=== PATIENT | female | born 1970 | race Hispanic/Latino ===

== ENCOUNTER 2018-03-30 08:22 | Emergency (ER) | payer BC, OTHER, SELFPAY ==
[2018-03-30] MEDS ORDERED: TETRACAINE HCL 0.5% 2ML OPTH ONE (08:41)
[2018-03-30] MEDS ORDERED: FLUORESCEIN SODIUM 0.6 MG/WRAP ONE (08:45)
--- NOTE | 2018-03-30 09:12 | ER ---
Nurse's Notes [facility] Name: Denise Solano Age: 47 yrs Sex: Female : 1970 Arrival Date: 03/30/2018 Time: 08:25 Bed 16 Private MD: Out, [facility] Diagnosis: Injury of conjunctiva and corneal abrasion without foreign body, left eye Presentation: 03/30 08:32 Presenting complaint: Patient states: pain and light sensitivity to L eye that began ss yesterday. Pt wears contacts daily. No known injury. Transition of care: patient was not received from another setting of care. Onset of symptoms was March 29, 2018. Risk Assessment: Do you want to hurt yourself or someone else? Patient reports no desire to harm self or others. Initial Sepsis Screen: Does the patient meet any 2 criteria? No. Patient's initial sepsis screen is negative. Does the patient have a suspected source of infection? No. Patient's initial sepsis screen is negative. Care prior to arrival: None. 08:32 Method Of Arrival: Ambulatory ss 08:32 Acuity: FE 4 ss Triage Assessment: 08:35 General: Appears uncomfortable, Behavior is calm, cooperative. Pain: Complains of pain ss in left eye Pain currently is 10 out of 10 on a pain scale. Quality of pain is described as burning, tender, Is continuous. Derm: Skin is pink, warm \T\ dry. 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 - Social history:: Smoking status: Patient/guardian denies using tobacco. - Ebola Screening: : Patient denies exposure to infectious person Patient denies travel to an Ebola-affected area in the 21 days before illness onset. Screenin:25 Abuse screen: Denies threats or abuse. Nutritional screening: No deficits noted. em Tuberculosis screening: No symptoms or risk factors identified. Fall Risk None identified. Assessment: 08:40 General: Appears in no apparent distress. uncomfortable, Behavior is calm, cooperative, em Reports pain in left eye after removing contact. Pain: Complains of pain in left eye Pain currently is 10 out of 10 on a pain scale. Quality of pain is described as sharp, Pain began 1 day ago. Neuro: Level of Consciousness is awake, alert, obeys commands, Oriented to person, place, time, situation. Cardiovascular: Capillary refill < 3 seconds Patient's skin is warm and dry. Respiratory: Airway is patent Respiratory effort is even, unlabored, Respiratory pattern is regular, symmetrical. GI: Abdomen is flat. EENT: Eyes are tearing on left eye Reports pain in left eye. Derm: Skin is intact, Skin is pink, warm \T\ dry. Musculoskeletal: Range of motion: intact in all extremities. Vital Signs: 08:34 Resp 16; Weight 59.87 kg; Height 4 ft. 11 in. (149.86 cm); Pain 10/10; ss 08:49 BP 146 / 92; Pulse 86; Pulse Ox 96% ; ss 08:52 Temp 97.6(TE); ss 08:34 Body Mass Index 26.66 (59.87 kg, 149.86 cm) ss Visual Acuity: 08:54 Left Eye Visual acuity 20/40, ; Right Eye Visual acuity 20/15, ; Both Eyes Visual em acuity 20/15; With Lenses; ED Course: 08:25 Patient arrived in ED. sb2 08:26 Out, [facility] is Private Physician. sb2 08:30 [facility] Wall [facility] 08:30 Jeffrey Hardin MD is Attending Physician. jmm 08:33 Triage completed. ss 08:34 Arm band placed on right wrist. ss 08:41 Jose Leos LVN is Primary Nurse. em 08:50 Patient has correct armband on for positive identification. Bed in low position. Call em light in reach. 09:11 Chandrakant Castro MD is Referral Physician. jmm 09:25 Assist provider with eye exam of left eye. using fluorescein stain, Performed by Alexander HERNANDEZ Patient tolerated well. Patient did not have IV access during this emergency room visit. Administered Medications: 08:41 Drug: Tetracaine Drops 0.5 % 1 drops {Note: administered by MARY Munoz.} Route: em Ophthalmic; Site: left eye; Outcome: :11 Discharge ordered by MD. mcneal 09:26 Discharged to home ambulatory. em : Condition: good : Discharge instructions given to patient, Instructed on discharge instructions, follow up and referral plans. medication usage, Demonstrated understanding of instructions, follow-up care, medications, Prescriptions given X 1. :26 Patient left the ED. em Signatures: Alexander Wall PA PA jmm Munoz, Edgar, FIELD PIPE LINES SUPERVISOR FIELD PIPE LINES SUPERVISOR Roseline Spears, RN RN Ania Yin sb2
--- NOTE | 2018-03-30 09:12 | EDPHYS ---
Physician Documentation [facility] Name: Denise Solano Age: 47 yrs Sex: Female : 1970 Arrival Date: 03/30/2018 Time: 08:25 Bed 16 Private MD: Out, [facility] ED Physician Jeffrey Hardin HPI: 03/30 08:36 This 47 yrs old Female presents to ER via Ambulatory with complaints of Eye jmm Problem. 08:36 Onset: The symptoms/episode began/occurred gradually, 1 day(s) ago. Associated signs jmm and symptoms:. Patient complains of left eye pain after developing and itch to her left eye. Patient states taking her contact out last night with increased pain today. . 08:36 Duration: the symptoms are continuous. jmm 08:36 Aggravated by light, Alleviated by nothing. 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 - Social history:: Smoking status: Patient/guardian denies using tobacco. - Ebola Screening: : Patient denies exposure to infectious person Patient denies travel to an Ebola-affected area in the 21 days before illness onset. ROS: 08:36 Constitutional: Negative for fever, chills, and weight loss. jmm 08:36 Neck: Negative for injury, pain, and swelling, Cardiovascular: Negative for chest pain, palpitations, and edema, Respiratory: Negative for shortness of breath, cough, wheezing, and pleuritic chest pain, Abdomen/GI: Negative for abdominal pain, nausea, vomiting, diarrhea, and constipation, Back: Negative for injury and pain, : Negative for injury, bleeding, discharge, and swelling, MS/Extremity: Negative for injury and deformity, Skin: Negative for injury, rash, and discoloration, Neuro: Negative for headache, weakness, numbness, tingling, and seizure. 08:36 Eyes: Positive for pain, redness. 08:36 All other systems are negative. Exam: 08:36 Visual Acuity: I have reviewed the nursing documentation. [facility] 08:36 Constitutional: This is a well developed, well nourished patient who is awake, alert, and in no acute distress. Head/Face: atraumatic. 08:36 Eyes: Conjunctiva: injected, in the left eye, Corneas: abrasion, that is small, on the left, at 12 o'clock, a fluorescein strip employed to appreciate the findings, Intraocular pressure: left eye = 12mmHg. 08:36 ENT: 08:36 Neck: ROM/movement: is normal. 08:36 Chest/axilla: Inspection: normal. 08:36 Cardiovascular: Rate: normal. 08:36 Respiratory: the patient does not display signs of respiratory distress. 08:36 Abdomen/GI: Inspection: abdomen appears normal. 08:36 Back: ROM is normal. 08:36 Musculoskeletal/extremity: ROM: intact in all extremities. 08:36 Skin: Appearance: Color: normal in color. 08:36 Neuro: Orientation: is normal, Mentation: is normal, Memory: is normal, Gait: is steady. 08:36 Psych: Behavior/mood is pleasant, cooperative. Vital Signs: 08:34 Resp 16; Weight 59.87 kg; Height 4 ft. 11 in. (149.86 cm); Pain 10/10; ss 08:49 BP 146 / 92; Pulse 86; Pulse Ox 96% ; ss 08:52 Temp 97.6(TE); ss 08:34 Body Mass Index 26.66 (59.87 kg, 149.86 cm) ss Visual Acuity: 08:54 Left Eye Visual acuity 20/40, ; Right Eye Visual acuity 20/15, ; Both Eyes Visual em acuity 20/15; With Lenses; MDM: 08:35 Patient medically screened. [facility] 09:10 Data reviewed: vital signs, nurses notes. Counseling: I had a detailed discussion with elizabet the patient and/or guardian regarding: the historical points, exam findings, and any diagnostic results supporting the discharge/admit diagnosis, the presence of at least one elevated blood pressure reading (>120/80) during this emergency department visit, the need for outpatient follow up, to return to the emergency department if symptoms worsen or persist or if there are any questions or concerns that arise at home. Response to treatment: the patient's symptoms have markedly improved after treatment. 03/30 08:36 Order name: Fluoresene Opth strip; Complete Time: 08:43 elizabet Administered Medications: 08:41 Drug: Tetracaine Drops 0.5 % 1 drops {Note: administered by MARY Munoz.} Route: em Ophthalmic; Site: left eye; Disposition: 14:36 Co-signature as Attending Physician, Jeffrey Hardin MD I agree with the assessment and kdr plan of care. Disposition: 03/30/18 09:11 Discharged to Home. Impression: Injury of conjunctiva and corneal abrasion without foreign body, left eye. - Condition is Stable. - Discharge Instructions: Corneal Abrasion. - Prescriptions for Ocuflox 0.3 % Ophthalmic Drops - instill 2 drop by OPHTHALMIC route every 6 hours for 2 days; 15 milliliter. - Medication Reconciliation Form, Thank You Letter, Antibiotic Education, Prescription Opioid Use form. - Follow up: Chandrakant Castro MD; When: 1 - 2 days; Reason: Continuance of care. - Notes: Please follow up with opthalmology for reevaluation. Please return to the ED if you develop fever, increased pain, decreased vision or any other concerning symptoms. Signatures: Jeffrey Hardin MD MD kdr Mickail, Joel, PA PA jmm Munoz, Edgar, OPERATIONS SPECIALIST OPERATIONS SPECIALIST Roseline Spears RN RN ss Corrections: (The following items were deleted from the chart) 09:26 09:11 03/30/2018 09:11 Discharged to Home. Impression: Injury of conjunctiva and em corneal abrasion without foreign body, left eye. Condition is Stable. Forms are Medication Reconciliation Form, Thank You Letter, Antibiotic Education, Prescription Opioid Use. Follow up: Chandrakant Castro; When: 1 - 2 days; Reason: Continuance of care. elizabet
== END 2018-03-30 09:26 | disposition home or self-care (01) ==
LOC: ER 08:22
DX: S05.02XA Injury of conjunctiva and corneal abrasion without foreign body, left eye, initial encounter (principal); F32.9 Major depressive disorder, single episode, unspecified; F41.9 Anxiety disorder, unspecified; Z88.0 Allergy status to penicillin; X58.XXXA Exposure to other specified factors, initial encounter; Y92.9 Unspecified place or not applicable; Y93.89 Activity, other specified; Y99.9 Unspecified external cause status
CPT/HCPCS: 99283

== ENCOUNTER 2020-10-13 09:23 | Emergency (ER) | payer BC ==
--- OUTSIDE RECORDS SUMMARY | 2020-10-13 09:33 | XMS REPORT | Continuity of Care Document ---
:1970 Author Organization [facility] t Address [address] [place] [address] Care Team Providers Name Role Phone Jarrett Swift Attending Clinician Jarrett Swift Admitting Clinician Problems Condition Condition Condition Status Onset Resolution Last Treating Co mments Source Name Details Category Date Date Treatment Clinician Date Anxiety Problem Active 2019-06-21 Dani ulises (finding) 04:00:35 l Anxiety Mcwilliams (finding) Active Problem 06/21/2019 [facility] Shoulder Problem Active 2019-06-21 Mem oria pain 04:00:35 l (finding) Shoulder Her arango pain (finding) Active Problem 06/21/2019 [facility] Other Problem 2019-0 2019-06-21 2019-06-21 M emoria injury of 9-04 04:00:35 04:00:35 l muscle(s) Other 05:00: Jean n and injury of 00 tendon(s) muscle(s) of the and rotator tendon(s) cuff of of the left rotator shoulder, cuff of initial left encounter shoulder, initial encounter 06/19/2019 06/21/2019 [facility] History of Past Illness Condition Condition Condition Status Onset Resolution Last Treating Co mments Source Name Details Category Date Date Treatment Clinician Date Infection Problem Resolve 2019-0 2019-06-21 2019-06-21 Memoria of tooth d 7-03 04:00:35 04:00:35 l (disorder) 00:00: Jean n Infection 00 of tooth (disorder) Resolved 04/17/2019 Problem 06/21/2019 [facility] Allergies, Adverse Reactions, Alerts Allergy Allergy Status Severity Reaction(s) Onset Inactive Treating Comm ents Source Name Type Date Date Clinician penicill penicill Active Memori a ins ins l Elijah Social History Smoking Status Start Date Stop Date Source Social History [facility] Medications Ordered Filled Start Stop Current Ordering Indication Dosage Frequency Signature Comments Components Source Medication Medication Date Date Medication? Clinician (SIG) Name Name Misc 2018- No 200 mL, Memoria Medication 9-04 Soln-IV, l 22:29: IV, Once, Elijah 00 first dose 06/19/19 17:29:00 CDT, stop date 06/19/19 17:29:00 CDT Ondansetron No 4 mg = 2 Me moria 9-04 mL, l 22:22: Injection, Mcwilliams 00 IV Push, q15min PRN for nausea, order duration: 2 doses, first dose 06/19/19 17:22:00 CDT, stop date Limited # of times Dilaudid No 0.5 mg = Memor ia 9-04 0.5 mL, l 22:22: Injection, Mcwilliams 00 IV Push, q10min PRN for pain severe (7-10), first dose 06/19/19 17:22:00 CDT Promethazin No 12.5 mg = M emoria e 9-04 0.5 mL, l 22:22: Injection, IM, Once PRN for vomiting, first dose 06/19/19 17:22:00 CDT Bupivacaine No 300 mL, Mem oria 0.25% 300 04 Nerve l mL pump 300 22:22: Block, 5 He rmann mL 00 mL/hr, start date 06/19/19 17:22:00 CDT LR 1,000 mL No 1,000 mL, M emoria 9-04 IV, 75 l 22:22: mL/hr, start date 06/19/19 17:22:00 CDT Saline Lock No 10 mL, Dani ulises Flush 06-19 Soln, IV l 22:22: Push, As Indicated PRN for flush, first dose 06/19/19 17:22:00 CDT Acetaminoph Yes Notes: Max Memoria en 325 MG / 06-19 4gm l Hydrocodone 22:21: acetaminop Elijah Bitartrate 00 hen in 24 10 MG Oral hours Tablet [[place] 10/325] Zofran 2019-0 No 4 mg = 2 Memoria 9-04 mL, l 22:21: Injection, Elijah 00 IV Push, q30min PRN for nausea/vom iting, order duration: 2 doses, first dose 06/19/19 17:21:00 CDT, stop date Limited # of times fentaNYL 2019-0 No 50 mcg = 1 Mem oria 9-04 mL, l 22:04: Injection, Elijah 00 IV, Once, first dose 06/19/19 17:04:00 CDT, stop date 06/19/19 17:04:00 CDT ketorolac 2019-0 No 30 mg = 1 Mem oria 9-04 mL, l 22:02: Injection, Mcwilliams 00 IV, Once, first dose 06/19/19 17:02:00 CDT, stop date 06/19/19 17:02:00 CDT fentaNYL 2019-0 No 50 mcg = 1 Mem oria 9-04 mL, l 21:48: Injection, Elijah 00 IV, Once, first dose 06/19/19 16:48:00 CDT, stop date 06/19/19 16:48:00 CDT Misc 2019-0 No 1,000 mL, Memoria Medication 9-04 Soln-IV, l 21:32: IV, Once, first dose 06/19/19 16:32:00 CDT, stop date 06/19/19 16:32:00 CDT clindamycin 2019-0 No 900 mg, Mem oria 9-04 Soln-IV, l 20:29: IV Mcwilliams 00 Piggyback, Once, first dose 06/19/19 15:29:00 CDT, stop date 06/19/19 15:29:00 CDT Dilaudid 2019-0 No 0.5 mg = Memor ia 9-04 0.5 mL, l 20:26: Injection, Mcwilliams 00 IV Push, q10min PRN for pain severe (7-10), first dose 06/19/19 15:26:00 CDT Labetalol 2019-0 No 5 mg = 1 Dani ulises 9-04 mL, l 20:26: Injection, Mcwilliams 00 IV Push, As Indicated PRN for hypertensi on, first dose 06/19/19 15:26:00 CDT Diphenhydra 2019-0 No 25 mg = Mem oria mine 9-04 0.5 mL, l 20:26: Injection, Mcwilliams 00 IV Push, Once PRN for itching, first dose 06/19/19 15:26:00 CDT Promethazin 2019-0 No 12.5 mg = M emoria e 9-04 0.5 mL, l 20:26: Injection, Elijah 00 IM, Once PRN for vomiting, first dose 06/19/19 15:26:00 CDT Hydralazine 2018-0 No 10 mg = Mem oria 9-04 0.5 mL, l 20:26: Injection, Elijah IV Push, As Indicated PRN for hypertensi on, first dose 06/19/19 15:26:00 CDT Demerol HCl 2018-0 No 12.5 mg = M emoria 9-04 0.5 mL, l 20:26: Injection, Elijah 00 IV Push, Once PRN for shivers, first dose 06/19/19 15:26:00 CDT Levalbutero 2018-0 No 0.63 mg = M emoria l 0.21 9-04 3 mL, l MG/ML 20:26: Soln, NEB, Jean n Inhalant 00 Once PRN Solution for [Xopenex] wheezing, first dose 06/19/19 15:26:00 CDT Ondansetron 0 No 4 mg = 2 Me moria 9-04 mL, l 20:26: Injection, Elijah 00 IV Push, q15min PRN for nausea, order duration: 2 doses, first dose 06/19/19 15:26:00 CDT, stop date Limited # of times Saline Lock 2018-0 No 10 mL, Dani ulises Flush 06-19 Soln, IV l 20:26: Push, As Mcwilliams 00 Indicated PRN for flush, first dose 06/19/19 15:26:00 CDT LR 1,000 mL 2019-0 No 1,000 mL, M emoria 9-04 IV, 75 l 20:26: mL/hr, Elijah start date 06/19/19 15:26:00 CDT Bupivacaine 2018-0 No 300 mL, Mem oria 0.25% 300 904 Nerve l mL pump 300 20:26: Block, 5 He rmann mL 00 mL/hr, start date 06/19/19 15:26:00 CDT ePHEDrine 2019-0 No 10 mg = Memor ia 9-04 0.2 mL, l 20:25: Injection, Mcwilliams 00 IV, Once, first dose 06/19/19 15:25:00 CDT, stop date 06/19/19 15:25:00 CDT dexamethaso 2019-0 No 8 mg = 2 Me moria ne 9-04 mL, l 20:21: Injection, Mcwilliams 00 IV, Once, first dose 06/19/19 15:21:00 CDT, stop date 06/19/19 15:21:00 CDT ondansetron 2019-0 No 4 mg = 2 Me moria 9-04 mL, l 20:21: Injection, Mcwilliams 00 IV, Once, first dose 06/19/19 15:21:00 CDT, stop date 06/19/19 15:21:00 CDT lidocaine 2019-0 No 60 mg = 3 Mem oria 9-04 mL, l 20:07: Injection, Elijah 00 IV, Once, first dose 06/19/19 15:07:00 CDT, stop date 06/19/19 15:07:00 CDT propofol 2019-0 No 100 mg = Memor ia 9-04 10 mL, l 20:07: Emulsion, Mcwilliams 00 IV, Once, first dose 06/19/19 15:07:00 CDT, stop date 06/19/19 15:07:00 CDT fentaNYL 2019-0 No 50 mcg = 1 Mem oria 9-04 mL, l 20:04: Injection, Mcwilliams 00 IV, Once, first dose 06/19/19 15:04:00 CDT, stop date 06/19/19 15:04:00 CDT midazolam 2019-0 No 1 mg = 1 Dani ulises 9-04 mL, l 20:04: Injection, Elijah 00 IV, Once, first dose 06/19/19 15:04:00 CDT, stop date 06/19/19 15:04:00 CDT Misc 2019-0 No 1,000 mL, Memoria Medication 9- Soln-IV, l 19:58: IV, Once, Mcwilliams 00 first dose 06/19/19 14:58:00 CDT, stop date 06/19/19 14:58:00 CDT midazolam 2019-0 No 1 mg = 1 Dani ulises 9-04 mL, l 19:42: Injection, Mcwilliams 00 IV, Once, first dose 06/19/19 14:42:00 CDT, stop date 06/19/19 14:42:00 CDT fentaNYL 2019-0 No 50 mcg = 1 Mem oria 9-04 mL, l 19:42: Injection, Mcwilliams 00 IV, Once, first dose 06/19/19 14:42:00 CDT, stop date 06/19/19 14:42:00 CDT Clindamycin 2019-0 No 900 mg, Mem oria 9-04 Soln-IV, l 18:00: IV Elijah 00 Piggyback, Once, infuse over 30 minutes, first dose 06/19/19 13:00:00 CDT, stop date 06/19/19 13:00:00 CDT, Prophylaxi s Lidocaine 2019-0 No 0.2 mL, Memor ia 2% 0.2 mL 06-19 Injection, l IV Start 17:44: Subcutaneo Her [facility]] 00 , Once PRN for other (see comment), first dose 06/19/19 12:44:00 CDT LR 1,000 mL 2019-0 No 1,000 mL, M emoria - IV, 30 l 17:44: mL/hr, Mcwilliams 00 start date 06/19/19 12:44:00 CDT Alprazolam 2019-0 Yes 1 mg = 1 Mem oria 1 MG Oral 8-27 tabs, l Tablet 20:52: Oral, As Elijah [Xanax] 00 Indicated, PRN for anxiety Vital Signs Vital Name Observation Time Observation Value Comments Source Systolic (mm Hg) 2019-06-19 23:50:00 Dani rial Mcwilliams Diastolic (mm Hg) 2019-06-19 23:50:00 Mem orial Elijah Respitory Rate 2019-06-19 23:50:00 Arturoori al Elijah Heart Rate 2019-06-19 23:50:00 [facility] Mcwilliams Systolic (mm Hg) 2019-06-19 23:10:00 Dani rial Mcwilliams Diastolic (mm Hg) 2019-06-19 23:10:00 Mem orial Elijah Heart Rate 2019-06-19 23:10:00 [facility] Mcwilliams Respitory Rate 2019-06-19 23:10:00 Isa xavier Elijah Systolic (mm Hg) 2019-06-19 23:00:00 Dani salinas Mcwilliams Diastolic (mm Hg) 2019-06-19 23:00:00 [facility] orial Mcwilliams Heart Rate 2019-06-19 23:00:00 [facility] Respitory Rate 2019-06-19 23:00:00 Memmissy al Elijah Temperature Oral (F) 2019-06-19 22:20:00 36.9 Flor [facility] Mcwilliams Temperature Oral (F) 2019-06-19 17:42:00 36.8 Flor [facility] Elijah Height 2019-06-19 17:42:00 149.86 cm [facility] Elijah Height 2019-06-11 20:45:00 149.86 cm [facility] Elijah Procedures Procedure Date / Time Performing Clinician Source Performed ARTHROSCOPIC DEBRIDEMENT 2019-06-19 20:39:00 [facility] orimorenita Nava SHOULDER-EXTENSIVE 86854 (Left)<sup>1</sup> ARTHROSCOPY SHOULDER 2019-06-19 20:39:00 Isable Nava ROTATOR CUFF REPAIR [id number] (Left)<sup>2</sup> ARTHROSCOPY SHOULDER 2019-06-19 20:39:00 Isabel Nava W/BICEPS TENDONESIS [id number] (Left)<sup>3</sup> ARTHROSCOPY SHOULDER 2019-06-19 20:39:00 Isabel Nava W/SUBACROMIAL DECOMPRESSION/ACROMIOPLASTY [id number] (Left)<sup>4</sup> tooth extraction 2019-04-17 05:00:00 [facility] Gilberto rmann Appendectomy 2010-10-16 00:00:00 [facility] arango Hysterectomy 2007-10-16 00:00:00 [facility] Her arango Cholecystectomy 2005-10-16 00:00:00 [facility] Her arango Encounters Start End Encounter Admission Attending Care Care Encounter Source Date/Time Date/Time Type Type Clinicians Facility Department ID 2019-06-19 2019-06-19 [facility] [id number] 11:54:16 19:00:00 Eusebio Farias 2018-12-21 2018-12-21 [facility] [id number] 09:21:48 23:59:59 Eusebio Farias Results This patient has no known results.
--- OUTSIDE RECORDS SUMMARY | 2020-10-13 09:33 | XMS REPORT | Continuity of Care Document ---
:1970 Author Organization [email or web address] Care Team Providers Name Role Phone [email or web address] Unavailable Un available Problems Problem Status Onset Classification Date Comments Sourc e Date Reported Other injury 06/21/2019 [facility] of muscle(s) 9 and tendon(s) of the rotator cuff of left shoulder, initial encounter Infection of Resolved Problem 06/21/2019 [facility] tooth 9 (disorder) Anxiety Active Problem 06/21/2019 [facility] (finding) Shoulder pain Active Problem 06/21/2019 [facility] (finding) Medications Medication Details Route Status Patient Ordering Order Source Instructions [facility] Med[facility] 200 mL, Inactive [facility] Soln-IV, IV, 2019 Once, first dose 06/19/19 17:29:00 CDT, stop date 06/19/19 17:29:00 CDT Ondansetron 4 mg = 2 mL, Inactive [facility] Injection, IV 2019 Push, q15min PRN for nausea, order duration: 2 doses, first dose 06/19/19 17:22:00 CDT, stop date Limited # of times Dilaudid 0.5 mg = 0.5 Inactive 06/19/ [facility] mL, Injection, 2019 IV Push, q10min PRN for pain severe (7-10), first dose 06/19/19 17:22:00 CDT Promethazine 12.5 mg = 0.5 Inactive 06/19/ [facility] mL, Injection, 2019 IM, Once PRN for vomiting, first dose 06/19/19 17:22:00 CDT Bupivacaine 0.25% 300 mL, Nerve Inactive 06/19/ [facility] 300 mL pump 300 Block, 5 mL/hr, 2019 mL start date 06/19/19 17:22:00 CDT LR 1,000 mL 1,000 mL, IV, Inactive 06/19/ [facility] 75 mL/hr, start 2019 06/19/19 17:22:00 CDT Saline Lock Flush 10 mL, Soln, IV Inactive 06/19 / [facility] Push, As 2019 Indicated PRN for flush, first dose 06/19/19 17:22:00 CDT Acetaminophen 325 Notes: Max 4gm Active 06/19/ [facility] MG / Hydrocodone acetaminophen 2019 Bitartrate 10 MG in 24 hours Oral Tablet [Tualatin 10/325] Zofran 4 mg = 2 mL, Inactive [facility] Injection, IV 2019 Push, q30min PRN for nausea/vomiting , order duration: 2 doses, first dose 06/19/19 17:21:00 CDT, stop date Limited # of times fentaNYL 50 mcg = 1 mL, Inactive [facility] Injection, IV, 2019 Once, first dose 06/19/19 17:04:00 CDT, stop date 06/19/19 17:04:00 CDT ketorolac 30 mg = 1 mL, Inactive [facility] Injection, IV, 2019 Once, first dose 06/19/19 17:02:00 CDT, stop date 06/19/19 17:02:00 CDT fentaNYL 50 mcg = 1 mL, Inactive [facility] Injection, IV, 2019 Once, first dose 06/19/19 16:48:00 CDT, stop date 06/19/19 16:48:00 CDT Misc Medication 1,000 mL, Inactive [facility] Soln-IV, IV, 2019 Once, first dose 06/19/19 16:32:00 CDT, stop date 06/19/19 16:32:00 CDT clindamycin 900 mg, Inactive [facility] Soln-IV, IV 2019 Piggyback, Once, first dose 06/19/19 15:29:00 CDT, stop date 06/19/19 15:29:00 CDT Dilaudid 0.5 mg = 0.5 Inactive [facility] mL, Injection, 2019 IV Push, q10min PRN for pain severe (7-10), first dose 06/19/19 15:26:00 CDT Labetalol 5 mg = 1 mL, Inactive [facility] Injection, IV 2019 Push, As Indicated PRN for hypertension, first dose 06/19/19 15:26:00 CDT Diphenhydramine 25 mg = 0.5 mL, Inactive 06/19/ [facility] Injection, IV 2019 Push, Once PRN for itching, first dose 06/19/19 15:26:00 CDT Promethazine 12.5 mg = 0.5 Inactive 06/19/ [facility] mL, Injection, 2019 IM, Once PRN for vomiting, first dose 06/19/19 15:26:00 CDT Hydralazine 10 mg = 0.5 mL, Inactive [facility] I Injection, IV 2019 Push, As Indicated PRN for hypertension, first dose 06/19/19 15:26:00 CDT Demerol HCl 12.5 mg = 0.5 Inactive 06/19/ [facility] mL, Injection, 2019 IV Push, Once PRN for shivers, first dose 06/19/19 15:26:00 CDT Levalbuterol 0.21 0.63 mg = 3 mL, Inactive 06/19 [facility] MG/ML Inhalant Soln, NEB, Once 2019 Solution PRN for [Xopenex] wheezing, first dose 06/19/19 15:26:00 CDT Ondansetron 4 mg = 2 mL, Inactive [facility] Injection, IV 2019 Push, q15min PRN for nausea, order duration: 2 doses, first dose 06/19/19 15:26:00 CDT, stop date Limited # of times Saline Lock Flush 10 mL, Soln, IV Inactive 06/19 [facility] Push, As 2019 Indicated PRN for flush, first dose 06/19/19 15:26:00 CDT LR 1,000 mL 1,000 mL, IV, Inactive [facility] 75 mL/hr, start 2019 date 06/19/19 15:26:00 CDT Bupivacaine 0.25% 300 mL, Nerve Inactive 06/19/ [facility] 300 mL pump 300 Block, 5 mL/hr, 2019 mL start date 06/19/19 15:26:00 CDT ePHEDrine 10 mg = 0.2 mL, Inactive [facility] Injection, IV, 2019 Once, first dose 06/19/19 15:25:00 CDT, stop date 06/19/19 15:25:00 CDT dexamethasone 8 mg = 2 mL, Inactive [facility] Injection, IV, 2019 Once, first dose 06/19/19 15:21:00 CDT, stop date 06/19/19 15:21:00 CDT ondansetron 4 mg = 2 mL, Inactive [facility] Injection, IV, 2019 Once, first dose 06/19/19 15:21:00 CDT, stop date 06/19/19 15:21:00 CDT lidocaine 60 mg = 3 mL, Inactive [facility] Injection, IV, 2019 Once, first dose 06/19/19 15:07:00 CDT, stop date 06/19/19 15:07:00 CDT propofol 100 mg = 10 mL, Inactive I Emulsion, IV, 2019 Once, first dose 06/19/19 15:07:00 CDT, stop date 06/19/19 15:07:00 CDT fentaNYL 50 mcg = 1 mL, Inactive [facility] Injection, IV, 2019 Once, first dose 06/19/19 15:04:00 CDT, stop date 06/19/19 15:04:00 CDT midazolam 1 mg = 1 mL, Inactive [facility] Injection, IV, 2019 Once, first dose 06/19/19 15:04:00 CDT, stop date 06/19/19 15:04:00 CDT Misc Medication 1,000 mL, Inactive I Soln-IV, IV, 2019 Once, first dose 06/19/19 14:58:00 CDT, stop date 06/19/19 14:58:00 CDT midazolam 1 mg = 1 mL, Inactive [facility] Injection, IV, 2019 Once, first dose 06/19/19 14:42:00 CDT, stop date 06/19/19 14:42:00 CDT fentaNYL 50 mcg = 1 mL, Inactive [facility] Injection, IV, 2019 Once, first dose 06/19/19 14:42:00 CDT, stop date 06/19/19 14:42:00 CDT Clindamycin 900 mg, Inactive I Soln-IV, IV 2019 Piggyback, Once, infuse over 30 minutes, first dose 06/19/19 13:00:00 CDT, stop date 06/19/19 13:00:00 CDT, Prophylaxis Lidocaine 2% 0.2 0.2 mL, Inactive [facility] mL IV Start Injection, 2019 [[facility]] Subcutaneous, Once PRN for other (see comment), first dose 06/19/19 12:44:00 CDT LR 1,000 mL 1,000 mL, IV, Inactive 06/19/ [facility] 30 mL/hr, start 2019 date 06/19/19 12:44:00 CDT Alprazolam 1 MG 1 mg = 1 tabs, Active [facility] Oral Tablet Oral, As 2019 [Xanax] Indicated, PRN for anxiety Allergies, Adverse Reactions, Alerts Substance Category Reaction Severity Reaction Status Date Comments S ource type Reported penicillins Assertion Rash Drug Active [facility] allergy Immunizations No Data Provided for This Section Results No Data Provided for This Section Pathology Reports No Data Provided for This Section Diagnostic Reports No Data Provided for This Section Consultation Notes No Data Provided for This Section Discharge Summaries No Data Provided for This Section History and Physicals No Data Provided for This Section Vital Signs Vital Sign Value Date Comments Source Systolic (mm Hg) 160 06/19/2019 [facility] Diastolic (mm Hg) 80 06/19/2019 [facility] Respitory Rate 12 06/19/2019 [facility] Heart Rate 95 06/19/2019 [facility] Systolic (mm Hg) 170 06/19/2019 [facility] Diastolic (mm Hg) 93 06/19/2019 [facility] Heart Rate 100 06/19/2019 [facility] Respitory Rate 14 06/19/2019 [facility] Systolic (mm Hg) 152 06/19/2019 [facility] Diastolic (mm Hg) 81 06/19/2019 [facility] Heart Rate 82 06/19/2019 [facility] Respitory Rate 12 06/19/2019 [facility] Temperature Oral (F) 36.9 Flor 06/19/2019 [facility] Temperature Oral (F) 36.8 Flor 06/19/2019 [facility] Peripheral Pulse Rate 77 06/19/2019 [facility] Height 149.86 cm 06/19/2019 [facility] Weight Measured 59.4 06/19/2019 [facility] Weight Measured 59.42 06/11/2019 [facility] Height 149.86 cm 06/11/2019 [facility] Encounters Location Location Encounter Encounter Reason Attending ADM [place] Stat us Source Details Type Number For Provider Date Date Visit [facility] Outpatient [id number] Eusebio 12/21 12/21 Active [facility] Outpatient [id number] Eusebio 12/21 12/22 [facility] Elijah Spicer [facility] Outpatient [id number] Eusebio 06/19 06/19 Active Surgic al [facility] Outpatient [id number] Eusebio 06/19 06/20 [facility] Elijah Spicer [facility] Procedures Procedure Code Date Perfomer Comments Source ARTHROSCOPIC 06/19/2019 auto-populated [facility] DEBRIDEMENT from documented SHOULDER-EXTENSIVE surgical case [id number] (Left)<sup>1</sup> ARTHROSCOPY SHOULDER 06/19/2019 auto-populated [facility] ROTATOR CUFF REPAIR from documented [id number] surgical case (Left)<sup>2</sup> ARTHROSCOPY SHOULDER 06/19/2019 auto-populated [facility] W/BICEPS TENDONESIS from documented [id number] surgical case (Left)<sup>3</sup> ARTHROSCOPY SHOULDER 06/19/2019 auto-populated [facility] W/SUBACROMIAL from documented DECOMPRESSION/ACROMIO surgical case PLASTY [id number] (Left)<sup>4</sup> tooth extraction 04/17/2019 [facility] Appendectomy [id number] 10/16/2010 [facility] Hysterectomy [id number] 10/16/2007 [facility] Cholecystectomy [id number] 10/16/2005 [facility] Assessment and Plan No Data Provided for This Section Plan of Care No Data Provided for This Section Social History Social History Date Source Social History TypeResponse 06/11/2019 [facility] Smoking Status Never (less than 100 in lifetime); Never entered on: 06/11/19 Family History No Data Provided for This Section Advance Directives No Data Provided for This Section Functional Status No Data Provided for This Section
[2020-10-13] MEDS ORDERED: FLUORESCEIN SODIUM 1 MG/WRAP ONE (10:01)
[2020-10-13] MEDS ORDERED: TETRACAINE HCL 0.5% 4ML OPTH ONE (10:01)
--- NOTE | 2020-10-13 10:07 | ER ---
Nurse's Notes [facility] Name: Denise Solano Age: 49 yrs Sex: Female : 1970 Arrival Date: 10/13/2020 Time: 09:26 Bed 14 Private MD: Diagnosis: Ocular pain, right eye Presentation: 10/13 09:35 Chief complaint: Patient states: Reports right eye pain/pressure since yesterday. jl7 Coronavirus screen: Client denies travel out of the [place] in the last 14 days. At this time, the client does not indicate any symptoms associated with coronavirus-19. Ebola Screen: No symptoms or risks identified at this time. Mechanism of Injury: No Mechanism of Injury. The patient denies any loss of vision. Initial Sepsis Screen: Does the patient meet any 2 criteria? No. Patient's initial sepsis screen is negative. Does the patient have a suspected source of infection? No. Patient's initial sepsis screen is negative. Risk Assessment: Do you want to hurt yourself or someone else? Patient reports no desire to harm self or others. Onset of symptoms was October 12, 2020. Transition of care: patient was not received from another setting of care. 09:35 Method Of Arrival: Ambulatory jl7 09:35 Acuity: FE 4 jl7 Triage Assessment: 09:35 General: Appears in no apparent distress. uncomfortable, Behavior is calm, cooperative, jl7 appropriate for age. Pain: Complains of pain in right eye Pain currently is 8 out of 10 on a pain scale. at worst was 10 out of 10 on a pain scale. EENT: Sclera/Cornea are reddened in right eye. Neuro: Level of Consciousness is awake, alert, obeys commands, Oriented to person, place, time, situation. Cardiovascular: Patient's skin is warm and dry. Respiratory: Airway is patent Respiratory effort is even, unlabored, Respiratory pattern is regular, symmetrical. Derm: Skin is pink, warm \T\ dry. 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 - Social history:: Smoking status: Patient denies any tobacco usage or history of. - Family history:: not pertinent. - Hospitalizations: : No recent hospitalization is reported. Screenin:35 Abuse screen: Denies threats or abuse. Denies injuries from another. Nutritional jl7 screening: No deficits noted. Tuberculosis screening: No symptoms or risk factors identified. Fall Risk None identified. Assessment: 09:35 General: see triage assessment. jl7 Vital Signs: 09:35 BP 161 / 96; Pulse 85; Resp 17; Pulse Ox 100% ; Weight 58.97 kg; Height 4 ft. 11 in. jl7 (149.86 cm); Pain 8/10; 09:35 Body Mass Index 26.26 (58.97 kg, 149.86 cm) jl7 ED Course: 09:26 Patient arrived in ED. rg4 09:34 José Blankenship MD is Attending Physician. rn 09:35 Arm band placed on right wrist. jl7 09:35 Patient has correct armband on for positive identification. Bed in low position. Call jl7 light in reach. Side rails up X 1. Pulse ox on. NIBP on. 09:45 Assist provider with eye exam of right eye. using fluorescein stain, Performed by José Blankenship MD Patient tolerated well. 09:54 Katie Gomez, RN is Primary Nurse. jl7 09:58 Triage completed. jl7 10:06 Chandrakant Castro MD is Referral Physician. rn 10:21 Patient did not have IV access during this emergency room visit. jl7 Administered Medications: 09:45 Drug: Fluorescein Strip 1 strip Route: Ophthalmic; Site: right eye; jl7 09:45 Drug: Tetracaine Drops 0.5 % 1 drops {Note: administered by Dr. Blankenship.} Route: jlHanny Ophthalmic; Site: right eye; Outcome: 10:06 Discharge ordered by MD. rn 10:20 Discharged to home ambulatory. jl7 10:20 Condition: stable 10:20 Discharge instructions given to patient, Instructed on discharge instructions, follow up and referral plans. medication usage, Demonstrated understanding of instructions, follow-up care, medications, Prescriptions given X 1. 10:21 Patient left the ED. jl7 Signatures: José Blankenship MD MD rn Garcia, Rubi rg4 Katie Gomez RN RN jl7
--- NOTE | 2020-10-13 10:07 | EDPHYS ---
Physician Documentation [facility] Name: Denise Solano Age: 49 yrs Sex: Female : 1970 Arrival Date: 10/13/2020 Time: 09:26 Bed 14 Private MD: ED Physician José Blankenship HPI: 10/13 09:46 This 49 yrs old Female presents to ER via Unassigned with complaints of Eye rn Pain. 09:46 The patient is experiencing pain, redness, tearing, The patient sustained None. to the rn right eye, caused by an unknown mechanism. Onset: The symptoms/episode began/occurred yesterday. Duration: the symptoms are continuous. Aggravated by light, rubbing, Alleviated by nothing. Patient does not utilize any form of vision correction. Severity of symptoms: At their worst the symptoms were moderate in the emergency department the symptoms are unchanged. The patient has experienced a previous episode. The patient has not recently seen a physician. 09:46 Woke up after nap yesterday with right eye redness and tearing. No trauma. No contacts. rn . 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 - Social history:: Smoking status: Patient denies any tobacco usage or history of. - Family history:: not pertinent. - Hospitalizations: : No recent hospitalization is reported. 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 Exam: 09:46 Visual Acuity: I have reviewed the nursing documentation. Visual acuity is within rn normal limits. 09:46 Constitutional: This is a well developed, well nourished patient who is awake, alert, and in no acute distress. Head/Face: Normocephalic, atraumatic. Eyes: Pupils equal round and reactive to light, extra-ocular motions intact. Lids and lashes normal. Periorbital areas with no swelling, redness, or edema. + mild redness to sclera and conjunctivae, clear drainage, no corneal defect, no foreign body, no lfuorescein uptake, eyelids everted. Tonopen pressures 22 and 20. Vital Signs: 09:35 BP 161 / 96; Pulse 85; Resp 17; Pulse Ox 100% ; Weight 58.97 kg; Height 4 ft. 11 in. jl7 (149.86 cm); Pain 8/10; 09:35 Body Mass Index 26.26 (58.97 kg, 149.86 cm) jl7 MDM: 09:34 Patient medically screened. rn 09:46 Differential diagnosis: Corneal abrasion of Corneal ulcer of Foreign body in Acute rn iritis of Data reviewed: vital signs, nurses notes, and as a result, I will discharge patient. Counseling: I had a detailed discussion with the patient and/or guardian regarding: the historical points, exam findings, and any diagnostic results supporting the discharge/admit diagnosis, the need for outpatient follow up, to return to the emergency department if symptoms worsen or persist or if there are any questions or concerns that arise at home. Special discussion: I discussed with the patient/guardian in detail that at this point there is no indication for admission to the hospital. It is understood, however, that if the symptoms persist or worsen the patient needs to return immediately for re-evaluation. 10:03 ED course: Recommended urgent Ophthalmology f/u today if possible given upper limit of rn normal of eye pressure, no foreign body found. Will cover with abx, but explained that her eye pressure could continue to increase and cause vision problems permanently, understands, and told her if can't get in and worsens, to come back for repeat pressure testing. . 10/13 09:46 Order name: Eye Tray; Complete Time: 10:03 rn Administered Medications: 09:45 Drug: Fluorescein Strip 1 strip Route: Ophthalmic; Site: right eye; 7 09:45 Drug: Tetracaine Drops 0.5 % 1 drops {Note: administered by Dr. Blankenship.} Route: jl Ophthalmic; Site: right eye; Disposition: 10/13/20 10:06 Discharged to Home. Impression: Ocular pain, right eye. - Condition is Stable. - Prescriptions for Vigamox 0.5 % Ophthalmic Drops - instill 1 drop by OPHTHALMIC route every 8 hours for 7 days; 5 milliliter. - Medication Reconciliation Form, Thank You Letter, Antibiotic Education, Prescription Opioid Use form. - Follow up: Chandrakant Castro MD; When: As needed; Reason: Recheck today's complaints, Re-evaluation by your physician. - Problem is new. - Symptoms have improved. Signatures: José Blankenship MD MD rn Leal, Jahala, RN RN jl7 Corrections: (The following items were deleted from the chart) 09:56 09:46 Constitutional: This is a well developed, well nourished patient who is awake, rn alert, and in no acute distress. Head/Face: Normocephalic, atraumatic. Eyes: Pupils equal round and reactive to light, extra-ocular motions intact. Lids and lashes normal. Periorbital areas with no swelling, redness, or edema. + mild redness to sclera and conjunctivae, clear drainage, no corneal defect, no foreign body, no lfuorescein uptake, eyelids everted. rn 10:21 10:06 10/13/2020 10:06 Discharged to Home. Impression: Ocular pain, right eye. jl7 Condition is Stable. Forms are Medication Reconciliation Form, Thank You Letter, Antibiotic Education, Prescription Opioid Use. Follow up: Chandrakant Castro; When: As needed; Reason: Recheck today's complaints, Re-evaluation by your physician. Problem is new. Symptoms have improved. rn
[2020-10-13 10:25] VITALS: BP 161/96; O2SAT 100
== END 2020-10-13 10:21 | disposition home or self-care (01) ==
LOC: ER 09:23
DX: H57.11 Ocular pain, right eye (principal); F41.8 Other specified anxiety disorders; E11.9 Type 2 diabetes mellitus without complications; Z88.0 Allergy status to penicillin
CPT/HCPCS: 99283

== ENCOUNTER 2022-09-26 13:43 | Emergency (ER) | payer BC ==
--- OUTSIDE RECORDS SUMMARY | 2022-09-26 13:49 | XMS REPORT | Continuity of Care Document ---
:1970 Author Organization [facility] t Address [address] [place] [address] [address]. [address] [place] [address] Care Team Providers Name Role Phone THOR ENGLISH Primary Care Physician Unavailable BILL QUICK Attending Clinician Unavailable KATHY OLMSTEAD Attending Clinician Unavailable TESTING, LJ COVID CORRINEIDE Attending Clinician Unavailable [id number] Attending Clinician Unavailable [id number] Attending Clinician Unavailable URMILA RICO Attending Clinician Unavailable Bill Quick DO Attending Clinician Alexander BROTHERS, Sheri Kennedy Attending Clinician Unavailable DEBRA RHODES Attending Clinician Unavailable Sumanth Ray PA-C Attending Clinician Debra Block Attending Clinician Roxana Olvera RN Attending Clinician Unavailable HUE GOETZ Attending Clinician Unavailable Only, Ang Db Test Attending Clinician Unavailable Hue Ramirez Attending Clinician Doctor Unassigned, Juliette Attending Clinician Unavailable EMIR BYRD Attending Clinician Unavailable RADIOLOGY Attending Clinician Unavailable Eusebio Swift Attending Clinician THOR ENGLISH Admitting Clinician Unavailable Eusebio Swift Admitting Clinician Payers Payer Name Policy Type Policy Number Effective Date Expiration Date S ource [facility] 2 [id number] 2021 00:00:00 Problems Condition Condition Condition Status Onset Resolution Last Treating Co mments Source Name Details Category Date Date Treatment Clinician Date Dermatitis Dermatitis Disease Active 2021-10 Bossman craig 1- Seybold 00:00: - 00 Externa l Chronic Chronic Disease Active Brandee cough cough 05-12 Seybold 00:00: - 00 Externa l Gastroesop Gastroesop Disease Active K kiara hageal hageal 05-12 Seybold reflux reflux 00:00: - disease disease 00 Externa without without l esophagiti esophagiti s s Well adult Well adult Disease Active K kiara exam exam 05-04 Seybold 00:00: - 00 Externa l History of History of Disease Active K kiara COVID-19 COVID-19 7-20 Seybol d 00:00: - 00 Externa l 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 00:00: - with with 00 Externa hyperlipid hyperlipid l emia emia Current Current Disease Active Brandee moderate moderate 7-20 Seybol d episode of episode of 00:00: - major major 00 Externa depressive depressive l disorder disorder without without prior prior episode episode Seasonal Seasonal Disease Active Kelse y allergic allergic 720 Seybol d rhinitis rhinitis 00:00: - due to due to 00 Externa pollen pollen l Diabetes Diabetes Disease Active Overview: Un jihan mellitus mellitus 2-15 Formattin ity of type 2, type 2, 00:00: g of this [place] uncontroll uncontroll 00 note Me dical ed, ed, might be Branch without without different complicati complicati from the ons ons original. 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 Anxiety Anxiety Problem Active 2019-06-21 M emoria (finding) (finding) 04:00:35 l Active Vanzant Problem 06/21/2019 [facility] Shoulder Shoulder Problem Active 2019-06-21 Memoria pain pain 04:00:35 l (finding) (finding) Herm tunde Active Problem 06/21/2019 [facility] Infection Infection Problem Resolve 2018-2019-06-21 2019-06-21 Memoria of tooth of tooth d 04-17 04:00:35 04:00:35 l (disorder) (disorder) 00:00: He rmann Resolved 00 04/17/2019 Problem 06/21/2019 [facility] History of Past Illness Condition Condition Condition Status Onset Resolution Last Treating Co mments Source Name Details Category Date Date Treatment Clinician Date Other Other Problem 2019-06-21 2019-06-21 M emoria injury of injury of 06-19 04:00:35 04:00:35 l muscle(s) muscle(s) 05:00: Herm tunde and and 00 tendon(s) tendon(s) of the of the rotator rotator cuff of cuff of left left shoulder, shoulder, initial initial encounter encounter 06/19/2019 06/21/2019 [facility] Allergies, Adverse Reactions, Alerts Allergy Allergy Status Severity Reaction(s) Onset Inactive Treating Comm ents Source Name Type Date Date Clinician Latex Propensi Active Brandee ty to 7-20 Seybold adverse 00:00: - reaction 00 Externa s l Penicill Propensi Active Rash Brandee ins ty to 7-20 Seybold adverse 00:00: - reaction 00 Externa s l LATEX DRUG Active Rash 0 Univers INGREDI 7-02 ity of 00:00: [place] 00 [facility] Latex Propensi Active Rash 0 Univers ty to 7-02 ity of adverse 00:00: [place] reaction 00 Medical s Branch Penicill Propensi Active Hives Univer s ins ty to 2-15 ity of adverse 00:00: [place] reaction 00 Medical s Branch Penicill Propensi Active Hives Univer s ins ty to 2-15 ity of adverse 00:00: [place] reaction 00 Medical s Branch PENICILL Drug Active Hives Univers INS Class 2-15 ity of 00:00: [place] 00 [facility] Branch penicill penicill Active Memori a ins ins l Elijah Social History Social Habit Start Date Stop Date Quantity Comments Source Alcohol intake 2022-09-22 2022-09-22 Ex-drinker Brandee Hernandez bold - 00:00:00 00:00:00 (finding) External Tobacco use and 2022-05-04 2022-05-04 Smokeless tobacco Ke lsey Seybold - exposure 00:00:00 00:00:00 non-user External Education 2022-05-04 2022-05-04 16 Brandee Seybold - 00:00:00 00:00:00 External Exposure to 2022-04-06 2022-04-16 [facility] [place] [facility] Sex [birth year] At [birth year] F Brandee Conrad ybold - 00:00:00 00:00:00 External Smoking Status Start Date Stop Date Source Social History [facility] Medications Ordered Filled Start Stop Current Ordering Indication Dosage Frequency Signature Comments Components Source Medication Medication Date Date Medication? Clinician (SIG) Name Name GINO 2021-10- No [id number] 6mg Daniel y 11-23 Seybold 20:15: 20:15 - 00 :00 Externa l Triamcinolo 2021-10- No [id number] 40mg K vitoy ne 11-23 Seybold Acetonide 20:15: 20:18 - (KENALOG) 00 :00 Externa 40 mg/mL l Triamcinolo 2021-10- No [id number] 1mL 40 mg (1 Brandee ne 11-23 mL), Seybold Acetonide 20:15: 20:18 intramuscu - (KENALOG) 00 :00 lar, ONCE, Exte rna 40 mg/mL On Abbie l 09/22/22 at 1415, For 1 dose CELESTONE 2021-10- No [id number] 6mg 6 mg, Ke shorty 11-23 intramuscu Seybold 20:15: 20:15 lar, ONCE, - 00 :00 On Abbie Externa 09/22/22 at l 1415, For 1 dose Cetirizine 2021-10 Yes 10mg Take 10 mg K elsey 10 MG oral 2-08 by mouth Seybo ld Tablet 13:53: daily - 13 Externa l Ondansetron 2021-10 Yes [id number] 4mg Q.[id number] Take 1 Brandee (ZOFRAN) 4 - [id number] tablet (4 Seybold MG oral 00:00: 3D mg total) - TABLET 00 by mouth Externa DISPERSIBLE every 8 l hours as needed for nausea methylPREDN 2021-10- No [id number] 1{vera} Take 1 vera Brandee ISolone 4 11-23 12-08 by mouth Seybo ld MG oral 00:00: 00:00 See Admin - Tablet 00 :00 Instructio Externa Therapy ns Use as l Pack directed Blood 2021-10 Yes [id number] 1{devic Inject 1 K elsey Glucose 2-07 e} device Seybold Monitoring 00:00: into the - Suppl 00 skin 2 Externa (OneTouch times l Verio daily Reflect) w/Device does not apply Kit Benzonatate 2021-10 Yes [id number] 100mg Q.[id number] Take 1 Brandee (Tessalon 2-05 [id number] capsule S suzannekathleen [place]) 100 00:00: 3D (100 mg - MG oral 00 total) by Externa Capsule mouth 3 l times daily as needed for cough Azithromyci 2021-10- Yes [id number] Take 2 Brandee n 250 MG 11-20-11 tablets by Seyb old oral Tablet 00:00: 05:59 mouth on - 00 :00 day 1 then Externa 1 tablet l by mouth daily for 4 days thereafter . Cetirizine 2021-10 Yes 10mg Take 10 mg K elsey 10 MG oral 1-22 by mouth Seybo ld Tablet 15:32: daily - 04 Externa l Alprazolam 2021-10 Yes [id number] 1mg Take 1 K elsey 1 MG oral 1-22 tablet (1 Seybo ld Tablet 00:00: mg total) - 00 by mouth Externa daily l Famotidine 2021-10 Yes [id number] 20mg Take 1 Brandee (Pepcid) 20 1-22 tablet (20 Se ybold MG oral 00:00: mg total) - tablet 00 by mouth 2 Externa times l daily OZEMPIC 2021-10 Yes [id number] .5mg Inject 0.5 Brandee (0.25 or 1-22 mg into Seybold 0.5 00:00: the skin - mg/dose) 2 00 once a Externa mg/1.5 mL week l SQ Solution Pen-Injecto r Ketoconazol 2021-10 Yes [id number] Apply 1 Brandee e 2 % apply 1-22 applicatio Se ybold externally 00:00: n - Cream 00 topically Externa 2 times l daily Alprazolam 2021-10 Yes [id number] 1mg Take 1 K elsey 1 MG oral -22 tablet (1 Seybo ld Tablet 00:00: mg total) - 00 by mouth Externa daily l Famotidine 2021-10 Yes [id number] 20mg Take 1 Brandee (Pepcid) 20 -22 tablet (20 Se ybold MG oral 00:00: mg total) - tablet 00 by mouth 2 Externa times l daily OZEMPIC 2021-10 Yes [id number] .5mg Inject 0.5 Brandee (0.25 or 1-22 mg into Seybold 0.5 00:00: the skin - mg/dose) 2 00 once a Externa mg/1.5 mL week l SQ Solution Pen-Injecto r Ketoconazol 2021-10 Yes [id number] Apply 1 Brandee e 2 % apply 11-06 applicatio Se ybold externally 00:00: n - Cream 00 topically Externa 2 times l daily Insulin Pen 2021-10 Yes [id number] Please Brandee Needle 1-11 provide Seybold (Maxi-Comfo 00:00: insuline - rt Safety 00 pen Externa Pen Needle) needles to l 29G X 8MM be used as does not directed apply [facility] [place] Pen 2021-10 Yes [id number] Please Brandee Needle 1-11 provide Seybold (Maxi-Comfo 00:00: insuline - rt Safety 00 pen Externa Pen Needle) needles to l 29G X 8MM be used as does not directed apply [facility] Blood 2021-10 Yes [id number] 1{kit} 1 kit by Fei staffordey Glucose -09 other Seybold Monitoring 00:00: route 2 - Suppl 00 times Externa (OneTouch daily l Verio Reflect) w/Device does not apply Kit OZEMPIC 2021-10- No [id number] .25mg Inject Fei oro (0.25 or 0-26 11-22 0.25 mg Seybold 0.5 00:00: 00:00 into the - mg/dose) 2 00 :00 skin once Exte rna mg/1.5 mL a week l SQ Solution Pen-Injecto r Cetirizine 2021-10 Yes 10mg Take 10 mg K elsey 10 MG oral 0-25 by mouth Seybo ld Tablet 15:26: daily - 13 Externa l Insulin 2021-10 Yes [id number] 20 units Ke lsey Detemir 0-25 sc every Seybold (Levemir 00:00: night - FlexTouch) 00 Externa 100 UNIT/ML l subcutaneou s Solution Pen-injecto r Insulin 2021-10 Yes [id number] 20 units Ke lsey Detemir 0-25 sc every Seybold (Levemir 00:00: night - FlexTouch) 00 Externa 100 UNIT/ML l subcutaneou s Solution Pen-injecto r OZEMPIC 2021-10 Yes [id number] .25mg Inject Daniel sey (0.25 or 0-25 0.25 mg Seybold 0.5 00:00: into the - mg/dose) 2 00 skin once Exte rna mg/1.5 mL a week l SQ Solution Pen-Injecto r Insulin 2021-10 Yes [id number] 20 units Ke lsey Detemir 0-25 sc every Seybold (Levemir 00:00: night - FlexTouch) 00 Externa 100 UNIT/ML l subcutaneou s Solution Pen-injecto r Blood 2021-10 Yes [id number] Use device Ke lsey Glucose 0-11 to check Seybold Monitoring 00:00: FSBS twice - Suppl 00 daily and Externa (Blood as l Glucose needed.One Monitor Touch System) supplies w/Device and does not glucometer apply Kit .Vario Reflex/One touch Lancets 33G 2021-10 Yes [id number] 1 Lancet Brandee does not 0-11 by does Seybold apply Misc 00:00: not apply - 00 route 2 Externa times l daily (before meals) Please dispense what is covered by insurance Glucose 2021-10 Yes [id number] 100{eac 100 each Brandee Blood in 0-11 h} by other Seybold vitro Strip 00:00: route - 00 daily Externa l Blood 2021-10 Yes [id number] Use device Ke lsey Glucose 0-11 to check Seybold Monitoring 00:00: FSBS twice - Suppl 00 daily and Externa (Blood as l Glucose needed.One Monitor Touch System) supplies w/Device and does not glucometer apply Kit .Vario Reflex/One touch Lancets 33G 2021-10 Yes [id number] 1 Lancet Brandee does not 0-11 by does Seybold apply Misc 00:00: not apply - 00 route 2 Externa times l daily (before meals) Please dispense what is covered by insurance Glucose 2021-10 Yes [id number] 100{eac 100 each Brandee Blood in 0-11 h} by other Seybold vitro Strip 00:00: route - 00 daily Externa l Blood 2021-10 Yes [id number] Use device Ke lsey Glucose 0-11 to check Seybold Monitoring 00:00: FSBS twice - Suppl 00 daily and Externa (Blood as l Glucose needed.One Monitor Touch System) supplies w/Device and does not glucometer apply Kit .Vario Reflex/One touch Lancets 33G 2021-10 Yes [id number] 1 Lancet Brandee does not 0-11 by does Seybold apply Misc 00:00: not apply - 00 route 2 Externa times l daily (before meals) Please dispense what is covered by insurance Glucose 2021-10 Yes [id number] 100{eac 100 each Brandee Blood in 0-11 h} by other Seybold vitro Strip 00:00: route - 00 daily Externa l Blood 2021-10 Yes [id number] One Touch Daniel sey Glucose 0-06 Seybold Monitoring 00:00: - Suppl 00 Externa (Blood l Glucose Monitor System) w/Device does not apply Kit Alprazolam Yes [id number] TAKE ONE Brandee 1 MG oral 9-02 TABLET BY Seybo ld Tablet 00:00: MOUTH - 00 DAILY Externa l Alprazolam 2021- No [id number] TAKE ONE Brandee 1 MG oral 9-02 11-22 TABLET BY Seyb old Tablet 00:00: 00:00 MOUTH - 00 :00 DAILY Externa l Metformin 2021- No [id number] 1000mg Take 2 Brandee HCl 500 MG 8-11 10-25 tablets Seybo ld oral Tablet 00:00: 00:00 (1,000 mg - 00 :00 total) by Externa mouth 2 l times daily Albuterol Yes [id number] 2{puff} Q.25D Inhale 2 Brandee HFA 108 (90 7-28 puffs into Se ybold Base) 00:00: the lungs - MCG/ACT 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 as 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 Famotidine Yes [id number] 20mg Take 1 Brandee (Pepcid) 20 7-28 tablet (20 Se ybold MG oral 00:00: mg total) - tablet 00 by mouth 2 Externa times l daily Albuterol Yes [id number] 2{puff} Q.25D Inhale 2 Brandee HFA 108 (90 7-28 puffs into Se ybold Base) 00:00: the lungs - MCG/ACT 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 as 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 Albuterol Yes [id number] 2{puff} Q.25D Inhale 2 Brandee HFA 108 (90 7-28 puffs into Se ybold Base) 00:00: the lungs - MCG/ACT 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 as 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 Famotidine 0 2021- No [id number] 20mg Take 1 Brandee (Pepcid) 20 7-28 11-22 tablet (20 S eybold MG oral 00:00: 00:00 mg total) - tablet 00 :00 by mouth 2 Externa times l daily predniSONE 2021- No [id number] 10mg Take 1 Brandee (DELTASONE) 7-28 10-25 tablet (10 S eybold 10 MG oral 00:00: 00:00 mg total) - tablet 00 :00 by mouth Externa daily l Rosuvastati Yes [id number] 5mg Take 1 Brandee n Calcium 5 7-20 tablet (5 Sey bold MG oral 00:00: mg total) - Tablet 00 by mouth Externa daily l Sertraline Yes [id number] 100mg Take 1 Brandee HCl 100 MG 7-20 tablet Seybold oral Tablet 00:00: (100 mg - 00 total) by Externa mouth l daily Trazodone Yes [id number] 50mg Take 1 Ke lsey HCl 50 MG 7-20 tablet (50 Seyb old oral Tablet 00:00: mg total) - 00 by mouth Externa nightly l Rosuvastati Yes [id number] 5mg Take 1 Brandee n Calcium 5 7-20 tablet (5 Sey bold MG oral 00:00: mg total) - Tablet 00 by mouth Externa daily l Sertraline Yes [id number] 100mg Take 1 Brandee HCl 100 MG 7-20 tablet Seybold oral Tablet 00:00: (100 mg - 00 total) by Externa mouth l daily Trazodone Yes [id number] 50mg Take 1 Ke lsey HCl 50 MG 7-20 tablet (50 Seyb old oral Tablet 00:00: mg total) - 00 by mouth Externa nightly l Rosuvastati Yes [id number] 5mg Take 1 Brandee n Calcium 5 7-20 tablet (5 Sey bold MG oral 00:00: mg total) - Tablet 00 by mouth Externa daily l Sertraline Yes [id number] 100mg Take 1 Brandee HCl 100 MG 7-20 tablet Seybold oral Tablet 00:00: (100 mg - 00 total) by Externa mouth l daily Trazodone Yes [id number] 50mg Take 1 Ke lsey HCl 50 MG 7-20 tablet (50 Seyb old oral Tablet 00:00: mg total) - 00 by mouth Externa nightly l [facility] 2018-0 No 200 mL, Memoria Medication 06-19 Soln-IV, l 22:29: IV, Once, first dose 06/19/19 17:29:00 CDT, stop date 06/19/19 17:29:00 CDT [facility] 2018-0 No 200 mL, Memoria Medication 06-19 Soln-IV, l 22:29: IV, Once, first dose 06/19/19 17:29:00 CDT, stop date 06/19/19 17:29:00 CDT [facility] 2019-0 No 200 mL, Memoria Medication 06-19 Soln-IV, l 22:29: IV, Once, first dose 06/19/19 17:29:00 CDT, stop date 06/19/19 17:29:00 CDT [facility] 2019-0 No 200 mL, Memoria Medication 06-19 Soln-IV, l 22:29: IV, Once, first dose 06/19/19 17:29:00 CDT, stop date 06/19/19 17:29:00 CDT Misc 2019-0 No 200 mL, Memoria Medication 9-04 Soln-IV, l 22:29: IV, Once, first dose 06/19/19 17:29:00 CDT, stop date 06/19/19 17:29:00 CDT Dilaudid 2019-0 No 0.5 mg = Memor ia 9-04 0.5 mL, l 22:22: Injection, IV Push, q10min PRN for pain severe (7-10), first dose 06/19/19 17:22:00 CDT Ondansetron 2018-0 No 4 mg = 2 Me moria 9-04 mL, l 22:22: Injection, IV Push, q15min PRN for nausea, order duration: 2 doses, first dose 06/19/19 17:22:00 CDT, stop date Limited # of times Dilaudid 2019-0 No 0.5 mg = Memor ia 9-04 0.5 mL, l 22:22: Injection, IV Push, q10min PRN for pain severe (7-10), first dose 06/19/19 17:22:00 CDT Promethazin 2018-0 No 12.5 mg = M emoria e 9-04 0.5 mL, l 22:22: Injection, IM, Once PRN for vomiting, first dose 06/19/19 17:22:00 CDT Bupivacaine 2019-0 No 300 mL, Mem oria 0.25% 300 9-04 Nerve l mL pump 300 22:22: Block, 5 He rmann mL 00 mL/hr, start date 06/19/19 17:22:00 CDT LR 1,000 mL 2019-0 No 1,000 mL, M emoria 9-04 IV, 75 l 22:22: mL/hr, start date 06/19/19 17:22:00 CDT Saline Lock 2019-0 No 10 mL, Dani ulises Flush 06-19 Soln, IV l 22:22: Push, As Indicated PRN for flush, first dose 06/19/19 17:22:00 CDT Promethazin 2018-0 No 12.5 mg = M emoria e 9-04 0.5 mL, l 22:22: Injection, IM, Once PRN for vomiting, first dose 06/19/19 17:22:00 CDT Bupivacaine 2019-0 No 300 mL, Mem oria 0.25% 300 9-04 Nerve l mL pump 300 22:22: Block, 5 He rmann mL 00 mL/hr, start date 06/19/19 17:22:00 CDT LR 1,000 mL 2019-0 No 1,000 mL, M emoria 9-04 IV, 75 l 22:22: mL/hr, start date 06/19/19 17:22:00 CDT Saline Lock 2019-0 No 10 mL, Dani ulises Flush - Soln, IV l 22:22: Push, As Indicated PRN for flush, first dose 06/19/19 17:22:00 CDT Ondansetron 2019-0 No 4 mg = 2 Me moria 9-04 mL, l 22:22: Injection, IV Push, q15min PRN for nausea, order duration: 2 doses, first dose 06/19/19 17:22:00 CDT, stop date Limited # of times Dilaudid 2019-0 No 0.5 mg = Memor ia 9-04 0.5 mL, l 22:22: Injection, IV Push, q10min PRN for pain severe (7-10), first dose 06/19/19 17:22:00 CDT Promethazin 2019-0 No 12.5 mg = M emoria e 9-04 0.5 mL, l 22:22: Injection, IM, Once PRN for vomiting, first dose 06/19/19 17:22:00 CDT Bupivacaine 2019-0 No 300 mL, Mem oria 0.25% 300 9-04 Nerve l mL pump 300 22:22: Block, 5 He rmann mL 00 mL/hr, start date 06/19/19 17:22:00 CDT LR 1,000 mL 2019-0 No 1,000 mL, M emoria 9-04 IV, 75 l 22:22: mL/hr, start date 06/19/19 17:22:00 CDT Saline Lock 2019-0 No 10 mL, Dani ulises Flush 9-04 Soln, IV l 22:22: Push, As Indicated PRN for flush, first dose 06/19/19 17:22:00 CDT Ondansetron 2019-0 No 4 mg = 2 Me moria 9-04 mL, l 22:22: Injection, Vanzant 00 IV Push, q15min PRN for nausea, order duration: 2 doses, first dose 06/19/19 17:22:00 CDT, stop date Limited # of times Dilaudid 2019-0 No 0.5 mg = Memor ia 9-04 0.5 mL, l 22:22: Injection, Elijah 00 IV Push, q10min PRN for pain severe (7-10), first dose 06/19/19 17:22:00 CDT Promethazin 2019-0 No 12.5 mg = M emoria e 9-04 0.5 mL, l 22:22: Injection, Elijah 00 IM, Once PRN for vomiting, first dose 06/19/19 17:22:00 CDT Bupivacaine 2019-0 No 300 mL, Mem oria 0.25% 300 9-04 Nerve l mL pump 300 22:22: Block, 5 He rmann mL 00 mL/hr, start date 06/19/19 17:22:00 CDT LR 1,000 mL 2019-0 No 1,000 mL, M emoria 9-04 IV, 75 l 22:22: mL/hr, Elijah 00 start date 06/19/19 17:22:00 CDT Saline Lock 2019-0 No 10 mL, Dani ulises Flush 9-04 Soln, IV l 22:22: Push, As Indicated PRN for flush, first dose 06/19/19 17:22:00 CDT Ondansetron 2019-0 No 4 mg = 2 Me moria 9-04 mL, l 22:22: Injection, Elijah 00 IV Push, q15min PRN for nausea, order duration: 2 doses, first dose 06/19/19 17:22:00 CDT, stop date Limited # of times Dilaudid 2019-0 No 0.5 mg = Memor ia 9-04 0.5 mL, l 22:22: Injection, Elijah 00 IV Push, q10min PRN for pain severe (7-10), first dose 06/19/19 17:22:00 CDT Promethazin 2018-0 No 12.5 mg = M emoria e 9-04 0.5 mL, l 22:22: Injection, Elijah 00 IM, Once PRN for vomiting, first dose 06/19/19 17:22:00 CDT Bupivacaine 2018-0 No 300 mL, Mem oria 0.25% 300 9-04 Nerve l mL pump 300 22:22: Block, 5 He rmann mL 00 mL/hr, start date 06/19/19 17:22:00 CDT LR 1,000 mL 0 No 1,000 mL, M emoria 9-04 IV, 75 l 22:22: mL/hr, start date 06/19/19 17:22:00 CDT Saline Lock No 10 mL, Dani ulises Flush 9-04 Soln, IV l 22:22: Push, As Vanzant 00 Indicated PRN for flush, first dose 06/19/19 17:22:00 CDT Ondansetron No 4 mg = 2 Me moria 9-04 mL, l 22:22: Injection, Vanzant 00 IV Push, q15min PRN for nausea, order duration: 2 doses, first dose 06/19/19 17:22:00 CDT, stop date Limited # of times Acetaminoph Yes Notes: Max Memoria en 325 MG / 9-04 4gm l Hydrocodone 22:21: acetaminop Elijah Bitartrate 00 hen in 24 10 MG Oral hours Tablet [[place] 10/325] Zofran No 4 mg = 2 Memoria 9-04 mL, l 22:21: Injection, Vanzant 00 IV Push, q30min PRN for nausea/vom iting, order duration: 2 doses, first dose 06/19/19 17:21:00 CDT, stop date Limited # of times Acetaminoph Yes Notes: Max Memoria en 325 MG / 9-04 4gm l Hydrocodone 22:21: acetaminop Vanzant Bitartrate 00 hen in 24 10 MG Oral hours Tablet [[place] 10/325] Acetaminoph Yes Notes: Max Memoria en 325 MG / 9-04 4gm l Hydrocodone 22:21: acetaminop Elijah Bitartrate 00 hen in 24 10 MG Oral hours Tablet [[place] 10/325] Zofran 2019-0 No 4 mg = 2 Memoria 9-04 mL, l 22:21: Injection, Elijah 00 IV Push, q30min PRN for nausea/vom iting, order duration: 2 doses, first dose 06/19/19 17:21:00 CDT, stop date Limited # of times Zofran 2019-0 No 4 mg = 2 Memoria 9-04 mL, l 22:21: Injection, Elijah 00 IV Push, q30min PRN for nausea/vom iting, order duration: 2 doses, first dose 06/19/19 17:21:00 CDT, stop date Limited # of times Acetaminoph Yes Notes: Max Memoria en 325 MG / 9-04 4gm l Hydrocodone 22:21: acetaminop Vanzant Bitartrate 00 hen in 24 10 MG Oral hours Tablet [[place] 10/325] Zofran No 4 mg = 2 Memoria 9-04 mL, l 22:21: Injection, Elijah 00 IV Push, q30min PRN for nausea/vom iting, order duration: 2 doses, first dose 06/19/19 17:21:00 CDT, stop date Limited # of times Acetaminoph 2018-0 Yes Notes: Max Memoria en 325 MG / 9-04 4gm l Hydrocodone 22:21: acetaminop Elijah Bitartrate 00 hen in 24 10 MG Oral hours Tablet [[place] 10/325] Zofran No 4 mg = 2 Memoria 9-04 mL, l 22:21: Injection, Elijah 00 IV Push, q30min PRN for nausea/vom iting, order duration: 2 doses, first dose 06/19/19 17:21:00 CDT, stop date Limited # of times fentaNYL 2019-0 No 50 mcg = 1 Mem oria 9-04 mL, l 22:04: Injection, Vanzant 00 IV, Once, first dose 06/19/19 17:04:00 CDT, stop date 06/19/19 17:04:00 CDT fentaNYL 2019-0 No 50 mcg = 1 Mem oria 9-04 mL, l 22:04: Injection, Elijah 00 IV, Once, first dose 06/19/19 17:04:00 CDT, stop date 06/19/19 17:04:00 CDT fentaNYL 2019-0 No 50 mcg = 1 Mem oria 9-04 mL, l 22:04: Injection, Elijah 00 IV, Once, first dose 06/19/19 17:04:00 CDT, stop date 06/19/19 17:04:00 CDT fentaNYL 2019-0 No 50 mcg = 1 Mem oria 9-04 mL, l 22:04: Injection, Elijah 00 IV, Once, first dose 06/19/19 17:04:00 CDT, stop date 06/19/19 17:04:00 CDT fentaNYL 2019-0 No 50 mcg = 1 Mem oria 9-04 mL, l 22:04: Injection, Vanzant 00 IV, Once, first dose 06/19/19 17:04:00 CDT, stop date 06/19/19 17:04:00 CDT ketorolac 2019-0 No 30 mg = 1 Mem oria 9-04 mL, l 22:02: Injection, Elijah 00 IV, Once, first dose 06/19/19 17:02:00 CDT, stop date 06/19/19 17:02:00 CDT ketorolac 2019-0 No 30 mg = 1 Mem oria 9-04 mL, l 22:02: Injection, Vanzant 00 IV, Once, first dose 06/19/19 17:02:00 CDT, stop date 06/19/19 17:02:00 CDT ketorolac 2019-0 No 30 mg = 1 Mem oria 9-04 mL, l 22:02: Injection, Elijah 00 IV, Once, first dose 06/19/19 17:02:00 CDT, stop date 06/19/19 17:02:00 CDT ketorolac 2019-0 No 30 mg = 1 Mem oria 9-04 mL, l 22:02: Injection, Vanzant 00 IV, Once, first dose 06/19/19 17:02:00 CDT, stop date 06/19/19 17:02:00 CDT ketorolac 2019-0 No 30 mg = 1 Mem oria 9-04 mL, l 22:02: Injection, Elijah 00 IV, Once, first dose 06/19/19 17:02:00 CDT, stop date 06/19/19 17:02:00 CDT fentaNYL 2019-0 No 50 mcg = 1 Mem oria 9-04 mL, l 21:48: Injection, Vanzant 00 IV, Once, first dose 06/19/19 16:48:00 CDT, stop date 06/19/19 16:48:00 CDT fentaNYL 2019-0 No 50 mcg = 1 Mem oria 9-04 mL, l 21:48: Injection, Vanzant 00 IV, Once, first dose 06/19/19 16:48:00 CDT, stop date 06/19/19 16:48:00 CDT fentaNYL 2019-0 No 50 mcg = 1 Mem oria 9-04 mL, l 21:48: Injection, Elijah 00 IV, Once, first dose 06/19/19 16:48:00 CDT, stop date 06/19/19 16:48:00 CDT fentaNYL 2019-0 No 50 mcg = 1 Mem oria 9-04 mL, l 21:48: Injection, Vanzant 00 IV, Once, first dose 06/19/19 16:48:00 CDT, stop date 06/19/19 16:48:00 CDT fentaNYL 2019-0 No 50 mcg = 1 Mem oria 9-04 mL, l 21:48: Injection, Elijah 00 IV, Once, first dose 06/19/19 16:48:00 CDT, stop date 06/19/19 16:48:00 CDT Misc 2019-0 No 1,000 mL, Memoria Medication - Soln-IV, l 21:32: IV, Once, first dose 06/19/19 16:32:00 CDT, stop date 06/19/19 16:32:00 CDT Misc 2019-0 No 1,000 mL, Memoria Medication - Soln-IV, l 21:32: IV, Once, Elijah 00 first dose 06/19/19 16:32:00 CDT, stop date 06/19/19 16:32:00 CDT Misc 2019-0 No 1,000 mL, Memoria Medication - Soln-IV, l 21:32: IV, Once, Elijah 00 first dose 06/19/19 16:32:00 CDT, stop date 06/19/19 16:32:00 CDT Misc 2019-0 No 1,000 mL, Memoria Medication -04 Soln-IV, l 21:32: IV, Once, first dose 06/19/19 16:32:00 CDT, stop date 06/19/19 16:32:00 CDT Misc 2019-0 No 1,000 mL, Memoria Medication - Soln-IV, l 21:32: IV, Once, first dose 06/19/19 16:32:00 CDT, stop date 06/19/19 16:32:00 CDT clindamycin 2019-0 No 900 mg, Mem oria 9-04 Soln-IV, l 20:29: IV Elijah 00 Piggyback, Once, first dose 06/19/19 15:29:00 CDT, stop date 06/19/19 15:29:00 CDT clindamycin 2019-0 No 900 mg, Mem oria -04 Soln-IV, l 20:29: IV Elijah 00 Piggyback, Once, first dose 06/19/19 15:29:00 CDT, stop date 06/19/19 15:29:00 CDT clindamycin 2019-0 No 900 mg, Mem oria - Soln-IV, l 20:29: IV Elijah 00 Piggyback, Once, first dose 06/19/19 15:29:00 CDT, stop date 06/19/19 15:29:00 CDT clindamycin 2019-0 No 900 mg, Mem oria -04 Soln-IV, l 20:29: IV Elijah 00 Piggyback, Once, first dose 06/19/19 15:29:00 CDT, stop date 06/19/19 15:29:00 CDT clindamycin 2019-0 No 900 mg, Mem oria 9-04 Soln-IV, l 20:29: IV Vanzant 00 Piggyback, Once, first dose 06/19/19 15:29:00 CDT, stop date 06/19/19 15:29:00 CDT Levalbutero 2019-0 No 0.63 mg = M emoria l 0.21 -04 3 mL, l MG/ML 20:26: Soln, NEB, Jean n Inhalant 00 Once PRN Solution for [Xopenex] wheezing, first dose 06/19/19 15:26:00 CDT Ondansetron 2019-0 No 4 mg = 2 Me moria 9-04 mL, l 20:26: Injection, Vanzant IV Push, q15min PRN for nausea, order duration: 2 doses, first dose 06/19/19 15:26:00 CDT, stop date Limited # of times Saline Lock 2019-0 No 10 mL, Dani ulises Flush 06-19 Soln, IV l 20:26: Push, As Elijah 00 Indicated PRN for flush, first dose 06/19/19 15:26:00 CDT LR 1,000 mL 2019-0 No 1,000 mL, M emoria 9-04 IV, 75 l 20:26: mL/hr, Elijah 00 start date 06/19/19 15:26:00 CDT Bupivacaine 2019-0 No 300 mL, Mem oria 0.25% 300 9-04 Nerve l mL pump 300 20:26: Block, 5 He rmann mL 00 mL/hr, start date 06/19/19 15:26:00 CDT Dilaudid 2019-0 No 0.5 mg = Memor ia 9-04 0.5 mL, l 20:26: Injection, Vanzant 00 IV Push, q10min PRN for pain severe (7-10), first dose 06/19/19 15:26:00 CDT Labetalol 2019-0 No 5 mg = 1 Dani ulises 9-04 mL, l 20:26: Injection, Elijah 00 IV Push, As Indicated PRN for hypertensi on, first dose 06/19/19 15:26:00 CDT Diphenhydra 2019-0 No 25 mg = Mem oria mine 9-04 0.5 mL, l 20:26: Injection, Elijah IV Push, Once PRN for itching, first dose 06/19/19 15:26:00 CDT Promethazin 2019-0 No 12.5 mg = M emoria e 9-04 0.5 mL, l 20:26: Injection, Vanzant 00 IM, Once PRN for vomiting, first dose 06/19/19 15:26:00 CDT Hydralazine 2018-0 No 10 mg = Mem oria 9-04 0.5 mL, l 20:26: Injection, Vanzant 00 IV Push, As Indicated PRN for hypertensi on, first dose 06/19/19 15:26:00 CDT Demerol HCl 2018-0 No 12.5 mg = M emoria 9-04 0.5 mL, l 20:26: Injection, IV Push, Once PRN for shivers, first dose 06/19/19 15:26:00 CDT Levalbutero 2018-0 No 0.63 mg = M emoria l 0.21 9-04 3 mL, l MG/ML 20:26: Soln, NEB, Jean n Inhalant 00 Once PRN Solution for [Xopenex] wheezing, first dose 06/19/19 15:26:00 CDT Ondansetron 0 No 4 mg = 2 Me moria 9-04 mL, l 20:26: Injection, IV Push, q15min PRN for nausea, order duration: 2 doses, first dose 06/19/19 15:26:00 CDT, stop date Limited # of times Saline Lock 2018-0 No 10 mL, Dani ulises Flush -04 Soln, IV l 20:26: Push, As Indicated PRN for flush, first dose 06/19/19 15:26:00 CDT LR 1,000 mL 2018-0 No 1,000 mL, M emoria 9-04 IV, 75 l 20:26: mL/hr, start date 06/19/19 15:26:00 CDT Bupivacaine 2019-0 No 300 mL, Mem oria 0.25% 300 9-04 Nerve l mL pump 300 20:26: Block, 5 He rmann mL 00 mL/hr, start date 06/19/19 15:26:00 CDT Dilaudid 2018-0 No 0.5 mg = Memor ia 9-04 0.5 mL, l 20:26: Injection, Elijah IV Push, q10min PRN for pain severe (7-10), first dose 06/19/19 15:26:00 CDT Labetalol 0 No 5 mg = 1 Dani ulises 9-04 mL, l 20:26: Injection, IV Push, As Indicated PRN for hypertensi on, first dose 06/19/19 15:26:00 CDT Diphenhydra 2018-0 No 25 mg = Mem oria mine 9-04 0.5 mL, l 20:26: Injection, IV Push, Once PRN for itching, first dose 06/19/19 15:26:00 CDT Promethazin No 12.5 mg = M emoria e 9-04 0.5 mL, l 20:26: Injection, IM, Once PRN for vomiting, first dose 06/19/19 15:26:00 CDT Hydralazine No 10 mg = Mem oria 9-04 0.5 mL, l 20:26: Injection, IV Push, As Indicated PRN for hypertensi on, first dose 06/19/19 15:26:00 CDT Demerol HCl No 12.5 mg = M emoria 9-04 0.5 mL, l 20:26: Injection, IV Push, Once PRN for shivers, first dose 06/19/19 15:26:00 CDT Levalbutero 0 No 0.63 mg = M emoria l 0.21 9-04 3 mL, l MG/ML 20:26: Soln, NEB, Jean n Inhalant 00 Once PRN Solution for [Xopenex] wheezing, first dose 06/19/19 15:26:00 CDT Ondansetron 0 No 4 mg = 2 Me moria 9-04 mL, l 20:26: Injection, IV Push, q15min PRN for nausea, order duration: 2 doses, first dose 06/19/19 15:26:00 CDT, stop date Limited # of times Saline Lock 20190 No 10 mL, Dani ulises Flush 9-04 Soln, IV l 20:26: Push, As Indicated PRN for flush, first dose 06/19/19 15:26:00 CDT LR 1,000 mL 20190 No 1,000 mL, M emoria 9-04 IV, 75 l 20:26: mL/hr, Elijah 00 start date 06/19/19 15:26:00 CDT Bupivacaine 2019-0 No 300 mL, Mem oria 0.25% 300 9-04 Nerve l mL pump 300 20:26: Block, 5 He rmann mL 00 mL/hr, start date 06/19/19 15:26:00 CDT Dilaudid 2019-0 No 0.5 mg = Memor ia 9-04 0.5 mL, l 20:26: Injection, Elijah IV Push, q10min PRN for pain severe (7-10), first dose 06/19/19 15:26:00 CDT Labetalol 2019-0 No 5 mg = 1 Dani ulises 9-04 mL, l 20:26: Injection, IV Push, As Indicated PRN for hypertensi on, first dose 06/19/19 15:26:00 CDT Diphenhydra 2019-0 No 25 mg = Mem oria mine 9-04 0.5 mL, l 20:26: Injection, IV Push, Once PRN for itching, first dose 06/19/19 15:26:00 CDT Promethazin 2019-0 No 12.5 mg = M emoria e 9-04 0.5 mL, l 20:26: Injection, Elijah 00 IM, Once PRN for vomiting, first dose 06/19/19 15:26:00 CDT Hydralazine 2018-0 No 10 mg = Mem oria 9-04 0.5 mL, l 20:26: Injection, Vanzant IV Push, As Indicated PRN for hypertensi on, first dose 06/19/19 15:26:00 CDT Demerol HCl 2019-0 No 12.5 mg = M emoria 9-04 0.5 mL, l 20:26: Injection, Vanzant 00 IV Push, Once PRN for shivers, first dose 06/19/19 15:26:00 CDT Levalbutero 2019-0 No 0.63 mg = M emoria l 0.21 9-04 3 mL, l MG/ML 20:26: Soln, NEB, Jean n Inhalant 00 Once PRN Solution for [Xopenex] wheezing, first dose 06/19/19 15:26:00 CDT Ondansetron 2019-0 No 4 mg = 2 Me moria 9-04 mL, l 20:26: Injection, Vanzant 00 IV Push, q15min PRN for nausea, order duration: 2 doses, first dose 06/19/19 15:26:00 CDT, stop date Limited # of times Saline Lock 2019-0 No 10 mL, Dani ulises Flush 9-04 Soln, IV l 20:26: Push, As Indicated PRN for flush, first dose 06/19/19 15:26:00 CDT LR 1,000 mL 2019-0 No 1,000 mL, M emoria 9-04 IV, 75 l 20:26: mL/hr, start date 06/19/19 15:26:00 CDT Bupivacaine 2019-0 No 300 mL, Mem oria 0.25% 300 9-04 Nerve l mL pump 300 20:26: Block, 5 He rmann mL 00 mL/hr, start date 06/19/19 15:26:00 CDT Dilaudid 2019-0 No 0.5 mg = Memor ia 9-04 0.5 mL, l 20:26: Injection, Vanzant 00 IV Push, q10min PRN for pain severe (7-10), first dose 06/19/19 15:26:00 CDT Labetalol 2019-0 No 5 mg = 1 Dani ulises 9-04 mL, l 20:26: Injection, Vanzant 00 IV Push, As Indicated PRN for hypertensi on, first dose 06/19/19 15:26:00 CDT Diphenhydra 2019-0 No 25 mg = Mem oria mine 9-04 0.5 mL, l 20:26: Injection, Elijah 00 IV Push, Once PRN for itching, first dose 06/19/19 15:26:00 CDT Promethazin 2019-0 No 12.5 mg = M emoria e 9-04 0.5 mL, l 20:26: Injection, Elijah 00 IM, Once PRN for vomiting, first dose 06/19/19 15:26:00 CDT Hydralazine 2019-0 No 10 mg = Mem oria 9-04 0.5 mL, l 20:26: Injection, Elijah IV Push, As Indicated PRN for hypertensi on, first dose 06/19/19 15:26:00 CDT Demerol HCl 2019-0 No 12.5 mg = M emoria 9-04 0.5 mL, l 20:26: Injection, IV Push, Once PRN for shivers, first dose 06/19/19 15:26:00 CDT Levalbutero 2018-0 No 0.63 mg = M emoria l 0.21 9-04 3 mL, l MG/ML 20:26: Soln, NEB, Jean n Inhalant 00 Once PRN Solution for [Xopenex] wheezing, first dose 06/19/19 15:26:00 CDT Ondansetron 0 No 4 mg = 2 Me moria 9-04 mL, l 20:26: Injection, IV Push, q15min PRN for nausea, order duration: 2 doses, first dose 06/19/19 15:26:00 CDT, stop date Limited # of times Saline Lock 0 No 10 mL, Dani ulises Flush 9-04 Soln, IV l 20:26: Push, As Indicated PRN for flush, first dose 06/19/19 15:26:00 CDT LR 1,000 mL 20190 No 1,000 mL, M emoria 9-04 IV, 75 l 20:26: mL/hr, start date 06/19/19 15:26:00 CDT Bupivacaine 2018-0 No 300 mL, Mem oria 0.25% 300 9-04 Nerve l mL pump 300 20:26: Block, 5 He rmann mL 00 mL/hr, start date 06/19/19 15:26:00 CDT Dilaudid 2018-0 No 0.5 mg = Memor ia 9-04 0.5 mL, l 20:26: Injection, IV Push, q10min PRN for pain severe (7-10), first dose 06/19/19 15:26:00 CDT Labetalol 0 No 5 mg = 1 Dani ulises 9-04 mL, l 20:26: Injection, IV Push, As Indicated PRN for hypertensi on, first dose 06/19/19 15:26:00 CDT Diphenhydra 2018-0 No 25 mg = Mem oria mine 9-04 0.5 mL, l 20:26: Injection, Vanzant 00 IV Push, Once PRN for itching, first dose 06/19/19 15:26:00 CDT Promethazin 2019-0 No 12.5 mg = M emoria e 9-04 0.5 mL, l 20:26: Injection, Elijah 00 IM, Once PRN for vomiting, first dose 06/19/19 15:26:00 CDT Hydralazine 2019-0 No 10 mg = Mem oria 9-04 0.5 mL, l 20:26: Injection, Vanzant 00 IV Push, As Indicated PRN for hypertensi on, first dose 06/19/19 15:26:00 CDT Demerol HCl 2019-0 No 12.5 mg = M emoria 9-04 0.5 mL, l 20:26: Injection, Vanzant 00 IV Push, Once PRN for shivers, first dose 06/19/19 15:26:00 CDT ePHEDrine 2018-0 No 10 mg = Memor ia 9-04 0.2 mL, l 20:25: Injection, Elijah 00 IV, Once, first dose 06/19/19 15:25:00 CDT, stop date 06/19/19 15:25:00 CDT ePHEDrine 2018-0 No 10 mg = Memor ia 9-04 0.2 mL, l 20:25: Injection, Elijah 00 IV, Once, first dose 06/19/19 15:25:00 CDT, stop date 06/19/19 15:25:00 CDT ePHEDrine 2018-0 No 10 mg = Memor ia 9-04 0.2 mL, l 20:25: Injection, Vanzant 00 IV, Once, first dose 06/19/19 15:25:00 CDT, stop date 06/19/19 15:25:00 CDT ePHEDrine 2018-0 No 10 mg = Memor ia 9-04 0.2 mL, l 20:25: Injection, Elijah 00 IV, Once, first dose 06/19/19 15:25:00 CDT, stop date 06/19/19 15:25:00 CDT ePHEDrine 2018-0 No 10 mg = Memor ia 9-04 0.2 mL, l 20:25: Injection, Elijah 00 IV, Once, first dose 06/19/19 15:25:00 CDT, stop date 06/19/19 15:25:00 CDT dexamethaso 2019-0 No 8 mg = 2 Me moria ne 9-04 mL, l 20:21: Injection, Vanzant 00 IV, Once, first dose 06/19/19 15:21:00 CDT, stop date 06/19/19 15:21:00 CDT ondansetron 2019-0 No 4 mg = 2 Me moria 9-04 mL, l 20:21: Injection, Elijah 00 IV, Once, first dose 06/19/19 15:21:00 CDT, stop date 06/19/19 15:21:00 CDT dexamethaso 2019-0 No 8 mg = 2 Me moria ne 9-04 mL, l 20:21: Injection, Elijah 00 IV, Once, first dose 06/19/19 15:21:00 CDT, stop date 06/19/19 15:21:00 CDT ondansetron 2019-0 No 4 mg = 2 Me moria 9-04 mL, l 20:21: Injection, Elijah 00 IV, Once, first dose 06/19/19 15:21:00 CDT, stop date 06/19/19 15:21:00 CDT dexamethaso 2019-0 No 8 mg = 2 Me moria ne 9-04 mL, l 20:21: Injection, Elijah 00 IV, Once, first dose 06/19/19 15:21:00 CDT, stop date 06/19/19 15:21:00 CDT ondansetron 2019-0 No 4 mg = 2 Me moria 9-04 mL, l 20:21: Injection, Elijah 00 IV, Once, first dose 06/19/19 15:21:00 CDT, stop date 06/19/19 15:21:00 CDT dexamethaso 2019-0 No 8 mg = 2 Me moria ne 9-04 mL, l 20:21: Injection, Elijah 00 IV, Once, first dose 06/19/19 15:21:00 CDT, stop date 06/19/19 15:21:00 CDT ondansetron 2019-0 No 4 mg = 2 Me moria 9-04 mL, l 20:21: Injection, Vanzant 00 IV, Once, first dose 06/19/19 15:21:00 CDT, stop date 06/19/19 15:21:00 CDT dexamethaso 2019-0 No 8 mg = 2 Me moria ne 9-04 mL, l 20:21: Injection, Vanzant 00 IV, Once, first dose 06/19/19 15:21:00 CDT, stop date 06/19/19 15:21:00 CDT ondansetron 2019-0 No 4 mg = 2 Me moria 9-04 mL, l 20:21: Injection, Elijah 00 IV, Once, first dose 06/19/19 15:21:00 CDT, stop date 06/19/19 15:21:00 CDT lidocaine 2019-0 No 60 mg = 3 Mem oria 9-04 mL, l 20:07: Injection, Vanzant 00 IV, Once, first dose 06/19/19 15:07:00 CDT, stop date 06/19/19 15:07:00 CDT propofol 2019-0 No 100 mg = Memor ia 9-04 10 mL, l 20:07: Emulsion, Vanzant 00 IV, Once, first dose 06/19/19 15:07:00 CDT, stop date 06/19/19 15:07:00 CDT lidocaine 2019-0 No 60 mg = 3 Mem oria 9-04 mL, l 20:07: Injection, Elijah 00 IV, Once, first dose 06/19/19 15:07:00 CDT, stop date 06/19/19 15:07:00 CDT propofol 2019-0 No 100 mg = Memor ia 9-04 10 mL, l 20:07: Emulsion, Vanzant 00 IV, Once, first dose 06/19/19 15:07:00 CDT, stop date 06/19/19 15:07:00 CDT lidocaine 2019-0 No 60 mg = 3 Mem oria 9-04 mL, l 20:07: Injection, Elijah 00 IV, Once, first dose 06/19/19 15:07:00 CDT, stop date 06/19/19 15:07:00 CDT propofol 2019-0 No 100 mg = Memor ia 9-04 10 mL, l 20:07: Emulsion, Vanzant 00 IV, Once, first dose 06/19/19 15:07:00 CDT, stop date 06/19/19 15:07:00 CDT lidocaine 2019-0 No 60 mg = 3 Mem oria 9-04 mL, l 20:07: Injection, Vanzant 00 IV, Once, first dose 06/19/19 15:07:00 CDT, stop date 06/19/19 15:07:00 CDT propofol 2019-0 No 100 mg = Memor ia 9-04 10 mL, l 20:07: Emulsion, Vanzant 00 IV, Once, first dose 06/19/19 15:07:00 CDT, stop date 06/19/19 15:07:00 CDT lidocaine 2019-0 No 60 mg = 3 Mem oria 9-04 mL, l 20:07: Injection, Vanzant 00 IV, Once, first dose 06/19/19 15:07:00 CDT, stop date 06/19/19 15:07:00 CDT propofol 2019-0 No 100 mg = Memor ia 9-04 10 mL, l 20:07: Emulsion, Vanzant 00 IV, Once, first dose 06/19/19 15:07:00 CDT, stop date 06/19/19 15:07:00 CDT fentaNYL 2019-0 No 50 mcg = 1 Mem oria 9-04 mL, l 20:04: Injection, Vanzant 00 IV, Once, first dose 06/19/19 15:04:00 CDT, stop date 06/19/19 15:04:00 CDT midazolam 2019-0 No 1 mg = 1 Dani ulises 9-04 mL, l 20:04: Injection, Elijah 00 IV, Once, first dose 06/19/19 15:04:00 CDT, stop date 06/19/19 15:04:00 CDT fentaNYL 2019-0 No 50 mcg = 1 Mem oria 9-04 mL, l 20:04: Injection, Vanzant 00 IV, Once, first dose 06/19/19 15:04:00 CDT, stop date 06/19/19 15:04:00 CDT midazolam 2019-0 No 1 mg = 1 Dani ulises 9-04 mL, l 20:04: Injection, Elijah 00 IV, Once, first dose 06/19/19 15:04:00 CDT, stop date 06/19/19 15:04:00 CDT fentaNYL 2019-0 No 50 mcg = 1 Mem oria 9-04 mL, l 20:04: Injection, Vanzant 00 IV, Once, first dose 06/19/19 15:04:00 CDT, stop date 06/19/19 15:04:00 CDT midazolam 2019-0 No 1 mg = 1 Dani ulises 9-04 mL, l 20:04: Injection, Elijah 00 IV, Once, first dose 06/19/19 15:04:00 CDT, stop date 06/19/19 15:04:00 CDT fentaNYL 2019-0 No 50 mcg = 1 Mem oria 9-04 mL, l 20:04: Injection, Vanzant 00 IV, Once, first dose 06/19/19 15:04:00 CDT, stop date 06/19/19 15:04:00 CDT midazolam 2019-0 No 1 mg = 1 Dani ulises 9-04 mL, l 20:04: Injection, 00 IV, Once, first dose 06/19/19 15:04:00 CDT, stop date 06/19/19 15:04:00 CDT fentaNYL 2019-0 No 50 mcg = 1 Mem oria 9-04 mL, l 20:04: Injection, IV, Once, first dose 06/19/19 15:04:00 CDT, stop date 06/19/19 15:04:00 CDT midazolam 2019-0 No 1 mg = 1 Dani ulises 9-04 mL, l 20:04: Injection, IV, Once, first dose 06/19/19 15:04:00 CDT, stop date 06/19/19 15:04:00 CDT Misc 2019-0 No 1,000 mL, Memoria Medication - Soln-IV, l 19:58: IV, Once, first dose 06/19/19 14:58:00 CDT, stop date 06/19/19 14:58:00 CDT Misc 2019-0 No 1,000 mL, Memoria Medication - Soln-IV, l 19:58: IV, Once, first dose 06/19/19 14:58:00 CDT, stop date 06/19/19 14:58:00 CDT Misc 2019-0 No 1,000 mL, Memoria Medication 06-19 Soln-IV, l 19:58: IV, Once, first dose 06/19/19 14:58:00 CDT, stop date 06/19/19 14:58:00 [place] [facility] [place],000 mL, Memoria Medication 06-19 Soln-IV, l 19:58: IV, Once, first dose 06/19/19 14:58:00 CDT, stop date 06/19/19 14:58:00 CDT [facility] [place] No 1,000 mL, Memoria Medication 06-19 Soln-IV, l 19:58: IV, Once, first dose 06/19/19 14:58:00 CDT, stop date 06/19/19 14:58:00 CDT midazolam 2019-0 No 1 mg = 1 Dani ulises 9-04 mL, l 19:42: Injection, Elijah IV, Once, first dose 06/19/19 14:42:00 CDT, stop date 06/19/19 14:42:00 CDT fentaNYL 2019-0 No 50 mcg = 1 Mem oria 9-04 mL, l 19:42: Injection, Vanzant IV, Once, first dose 06/19/19 14:42:00 CDT, stop date 06/19/19 14:42:00 CDT midazolam 2019-0 No 1 mg = 1 Dani ulises 9-04 mL, l 19:42: Injection, Elijah 00 IV, Once, first dose 06/19/19 14:42:00 CDT, stop date 06/19/19 14:42:00 CDT fentaNYL 2019-0 No 50 mcg = 1 Mem oria 9-04 mL, l 19:42: Injection, Vanzant 00 IV, Once, first dose 06/19/19 14:42:00 CDT, stop date 06/19/19 14:42:00 CDT midazolam 2019-0 No 1 mg = 1 Dani ulises 9-04 mL, l 19:42: Injection, Elijah 00 IV, Once, first dose 06/19/19 14:42:00 CDT, stop date 06/19/19 14:42:00 CDT fentaNYL 2019-0 No 50 mcg = 1 Mem oria 9-04 mL, l 19:42: Injection, Elijah 00 IV, Once, first dose 06/19/19 14:42:00 CDT, stop date 06/19/19 14:42:00 CDT midazolam 2019-0 No 1 mg = 1 Dani ulises 9-04 mL, l 19:42: Injection, Vanzant 00 IV, Once, first dose 06/19/19 14:42:00 CDT, stop date 06/19/19 14:42:00 CDT fentaNYL 2019-0 No 50 mcg = 1 Mem oria 9-04 mL, l 19:42: Injection, Elijah 00 IV, Once, first dose 06/19/19 14:42:00 CDT, stop date 06/19/19 14:42:00 CDT midazolam 2019-0 No 1 mg = 1 Dani ulises 9-04 mL, l 19:42: Injection, Vanzant 00 IV, Once, first dose 06/19/19 14:42:00 CDT, stop date 06/19/19 14:42:00 CDT fentaNYL 2019-0 No 50 mcg = 1 Mem oria 9-04 mL, l 19:42: Injection, Vanzant 00 IV, Once, first dose 06/19/19 14:42:00 CDT, stop date 06/19/19 14:42:00 CDT Clindamycin 2019-0 No 900 mg, Mem oria 9-04 Soln-IV, l 18:00: IV Vanzant 00 Piggyback, Once, infuse over 30 minutes, first dose 06/19/19 13:00:00 CDT, stop date 06/19/19 13:00:00 CDT, Prophylaxi s Clindamycin 2019-0 No 900 mg, Mem oria 9-04 Soln-IV, l 18:00: IV Vanzant 00 Piggyback, Once, infuse over 30 minutes, first dose 06/19/19 13:00:00 CDT, stop date 06/19/19 13:00:00 CDT, Prophylaxi s Clindamycin 2019-0 No 900 mg, Mem oria 9-04 Soln-IV, l 18:00: IV Elijah 00 Piggyback, Once, infuse over 30 minutes, first dose 06/19/19 13:00:00 CDT, stop date 06/19/19 13:00:00 CDT, Prophylaxi s Clindamycin 2019-0 No 900 mg, Mem oria 9-04 Soln-IV, l 18:00: IV Elijah 00 Piggyback, Once, infuse over 30 minutes, first dose 06/19/19 13:00:00 CDT, stop date 06/19/19 13:00:00 CDT, Prophylaxi s Clindamycin 2019-0 No 900 mg, Mem oria 9-04 Soln-IV, l 18:00: IV Vanzant 00 Piggyback, Once, infuse over 30 minutes, first dose 06/19/19 13:00:00 CDT, stop date 06/19/19 13:00:00 CDT, Prophylaxi s Lidocaine 2019-0 No 0.2 mL, Memor ia 2% 0.2 mL 06-19 Injection, l IV Start 17:44: Subcutaneo [facility] [[facility]] us, Once PRN for other (see comment), first dose 06/19/19 12:44:00 CDT LR 1,000 mL 2019-0 No 1,000 mL, M emoria 9-04 IV, 30 l 17:44: mL/hr, Elijah start date 06/19/19 12:44:00 CDT Lidocaine 2019-0 No 0.2 mL, Memor ia 2% 0.2 mL 06-19 Injection, l IV Start 17:44: Subcutaneo [facility] [[facility]] us, Once PRN for other (see comment), first dose 06/19/19 12:44:00 CDT LR 1,000 mL 2019-0 No 1,000 mL, M emoria 9-04 IV, 30 l 17:44: mL/hr, Elijah start date 06/19/19 12:44:00 CDT Lidocaine 2019-0 No 0.2 mL, Memor ia 2% 0.2 mL 06-19 Injection, l IV Start 17:44: Subcutaneo [facility] [[facility]] us, Once PRN for other (see comment), first dose 06/19/19 12:44:00 CDT LR 1,000 mL 2019-0 No 1,000 mL, M emoria 9-04 IV, 30 l 17:44: mL/hr, Elijah 00 start date 06/19/19 12:44:00 CDT Lidocaine 2019-0 No 0.2 mL, Memor ia 2% 0.2 mL 06-19 Injection, l IV Start 17:44: Subcutaneo [facility] [place] [[facility]] us, Once PRN for other (see comment), first dose 06/19/19 12:44:00 CDT LR 1,000 mL 2019-0 No 1,000 mL, M emoria 9 IV, 30 l 17:44: mL/hr, start date 06/19/19 12:44:00 CDT Lidocaine 2019- No 0.2 mL, Memor ia 2% 0.2 mL 06-19 Injection, l IV Start 17:44: [facility]aneo [facility] [place] [[facility]] us, Once PRN for other (see comment), first dose 06/19/19 12:44:00 CDT LR 1,000 mL 2019-0 No 1,000 mL, M emoria 06-19 IV, 30 l 17:44: mL/hr, start date 06/19/19 12:44:00 CDT Alprazolam Yes 1 mg = 1 Mem oria 1 MG Oral 8-27 tabs, l Tablet 20:52: Oral, As Elijah [Xanax] 00 Indicated, PRN for anxiety Alprazolam Yes 1 mg = 1 Mem oria 1 MG Oral 8-27 tabs, l Tablet 20:52: Oral, As Elijah [Xanax] 00 Indicated, PRN for anxiety Alprazolam Yes 1 mg = 1 Mem oria 1 MG Oral 8-27 tabs, l Tablet 20:52: Oral, As Elijah [Xanax] 00 Indicated, PRN for anxiety Alprazolam Yes 1 mg = 1 Mem oria 1 MG Oral 8-27 tabs, l Tablet 20:52: Oral, As Vanzant [Xanax] 00 Indicated, PRN for anxiety Alprazolam Yes 1 mg = 1 Mem oria 1 MG Oral 8-27 tabs, l Tablet 20:52: Oral, As Elijha [Xanax] 00 Indicated, PRN for anxiety metFORMIN 2011-0 Yes [id number] 500mg Take 500 [facility] (GLUCOPHAGE 4-05 mg by ity of ) 500 mg 14:47: mouth 2 [place] tablet 05 (two) Medical times Branch daily with meals. metFORMIN Yes [id number] 500mg Take 500 [facility] (GLUCOPHAGE 4-05 mg by ity of ) 500 mg 14:47: mouth 2 [place] tablet 05 (two) Medical times Branch daily with meals. metFORMIN Yes [id number] 500mg Take 500 [facility] (GLUCOPHAGE 4-05 mg by ity of ) 500 mg 14:47: mouth 2 [place] tablet 05 (two) Medical times Branch daily with meals. metFORMIN Yes [id number] 500mg Take 500 [facility] (GLUCOPHAGE 4-05 mg by ity of ) 500 mg 14:47: mouth 2 [place] tablet 05 (two) Medical times Branch daily with meals. metFORMIN Yes [id number] 500mg Take 500 [facility] (GLUCOPHAGE 4-05 mg by ity of ) 500 mg 14:47: mouth 2 [place] tablet 05 (two) Medical times Branch daily with meals. escitalopra Yes [id number] 20mg Take 20 mg [facility] m (LEXAPRO) 4-05 by mouth ity of 20 mg 14:47: daily. [place] tablet 02 [facility] escitalopra Yes [id number] 20mg Take 20 mg Univers m (LEXAPRO) 4-05 by mouth ity of 20 mg 14:47: daily. [place] tablet 02 [facility] escitalopra Yes [id number] 20mg Take 20 mg Univers m (LEXAPRO) 4-05 by mouth ity of 20 mg 14:47: daily. [place] tablet [address] [place] [address] escitalopra Yes [id number] 20mg Take 20 mg [facility] m (LEXAPRO) 4-05 by mouth ity of 20 mg 14:47: daily. [place] tablet [address] [place] [address] escitalopra Yes [id number] 20mg Take 20 mg [facility] m (LEXAPRO) 4-05 by mouth ity of 20 mg 14:47: daily. [address] metFORMIN Yes [id number] 500mg Take 500 [facility] (GLUCOPHAGE 4-05 mg by ity of ) 500 mg 09:47: mouth 2 [place] tablet 05 (two) Medical times Branch daily with meals. metFORMIN Yes [id number] 500mg Take 500 [facility] (GLUCOPHAGE 4-05 mg by ity of ) 500 mg 09:47: mouth 2 [place] tablet 05 (two) Medical times Branch daily with meals. escitalopra Yes [id number] 20mg Take 20 mg [facility] m (LEXAPRO) 4-05 by mouth ity of 20 mg 09:47: daily. [place] tablet Medical Branch escitalopra Yes [id number] 20mg Take 20 mg [facility] m (LEXAPRO) 4-05 by mouth ity of 20 mg 09:47: daily. [place] tablet Medical Branch simvastatin Yes [id number] 20mg Take 1 Tab [facility] (ZOCOR) 20 4-05 by mouth ity o f mg tablet 00:00: at [place] [address] bedtime. Medical Branch lisinopril Yes [id number] 10mg Take 1 Tab [facility] (PRINIVIL,Z 4-05 by mouth ity of ESTRIL) 10 00:00: daily. [place] mg tablet [facility] Branch simvastatin Yes [id number] 20mg Take 1 Tab [facility] (ZOCOR) 20 4-05 by mouth ity o f mg tablet 00:00: at [place] [address] bedtime. Medical Branch lisinopril Yes [id number] 10mg Take 1 Tab [facility] (PRINIVIL,Z 4-05 by mouth ity of ESTRIL) 10 00:00: daily. [place] mg tablet [facility] simvastatin Yes [id number] 20mg Take 1 Tab Univers (ZOCOR) 20 4-05 by mouth ity o f mg tablet 00:00: at [place] [address] bedtime. Medical Branch lisinopril Yes [id number] 10mg Take 1 Tab Univers (PRINIVIL,Z 4-05 by mouth ity of ESTRIL) 10 00:00: daily. [place] mg tablet [facility] simvastatin Yes [id number] 20mg Take 1 Tab Univers (ZOCOR) 20 4-05 by mouth ity o f mg tablet 00:00: at [place] [address] bedtime. Medical Branch lisinopril Yes [id number] 10mg Take 1 Tab [facility] (PRINIVIL,Z 4-05 by mouth ity of ESTRIL) 10 00:00: daily. [place] mg tablet [facility] simvastatin Yes [id number] 20mg Take 1 Tab Univers (ZOCOR) 20 4-05 by mouth ity o f mg tablet 00:00: at [place] 00 bedtime. Medical Branch lisinopril Yes [id number] 10mg Take 1 Tab [facility] (PRINIVIL,Z 4-05 by mouth ity of ESTRIL) 10 00:00: daily. [place] mg tablet 00 Medical Branch simvastatin Yes [id number] 20mg Take 1 Tab Univers (ZOCOR) 20 4-05 by mouth ity o f mg tablet 00:00: at [place] 00 bedtime. Medical Branch lisinopril Yes [id number] 10mg Take 1 Tab [facility] (PRINIVIL,Z 4-05 by mouth ity of ESTRIL) 10 00:00: daily. [place] mg tablet 00 Medical Branch simvastatin Yes [id number] 20mg Take 1 Tab [facility] (ZOCOR) 20 4-05 by mouth ity o f mg tablet 00:00: at [place] [address] bedtime. Medical Branch lisinopril Yes [id number] 10mg Take 1 Tab [facility] (PRINIVIL,Z 4-05 by mouth ity of ESTRIL) 10 00:00: daily. [place] mg tablet [address] [facility] ALPRAZolam Yes [id number] .5mg Take 0.5 [facility] (XANAX) 0.5 2-15 mg by [place] of mg [place] 00:[place] 00 needed. [place] insulin Yes [id number] 10U inject 10 U nivers lispro 2-15 Units ity of (HUMALOG 00:00: [place] KWIKPEN[place] 00 skin 3 Medical 100 unit/mL (three) Branc h pen times injector daily before meals. Insulin Yes [id number] 40U inject 40 U nivers Glargine 2-15 Units ity of (LANTUS 00:00: under the [place] SOLOSTAR) 00 skin at Medical 100 unit/mL bedtime. Bran ch (3 mL) In ALPRAZolam Yes [id number] .5mg Take 0.5 [facility] (XANAX) 0.5 2-15 mg by [place] of mg tablet 00:[place] 00 needed. [place] insulin Yes [id number] 10U inject 10 U nivers lispro 2-15 Units ity of (HUMALOG 00:[place]: [place] KWIKPEN[place] 00 skin 3 Medical 100 unit/mL (three) Branc h pen times injector daily before meals. Insulin Yes [id number] 40U inject 40 U nivers Glargine 2-15 Units ity of (LANTUS 00:00: under the [place] SOLOSTAR) 00 skin at Medical 100 unit/mL bedtime. Bran ch (3 mL) [facility] ALPRAZolam Yes [id number] .5mg Take 0.5 [facility] (XANAX) 0.5 2-15 mg by [place] mg [place] [address] [facility] insulin Yes [id number] 10U inject 10 U nivers lispro 2-15 Units ity of (HUMALOG 00:[place]: [place] KWIKPEN[place] 00 skin 3 Medical 100 unit/mL (three) Branc h pen times injector daily before meals. Insulin Yes [id number] 40U inject 40 U nivers Glargine 2-15 Units ity of (LANTUS 00:00: under the [place] SOLOSTAR) 00 skin at Medical 100 unit/mL bedtime. Bran ch (3 mL) [facility] ALPRAZolam Yes [id number] .5mg Take 0.5 [facility] (XANAX) 0.5 2-15 mg by [place] of mg [place] [address] [facility] insulin Yes [id number] 10U inject 10 U nivers lispro 2-15 Units ity of (HUMALOG 00:[place]: [place] KWIKPEN[place] 00 skin 3 Medical 100 unit/mL (three) Branc h pen times injector daily before meals. Insulin Yes [id number] 40U inject 40 U nivers Glargine 2-15 Units ity of (LANTUS 00:00: under the [place] SOLOSTAR) 00 skin at Medical 100 unit/mL bedtime. Bran ch (3 mL) [facility] ALPRAZolam Yes [id number] .5mg Take 0.5 [facility] (XANAX) 0.5 2-15 mg by [place] of mg tablet [place] [address] [facility] insulin Yes [id number] 10U inject 10 U nivers lispro 2-15 Units ity of (HUMALOG 00:00: [place] KWIKPEN[place] 00 skin 3 Medical 100 unit/mL (three) Branc h pen times injector daily before meals. Insulin Yes [id number] 40U inject 40 U nivers Glargine 2-15 Units ity of (LANTUS 00:00: under the [place] SOLOSTAR) 00 skin at Medical 100 unit/mL bedtime. Bran ch (3 mL) In ALPRAZolam Yes [id number] .5mg Take 0.5 [facility] (XANAX) 0.5 2-15 mg by [place]y of mg tablet 00:00: [place] 00 needed. [facility] insulin Yes [id number] 10U inject 10 U nivers lispro 2-15 Units ity of (HUMALOG 00:00: [place] KWIKPEN[place] 00 skin 3 Medical 100 unit/mL (three) Branc h pen times injector daily before meals. Insulin Yes [id number] 40U inject 40 U nivers Glargine 2-15 Units ity of (LANTUS 00:00: under the [place] SOLOSTAR) 00 skin at Medical 100 unit/mL bedtime. Bran ch (3 mL) In ALPRAZolam Yes [id number] .5mg Take 0.5 [facility] (XANAX) 0.5 2-15 mg by [place] of mg [place] 00:[place] [address] [facility] insulin Yes [id number] 10U inject 10 U nivers lispro 2-15 Units ity of (HUMALOG 00:00: [place] KWIKPEN[place] 00 skin 3 Medical 100 unit/mL (three) Branc h pen times injector daily before meals. Insulin Yes [id number] 40U inject 40 U nivers Glargine 2-15 Units ity of (LANTUS 00:00: under the [place] SOLOSTAR) 00 skin at Medical 100 unit/mL bedtime. Bran ch (3 mL) In Immunizations Ordered Filled Immunization Date Status Comments [facility] e Immunization Name Name SARS-COV-2 COVID-19 2021-01-10 Completed Unive rsity of MODERNA VACCINE 00:00:00 [place] [facility] ical Branch SARS-COV-2 COVID-19 2021-01-10 Completed Unive rsity of MODERNA VACCINE 00:00:00 [place] [facility] ical [facility] SARS-COV-2 COVID-19 2021-01-10 Completed Unive rsity of MODERNA VACCINE 00:00:00 [place] [facility] ical Branch SARS-COV-2 COVID-19 2021-01-10 Completed Unive rsity of MODERNA VACCINE 00:00:00 [place] [facility] SARS-COV-2 COVID-19 2021-01-10 Completed Unive rsity of MODERNA VACCINE 00:00:00 [place] [facility] ical Branch SARS-COV-2 COVID-19 2021-01-10 Completed Unive rsity of MODERNA VACCINE 00:00:00 [facility] [place] [facility] ical Branch SARS-COV-2 COVID-19 2021-01-10 Completed Unive rsity of MODERNA VACCINE 00:00:00 [place] [facility] ical Branch SARS-COV-2 COVID-19 2020-12-13 Completed Unive rsity of MODERNA VACCINE 00:00:00 [place] [facility] ical Branch SARS-COV-2 COVID-19 2020-12-13 Completed Unive rsity of MODERNA VACCINE 00:00:00 [place] [facility] ical Branch SARS-COV-2 COVID-19 2020-12-13 Completed Unive rsity of MODERNA VACCINE 00:00:00 [place] [facility] ical Branch SARS-COV-2 COVID-19 2020-12-13 Completed Unive rsity of MODERNA VACCINE 00:00:00 [place] [facility] ical Branch SARS-COV-2 COVID-19 2020-12-13 Completed Unive rsity of MODERNA VACCINE 00:00:00 [facility] [place] [facility] ical Branch SARS-COV-2 COVID-19 2020-12-13 Completed Unive rsity of MODERNA VACCINE 00:00:00 [facility] [place] [facility] ical Branch SARS-COV-2 COVID-19 2020-12-13 Completed Unive rsity of MODERNA VACCINE 00:00:00 [facility] [place] [facility] ical Branch Vital Signs Vital Name Observation Time Observation Value Comments Source Systolic blood 2022-09-22 19:52:00 102 mm[Hg] Brandee Seybold - pressure External Diastolic blood 2022-09-22 19:52:00 68 mm[Hg] Danielse y Seybold - pressure External Heart rate 2022-09-22 19:52:00 86 /min Brandee S eybold - External Body temperature 2022-09-22 19:52:00 36.61 Flor Silvia ey Seybold - External Respiratory rate 2022-09-22 19:52:00 14 /min Silvia ey Seybold - External Body height 2022-09-22 19:52:00 149.9 cm Brandee S eybold - External Body weight 2022-09-22 19:52:00 53.524 kg Brandee S eybold - External BMI 2022-09-22 19:52:00 23.83 kg/m2 Brandee S eybold - External Oxygen saturation in 2022-09-22 19:52:00 99 /min Brandee Seybold - Arterial blood by External Pulse oximetry Systolic blood 2022-09-06 21:28:00 126 mm[Hg] Brandee Seybold - pressure External Diastolic blood 2022-09-06 21:28:00 78 mm[Hg] Danielse y Seybold - pressure External Heart rate 2022-09-06 21:28:00 84 /min Brandee S eybold - External Body temperature 2022-09-06 21:28:00 36.89 Flor Silvia ey Seybold - External Respiratory rate 2022-09-06 21:28:00 14 /min Silvia ey Seybold - External Body height 2022-09-06 21:28:00 149.9 cm Brandee S eybold - External Body weight 2022-09-06 21:28:00 55.792 kg Brandee S eybold - External BMI 2022-09-06 21:28:00 24.84 kg/m2 Brandee S eybold - External Oxygen saturation in 2022-09-06 21:28:00 99 /min Brandee Seybold - Arterial blood by External Pulse oximetry Systolic blood 2022-08-09 20:26:00 94 mm[Hg] Brandee Seybold - pressure External Diastolic blood 2022-08-09 20:26:00 64 mm[Hg] Danielse y Seybold - pressure External Heart rate 2022-08-09 20:26:00 94 /min Brandee palaciosbobritton - External Body temperature 2022-08-09 20:26:00 36.17 Flor Silvia palacios Seybbrittni - External Respiratory rate 2022-08-09 20:26:00 14 /min Silvia Bullock - External Body height 2022-08-09 20:26:00 149.9 cm Brandee palaciosbold - External Body weight 2022-08-09 20:26:00 53.524 kg Brandee palaciosbold - External BMI 2022-08-09 20:26:00 23.83 kg/m2 Brandee palaciosbobritton - External Systolic blood 2022-04-16 23:20:00 110 mm[Hg] Univer sity of pressure [facility] Diastolic blood 2022-04-16 23:20:00 74 mm[Hg] Unive rsity of [facility] Heart rate 2022-04-16 23:20:00 104 /min [facility] Body temperature 2022-04-16 23:20:00 37.44 Flor [facility] Respiratory rate 2022-04-16 23:20:00 17 /min [facility] 2022-04-16 23:20:[address] [facility] Body weight 2022-04-16 23:20:[address] [facility] BMI 2022-04-16 23:20:00 24.22 kg/m2 [facility] Oxygen saturation in 2022-04-16 23:20:00 97 /min [facility] Arterial blood by [facility] Pulse oximetry Branch Systolic (mm Hg) 2019-06-19 23:50:00 Dani rita [facility] Diastolic (mm Hg) 2019-06-19 23:50:00 Mem orial [facility] Respitory Rate 2019-06-19 23:50:00 Isa xavier [facility] Heart Rate 2019-06-19 23:50:00 [facility] Systolic (mm Hg) 2019-06-19 23:10:00 Dani rial [place] Diastolic (mm Hg) 2019-06-19 23:10:00 Mem orial [facility] Heart Rate 2019-06-19 23:10:00 [facility] Respitory Rate 2019-06-19 23:10:00 Isa xavier Elijah Systolic (mm Hg) 2019-06-19 23:00:00 Dani Gutierrezann Diastolic (mm Hg) 2019-06-19 23:00:00 Mem orial Elijah Heart Rate 2019-06-19 23:00:00 [facility] Respitory Rate 2019-06-19 23:00:00 Isa al [facility] Temperature Oral (F) 2019-06-19 22:20:00 36.9 Flor [facility] Temperature Oral (F) 2019-06-19 17:42:00 36.8 Flor [facility] Height 2019-06-19 17:42:00 149.86 cm [facility] Height 2019-06-11 20:45:00 149.86 cm [facility] Procedures Procedure Date / Time Performing Clinician Source Performed POCT MOLECULAR FLU 2022-04-16 23:28:00 [facility] ASSIGN[facility] OF BENEFITS 2021-06-21 18:46:16 Doctor Unassigned, Un [facility] [place] Medical Branch ARTHROSCOPIC DEBRIDEMENT 2019-06-19 20:39:00 Mem oriana Gutierrezann SHOULDER-EXTENSIVE [id number] (Left)<sup>1</sup> ARTHROSCOPY SHOULDER 2019-06-19 20:39:00 Arturopan monae Elijah ROTATOR CUFF REPAIR 05418 (Left)<sup>2</sup> ARTHROSCOPY SHOULDER 2019-06-19 20:39:00 Isabel Nava W/BICEPS TENDONESIS 63454 (Left)<sup>3</sup> ARTHROSCOPY SHOULDER 2019-06-19 20:39:00 Isabel l Elijah W/SUBACROMIAL DECOMPRESSION/ACROMIOPLAST Y 19411 (Left)<sup>4</sup> tooth extraction 2019-04-17 05:00:00 [facility] Gilberto hoffmannann Appendectomy 2010-10-16 00:00:00 [facility] Her arango Hysterectomy 2007-10-16 00:00:00 [facility] arango Cholecystectomy 2005-10-16 00:00:00 Rayna arango Encounters Start End Encounter Admission Attending Care Care Encounter Source Date/Time Date/Time Type Type Clinicians Facility Department ID 2022-12-07 2022-12-07 Outpatient BRANDEE QUICK [id number] Brandee 16:15:00 16:15:00 BILL Seybol d 2022-09-26 2022-09-26 Outpatient PREZAS, BRANDEE FELIZ [id number] Brandee 09:45:00 09:45:00 BILL Seybol d 2022-09-22 2022-09-22 Outpatient HUNDL, BRANDEE FELIZ [id number] Brandee 14:00:00 14:00:00 KATHY Seybol d 2022-09-22 2022-09-22 Outpatient PREZAS, BRANDEE FELIZ [id number] Brandee 00:00:00 00:00:00 BILL Seybol d 2022-09-22 2022-09-22 Outpatient PREZAS, BRANDEE FELIZ [id number] Brandee 00:00:00 00:00:00 BILL Seybol d 2022-09-21 2022-09-21 Outpatient PREZAS, BRANDEE FELIZ [id number] Brandee 00:00:00 00:00:00 BILL Seybol d 2022-09-19 2022-09-19 Outpatient TESTING, LJ BRANDEE FELIZ [id number] Brandee 14:50:00 14:50:00 Seybol d 2022-09-19 2022-09-19 Outpatient [id number] BRANDEE FELIZ [id number] Brandee 13:20:00 13:20:00 Seybol d 2022-09-19 2022-09-19 Outpatient PREZAS, BRANDEE FELIZ [id number] Brandee 00:00:00 00:00:00 BILL Seybol d 2022-09-19 2022-09-19 Outpatient PREZAS, BRANDEE FELIZ [id number] Brandee 00:00:00 00:00:00 BILL Seybol d 2022-09-06 2022-09-06 Outpatient LAB90 BRANDEE FELIZ [id number] Brandee 16:15:00 16:15:00 Seybol d 2022-09-06 2022-09-06 Outpatient PREZAS, BRANDEE FELIZ [id number] Brandee 15:45:00 15:45:00 BILL Seybol d 2022-08-26 2022-08-26 Outpatient PREZAS, BRANDEE FELIZ [id number] Brandee 00:00:00 00:00:00 BILL Seybol d 2022-08-10 2022-08-10 Outpatient PREZAS, BRANDEE FELIZ [id number] Brandee 00:00:00 00:00:00 BILL Seybol d 2022-08-09 2022-08-09 Outpatient PREZAS, BRANDEE FELIZ [id number] Brandee 15:45:00 15:45:00 BILL Seybol d 2022-08-09 2022-08-09 Outpatient PREZAS, BRANDEE FELIZ [id number] Brandee 15:15:00 15:15:00 BILL Seybol d 2022-08-08 2022-08-08 Outpatient PREZAS, BRANDEE FELIZ [id number] Brandee 00:00:00 00:00:00 BILL Seybol d 2022-07-21 2022-07-21 Outpatient PREZAS, BRANDEE FELIZ [id number] Brandee 00:00:00 00:00:00 BILL Seybol d 2022-06-13 2022-06-13 Outpatient PREZAS, BRANDEE FELIZ [id number] Brandee 00:00:00 00:00:00 BILL Seybol d 2022-06-01 2022-06-01 Outpatient PREZAS, BRANDEE FELIZ [id number] Brandee 08:00:00 08:00:00 BILL Seybol d 2022-05-31 2022-05-31 Outpatient RICO, BRANDEE FELIZ [id number] Brandee 00:00:00 00:00:00 URMILA Seybol d 2022-05-31 2022-05-31 Outpatient PREZAS, BRANDEE FELIZ [id number] Brandee 00:00:00 00:00:00 BILL Seybol d 2022-05-27 2022-05-27 Outpatient PREZAS, BRANDEE FELIZ [id number] Brandee 00:00:00 00:00:00 BILL Seybol d 2022-05-26 2022-05-26 Outpatient PREZAS, BRANDEE FELIZ [id number] Brandee 00:00:00 00:00:00 BILL Seybol d 2022-05-26 2022-05-26 Outpatient PREZAS, BRANDEE FELIZ [id number] Brandee 00:00:00 00:00:00 BILL Seybol d 2022-05-25 2022-05-25 Outpatient LAB90 BRANDEE BRANDEE [id number] Brandee 10:10:00 10:10:00 Seybol d 2022-05-16 2022-05-16 Outpatient BRANDEE QUICK BRANDEE [id number] Brandee 00:00:00 00:00:00 BILL Seybol d 2022-05-12 2022-05-12 Office Derrick Quick [id number] Brandee 15:30:00 16:00:00 Visit Bill Swenson [id number] Se ybold [id number] [id number] 2022-05-12 2022-05-12 Outpatient BRANDEE QUICK BRANDEE [id number] Brandee 00:00:00 00:00:00 BILL Seybol d 2022-05-10 2022-05-10 Outpatient BRANDEE QUICK BRANDEE [id number] Brandee 00:00:00 00:00:00 BILL Seybol d 2022-05-04 2022-05-04 Office Derrick Quick [id number] Brandee 13:30:00 14:00:00 Visit Bill Swenson [id number] Se ybold 1.2.7.2.686 [id number] 2022-04-17 2022-04-17 Telephone SUMANTH Munoz [id number] Univers 00:00:00 00:00:00 Sheri TRACEY [id number] i [facility] 4.2.7.2.686 Jon as [id number] [address] 2022-04-16 2022-04-16 Outpatient Thom RHODES WARITESH [facility] [id number] Univers 18:20:00 18:49:11 DEBRA samuel [facility] 2022-04-16 2022-04-16 Urgent Sumanth Ray [facility] [id number] Univers 18:20:00 18:49:11 Debra Ortega HEALTH [id number] ity [facility] 4.2.7.2.686 Jon as JF?BLEA [id number] [address] MEDICAL OFFICE BUILDING 2021-06-22 2021-06-22 Letter SUMANTH Olvera [id number] Univers 00:00:00 00:00:00 (Out) Roxana Julissa TRACEY 350.1.13.10 it y of HOSPITAL 4.2.7.2.686 Jon as [id number] [facility] [address] [place] 2021-06-21 2021-06-21 Outpatient R BISHNU [facility] [id number] Univers 14:30:00 14:30:00 HUE samuel o f [facility] 2021-06-21 2021-06-21 Laboratory Only, Ang Db Test [facility] 1.2.8 40.114 [id number] Univers 13:46:09 14:01:09 Only Bishnu Hue [employer] 350.1.13.10 ity of [place] 4.2.7.2.686 Jon as Jf?Blea [id number] [address] Medical Office [facility] 2021-06-21 2021-06-21 Orders Doctor JULIO [id number] Univers 00:00:00 00:00:00 Only Unassigned, KYUNG 350.1.13.10 ity of [place] [facility] 4.2.7.2.686 Jon as [phone] [facility] [address] [place] 2021-01-10 2021-01-10 Outpatient [facility] [id number] Univers 14:20:00 14:20:00 ity [facility] 2021-01-02 2021-01-02 [facility] [id number] Univers 10:00:00 10:00:00 DEBRA ity [facility] 2020-12-31 2020-12-31 [facility] [id number] Univers 17:20:00 17:20:00 DEBRA ity [facility] 2020-12-13 2020-12-13 Outpatient R ROCHELLE [facility] [id number] Univers 15:05:00 15:05:00 EMIR [facility] 2020-09-30 2020-09-30 Outpatient R RADIOLOGY [facility] [id number] Univers 00:00:00 00:00:00 [facility] 2019-09-30 2019-09-30 Outpatient R RADIOLOGY [facility] [id number] Univers 07:28:06 23:59:00 [facility] 2019-06-19 2019-06-20 Outpatient nullFlavo [facility] [id number] Memoria 16:54:16 00:00:00 r [facility] 2019-06-19 2019-06-20 Outpatient nullFlavo [facility] [id number] Memoria 16:54:16 00:00:00 [facility] 2019-06-19 2019-06-[address] [facility] [id number] Memoria 11:54:16 19:00:00 thom Nava 2019-06-19 2019-06-19 Outpatient Jamison, [id number] 11:54:16 19:00:00 Eusebio Autumn Farisa 2018-12-21 2018-12-22 Outpatient nullFlavo [facility] [id number] Memoria 15:21:48 05:59:59 r [facility] 2018-12-21 2018-12-22 Outpatient nullFlavo [facility] [id number] Memoria 15:21:48 05:59:59 thom [facility] 2018-12-21 2018-12-[address] [facility] [id number] Memoria 09:21:48 23:59:59 thom Nava 2018-12-21 2018-12-21 Outpatient Swift, [id number] 09:21:48 23:59:59 Eusebio Farias Results Test Description Test Time Test Comments Results Result Comments Source POCT MOLECULAR FLU 2022-04-16 23:39:54 Test Item Value Reference Range Interpretation Comme nts POCT Molecular FluA (test code = 99692-7) Negative Negative POCT Molecular FluB (test code = 10382-4) Negative Negative Lab Interpretation (test code = 72874-6) Normal [facility]
[2022-09-26 15:06] LABS: Albumin 3.8 g/dL (3.4-5.0); Bilirubin Total 0.7 mg/dL (0.2-1.0); Potassium 3.2 mmol/L (3.5-5.1); Protein, Total 8.7 g/dL (6.4-8.2)
[2022-09-26 15:07] LABS: Hematocrit 34.1 % (36.0-45.0); Lymphocytes % 37.4 % (15.3-44.8); MCV 85.9 fL (80-100); MPV 7.1 fL (7.6-11.3); RBC Red Blood Cell Count 3.97 M/uL (3.86-4.86)
[2022-09-26] MEDS ORDERED: NA CHLORIDE 0.9% 1,000 ML ONE (15:09)
[2022-09-26] MEDS ORDERED: POTASSIUM CL SA 10 MEQ TAB PO ONE (16:05)
--- NOTE | 2022-09-26 16:25 | ER ---
Nurse's Notes [facility] Name: Denise Solano Age: 51 yrs Sex: Female : 1970 Arrival Date: 09/26/2022 Time: 13:47 Bed DIS1 Private MD: Diagnosis: Dehydration;Muscle weakness (generalized);Hypokalemia Presentation: 09/26 14:14 Chief complaint: Patient states: she has been feeling ill for approx 2 weeks and tested ap3 positive for strep last Monday09/19/2022. Patient states that she has been on the Z-Pack and completed its course. Patient reports that she feels like she isn't getting well, and continues to feel weak and fatigued. Coronavirus screen: At this time, the client does not indicate any symptoms associated with coronavirus-19. Ebola Screen: No symptoms or risks identified at this time. Initial Sepsis Screen: Does the patient meet any 2 criteria? No. Patient's initial sepsis screen is negative. Does the patient have a suspected source of infection? No. Patient's initial sepsis screen is negative. Risk Assessment: Do you want to hurt yourself or someone else? Patient reports no desire to harm self or others. Onset of symptoms was September 12, 2022. 14:14 Method Of Arrival: Ambulatory ap3 14:14 Acuity: FE 3 ap3 Triage Assessment: 14:17 General: Appears in no apparent distress. Behavior is calm, cooperative. General: ap3 Reports feeling ill for > 3 days, fatigue for >3 days. Pain: Denies pain. Neuro: Level of Consciousness is awake, alert, obeys commands. Cardiovascular: Patient's skin is warm and dry. Respiratory: Airway is patent Respiratory effort is even, unlabored, Respiratory pattern is regular, symmetrical. 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 - Social history:: Smoking status: Patient denies any tobacco usage or history of. Screenin:18 Abuse screen: Denies threats or abuse. Nutritional screening: No deficits noted. ap3 Tuberculosis screening: No symptoms or risk factors identified. 14:18 Fall Risk No fall in past 12 months (0 pts). ap3 Vital Signs: 14:14 BP 102 / 70; Pulse 95; Resp 18; Temp 98.5(O); Pulse Ox 100% ; Weight 53.52 kg; Height 4 ap3 ft. 11 in. (149.86 cm); 14:14 Body Mass Index 23.83 (53.52 kg, 149.86 cm) ap3 ED Course: 13:47 Patient arrived in ED. mr 14:17 Triage completed. ap3 14:18 Arm band placed on right wrist. ap3 14:18 Patient has correct armband on for positive identification. ap3 14:28 Goran Aviles PA is PHCP. jr8 14:28 Samy Salazar DO is Attending Physician. jr8 14:37 Inserted saline lock: 20 gauge in right antecubital area, using aseptic technique. iw Blood collected. 15:34 Rosalina Peraza, RN is Primary Nurse. iw Administered Medications: 15:00 Drug: NS 0.9% 1000 ml Route: IV; Rate: 1 bolus; Site: right wrist; iw 16:08 Drug: Potassium Chloride 40 mEq Route: PO; iw Outcome: 16:24 Discharge ordered by . jr8 16:30 Patient left the ED. iw Signatures: Kiara Soliman mr Rosalina Peraza, RN RN iw Goran Aviles PA PA jr8 Brenda Gomez RN RN ap3
--- NOTE | 2022-09-26 16:25 | EDPHYS ---
Physician Documentation [facility] – [place], [place] Name: Denise Solano Age: 51 yrs Sex: Female : 1970 Arrival Date: 09/26/2022 Time: 13:47 Bed DIS1 Private MD: ED Physician Samy Salaazr HPI: 09/26 16:03 This 51 yrs old Female presents to ER via Ambulatory with complaints of jr8 dehydrated. 16:03 51-year-old female presented to the emergency room for general weakness and suspected jr8 dehydration. Patient stated that she was diagnosed with strep throat and was put on antibiotics last week which she has completed that regimen stated secondary to that she started to get diarrhea. Has been on antidiarrheals and antinausea medicine since then. Feels dehydrated and weak. Stated that she gets lightheaded and feels unsteady upon ambulation.. Severity of symptoms: At their worst the symptoms were moderate. The patient has not experienced similar symptoms in the past. The patient has been recently seen by a physician:. [employer]ATOR: 14:18 LMP N/A - Hysterectomy ap3 Historical: - Allergies: 14:17 PENICILLINS; ap3 - PMHx: 14:17 Anxiety; Depression; Diabetes - NIDDM; Gastroesophageal reflux disease; ap3 Hypercholesterolemia; - Immunization history:: Client reports receiving the 2nd dose of the Covid vaccine, Flu vaccine is not up to date. - Social history:: Smoking status: Patient denies any tobacco usage or history of. ROS: 16:03 Eyes: Negative for injury, pain, redness, and discharge, ENT: Negative for injury, jr8 pain, and discharge, Neck: Negative for injury, pain, and swelling, Cardiovascular: Negative for chest pain, palpitations, and edema, Respiratory: Negative for shortness of breath, cough, wheezing, and pleuritic chest pain, Back: Negative for injury and pain, MS/Extremity: Negative for injury and deformity, Skin: Negative for injury, rash, and discoloration, Neuro: Negative for headache, weakness, numbness, tingling, and seizure. 16:03 Constitutional: Positive for fatigue, malaise. 16:03 Abdomen/GI: Positive for nausea, diarrhea. Exam: 16:03 Eyes: Pupils equal round and reactive to light, extra-ocular motions intact. Lids and jr8 lashes normal. Conjunctiva and sclera are non-icteric and not injected. Cornea within normal limits. Periorbital areas with no swelling, redness, or edema. ENT: Nares patent. No nasal discharge, no septal abnormalities noted. Tympanic membranes are normal and external auditory canals are clear. Oropharynx with no redness, swelling, or masses, exudates, or evidence of obstruction, uvula midline. Mucous membranes moist. Neck: Trachea midline, no thyromegaly or masses palpated, and no cervical lymphadenopathy. Supple, full range of motion without nuchal rigidity, or vertebral point tenderness. No Meningismus. Cardiovascular: Regular rate and rhythm with a normal S1 and S2. No gallops, murmurs, or rubs. Normal PMI, no JVD. No pulse deficits. Respiratory: Lungs have equal breath sounds bilaterally, clear to auscultation and percussion. No rales, rhonchi or wheezes noted. No increased work of breathing, no retractions or nasal flaring. Abdomen/GI: Soft, non-tender, with normal bowel sounds. No distension or tympany. No guarding or rebound. No evidence of tenderness throughout. Back: No spinal tenderness. No costovertebral tenderness. Full range of motion. Skin: Warm, dry with normal turgor. Normal color with no rashes, no lesions, and no evidence of cellulitis. MS/ Extremity: Pulses equal, no cyanosis. Neurovascular intact. Full, normal range of motion. Neuro: Awake and alert, GCS 15, oriented to person, place, time, and situation. Cranial nerves II-XII grossly intact. Motor strength 5/5 in all extremities. Sensory grossly intact. Cerebellar exam normal. Normal gait. Vital Signs: 14:14 BP 102 / 70; Pulse 95; Resp 18; Temp 98.5(O); Pulse Ox 100% ; Weight 53.52 kg; Height 4 ap3 ft. 11 in. (149.86 cm); 14:14 Body Mass Index 23.83 (53.52 kg, 149.86 cm) ap3 MDM: 14:29 Patient medically screened. [facility] 16:03 Data reviewed: vital signs, nurses notes, lab test result(s), and as a result, I will [facility] discharge patient. Data interpreted: Pulse oximetry: on room air is 100 %. Interpretation: normal. Counseling: I had a detailed discussion with the patient and/or guardian regarding: the historical points, exam findings, and any diagnostic results supporting the discharge/admit diagnosis, lab results, the need for outpatient follow up, a family practitioner, to return to the emergency department if symptoms worsen or persist or if there are any questions or concerns that arise at home. Response to treatment: the patient's symptoms have markedly improved after treatment. ED course: Patient feeling much better after fluid bolus. Discussed labs with her and that her potassium was slightly low which has been replaced. Continue to hydrate at home and to follow-up. If feeling worse to come back for further reevaluation.. 09/26 14:28 Order name: CBC with Diff; Complete Time: 15:50 jr8 09/26 14:28 Order name: CMP; Complete Time: 15:50 jr8 09/26 14:28 Order name: Lipase; Complete Time: 15:50 jr8 09/26 14:28 Order name: IV Saline Lock; Complete Time: 14:37 jr8 09/26 14:28 Order name: Labs collected and sent; Complete Time: 14:37 jr8 Administered Medications: 15:00 Drug: NS 0.9% 1000 ml Route: IV; Rate: 1 bolus; Site: right wrist; iw 16:08 Drug: Potassium Chloride 40 mEq Route: PO; iw Disposition: 18:26 Co-signature as Attending Physician, Samy CACERES was immediately available onsite ms3 in the emergency department for consultation in the care of the patient. Disposition Summary: 09/26/22 16:24 Discharge Ordered Location: Home [facility] Problem: new jr8 Symptoms: have improved jr8 Condition: Stable jr8 Diagnosis - Dehydration jr8 - Muscle weakness (generalized) jr8 - Hypokalemia jr8 Followup: jr8 - With: Private Physician - When: 2 - 3 days - Reason: Recheck today's complaints, Continuance of care, Re-evaluation by your physician Discharge Instructions: - Discharge Summary Sheet jr8 - Dehydration, Adult jr8 - Weakness jr8 - Hypokalemia jr8 Forms: - Medication Reconciliation Form jr8 - Work release form jr8 - Thank You Letter jr8 - Antibiotic Education jr8 - Prescription Opioid Use jr8 Signatures: Dispatcher [employer] Rosalina Bentley RN RN iw Roszak, Josh, PA PA jr8 Brenda Gomez, ZEV RN ap3 Samy Salazar DO DO ms3
[2022-09-26 16:53] VITALS: BP 102/70; TEMP 98.5; O2SAT 100
== END 2022-09-26 16:30 | disposition home or self-care (01) ==
LOC: ER 13:43
DX: E86.0 Dehydration (principal); E87.6 Hypokalemia; R11.0 Nausea; Z88.0 Allergy status to penicillin
CPT/HCPCS: 85025; 36415; 83690; 80053; J7030; 99283

== ENCOUNTER 2022-11-08 09:35 | Emergency (ER) | payer BC ==
--- OUTSIDE RECORDS SUMMARY | 2022-11-08 09:41 | XMS REPORT | Continuity of Care Document ---
:1970 Author Organization [facility] t Address [address] [place] [address] [address]. [address] [place] [address] Care Team Providers Name Role Phone THOR ENGLISH Primary Care Physician Unavailable BILL QUICK Attending Clinician Unavailable KATHY OLMSTEAD Attending Clinician Unavailable TESTING, LJ COVID DREA Attending Clinician Unavailable [id number] Attending Clinician Unavailable LAB90 Attending Clinician Unavailable URMILA RICO Attending Clinician Unavailable Bill Quick DO Attending Clinician Alexander BROTHERS, Sheri Kennedy Attending Clinician Unavailable DEBRA RHODES Attending Clinician Unavailable Sumanth Ray PA-C Attending Clinician Debra Block Attending Clinician Roxana Olvera RN Attending Clinician Unavailable HUE GOETZ Attending Clinician Unavailable Only, Ang Db Test Attending Clinician Unavailable Hue Ramirez Attending Clinician Doctor Unassigned, [place] Attending Clinician Unavailable EMIR BYRD Attending Clinician Unavailable RADIOLOGY Attending Clinician Unavailable Eusebio Swift Attending Clinician THOR ENGLISH Admitting Clinician Unavailable Eusebio Swift Admitting Clinician Payers Payer Name Policy Type Policy Number Effective Date Expiration Date S ource BC 2 [id number] 2021 00:00:00 Problems Condition Condition Condition Status Onset Resolution Last Treating Co mments Source Name Details Category Date Date Treatment Clinician Date Acute pain Acute pain Disease Active 2021-10 K elsey of right of right 2-29 Seybol d shoulder shoulder 00:00: - 00 Externa l Lipoma of Lipoma of Disease Active 2021-10 Daniel y right right 2-29 Seybold thigh thigh 00:00: - 00 Externa l Dermatitis Dermatitis Disease Active 2021-10 K elsey 1- Seybold 00:00: - 00 Externa l Chronic Chronic Disease Active Brandee cough cough 05-12 Seybold 00:00: - 00 Externa l Gastroesop Gastroesop Disease Active Bossman craig hageal hageal 7- Seybold reflux reflux 00:00: - disease disease 00 Externa without without l esophagiti esophagiti s s Well adult Well adult Disease Active Bossman craig exam exam 7 Seybold 00:00: - 00 Externa l History of History of Disease Active Bossman craig COVID-19 COVID-19 7-20 Seybol d 00:00: - 00 Externa l 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 00:00: - with with 00 Externa hyperlipid hyperlipid l emia emia Current Current Disease Active Brandee moderate moderate 7-20 Seybol d episode of episode of 00:00: - major major 00 Externa depressive depressive l disorder disorder without without prior prior episode episode Seasonal Seasonal Disease Active Kelse y allergic allergic 7-20 Seybol d rhinitis rhinitis 00:00: - due to due to 00 Externa pollen pollen l Diabetes Diabetes Disease Active Overview: Un jihan mellitus mellitus 2-15 Formattin ity of type 2, type 2, 00:00: g of this [place] uncontroll uncontroll 00 note Me dical ed, ed, might be Branch without without different complicati complicati from the ons ons original. ICD10 Diagnosis Term Client Program Manager Utility Anxiety Anxiety Problem Active 2019-06-21 Me radha (finding) (finding) 04:00:35 l Active Elijah Problem 06/21/2019 [facility] Infection Infection Problem Resolve 2019-06-21 2019-06-21 Memoria of tooth of tooth d 04-17 04:00:35 04:00:35 l (disorder) (disorder) 00:00: He rmann Resolved 00 04/17/2019 Problem 06/21/2019 [facility] History of Past Illness Condition Condition Condition Status Onset Resolution Last Treating Co mments Source Name Details Category Date Date Treatment Clinician Date Other Other Problem 2019-06-21 2019-06-21 M rupertoria injury of injury of 06-19 04:00:35 04:00:35 [...] Externa s l LATEX DRUG Active Rash Univers INGREDI 7-02 ity of 00:00: [place] 00 [facility] Latex Propensi Active Rash Univers ty to 7-02 ity of adverse 00:00: [place] reaction 00 Medical s Branch Penicill Propensi Active Hives Univer s ins ty to 2-15 ity of adverse 00:00: [place] reaction 00 Medical s Branch Penicill Propensi Active Hives Univer s ins ty to 2-15 ity of adverse 00:00: [place] reaction Medical s Branch PENICILL Drug Active Hives Univers INS Class 2-15 ity of 00:00: [place] 00 [facility] Branch penicill penicill Active Memori a ins ins l [place] Social History Social Habit Start Date Stop Date Quantity Comments Source Alcohol intake 2022-10-13 2022-10-13 Ex-drinker Brandee Gimenez bold - 00:00:00 00:00:00 (finding) External Tobacco use and 2022-05-04 2022-05-04 Smokeless tobacco Ke lsey Seybold - exposure 00:00:00 00:00:00 non-user External Education 2022-05-04 2022-05-04 16 Brandee Conradybold - 00:00:00 00:00:00 External Exposure to 2022-04-06 2022-04-16 Not sure [facility]-CoV-2 00:00:00 18:17:[address] [facility] (event) Branch Sex [birth year] At [birth year] F Brandee Conrad ybold - 00:00:00 00:00:00 External Smoking Status Start Date Stop Date Source Social History [facility] Medications Ordered Filled Start Stop Current Ordering Indication Dosage Frequency Signature Comments Components Source Medication Medication Date Date Medication? Clinician (SIG) Name Name Propranolol Yes [id number] 10mg Take 1 Brandee HCl 10 MG 1-23 tablet (10 Seyb old oral Tablet 00:00: mg total) - 00 by mouth 3 Externa times l daily Ondansetron Yes [id number] 4mg Q.[id number] Take 1 Brandee (ZOFRAN) 4 1-23 [id number] tablet (4 Seybold MG oral 00:00: 3D mg total) - TABLET 00 by mouth Externa DISPERSIBLE every 8 l hours as needed for nausea Alprazolam Yes [id number] TAKE ONE Brandee 1 MG oral 1-16 TABLET BY Seybo ld Tablet 00:00: MOUTH - 00 DAILY Externa l Cetirizine 2021-10 Yes 10mg Take 10 mg K elsey 10 MG oral 2-29 by mouth Seybo ld Tablet 11:31: daily - 35 Externa l Cetirizine 2021-10 Yes 10mg Take 10 mg K elsey 10 MG oral 2-29 by mouth Seybo ld Tablet 11:31: daily - 35 Externa l Meloxicam 2021-10 Yes [id number] 15mg QD Take 1 Ke lsey 15 MG oral 2-29 tablet (15 Sey bold Tablet 00:00: mg total) - 00 by mouth Externa daily as l needed for pain Meloxicam 2021-10 Yes [id number] 15mg QD Take 1 Ke lsey 15 MG oral 2-29 tablet (15 Sey bold Tablet 00:00: mg total) - 00 by mouth Externa daily as l needed for pain CELESTONE 2021-10- No [id number] 6mg Daniel sey -05 27- Seybold 20:15: 20:15 - 00 :00 Externa l Triamcinolo 2021-10- No [id number] 40mg K elsey ne 11-23 Seybold Acetonide 20:15: 20:18 - (KENALOG) 00 :00 Externa 40 mg/mL l Triamcinolo 2021-10- No [id number] 1mL 40 mg (1 Brandee ne 11-23 mL), Seybold Acetonide 20:15: 20:18 intramuscu - (KENALOG) 00 :00 lar, ONCE, Exte rna 40 mg/mL On Abbie l 09/22/22 at 1415, For 1 dose CELESTONE 2021-10- No [id number] 6mg 6 mg, Ke lsey 11-23 intramuscu Seybold 20:15: 20:15 lar, ONCE, - 00 :00 On Abbie Externa 09/22/22 at l 1415, For 1 dose Cetirizine 2021-10 Yes 10mg Take 10 mg K elsey 10 MG oral - by mouth Seybo ld Tablet 13:53: daily - 13 Externa l Ondansetron 2021-10 Yes [id number] 4mg Q.[id number] Take 1 Branede (ZOFRAN) 4 2- [id number] tablet (4 Seybold MG oral 00:00: 3D mg total) - TABLET 00 by mouth Externa DISPERSIBLE every 8 l hours as needed for nausea Ondansetron 2021-10 Yes [id number] 4mg Q.[id number] Take 1 Brandee (ZOFRAN) 4 2-08 [id number] tablet (4 Seybold MG oral 00:00: 3D mg total) - TABLET 00 by mouth Externa DISPERSIBLE every 8 l hours as needed for nausea Ondansetron 2021-10- No [id number] 4mg Q.[id number] Take 1 Brandee (ZOFRAN) 4 2-05 16- [id number] tablet (4 Seybold MG oral 00:00: 00:00 3D mg total) - TABLET 00 :00 by mouth Externa DISPERSIBLE every 8 l hours as needed for nausea methylPREDN 2021-10- No [id number] 1{vera} Take 1 vera Brandee Riveraone 4 11-23 by mouth Seybo ld MG oral 00:00: 00:00 See Admin - Tablet 00 :00 Instructio Externa Therapy ns Use as l Pack directed Blood 2021-10 Yes [id number] 1{devic Inject 1 K elsey Glucose 2-07 e} device Seybold Monitoring 00:00: into the - Suppl 00 skin 2 Externa (OneTouch times l Verio daily Reflect) w/Device does not apply Kit Blood 2021-10 Yes [id number] 1{devic Inject 1 K elsey Glucose 2-07 e} device Seybold Monitoring 00:00: into the - Suppl 00 skin 2 Externa (OneTouch times l Verio daily Reflect) w/Device does not apply Kit Blood 2021-10 Yes [id number] 1{devic Inject 1 K elsey Glucose 2-07 e} device Seybold Monitoring 00:00: into the - Suppl 00 skin 2 Externa (OneTouch times l Verio daily Reflect) w/Device does not apply Kit Benzonatate 2021-10 Yes [id number] 100mg Q.[id number] Take 1 Brandee (Tessalon 2-05 [id number] capsule S eybold Perles) 100 00:00: 3D (100 mg - MG oral 00 total) by Externa Capsule mouth 3 l times daily as needed for cough Benzonatate 2021-10 Yes [id number] 100mg Q.[id number] Take 1 Brandee (Tessalon 2-05 [id number] capsule S eybold Perles) 100 00:00: 3D (100 mg - MG oral 00 total) by Externa Capsule mouth 3 l times daily as needed for cough Benzonatate 2021-10 Yes [id number] 100mg Q.[id number] Take 1 Brandee (Tessalon 2-05 [id number] capsule S eybold Perles) 100 00:00: 3D (100 mg - MG oral 00 total) by Externa Capsule mouth 3 l times daily as needed for cough Azithromyci 2021-10- Yes [id number] Take 2 Brandee n 250 MG 2- 12-11 tablets by Seyb old oral Tablet 00:00: 05:59 mouth on - 00 :00 day 1 then Externa 1 tablet l by mouth daily for 4 days thereafter . Cetirizine 2021-10 Yes 10mg Take 10 mg K elsey 10 MG oral 1-22 by mouth Seybo ld Tablet 15:32: daily - 04 Externa l Alprazolam 2021-10 Yes [id number] 1mg Take 1 K elsey 1 MG oral 1-22 tablet (1 Seybo ld Tablet 00:00: mg total) - 00 by mouth Externa daily l Famotidine 2021-10 Yes [id number] 20mg Take 1 Brandee (Pepcid) 20 1-22 tablet (20 Se ybold MG oral 00:00: mg total) - tablet 00 by mouth 2 Externa times l daily OZEMPIC 2021-10 Yes [id number] .5mg Inject 0.5 Brandee (0.25 or 1-22 mg into Seybold 0.5 00:00: the skin - mg/dose) 2 00 once a Externa mg/1.5 mL week l SQ Solution Pen-Injecto r Ketoconazol 2021-10 Yes [id number] Apply 1 Brandee e 2 % apply -22 applicatio Se ybold externally 00:00: n - Cream 00 topically Externa 2 times l daily Alprazolam 2021-10 Yes [id number] 1mg Take 1 K elsey 1 MG oral 1-22 tablet (1 Seybo ld Tablet 00:00: mg total) - 00 by mouth Externa daily l Famotidine 2021-10 Yes [id number] 20mg Take 1 Brandee (Pepcid) 20 1-22 tablet (20 Se ybold MG oral 00:00: mg total) - tablet 00 by mouth 2 Externa times l daily OZEMPIC 2021-10 Yes [id number] .5mg Inject 0.5 Brandee (0.25 or 1-22 mg into Seybold 0.5 00:00: the skin - mg/dose) 2 00 once a Externa mg/1.5 mL week l SQ Solution Pen-Injecto r Ketoconazol 2021-10 Yes [id number] Apply 1 Brandee e 2 % apply 1-22 applicatio Se ybold externally 00:00: n - Cream 00 topically Externa 2 times l daily Famotidine 2021-10 Yes [id number] 20mg Take 1 Brandee (Pepcid) 20 1-22 tablet (20 Se ybold MG oral 00:00: mg total) - tablet 00 by mouth 2 Externa times l daily OZEMPIC 2021-10 Yes [id number] .5mg Inject 0.5 Brandee (0.25 or 1-22 mg into Seybold 0.5 00:00: the skin - mg/dose) 2 00 once a Externa mg/1.5 mL week l SQ Solution Pen-Injecto r Ketoconazol 2021-10 Yes [id number] Apply 1 Brandee e 2 % apply - applicatio Se ybold externally 00:00: n - Cream 00 topically Externa 2 times l daily Alprazolam 2021-10 Yes [id number] 1mg Take 1 K elsey 1 MG oral -22 tablet (1 Seybo ld Tablet 00:00: mg total) - 00 by mouth Externa daily l Famotidine 2021-10 Yes [id number] 20mg Take 1 Brandee (Pepcid) 20 1-22 tablet (20 Se ybold MG oral 00:00: mg total) - tablet 00 by mouth 2 Externa times l daily OZEMPIC 2021-10 Yes [id number] .5mg Inject 0.5 Brandee (0.25 or 1-22 mg into Seybold 0.5 00:00: the skin - mg/dose) 2 00 once a Externa mg/1.5 mL week l SQ Solution Pen-Injecto r Ketoconazol 2021-10 Yes [id number] Apply 1 Brandee e 2 % apply 22 applicatio Se ybold externally 00:00: n - Cream 00 topically Externa 2 times l daily Insulin Pen 2021-10 Yes [id number] Please Brandee Needle 1-11 provide Seybold (Maxi-Comfo 00:00: insuline - rt Safety 00 pen Externa Pen Needle) needles to l 29G X 8MM be used as does not directed apply Misc Insulin Pen 2021-10 Yes [id number] Please Brandee Needle 1-11 provide Seybold (Maxi-Comfo 00:00: insuline - rt Safety 00 pen Externa Pen Needle) needles to l 29G X 8MM be used as does not directed apply [facility] Insulin Pen 2021-10 Yes [id number] Please Brandee Needle 1-11 provide Seybold (Maxi-Comfo 00:00: insuline - rt Safety 00 pen Externa Pen Needle) needles to l 29G X 8MM be used as does not directed apply [facility] Insulin Pen 2021-10 Yes [id number] Please Brandee Needle 1-11 provide Seybold (Maxi-Comfo 00:00: insuline - rt Safety 00 pen Externa Pen Needle) needles to l 29G X 8MM be used as does not directed apply [facility] Blood 2021-10 Yes [id number] 1{kit} 1 kit by Fei staffordey Glucose -09 other Seybold Monitoring 00:00: route 2 - Suppl 00 times Externa (OneTouch daily l Verio Reflect) w/Device does not apply Kit OZEMPIC 2021-10- No [id number] .25mg Inject Ke lsey (0.25 or 0-26 11-22 0.25 mg Seybold 0.5 00:00: 00:00 into the - mg/dose) 2 00 :00 skin once Exte rna mg/1.5 mL a week l SQ Solution Pen-Injecto r Cetirizine 2021-10 Yes 10mg Take 10 mg K elsey 10 MG oral 0-25 by mouth Seybo ld Tablet 15:26: daily - 13 Externa l Insulin 2021-10 Yes [id number] 20 units Ke lsey Detemir 0-25 sc every Seybold (Levemir 00:00: night - FlexTouch) 00 Externa 100 UNIT/ML l subcutaneou s Solution Pen-injecto r Insulin 2021-10 Yes [id number] 20 units Ke lsey Detemir 0-25 sc every Seybold (Levemir 00:00: night - FlexTouch) 00 Externa 100 UNIT/ML l subcutaneou s Solution Pen-injecto r Insulin 2021-10 Yes [id number] 20 units Ke lsey Detemir 0-25 sc every Seybold (Levemir 00:00: night - FlexTouch) 00 Externa 100 UNIT/ML l subcutaneou s Solution Pen-injecto r Insulin 2021-10 Yes [id number] 20 units Ke lsey Detemir 0-25 sc every Seybold (Levemir 00:00: night - FlexTouch) 00 Externa 100 UNIT/ML l subcutaneou s Solution Pen-injecto r OZEMPIC 2021-10 Yes [id number] .25mg Inject Daniel sey (0.25 or 0-25 0.25 mg Seybold 0.5 00:00: into the - mg/dose) 2 00 skin once Exte rna mg/1.5 mL a week l SQ Solution Pen-Injecto r Insulin 2021-10 Yes [id number] 20 units Ke lsey Detemir 0-25 sc every Seybold (Levemir 00:00: night - FlexTouch) 00 Externa 100 UNIT/ML l subcutaneou s Solution Pen-injecto r Blood 2021-10 Yes [id number] Use device Ke lsey Glucose 0-11 to check Seybold Monitoring 00:00: FSBS twice - Suppl 00 daily and Externa (Blood as l Glucose needed.One Monitor Touch System) supplies w/Device and does not glucometer apply Kit .Vario Reflex/One touch Lancets 33G 2021-10 Yes [id number] 1 Lancet Brandee does not 0-11 by does Seybold apply Misc 00:00: not apply - 00 route 2 Externa times l daily (before meals) Please dispense what is covered by insurance Glucose 2021-10 Yes [id number] 100{eac 100 each [place] Blood in 0-11 h} by other Seybold vitro Strip 00:00: route - 00 daily Externa l Blood 2021-10 Yes [id number] Use device Ke lsey Glucose 0-11 to check Seybold Monitoring 00:00: FSBS twice - Suppl 00 daily and Externa (Blood as l Glucose needed.One Monitor Touch System) supplies w/Device and does not glucometer apply Kit .Vario Reflex/One touch Lancets 33G 2021-10 Yes [id number] 1 Lancet Brandee does not 0-11 by does Seybold apply Misc 00:00: not apply - 00 route 2 Externa times l daily (before meals) Please dispense what is covered by insurance Glucose 2021-10 Yes [id number] 100{eac 100 each Brandee Blood in 0-11 h} by other Seybold vitro Strip 00:00: route - 00 daily Externa l Blood 2021-10 Yes [id number] Use device Ke lsey Glucose 0-11 to check Seybold Monitoring 00:00: FSBS twice - Suppl 00 daily and Externa (Blood as l Glucose needed.One Monitor Touch System) supplies w/Device and does not glucometer apply Kit .Vario Reflex/One touch Lancets 33 2021-10 Yes [id number] 1 Lancet Brandee does not 0-11 by does Seybold apply Misc 00:00: not apply - 00 route 2 Externa times l daily (before meals) Please dispense what is covered by insurance Glucose 2021-10 Yes [id number] 100{eac 100 each Brandee Blood in 0-11 h} by other Seybold vitro Strip 00:00: route - 00 daily Externa l Blood 2021-10 Yes [id number] Use device Ke lsey Glucose 0-11 to check Seybold Monitoring 00:00: FSBS twice - Suppl 00 daily and Externa (Blood as l Glucose needed.One Monitor Touch System) supplies w/Device and does not glucometer apply Kit .Vario Reflex/One touch Lancets 33 2021-10 Yes [id number] 1 Lancet Brandee does not 0-11 by does Seybold apply Misc 00:00: not apply - 00 route 2 Externa times l daily (before meals) Please dispense what is covered by insurance Glucose 2021-10 Yes [id number] 100{eac 100 each Brandee Blood in 0-11 h} by other Seybold vitro Strip 00:00: route - 00 daily Externa l Blood 2021-10 Yes [id number] Use device Ke lsey Glucose 0-11 to check Seybold Monitoring 00:00: FSBS twice - Suppl 00 daily and Externa (Blood as l Glucose needed.One Monitor Touch System) supplies w/Device and does not glucometer apply Kit .Vario Reflex/One touch Lancets 33 2021-10 Yes [id number] 1 Lancet Brandee does not 0-11 by does Seybold apply Misc 00:00: not apply - 00 route 2 Externa times l daily (before meals) Please dispense what is covered by insurance Glucose 2021-10 Yes [id number] 100{eac 100 each Brandee Blood in 0-11 h} by other Seybold vitro Strip 00:00: route - 00 daily Externa l Blood 2021-10 Yes [id number] One Touch Daniel sey Glucose 0-06 Seybold Monitoring 00:00: - Suppl 00 Externa (Blood l Glucose Monitor System) w/Device does not apply Kit Alprazolam Yes [id number] TAKE ONE Brandee 1 MG oral 9-02 TABLET BY Seybo ld Tablet 00:00: MOUTH - 00 DAILY Externa l Alprazolam 0 2021- No [id number] TAKE ONE Brandee 1 MG oral 9-02 11-22 TABLET BY Seyb old Tablet 00:00: 00:00 MOUTH - 00 :00 DAILY Externa l Metformin 0 2021- No [id number] 1000mg Take 2 Brandee HCl 500 MG 8-11 10-25 tablets Seybo ld oral Tablet 00:00: 00:00 (1,000 mg - 00 :00 total) by Externa mouth 2 l times daily Albuterol Yes [id number] 2{puff} Q.25D Inhale 2 Brandee HFA 108 (90 7-28 puffs into Se ybold Base) 00:00: the lungs - MCG/ACT IN 00 every 6 [place] a AERS hours as 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 Albuterol Yes [id number] 2{puff} Q.25D Inhale 2 Brandee HFA 108 (90 7-28 puffs into Se ybold Base) 00:00: the lungs - MCG/ACT IN 00 every 6 [place] a AERS hours as 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 Albuterol Yes [id number] 2{puff} Q.25D Inhale 2 Brandee HFA 108 (90 7-28 puffs into Se ybold Base) 00:00: the lungs - MCG/ACT IN 00 every 6 [place] a AERS hours as 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 Famotidine Yes [id number] 20mg Take 1 Brandee (Pepcid) 20 7-28 tablet (20 Se ybold MG oral 00:00: mg total) - tablet 00 by mouth 2 Externa times l daily Albuterol Yes [id number] 2{puff} Q.25D Inhale 2 Brandee HFA 108 (90 7-28 puffs into Se ybold Base) 00:00: the lungs - MCG/ACT IN 00 every 6 Wool [place] a AERS hours as 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 Albuterol Yes [id number] 2{puff} Q.25D Inhale 2 Brandee HFA 108 (90 7-28 puffs into Se ybold Base) 00:00: the lungs - MCG/ACT IN 00 every 6 [place] a AERS hours as 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 Famotidine 0 2021- No [id number] 20mg Take 1 Brandee (Pepcid) 20 7-28 11-22 tablet (20 S eybold MG oral 00:00: 00:00 mg total) - tablet 00 :00 by mouth 2 Externa times l daily predniSONE 2021- No [id number] 10mg Take 1 Brandee (DELTASONE) 7-28 10-25 tablet (10 S eybold 10 MG oral 00:00: 00:00 mg total) - tablet 00 :00 by mouth Externa daily l Rosuvastati Yes [id number] 5mg Take 1 Brandee n Calcium 5 7-20 tablet (5 Sey bold MG oral 00:00: mg total) - Tablet 00 by mouth Externa daily l Sertraline Yes [id number] 100mg Take 1 Brandee HCl 100 MG 7-20 tablet Seybold oral Tablet 00:00: (100 mg - 00 total) by Externa mouth l daily Trazodone 0 Yes [id number] 50mg Take 1 Ke lsey HCl 50 MG 7-20 tablet (50 Seyb old oral Tablet 00:00: mg total) - 00 by mouth Externa nightly l Rosuvastati 0 Yes [id number] 5mg Take 1 Brandee n Calcium 5 7-20 tablet (5 Sey bold MG oral 00:00: mg total) - Tablet 00 by mouth Externa daily l Sertraline 0 Yes [id number] 100mg Take 1 Brandee HCl 100 MG 7-20 tablet Seybold oral Tablet 00:00: (100 mg - 00 total) by Externa mouth l daily Trazodone 0 Yes [id number] 50mg Take 1 Ke lsey HCl 50 MG 7-20 tablet (50 Seyb old oral Tablet 00:00: mg total) - 00 by mouth Externa nightly l Rosuvastati Yes [id number] 5mg Take 1 Brandee n Calcium 5 7-20 tablet (5 Sey bold MG oral 00:00: mg total) - Tablet 00 by mouth Externa daily l Sertraline Yes [id number] 100mg Take 1 Brandee HCl 100 MG 7-20 tablet Seybold oral Tablet 00:00: (100 mg - 00 total) by Externa mouth l daily Trazodone Yes [id number] 50mg Take 1 Ke lsey HCl 50 MG 7-20 tablet (50 Seyb old oral Tablet 00:00: mg total) - 00 by mouth Externa nightly l Rosuvastati Yes [id number] 5mg Take 1 Brandee n Calcium 5 7-20 tablet (5 Sey bold MG oral 00:00: mg total) - Tablet 00 by mouth Externa daily l Sertraline Yes [id number] 100mg Take 1 Brandee HCl 100 MG 7-20 tablet Seybold oral Tablet 00:00: (100 mg - 00 total) by Externa mouth l daily Trazodone Yes [id number] 50mg Take 1 Ke lsey HCl 50 MG 7-20 tablet (50 Seyb old oral Tablet 00:00: mg total) - 00 by mouth Externa nightly l Rosuvastati Yes [id number] 5mg Take 1 Brandee n Calcium 5 7-20 tablet (5 Sey bold MG oral 00:00: mg total) - Tablet 00 by mouth Externa daily l Sertraline Yes [id number] 100mg Take 1 Brandee HCl 100 MG 7-20 tablet Seybold oral Tablet 00:00: (100 mg - 00 total) by Externa mouth l daily Trazodone Yes [id number] 50mg Take 1 Ke lsey HCl 50 MG 7-20 tablet (50 Seyb old oral Tablet 00:00: mg total) - 00 by mouth Externa nightly l Misc 2018-0 No 200 mL, Memoria Medication 06-19 Soln-IV, l 22:29: IV, Once, [place] 00 first dose 06/19/19 17:29:00 CDT, stop date 06/19/19 17:29:00 CDT Mis 2018-0 No 200 mL, Memoria Medication 06-19 Soln-IV, l 22:29: IV, Once, first dose 06/19/19 17:29:00 CDT, stop date 06/19/19 17:29:00 CDT [facility] 2018-0 No 200 mL, Memoria Medication - Soln-IV, l 22:29: IV, Once, first dose 06/19/19 17:29:00 CDT, stop date 06/19/19 17:29:00 CDT [facility] 2018-0 No 200 mL, Memoria Medication - Soln-IV, l 22:29: IV, Once, first dose 06/19/19 17:29:00 CDT, stop date 06/19/19 17:29:00 CDT [facility] 2018-0 No 200 mL, Memoria Medication - Soln-IV, l 22:29: IV, Once, first dose 06/19/19 17:29:00 CDT, stop date 06/19/19 17:29:00 CDT [facility] 2018-0 No 200 mL, Memoria Medication - Soln-IV, l 22:29: IV, Once, first dose 06/19/19 17:29:00 CDT, stop date 06/19/19 17:29:00 CDT [facility] 2018-0 No 200 mL, Memoria Medication - Soln-IV, l 22:29: IV, Once, first dose 06/19/19 17:29:00 CDT, stop date 06/19/19 17:29:00 CDT [facility] 2018-0 No 200 mL, Memoria Medication - Soln-IV, l 22:29: IV, Once, first dose 06/19/19 17:29:00 CDT, stop date 06/19/19 17:29:00 CDT Ondansetron 2018-0 No 4 mg = 2 Me moria -04 mL, l 22:22: Injection, IV Push, q15min PRN for nausea, order duration: 2 doses, first dose 06/19/19 17:22:00 CDT, stop date Limited # of times Dilaudid 2018-0 No 0.5 mg = Memor ia 9-04 0.5 mL, l 22:22: Injection, Elijah 00 IV Push, q10min PRN for pain severe (7-10), first dose 06/19/19 17:22:00 CDT Ondansetron 2019-0 No 4 mg = 2 Me moria 9-04 mL, l 22:22: Injection, [place] 00 IV Push, q15min PRN for nausea, order duration: 2 doses, first dose 06/19/19 17:22:00 CDT, stop date Limited # of times Dilaudid 2019-0 No 0.5 mg = Memor ia 9-04 0.5 mL, l 22:22: Injection, [place] 00 IV Push, q10min PRN for pain [...] 9-04 Soln, IV l 22:22: Push, As [place] 00 Indicated PRN for flush, first dose 06/19/19 17:22:00 CDT Promethazin 2019-0 No 12.5 mg = M emoria e 9-04 0.5 mL, l 22:22: Injection, [place] 00 IM, Once PRN for vomiting, first [...] flush, first dose 06/19/19 17:22:00 CDT Ondansetron 2018-0 No 4 mg = 2 Me moria 9-04 mL, l 22:22: Injection, [place] 00 IV Push, q15min PRN for nausea, order duration: 2 doses, first dose 06/19/19 17:22:00 CDT, stop date Limited # of times Dilaudid 2019-0 No 0.5 mg = Memor ia 9-04 0.5 mL, l 22:22: Injection, [place] 00 IV Push, q10min PRN for pain severe (7-10), first dose 06/19/19 17:22:00 CDT Promethazin 2019-0 No 12.5 mg = M emoria e 9-04 0.5 mL, l 22:22: Injection, 00 IM, Once PRN for vomiting, first [...] Me moria 9-04 mL, l 22:22: Injection, [place] 00 IV Push, q15min PRN for nausea, order duration: 2 doses, first dose 06/19/19 17:22:00 CDT, stop date Limited # of times Dilaudid 2019-0 No 0.5 mg = Memor ia 9-04 0.5 mL, l 22:22: Injection, [place] 00 IV Push, q10min PRN for pain severe (7-10), first dose 06/19/19 17:22:00 CDT Promethazin 2019-0 No 12.5 mg = M emoria e 9-04 0.5 mL, l 22:22: Injection, [place] 00 IM, Once PRN for vomiting, first [...] 9-04 Soln, IV l 22:22: Push, As [place] 00 Indicated PRN for flush, first dose 06/19/19 17:22:00 CDT Ondansetron 2018-0 No 4 mg = 2 Me moria 9-04 mL, l 22:22: Injection, Elijah 00 IV Push, q15min PRN for nausea, order duration: 2 doses, first dose 06/19/19 17:22:00 CDT, stop date Limited # of times Dilaudid 2019-0 No 0.5 mg = Memor ia 9-04 0.5 mL, l 22:22: Injection, [place] 00 IV Push, q10min PRN for pain severe (7-10), first dose 06/19/19 17:22:00 CDT Promethazin 2019-0 No 12.5 mg = M emoria e 9-04 0.5 mL, l 22:22: Injection, [place] 00 IM, Once PRN for vomiting, first [...] ia 9-04 0.5 mL, l 22:22: Injection, [place] 00 IV Push, q10min PRN for pain severe (7-10), first dose 06/19/19 17:22:00 CDT Promethazin 2019-0 No 12.5 mg = M emoria e 9-04 0.5 mL, l 22:22: Injection, [place] 00 IM, Once PRN for vomiting, first [...] 9-04 Soln, IV l 22:22: Push, As [place] 00 Indicated PRN for flush, first dose 06/19/19 17:22:00 CDT Ondansetron 2019-0 No 4 mg = 2 Me moria 9-04 mL, l 22:22: Injection, [place] 00 IV Push, q15min PRN for nausea, [...] e 9-04 0.5 mL, l 22:22: Injection, [place] 00 IM, Once PRN for vomiting, first dose 06/19/19 17:22:00 CDT Bupivacaine 2018- No 300 mL, Mem oria 0.25% 300 9-04 Nerve l mL pump 300 22:22: Block, 5 He rmann mL 00 mL/hr, start date 06/19/19 17:22:00 CDT LR 1,000 mL No 1,000 mL, M emoria 9-04 IV, 75 l 22:22: mL/hr, Elijah 00 start date 06/19/19 17:22:00 CDT Saline Lock No 10 mL, Dani ulises Flush 06-19 Soln, IV l 22:22: Push, As [place] Indicated PRN for flush, first dose 06/19/19 17:22:00 CDT Acetaminoph Yes Notes: Max Memoria en 325 MG / 9-04 4gm l Hydrocodone 22:21: acetaminop Elijah Bitartrate 00 hen in 24 10 MG Oral hours Tablet [[place] 10/325] Zofran No 4 mg = 2 Memoria 9-04 mL, l 22:21: Injection, [place] 00 IV Push, q30min PRN for nausea/vom iting, order duration: 2 doses, first dose 06/19/19 17:21:00 CDT, stop date Limited # of times Acetaminoph Yes Notes: Max Memoria en 325 MG / 9-04 4gm l Hydrocodone 22:21: acetaminop [place] Bitartrate 00 hen in 24 10 MG Oral hours Tablet [[place] 10/325] Zofran No 4 mg = 2 Memoria 9-04 mL, l 22:21: Injection, [place] 00 IV Push, q30min PRN for nausea/vom iting, order duration: 2 doses, first dose 06/19/19 17:21:00 CDT, stop date Limited # of times Acetaminoph Yes Notes: Max Memoria en 325 MG / 9-04 4gm l Hydrocodone 22:21: acetaminop [place] Bitartrate 00 hen in 24 10 MG Oral hours Tablet [[place] 10/325] Zofran No 4 mg = 2 Memoria 9-04 mL, l 22:21: Injection, [place] 00 IV Push, q30min PRN for nausea/vom iting, order duration: 2 doses, first dose 06/19/19 17:21:00 CDT, stop date Limited # of times Acetaminoph Yes Notes: Max Memoria en 325 MG / 9-04 4gm l Hydrocodone 22:21: acetaminop Elijah Bitartrate 00 hen in 24 10 MG Oral hours Tablet [[place] 10/325] Zofran No 4 mg = 2 Memoria 9-04 mL, l 22:21: Injection, [place] 00 IV Push, q30min PRN for nausea/vom iting, order duration: 2 doses, first dose 06/19/19 17:21:00 CDT, stop date Limited # of times Acetaminoph Yes Notes: Max Memoria en 325 MG / 9-04 4gm l Hydrocodone 22:21: acetaminop [place] Bitartrate 00 hen in 24 10 MG Oral hours Tablet [[place] 10/325] Zofran No 4 mg = 2 Memoria 9-04 mL, l 22:21: Injection, [place] 00 IV Push, q30min PRN for nausea/vom iting, order duration: 2 doses, first dose 06/19/19 17:21:00 CDT, stop date Limited # of times Acetaminoph Yes Notes: Max Memoria en 325 MG / 9-04 4gm l Hydrocodone 22:21: acetaminop [place] Bitartrate 00 hen in 24 10 MG Oral hours Tablet [[place] 10/325] Acetaminoph Yes Notes: Max Memoria en 325 MG / 9-04 4gm l Hydrocodone 22:21: acetaminop [place] Bitartrate 00 hen in 24 10 MG Oral hours Tablet [[place] 10/325] Zofran No 4 mg = 2 Memoria 9-04 mL, l 22:21: Injection, [place] 00 IV Push, q30min PRN for nausea/vom iting, order duration: 2 doses, first dose 06/19/19 17:21:00 CDT, stop date Limited # of times Zofran 2019 No 4 mg = 2 Memoria 9-04 mL, l 22:21: Injection, [place] 00 IV Push, q30min PRN for nausea/vom iting, order duration: 2 doses, first dose 06/19/19 17:21:00 CDT, stop date Limited # of times Acetaminoph 2019-0 Yes Notes: Max Memoria en 325 MG / 9-04 4gm l Hydrocodone 22:21: acetaminop Elijah Bitartrate 00 hen in 24 10 MG Oral hours Tablet [[place] 10/325] Zofran 2019- No 4 mg = 2 Memoria 9-04 mL, l 22:21: Injection, [place] 00 IV Push, q30min PRN for nausea/vom iting, order duration: 2 doses, first dose 06/19/19 17:21:00 CDT, stop date Limited # of times fentaNYL 2018-0 No 50 mcg = 1 Mem oria [...] Mem oria 9-04 mL, l 22:04: Injection, [place] 00 IV, Once, first dose 06/19/19 17:04:00 CDT, stop date 06/19/19 17:04:00 CDT fentaNYL 2019-0 No 50 mcg = 1 Mem oria 9-04 mL, l 22:04: Injection, [place] 00 IV, Once, first dose 06/19/19 17:04:00 CDT, stop date 06/19/19 17:04:00 CDT fentaNYL 2019-0 No 50 mcg = 1 Mem oria 9-04 mL, l 22:04: Injection, [place] 00 IV, Once, first dose 06/19/19 17:04:00 CDT, stop date 06/19/19 17:04:00 CDT ketorolac 2019-0 No 30 mg = 1 Mem oria 9-04 mL, l 22:02: Injection, [place] 00 IV, Once, first dose 06/19/19 17:02:00 CDT, stop date 06/19/19 17:02:00 CDT ketorolac 2019-0 No 30 mg = 1 Mem oria 9-04 mL, l 22:02: Injection, [place] 00 IV, Once, first dose 06/19/19 17:02:00 [...] Mem oria 9-04 mL, l 22:02: Injection, [place] 00 IV, Once, first dose 06/19/19 17:02:00 [...] Mem oria 9-04 mL, l 22:02: Injection, [place] 00 IV, Once, first dose 06/19/19 17:02:00 CDT, stop date 06/19/19 17:02:00 CDT fentaNYL 2019-0 No 50 mcg = 1 Mem oria 9-04 mL, l 21:48: Injection, [place] 00 IV, Once, first dose 06/19/19 16:48:00 CDT, stop date 06/19/19 16:48:00 CDT fentaNYL 2019-0 No 50 mcg = 1 Mem oria 9-04 mL, l 21:48: Injection, [place] 00 IV, Once, first dose 06/19/19 16:48:00 [...] Mem oria 9-04 mL, l 21:48: Injection, [place] 00 IV, Once, first dose 06/19/19 16:48:00 CDT, stop date 06/19/19 16:48:00 CDT fentaNYL 2019-0 No 50 mcg = 1 Mem oria 9-04 mL, l 21:48: Injection, [place] 00 IV, Once, first dose 06/19/19 16:48:00 CDT, stop date 06/19/19 16:48:00 CDT fentaNYL 2019-0 No 50 mcg = 1 Mem oria 9-04 mL, l 21:48: Injection, [place] 00 IV, Once, first dose 06/19/19 16:48:00 CDT, stop date 06/19/19 16:48:00 CDT [facility] [place] 1,000 mL, Memoria Medication - Soln-IV, l 21:32: IV, Once, first dose 06/19/19 16:32:00 CDT, stop date 06/19/19 16:32:00 CDT [facility] [place] No 1,000 mL, Memoria Medication - Soln-IV, l 21:32: IV, Once, first dose 06/19/19 16:32:00 CDT, stop date 06/19/19 16:32:00 CDT [facility] [place]-0 No 1,000 mL, Memoria Medication - Soln-IV, l 21:32: IV, Once, first dose 06/19/19 16:32:00 CDT, stop date 06/19/19 16:32:00 CDT [facility] [place]-0 No 1,000 mL, Memoria Medication - Soln-IV, l 21:32: IV, Once, first dose 06/19/19 16:32:00 CDT, stop date 06/19/19 16:32:00 CDT [facility] [place]-0 No 1,000 mL, Memoria Medication - Soln-IV, l 21:32: IV, Once, first dose 06/19/19 16:32:00 CDT, stop date 06/19/19 16:32:00 CDT [facility] [place]-0 No 1,000 mL, Memoria Medication - Soln-IV, l 21:32: IV, Once, first dose 06/19/19 16:32:00 CDT, stop date 06/19/19 16:32:00 CDT [facility] [place]-0 No 1,000 mL, Memoria Medication 9-04 Soln-IV, l 21:32: IV, Once, [place] 00 first dose 06/19/19 16:32:00 CDT, stop date 06/19/19 16:32:00 CDT [facility] [place]-0 No 1,000 mL, Memoria Medication 9-04 Soln-IV, l 21:32: IV, Once, [place] 00 first dose 06/19/19 16:32:00 CDT, stop date 06/19/19 16:32:00 CDT clindamycin 2019-0 No 900 mg, Mem oria 9-04 Soln-IV, l 20:29: IV [place] Piggyback, Once, first dose 06/19/19 15:29:00 CDT, stop date 06/19/19 15:29:00 CDT clindamycin 2019-0 No 900 mg, Mem oria 9-04 Soln-IV, l 20:29: IV [place] 00 Piggyback, Once, first dose 06/19/19 15:29:00 CDT, stop date 06/19/19 15:29:00 CDT clindamycin 2019-0 No 900 mg, Mem oria 9-04 Soln-IV, l 20:29: IV [place] Piggyback, Once, first dose 06/19/19 15:29:00 CDT, [...] Mem oria 9-04 Soln-IV, l 20:29: IV [place] 00 Piggyback, Once, first dose 06/19/19 15:29:00 CDT, stop date 06/19/19 15:29:00 CDT clindamycin 2019-0 No 900 mg, Mem oria 9-04 Soln-IV, l 20:29: IV [place] Piggyback, Once, first dose 06/19/19 15:29:00 CDT, stop date 06/19/19 15:29:00 CDT clindamycin 2019-0 No 900 mg, Mem oria 9-04 Soln-IV, l 20:29: IV [place] Piggyback, Once, first dose 06/19/19 15:29:00 CDT, stop date 06/19/19 15:29:00 CDT Dilaudid 2019-0 No 0.5 mg = Memor ia 9-04 0.5 mL, l 20:26: Injection, [place] 00 IV Push, q10min PRN for pain severe (7-10), first dose 06/19/19 15:26:00 CDT Labetalol 2019-0 No 5 mg = 1 Dani ulises 9-04 mL, l 20:26: Injection, [place] 00 IV Push, As Indicated PRN for hypertensi on, first dose 06/19/19 15:26:00 CDT Diphenhydra 2019-0 No 25 mg = Mem oria mine 9-04 0.5 mL, l 20:26: Injection, [place] 00 IV Push, Once PRN for itching, first dose 06/19/19 15:26:00 CDT Promethazin 2019-0 No 12.5 mg = M emoria e 9-04 0.5 mL, l 20:26: Injection, [place] 00 IM, Once PRN for vomiting, first dose 06/19/19 15:26:00 CDT Hydralazine 2019-0 No 10 mg = Mem oria 9-04 0.5 mL, l 20:26: Injection, [place] 00 IV Push, As Indicated PRN for [...] wheezing, first dose 06/19/19 15:26:00 CDT Ondansetron 2018-0 No 4 mg = [...] (7-10), first dose 06/19/19 15:26:00 CDT Labetalol 2018-0 No 5 mg = 1 Dani ulises 9-04 mL, l 20:26: Injection, IV Push, As Indicated PRN for hypertensi on, first dose 06/19/19 15:26:00 CDT Diphenhydra 2018-0 No 25 mg = Mem oria mine 9-04 0.5 mL, l 20:26: Injection, IV Push, Once PRN for itching, first dose 06/19/19 15:26:00 CDT Promethazin 2018-0 No 12.5 mg = M emoria e 9-04 0.5 mL, l 20:26: Injection, [place] 00 IM, Once PRN for vomiting, first dose 06/19/19 15:26:00 CDT Hydralazine 2018-0 No 10 mg = Mem oria 9-04 0.5 mL, l 20:26: Injection, IV Push, As Indicated PRN for hypertensi on, first dose 06/19/19 15:26:00 CDT Demerol HCl 0 No 12.5 mg = M emoria 9-04 [...] 0 No 10 mL, Dani ulises Flush 06-19 Soln, IV l 20:26: Push, As Indicated [...] (7-10), first dose 06/19/19 15:26:00 CDT Labetalol 2018-0 No 5 mg = 1 Dani ulises 9-04 mL, l 20:26: Injection, IV Push, As Indicated PRN for hypertensi on, first dose 06/19/19 15:26:00 CDT Diphenhydra 2018-0 No 25 mg = Mem oria mine 9-04 0.5 mL, l 20:26: Injection, IV Push, Once PRN for itching, first dose 06/19/19 15:26:00 CDT Promethazin 2018-0 No 12.5 mg = M emoria e 9-04 0.5 mL, l 20:26: Injection, IM, Once PRN for vomiting, first dose 06/19/19 15:26:00 CDT Hydralazine 2018-0 No 10 mg = Mem oria 9-04 0.5 mL, l 20:26: Injection, IV Push, As Indicated PRN for hypertensi on, first dose 06/19/19 15:26:00 CDT Demerol HCl 0 No 12.5 mg = M emoria 9-04 0.5 mL, l 20:26: Injection, IV Push, Once PRN for shivers, first dose 06/19/19 15:26:00 CDT Levalbutero 2018-0 No 0.63 mg = M emoria l 0.21 9-04 3 mL, l MG/ML 20:26: Soln, NEB, Jean n Inhalant 00 Once PRN Solution for [Xopenex] wheezing, first dose 06/19/19 15:26:00 CDT Ondansetron 2018-0 No 4 mg = [...] emoria 9-04 IV, 75 l 20:26: mL/hr, [place] 00 start date 06/19/19 15:26:00 CDT Bupivacaine 2019-0 No 300 mL, Mem oria 0.25% 300 9-04 Nerve l mL pump 300 20:26: Block, 5 He rmann mL 00 mL/hr, start date 06/19/19 15:26:00 CDT Dilaudid 2019-0 No 0.5 mg = Memor ia 9-04 0.5 mL, l 20:26: Injection, [place] 00 IV Push, q10min PRN for pain severe (7-10), first dose 06/19/19 15:26:00 CDT Labetalol 2019-0 No 5 mg = 1 Dani ulises 9-04 mL, l 20:26: Injection, [place] 00 IV Push, As Indicated PRN for hypertensi on, first dose 06/19/19 15:26:00 CDT Dilaudid 2019-0 No 0.5 mg = Memor ia 9-04 0.5 mL, l 20:26: Injection, [place] 00 IV Push, q10min PRN for pain severe (7-10), first dose 06/19/19 15:26:00 CDT Labetalol 2019-0 No 5 mg = 1 Dani ulises 9-04 mL, l 20:26: Injection, [place] 00 IV Push, As Indicated PRN for hypertensi on, first dose 06/19/19 15:26:00 CDT Diphenhydra 2019-0 No 25 mg = Mem oria mine 9-04 0.5 mL, l 20:26: Injection, [place] 00 IV Push, Once PRN for itching, first dose 06/19/19 15:26:00 CDT Promethazin 2019-0 No 12.5 mg = M emoria e 9-04 0.5 mL, l 20:26: Injection, [place] 00 IM, Once PRN for vomiting, first dose 06/19/19 15:26:00 CDT Hydralazine 2019-0 No 10 mg = Mem oria 9-04 0.5 mL, l 20:26: Injection, [place] 00 IV Push, As Indicated PRN for hypertensi on, first dose 06/19/19 15:26:00 CDT Demerol HCl 2019-0 No 12.5 mg = M emoria 9-04 0.5 mL, l 20:26: Injection, Elijah IV Push, Once PRN for shivers, first dose 06/19/19 15:26:00 CDT Levalbutero 2019-0 No 0.63 mg = M emoria l 0.21 9-04 3 mL, l MG/ML 20:26: Soln, NEB, Jean n Inhalant 00 Once PRN Solution for [Xopenex] wheezing, first dose 06/19/19 15:26:00 CDT Ondansetron 2018-0 No 4 mg = 2 Me moria 9-04 mL, l 20:26: Injection, [place] 00 IV Push, q15min PRN for nausea, order duration: 2 doses, first dose 06/19/19 15:26:00 CDT, stop date Limited # of times Diphenhydra 2018-0 No 25 mg = Mem oria mine 9-04 0.5 mL, l 20:26: Injection, [place] 00 IV Push, Once PRN for itching, first dose 06/19/19 15:26:00 CDT Saline Lock 2019-0 No 10 mL, Dani ulises Flush 06-19 Soln, IV l 20:26: Push, As [place] 00 Indicated PRN for flush, first dose 06/19/19 15:26:00 CDT LR 1,000 mL 2019-0 No 1,000 mL, M emoria 9-04 IV, 75 l 20:26: mL/hr, [place] 00 start date 06/19/19 15:26:00 CDT Bupivacaine 2019-0 No 300 mL, Mem oria 0.25% 300 04 Nerve l mL pump 300 20:26: Block, 5 He rmann mL 00 mL/hr, start date 06/19/19 15:26:00 CDT Promethazin 2019-0 No 12.5 mg = M emoria e 9-04 0.5 mL, l 20:26: Injection, [place] IM, Once PRN for vomiting, first dose 06/19/19 15:26:00 CDT Hydralazine 2018-0 No 10 mg = Mem oria 9-04 0.5 mL, l 20:26: Injection, [place] 00 IV Push, As Indicated PRN for hypertensi on, first dose 06/19/19 15:26:00 CDT Demerol HCl 2019-0 No 12.5 mg = M emoria 9-04 0.5 mL, l 20:26: Injection, [place] 00 IV Push, Once PRN for shivers, first dose 06/19/19 15:26:00 CDT Dilaudid 2019-0 No 0.5 mg = Memor ia 9-04 0.5 mL, l 20:26: Injection, [place] 00 IV Push, q10min PRN for pain severe (7-10), first dose 06/19/19 15:26:00 CDT Labetalol 2019-0 No 5 mg = 1 Dani ulises 9-04 mL, l 20:26: Injection, [place] IV Push, As Indicated PRN for hypertensi on, first dose 06/19/19 15:26:00 CDT Diphenhydra 2019-0 No 25 mg = Mem oria mine 9-04 0.5 mL, l 20:26: Injection, [place] 00 IV Push, Once PRN for itching, [...] emoria 9-04 0.5 mL, l 20:26: Injection, [place] 00 IV Push, Once PRN for shivers, [...] 9-04 Soln, IV l 20:26: Push, As [place] 00 Indicated PRN for flush, first dose 06/19/19 15:26:00 CDT Levalbutero 2019-0 No 0.63 mg = M emoria l 0.21 9-04 3 mL, l MG/ML 20:26: Soln, NEB, Jean n Inhalant 00 Once PRN Solution for [Xopenex] wheezing, first dose 06/19/19 15:26:00 CDT LR 1,000 mL 2019-0 No 1,000 mL, M emoria 9-04 IV, 75 l 20:26: mL/hr, Elijah start date 06/19/19 15:26:00 CDT Bupivacaine 2019-0 No 300 mL, Mem oria 0.25% 300 9-04 Nerve l mL pump 300 20:26: Block, 5 He rmann mL 00 mL/hr, start date 06/19/19 15:26:00 CDT Ondansetron 2019-0 No 4 mg = 2 Me moria 9-04 mL, l 20:26: Injection, [place] 00 IV Push, q15min PRN for nausea, order duration: 2 doses, first dose 06/19/19 15:26:00 CDT, stop date Limited # of times Saline Lock 2019-0 No 10 mL, Dani ulises Flush 9-04 Soln, IV l 20:26: Push, As [place] 00 Indicated PRN for flush, first dose 06/19/19 15:26:00 CDT LR 1,000 mL 2019-0 No 1,000 mL, M emoria 9-04 IV, 75 l 20:26: mL/hr, [place] start date 06/19/19 15:26:00 CDT Bupivacaine 2019-0 No 300 mL, Mem oria 0.25% 300 9-04 Nerve l mL pump 300 20:26: Block, 5 He rmann mL 00 mL/hr, start date 06/19/19 15:26:00 CDT Dilaudid 2019-0 No 0.5 mg = Memor ia 9-04 0.5 mL, l 20:26: Injection, [place] 00 IV Push, q10min PRN for pain severe (7-10), first dose 06/19/19 15:26:00 CDT Labetalol 2019-0 No 5 mg = 1 Dani ulises 9-04 mL, l 20:26: Injection, [place] 00 IV Push, As Indicated PRN for hypertensi on, first dose 06/19/19 15:26:00 CDT Diphenhydra 2019-0 No 25 mg = Mem oria mine 9-04 0.5 mL, l 20:26: Injection, [place] 00 IV Push, Once PRN for itching, first dose 06/19/19 15:26:00 CDT Promethazin 2019-0 No 12.5 mg = M emoria e 9-04 0.5 mL, l 20:26: Injection, [place] 00 IM, Once PRN for vomiting, first dose 06/19/19 15:26:00 CDT Hydralazine 2019-0 No 10 mg = Mem oria 9-04 0.5 mL, l 20:26: Injection, [place] 00 IV Push, As Indicated PRN for hypertensi on, first dose 06/19/19 15:26:00 CDT Demerol HCl 2019-0 No 12.5 mg = M emoria 9-04 0.5 mL, l 20:26: Injection, [place] 00 IV Push, Once PRN for shivers, [...] Injection, Elijah IV Push, Once PRN for shivers, first dose 06/19/19 15:26:00 CDT Levalbutero 2019-0 No 0.63 mg = M emoria l 0.21 9-04 3 mL, l MG/ML 20:26: Soln, NEB, Jean n Inhalant 00 Once PRN Solution for [Xopenex] wheezing, first dose 06/19/19 15:26:00 CDT Ondansetron 2018-0 No 4 mg = 2 Me moria 9-04 mL, l 20:26: Injection, IV Push, q15min PRN for nausea, order duration: 2 doses, first dose 06/19/19 15:26:00 CDT, stop date Limited # of times Saline Lock 2018-0 No 10 mL, Dani ulises Flush 06-19 Soln, IV l 20:26: Push, As Indicated PRN for flush, first dose 06/19/19 15:26:00 CDT LR 1,000 mL 2019-0 No 1,000 mL, M emoria 9-04 IV, 75 l 20:26: mL/hr, [place] 00 start date 06/19/19 15:26:00 CDT Bupivacaine 2019-0 No 300 mL, Mem oria 0.25% 300 9-04 Nerve l mL pump 300 20:26: Block, 5 He rmann mL 00 mL/hr, start date 06/19/19 15:26:00 CDT ePHEDrine 2018-0 No 10 mg = Memor ia 9-04 0.2 mL, l 20:25: Injection, [place] 00 IV, Once, first dose 06/19/19 15:25:00 CDT, stop date 06/19/19 15:25:00 CDT ePHEDrine 2018-0 No 10 mg = Memor ia 9-04 0.2 mL, l 20:25: Injection, [place] 00 IV, Once, first dose 06/19/19 15:25:00 CDT, stop date 06/19/19 15:25:00 CDT ePHEDrine 2018-0 No 10 mg = Memor ia 9-04 0.2 mL, l 20:25: Injection, [place] 00 IV, Once, first dose 06/19/19 15:25:00 CDT, stop date 06/19/19 15:25:00 CDT ePHEDrine 2019-0 No 10 mg = Memor ia 9-04 0.2 mL, l 20:25: Injection, [place] 00 IV, Once, first dose 06/19/19 15:25:00 CDT, stop date 06/19/19 15:25:00 CDT ePHEDrine 2019-0 No 10 mg = Memor ia 9-04 0.2 mL, l 20:25: Injection, [place] 00 IV, Once, first dose 06/19/19 15:25:00 CDT, stop date 06/19/19 15:25:00 CDT ePHEDrine 2019-0 No 10 mg = Memor ia 9-04 0.2 mL, l 20:25: Injection, [place] 00 IV, Once, first dose 06/19/19 15:25:00 CDT, stop date 06/19/19 15:25:00 CDT ePHEDrine 2019-0 No 10 mg = Memor ia 9-04 0.2 mL, l 20:25: Injection, [place] 00 IV, Once, first dose 06/19/19 15:25:00 CDT, stop date 06/19/19 15:25:00 CDT ePHEDrine 2019-0 No 10 mg = Memor ia 9-04 0.2 mL, l 20:25: Injection, [place] 00 IV, Once, first dose 06/19/19 15:25:00 CDT, stop date 06/19/19 15:25:00 CDT dexamethaso 2019-0 No 8 mg = 2 Me moria ne 9-04 mL, l 20:21: Injection, [place] 00 IV, Once, first dose 06/19/19 15:21:00 CDT, stop date 06/19/19 15:21:00 CDT ondansetron 2019-0 No 4 mg = 2 Me moria 9-04 mL, l 20:21: Injection, [place] 00 IV, Once, first dose 06/19/19 15:21:00 CDT, stop date 06/19/19 15:21:00 CDT dexamethaso 2019-0 No 8 mg = 2 Me moria ne 9-04 mL, l 20:21: Injection, [place] 00 IV, Once, first dose 06/19/19 15:21:00 CDT, stop date 06/19/19 15:21:00 CDT ondansetron 2019-0 No 4 mg = 2 Me moria 9-04 mL, l 20:21: Injection, Leijah 00 IV, Once, first dose 06/19/19 15:21:00 CDT, stop date 06/19/19 15:21:00 CDT dexamethaso 2019-0 No 8 mg = 2 Me moria ne 9-04 mL, l 20:21: Injection, [place] 00 IV, Once, first dose 06/19/19 15:21:00 CDT, stop date 06/19/19 15:21:00 CDT ondansetron 2019-0 No 4 mg = 2 Me moria 9-04 mL, l 20:21: Injection, [place] 00 IV, Once, first dose 06/19/19 15:21:00 CDT, stop date 06/19/19 15:21:00 CDT dexamethaso 2019-0 No 8 mg = 2 Me austina ne 9-04 mL, l 20:21: Injection, [place] 00 IV, Once, first dose 06/19/19 15:21:00 CDT, stop date 06/19/19 15:21:00 CDT ondansetron 2019-0 No 4 mg = 2 moria 9-04 mL, l 20:21: Injection, [place]jah 00 IV, Once, first dose 06/19/19 15:21:00 CDT, stop date 06/19/19 15:21:00 CDT dexamethaso 2019-0 No 8 mg = 2 Me austina ne 9-04 mL, l 20:21: Injection, Elijah [...] Me moria 9-04 mL, l 20:21: Injection, [place] 00 IV, Once, first dose 06/19/19 15:21:00 [...] moria ne 9-04 mL, l 20:21: Injection, [place] 00 IV, Once, first dose 06/19/19 15:21:00 CDT, stop date 06/19/19 15:21:00 CDT ondansetron 2019-0 No 4 mg = 2 Me moria 9-04 mL, l 20:21: Injection, [place] 00 IV, Once, first dose 06/19/19 15:21:00 CDT, stop date 06/19/19 15:21:00 CDT lidocaine 2019-0 No 60 mg = 3 Mem oria 9-04 mL, l 20:07: Injection, [place] 00 IV, Once, first dose 06/19/19 15:07:00 CDT, stop date 06/19/19 15:07:00 CDT propofol 2019-0 No 100 mg = Memor ia 9-04 10 mL, l 20:07: Emulsion, [place] 00 IV, Once, first dose 06/19/19 15:07:00 CDT, stop date 06/19/19 15:07:00 CDT lidocaine 2019-0 No 60 mg = 3 Mem oria 9-04 mL, l 20:07: Injection, [place] 00 IV, Once, first dose 06/19/19 15:07:00 CDT, stop date 06/19/19 15:07:00 CDT propofol 2019-0 No 100 mg = Memor ia 9-04 10 mL, l 20:07: Emulsion, [place] 00 IV, Once, first dose 06/19/19 15:07:00 CDT, stop date 06/19/19 15:07:00 CDT lidocaine 2019-0 No 60 mg = 3 Mem oria 9-04 mL, l 20:07: Injection, [place] 00 IV, Once, first dose 06/19/19 15:07:00 CDT, stop date 06/19/19 15:07:00 CDT propofol 2019-0 No 100 mg = Memor ia 9-04 10 mL, l 20:07: Emulsion, [place] 00 IV, Once, first dose 06/19/19 15:07:00 CDT, stop date 06/19/19 15:07:00 CDT lidocaine 2019-0 No 60 mg = 3 Mem oria 9-04 mL, l 20:07: Injection, [place] 00 IV, Once, first dose 06/19/19 15:07:00 CDT, stop date 06/19/19 15:07:00 CDT propofol 2019-0 No 100 mg = Memor ia 9-04 10 mL, l 20:07: Emulsion, [place] 00 IV, Once, first dose 06/19/19 15:07:00 CDT, stop date 06/19/19 15:07:00 CDT lidocaine 2019-0 No 60 mg = 3 Mem oria 9-04 mL, l 20:07: Injection, [place] 00 IV, Once, first dose 06/19/19 15:07:00 CDT, stop date 06/19/19 15:07:00 CDT propofol 2019-0 No 100 mg = Memor ia 9-04 10 mL, l 20:07: Emulsion, [place] 00 IV, Once, first dose 06/19/19 15:07:00 CDT, stop date 06/19/19 15:07:00 CDT lidocaine 2019-0 No 60 mg = 3 Mem oria 9-04 mL, l 20:07: Injection, [place] 00 IV, Once, first dose 06/19/19 15:07:00 CDT, stop date 06/19/19 15:07:00 CDT propofol 2019-0 No 100 mg = Memor ia 9-04 10 mL, l 20:07: Emulsion, [place] 00 IV, Once, first dose 06/19/19 15:07:00 CDT, stop date 06/19/19 15:07:00 CDT lidocaine 2019-0 No 60 mg = 3 Mem oria 9-04 mL, l 20:07: Injection, [place] 00 IV, Once, first dose 06/19/19 15:07:00 CDT, stop date 06/19/19 15:07:00 CDT propofol 2019-0 No 100 mg = Memor ia 9-04 10 mL, l 20:07: Emulsion, [place] 00 IV, Once, first dose 06/19/19 15:07:00 CDT, stop date 06/19/19 15:07:00 CDT lidocaine 2019-0 No 60 mg = 3 Mem oria 9-04 mL, l 20:07: Injection, [place] 00 IV, Once, first dose 06/19/19 15:07:00 CDT, stop date 06/19/19 15:07:00 CDT propofol 2019-0 No 100 mg = Memor ia 9-04 10 mL, l 20:07: Emulsion, [place] 00 IV, Once, first dose 06/19/19 15:07:00 CDT, stop date 06/19/19 15:07:00 CDT fentaNYL 2019-0 No 50 mcg = 1 Mem oria 9-04 mL, l 20:04: Injection, [place] 00 IV, Once, first dose 06/19/19 15:04:00 CDT, stop date 06/19/19 15:04:00 CDT midazolam 2019-0 No 1 mg = 1 Dani ulises 9-04 mL, l 20:04: Injection, [place] 00 IV, Once, first dose 06/19/19 15:04:00 CDT, stop date 06/19/19 15:04:00 CDT fentaNYL 2019-0 No 50 mcg = 1 Mem oria 9-04 mL, l 20:04: Injection, [place] 00 IV, Once, first dose 06/19/19 15:04:00 CDT, stop date 06/19/19 15:04:00 CDT midazolam 2019-0 No 1 mg = 1 Dani ulises 9-04 mL, l 20:04: Injection, [place] 00 IV, Once, first dose 06/19/19 15:04:00 CDT, stop date 06/19/19 15:04:00 CDT fentaNYL 2019-0 No 50 mcg = 1 Mem oria 9-04 mL, l 20:04: Injection, [place] 00 IV, Once, first dose 06/19/19 15:04:00 CDT, stop date 06/19/19 15:04:00 CDT midazolam 2019-0 No 1 mg = 1 Dani ulises 9-04 mL, l 20:04: Injection, [place] 00 IV, Once, first dose 06/19/19 15:04:00 CDT, stop date 06/19/19 15:04:00 CDT fentaNYL 2019-0 No 50 mcg = 1 Mem oria 9-04 mL, l 20:04: Injection, [place] 00 IV, Once, first dose 06/19/19 15:04:00 CDT, stop date 06/19/19 15:04:00 CDT midazolam 2019-0 No 1 mg = 1 Dani ulises 9-04 mL, l 20:04: Injection, [place] 00 IV, Once, first dose 06/19/19 15:04:00 CDT, stop date 06/19/19 15:04:00 CDT fentaNYL 2019-0 No 50 mcg = 1 Mem oria 9-04 mL, l 20:04: Injection, [place] 00 IV, Once, first dose 06/19/19 15:04:00 CDT, stop date 06/19/19 15:04:00 CDT midazolam 2019-0 No 1 mg = 1 Dani ulises 9-04 mL, l 20:04: Injection, [place] 00 IV, Once, first dose 06/19/19 15:04:00 CDT, stop date 06/19/19 15:04:00 CDT fentaNYL 2019-0 No 50 mcg = 1 Mem oria 9-04 mL, l 20:04: Injection, [place] 00 IV, Once, first dose 06/19/19 15:04:00 CDT, stop date 06/19/19 15:04:00 CDT midazolam 2019-0 No 1 mg = 1 Dani ulises 9-04 mL, l 20:04: Injection, [place] 00 IV, Once, first dose 06/19/19 15:04:00 CDT, stop date 06/19/19 15:04:00 CDT fentaNYL 2019-0 No 50 mcg = 1 Mem oria 9-04 mL, l 20:04: Injection, [place] 00 IV, Once, first dose 06/19/19 15:04:00 CDT, stop date 06/19/19 15:04:00 CDT midazolam 2019-0 No 1 mg = 1 Dani ulises 9-04 mL, l 20:04: Injection, [place] 00 IV, Once, first dose 06/19/19 15:04:00 CDT, stop date 06/19/19 15:04:00 CDT fentaNYL 2019-0 No 50 mcg = 1 Mem oria 9-04 mL, l 20:04: Injection, [place] 00 IV, Once, first dose 06/19/19 15:04:00 CDT, stop date 06/19/19 15:04:00 CDT midazolam 2019-0 No 1 mg = 1 Dani ulises 9-04 mL, l 20:04: Injection, [place] 00 IV, Once, first dose 06/19/19 15:04:00 CDT, stop date 06/19/19 15:04:00 CDT [facility] [place] [place]-0 No 1,000 mL, Memoria Medication - Soln-IV, l 19:58: IV, Once, first dose 06/19/19 14:58:00 CDT, stop date 06/19/19 14:58:00 CDT [facility] [place]-0 No 1,000 mL, Memoria Medication - Soln-IV, l 19:58: IV, Once, first dose 06/19/19 14:58:00 CDT, stop date 06/19/19 14:58:00 CDT [facility] [place] 2019-0 No 1,000 mL, Memoria Medication - Soln-IV, l 19:58: IV, Once, first dose 06/19/19 14:58:00 CDT, stop date 06/19/19 14:58:00 CDT [facility] [place] 2019-0 No 1,000 mL, Memoria Medication - Soln-IV, l 19:58: IV, Once, first dose 06/19/19 14:58:00 CDT, stop date 06/19/19 14:58:00 CDT [facility] 2018-0 No 1,000 mL, Memoria Medication 06-19 Soln-IV, l 19:58: IV, Once, first dose 06/19/19 14:58:00 CDT, stop date 06/19/19 14:58:00 CDT [facility] [place] 2018-0 No 1,000 mL, Memoria Medication 06-19 Soln-IV, l 19:58: IV, Once, first dose 06/19/19 14:58:00 CDT, stop date 06/19/19 14:58:00 CDT [facility] [place] 2018-0 No 1,000 mL, Memoria Medication 06-19 Soln-IV, l 19:58: IV, Once, first dose 06/19/19 14:58:00 CDT, stop date 06/19/19 14:58:00 CDT [facility] [place] 2018-0 No 1,000 mL, Memoria Medication 06-19 Soln-IV, l 19:58: IV, Once, first dose 06/19/19 14:58:00 CDT, stop date 06/19/19 14:58:00 CDT midazolam 2019-0 No 1 mg = 1 Dani ulises 9-04 mL, l 19:42: Injection, [place] 00 IV, Once, first dose 06/19/19 14:42:00 CDT, stop date 06/19/19 14:42:00 CDT fentaNYL 2019-0 No 50 mcg = 1 Mem oria 9-04 mL, l 19:42: Injection, [place] 00 IV, Once, first dose 06/19/19 14:42:00 CDT, stop date 06/19/19 14:42:00 CDT midazolam 2019-0 No 1 mg = 1 Dani ulises 9-04 mL, l 19:42: Injection, [place] 00 IV, Once, first dose 06/19/19 14:42:00 CDT, stop date 06/19/19 14:42:00 CDT fentaNYL 2019-0 No 50 mcg = 1 Mem oria 9-04 mL, l 19:42: Injection, [place] 00 IV, Once, first dose 06/19/19 14:42:00 CDT, stop date 06/19/19 14:42:00 CDT midazolam 2019-0 No 1 mg = 1 Dani ulises 9-04 mL, l 19:42: Injection, [place] 00 IV, Once, first dose 06/19/19 14:42:00 CDT, stop date 06/19/19 14:42:00 CDT fentaNYL 2019-0 No 50 mcg = 1 Mem oria 9-04 mL, l 19:42: Injection, [place] 00 IV, Once, first dose 06/19/19 14:42:00 CDT, stop date 06/19/19 14:42:00 CDT midazolam 2019-0 No 1 mg = 1 Dani ulises 9-04 mL, l 19:42: Injection, [place] 00 IV, Once, first dose 06/19/19 14:42:00 CDT, stop date 06/19/19 14:42:00 CDT fentaNYL 2019-0 No 50 mcg = 1 Mem oria 9-04 mL, l 19:42: Injection, [place] 00 IV, Once, first dose 06/19/19 14:42:00 CDT, stop date 06/19/19 14:42:00 CDT midazolam 2019-0 No 1 mg = 1 Dani ulises 9-04 mL, l 19:42: Injection, [place] 00 IV, Once, first dose 06/19/19 14:42:00 [...] Mem oria 9-04 mL, l 19:42: Injection, [place] 00 IV, Once, first dose 06/19/19 14:42:00 CDT, stop date 06/19/19 14:42:00 CDT midazolam 2019-0 No 1 mg = 1 Dani ulises 9-04 mL, l 19:42: Injection, [place] 00 IV, Once, first dose 06/19/19 14:42:00 CDT, stop date 06/19/19 14:42:00 CDT fentaNYL 2019-0 No 50 mcg = 1 Mem oria 9-04 mL, l 19:42: Injection, [place] 00 IV, Once, first dose 06/19/19 14:42:00 CDT, stop date 06/19/19 14:42:00 CDT midazolam 2019-0 No 1 mg = 1 Dani ulises 9-04 mL, l 19:42: Injection, [place] 00 IV, Once, first dose 06/19/19 14:42:00 [...] Mem oria 9-04 Soln-IV, l 18:00: IV [place] 00 Piggyback, Once, infuse over 30 minutes, first dose 06/19/19 13:00:00 CDT, stop date 06/19/19 13:00:00 CDT, Prophylaxi s Clindamycin 2019-0 No 900 mg, Mem oria 9-04 Soln-IV, l 18:00: IV [place] 00 Piggyback, Once, infuse over 30 minutes, first dose 06/19/19 13:00:00 CDT, stop date 06/19/19 13:00:00 CDT, Prophylaxi s Clindamycin 2019-0 No 900 mg, Mem oria 9-04 Soln-IV, l 18:00: IV [place] 00 Piggyback, Once, infuse over 30 minutes, [...] Mem oria 9-04 Soln-IV, l 18:00: IV [place] 00 Piggyback, Once, infuse over 30 minutes, first dose 06/19/19 13:00:00 CDT, stop date 06/19/19 13:00:00 CDT, Prophylaxi s Lidocaine 2019-0 No 0.2 mL, Memor ia 2% 0.2 mL 06-19 Injection, l IV Start 17:44: Subcutaneo [facility] [[facility]] 00 , Once PRN for other (see comment), first dose 06/19/19 12:44:00 CDT LR 1,000 mL 2019-0 No 1,000 mL, M emoria 06-19 IV, 30 l 17:44: mL/hr, [place] 00 start date 06/19/19 12:44:00 CDT Lidocaine 2019-0 No 0.2 mL, Memor ia 2% 0.2 mL 06-19 Injection, l IV Start 17:44: Subcutaneo [facility] [[facility]] 00 us, Once PRN for other (see comment), first dose 06/19/19 12:44:00 CDT LR 1,000 mL 2019-0 No 1,000 mL, M emoria 9-04 IV, 30 l 17:44: mL/hr, start date 06/19/19 12:44:00 CDT Lidocaine 2019-0 No 0.2 mL, Memor ia 2% 0.2 mL 06-19 Injection, l IV Start 17:44: Subcutaneo [facility] [[facility]] 00 us, Once PRN for other (see comment), first dose 06/19/19 12:44:00 CDT LR 1,000 mL 2019-0 No 1,000 mL, M emoria 9-04 IV, 30 l 17:44: mL/hr, start date 06/19/19 12:44:00 CDT Lidocaine 2019-0 No 0.2 mL, Memor ia 2% 0.2 mL 06-19 Injection, l IV Start 17:44: Subcutaneo [facility] [[facility]] 00 us, Once PRN for other (see comment), first dose 06/19/19 12:44:00 CDT LR 1,000 mL 2019-0 No 1,000 mL, M emoria 9-04 IV, 30 l 17:44: mL/hr, start date 06/19/19 12:44:00 CDT Lidocaine 2019-0 No 0.2 mL, Memor ia 2% 0.2 mL 06-19 Injection, l IV Start 17:44: Subcutaneo [facility] [[facility]] 00 us, Once PRN for other (see comment), first dose 06/19/19 12:44:00 CDT LR 1,000 mL 2019-0 No 1,000 mL, M emoria 9-04 IV, 30 l 17:44: mL/hr, start date 06/19/19 12:44:00 CDT Lidocaine 2019-0 No 0.2 mL, Memor ia 2% 0.2 mL 06-19 Injection, l IV Start 17:44: Subcutaneo [facility] [[facility]] 00 us, Once PRN for other (see comment), first dose 06/19/19 12:44:00 CDT LR 1,000 mL 2019-0 No 1,000 mL, M emoria 9-04 IV, 30 l 17:44: mL/hr, [place] 00 start date 06/19/19 12:44:00 CDT Lidocaine 2019-0 No 0.2 mL, Memor ia 2% 0.2 mL 06-19 Injection, l IV Start 17:44: Subcutaneo [facility] [[facility]] , Once PRN for other (see comment), first dose 06/19/19 12:44:00 CDT LR 1,000 mL 2019-0 No 1,000 mL, M emoria 9 IV, 30 l 17:44: mL/hr, start date 06/19/19 12:44:00 CDT Lidocaine 2019-0 No 0.2 mL, Memor ia 2% 0.2 mL 06-19 Injection, l IV Start 17:44: Subcutaneo [facility] [[facility]] , Once PRN for other (see comment), first dose 06/19/19 12:44:00 CDT LR 1,000 mL 2019-0 No 1,000 mL, M emoria 9 IV, 30 l 17:44: mL/hr, start date 06/19/19 12:44:00 CDT Alprazolam 2018-0 Yes 1 mg = 1 Mem oria 1 MG Oral 8-27 tabs, l Tablet 20:52: Oral, As [place] [Xanax] 00 Indicated, PRN for anxiety Alprazolam 2018-0 Yes 1 mg = 1 Mem oria 1 MG Oral 8-27 tabs, l Tablet 20:52: Oral, As [place] [Xanax] 00 Indicated, PRN for anxiety Alprazolam 2019-0 Yes 1 mg = 1 Mem oria 1 MG Oral 8-27 tabs, l Tablet 20:52: Oral, As [place] [Xanax] 00 Indicated, PRN for anxiety Alprazolam 2018-0 Yes 1 mg = 1 Mem oria 1 MG Oral 8-27 tabs, l Tablet 20:52: Oral, As [place] [Xanax] 00 Indicated, PRN for anxiety Alprazolam 2019-0 Yes 1 mg = 1 Mem oria 1 MG Oral 8-27 tabs, l Tablet 20:52: Oral, As [place] [Xanax] 00 Indicated, PRN for anxiety Alprazolam Yes 1 mg = 1 Mem oria 1 MG Oral 8-27 tabs, l Tablet 20:52: Oral, As [place] [Xanax] 00 Indicated, PRN for anxiety Alprazolam Yes 1 mg = 1 Mem oria 1 MG Oral 8-27 tabs, l Tablet 20:52: Oral, As [place] [Xanax] 00 Indicated, PRN for anxiety Alprazolam Yes 1 mg = 1 Mem oria 1 MG Oral 8-27 tabs, l Tablet 20:52: Oral, As [place] [Xanax] 00 Indicated, PRN for anxiety metFORMIN Yes [id number] 500mg Take 500 Univers (GLUCOPHAGE 4-05 mg by ity of ) 500 mg 14:47: mouth 2 [place] tablet 05 (two) Medical times Branch daily with meals. metFORMIN Yes [id number] 500mg Take 500 Univers (GLUCOPHAGE 4-05 mg by ity of ) 500 mg 14:47: mouth 2 [place] tablet 05 (two) Medical times Branch daily with meals. metFORMIN Yes [id number] 500mg Take 500 Univers (GLUCOPHAGE 4-05 mg by ity of ) 500 mg 14:47: mouth 2 [place] tablet 05 (two) Medical times Branch daily with meals. metFORMIN Yes [id number] 500mg Take 500 Univers (GLUCOPHAGE 4-05 mg by ity of ) 500 mg 14:47: mouth 2 [place] tablet 05 (two) Medical times Branch daily with meals. metFORMIN Yes [id number] 500mg Take 500 Univers (GLUCOPHAGE 4-05 mg by ity of ) 500 mg 14:47: mouth 2 [place] tablet 05 (two) Medical times Branch daily with meals. escitalopra Yes [id number] 20mg Take 20 mg Univers m (LEXAPRO) 4-05 by mouth ity of 20 mg 14:47: daily. [place] tablet Medical Branch escitalopra Yes [id number] 20mg Take 20 mg Univers m (LEXAPRO) 4-05 by mouth ity of 20 mg 14:47: daily. [place] tablet 02 Medical Branch escitalopra Yes [id number] 20mg Take 20 mg Univers m (LEXAPRO) 4-05 by mouth ity of 20 mg 14:47: daily. [place] tablet [facility] escitalopra Yes [id number] 20mg Take 20 mg Univers m (LEXAPRO) 4-05 by mouth ity of 20 mg 14:47: daily. [place] tablet [facility] escitalopra Yes [id number] 20mg Take 20 mg Univers m (LEXAPRO) 4-05 by mouth ity of 20 mg 14:47: daily. [place] tablet [facility] metFORMIN Yes [id number] 500mg Take 500 Univers (GLUCOPHAGE 4-05 mg by ity of ) 500 mg 09:47: mouth 2 [place] tablet 05 (two) Medical times [place] daily with meals. metFORMIN Yes [id number] 500mg Take 500 Univers (GLUCOPHAGE 4-05 mg by ity of ) 500 mg 09:47: mouth 2 [place] tablet 05 (two) Medical times [place] daily with meals. escitalopra Yes [id number] 20mg Take 20 mg Univers m (LEXAPRO) 4-05 by mouth ity of 20 mg 09:47: daily. [place] tablet [facility] escitalopra Yes [id number] 20mg Take 20 mg Univers m (LEXAPRO) 4-05 by mouth ity of 20 mg 09:47: daily. [place] tablet [facility] simvastatin Yes [id number] 20mg Take 1 Tab Univers (ZOCOR) 20 4-05 by mouth ity o f mg tablet 00:00: at [place] [address] bedtime. [facility] Branch lisinopril Yes [id number] 10mg Take 1 Tab Univers (PRINIVIL,Z 4-05 by mouth ity of ESTRIL) 10 00:00: daily. [place] mg tablet [facility] simvastatin Yes [id number] 20mg Take 1 Tab Univers (ZOCOR) 20 4-05 by mouth ity o f mg tablet 00:00: at [place] [address] bedtime. [facility] lisinopril Yes [id number] 10mg Take 1 Tab Univers (PRINIVIL,Z 4-05 by mouth ity of ESTRIL) 10 00:00: daily. [place] mg tablet [facility] simvastatin Yes [id number] 20mg Take 1 Tab Univers (ZOCOR) 20 4-05 by mouth ity o f mg tablet 00:00: at [place] [address] bedtime. Medical Branch lisinopril Yes [id number] 10mg Take 1 Tab Univers (PRINIVIL,Z 4-05 by mouth ity of ESTRIL) 10 00:00: daily. [place] mg tablet 00 Medical Branch simvastatin Yes [id number] 20mg Take 1 Tab Univers (ZOCOR) 20 4-05 by mouth ity o f mg tablet 00:00: at [place] 00 bedtime. Medical Branch lisinopril Yes [id number] 10mg Take 1 Tab Univers (PRINIVIL,Z 4-05 by mouth ity of ESTRIL) 10 00:00: daily. [place] mg tablet 00 Medical Branch simvastatin Yes [id number] 20mg Take 1 Tab Univers (ZOCOR) 20 4-05 by mouth ity o f mg tablet 00:00: at [place] [address] bedtime. Medical Branch lisinopril Yes [id number] 10mg Take 1 Tab Univers (PRINIVIL,Z 4-05 by mouth ity of ESTRIL) 10 00:00: daily. [place] mg tablet 00 Medical Branch simvastatin Yes [id number] 20mg Take 1 Tab Univers (ZOCOR) 20 4-05 by mouth ity o f mg tablet 00:00: at [place] [address] bedtime. Medical Branch lisinopril Yes [id number] 10mg Take 1 Tab Univers (PRINIVIL,Z 4-05 by mouth ity of ESTRIL) 10 00:00: daily. [place] mg tablet Medical Branch simvastatin Yes [id number] 20mg Take 1 Tab Univers (ZOCOR) 20 4-05 by mouth ity o f mg tablet 00:00: at [place] [address] bedtime. Medical Branch lisinopril Yes [id number] 10mg Take 1 Tab Univers (PRINIVIL,Z 4-05 by mouth ity of ESTRIL) 10 00:00: daily. [place] mg tablet 00 Medical Branch ALPRAZolam Yes [id number] .5mg Take 0.5 Univers (XANAX) 0.5 2-15 mg by ity of mg tablet 00:00: [place] 00 needed. [place] Branch insulin Yes [id number] 10U inject 10 U nivers lispro 2-15 Units ity of (HUMALOG 00:00: [place] KWIKPEN[place] 00 skin 3 Medical 100 unit/mL (three) Branc h pen times injector daily before meals. Insulin Yes [id number] 40U inject 40 U nivers Glargine 2-15 Units ity of (LANTUS 00:00: under the [place] SOLOSTAR) 00 skin at Medical 100 unit/mL bedtime. [id number] .5mg Take 0.5 Univers (XANAX) 0.5 2-15 mg by ity of mg tablet 00:00: [place] 00 needed. [facility] insulin Yes [id number] 10U inject 10 U nivers lispro 2-15 Units ity of (HUMALOG 00:00: [place] KWIKP[place] 00 skin 3 Medical 100 unit/mL (three) Branc h pen times injector daily before meals. Insulin Yes [id number] 40U inject 40 U nivers Glargine 2-15 Units ity of (LANTUS 00:00: under the [place] SOLOSTAR) 00 skin at Medical 100 unit/mL bedtime. [facility] (3 mL[id number] .5[facility] Take 0.5 Univers (XANAX) 0.5 2-15 mg by ity of mg tablet 00:00: [place] 00 needed. [facility] insulin Yes [id number] 10U inject 10 U nivers lispro 2-15 Units ity of (HUMALOG 00:00: [place] KWIKP[place] 00 skin 3 Medical 100 unit/mL (three) Branc h pen times injector daily before meals. Insulin Yes [id number] 40U inject 40 U nivers Glargine 2-15 Units ity of (LANTUS 00:00: under the [place] SOLOSTAR) 00 skin at Medical 100 unit/mL bedtime. Bran ch (3 mL) [facility] ALPRAZolam Yes [id number] .5mg Take 0.5 Univers (XANAX) 0.5 2-15 mg by ity of mg tablet 00:00: [place] 00 needed. [facility] insulin Yes [id number] 10U inject 10 U nivers lispro 2-15 Units ity of (HUMALOG 00:00: [place] KWIKP[place] 00 skin 3 Medical 100 unit/mL (three) Branc h pen times injector daily before meals. Insulin Yes [id number] 40U inject 40 U nivers Glargine 2-15 Units ity of (LANTUS 00:00: under the [place] SOLOSTAR) 00 skin at Medical 100 unit/mL bedtime. Bran ch (3 mL) [facility] [id number] .5mg Take 0.5 Univers (XANAX) 0.5 2-15 mg by ity of mg tablet 00:00: [place] 00 needed. [facility] insulin Yes [id number] 10U inject 10 U nivers lispro 2-15 Units ity of (HUMALOG 00:00: [place] 00 skin 3 Medical 100 unit/mL (three) Branc h pen times injector daily before meals. Insulin Yes [id number] 40U inject 40 U nivers Glargine 2-15 Units ity of (LANTUS 00:00: under the [place] SOLOSTAR) 00 skin at Medical 100 unit/mL bedtime. Bran ch (3 mL) [facility] [id number] .5mg Take 0.5 Univers (XANAX) 0.5 2-15 mg by ity of mg tablet 00:00: [place] 00 needed. [facility] insulin Yes [id number] 10U inject 10 U nivers lispro 2-15 Units ity of (HUMALOG 00:00: [place] 00 skin 3 Medical 100 unit/mL (three) Branc h pen times injector daily before meals. Insulin Yes [id number] 40U inject 40 U nivers Glargine 2-15 Units ity of (LANTUS 00:00: under the [place] SOLOSTAR) 00 skin at Medical 100 unit/mL bedtime. [facility]3 mL[id number] .5mg Take 0.5 Univers (XANAX) 0.5 2-15 mg by ity of mg tablet 00:00: [place] 00 needed. [place] Branch insulin Yes [id number] 10U inject 10 U nivers lispro 2-15 Units ity of (HUMALOG 00:00: [place] 00 skin 3 Medical 100 unit/mL (three) Branc h pen times injector daily before meals. Insulin Yes [id number] 40U inject 40 U nivers Glargine 2-15 Units ity of (LANTUS 00:00: under the [place] SOLOSTAR) 00 skin at Medical 100 unit/mL bedtime. Bran ch (3 mL) InPn Immunizations Ordered Immunization Filled Immunization Date Status Commen ts Source Name Name Pneumococcal Vaccine, 2022-10-13 Completed Daniel sey Sey[place] - Polysaccharide 00:00:00 External Influenza Virus 2022-10-13 Completed Brandee Conrad ybold - Vaccine, age 6 months 00:00:00 Ext ernal and up Pneumococcal Vaccine, 2022-10-13 Completed Daniel gimenez [place]bold - Polysaccharide 00:00:00 External Influenza Virus 2022-10-13 Completed Brandee Conrad ybold - Vaccine, age 6 months 00:00:00 Ext ernal and up SARS-COV-2 COVID-19 2021-01-10 Completed Unive rsity of MODERNA VACCINE 00:00:00 [facility] [place] [facility] SARS-COV-2 COVID-19 2021-01-10 Completed Unive rsity of MODERNA VACCINE 00:00:00 [facility] [place] [facility] SARS-COV-2 COVID-19 2021-01-10 Completed Unive rsity of MODERNA VACCINE 00:00:00 [facility] [place] [facility] SARS-COV-2 COVID-19 2021-01-10 Completed Unive rsity of MODERNA VACCINE 00:00:00 [facility] [place] [facility] SARS-COV-2 COVID-19 2021-01-10 Completed Unive rsity of MODERNA VACCINE 00:00:00 [facility] [place] [facility] SARS-COV-2 COVID-19 2021-01-10 Completed Unive rsity of MODERNA VACCINE 00:00:00 [facility] [place] [facility] SARS-COV-2 COVID-19 2021-01-10 Completed Unive rsity of MODERNA VACCINE 00:00:00 [place] [facility] ical Branch SARS-COV-2 COVID-19 2020-12-13 Completed Unive rsity of MODERNA VACCINE 00:00:00 [place] [facility] ical Branch SARS-COV-2 COVID-19 2020-12-13 Completed Unive rsity of MODERNA VACCINE 00:00:00 [place] [facility] ical Branch SARS-COV-2 COVID-19 2020-12-13 Completed Unive rsity of MODERNA VACCINE 00:00:00 [place] [facility] ical Branch SARS-COV-2 COVID-19 2020-12-13 Completed Unive rsity of MODERNA VACCINE 00:00:00 [place] [facility] ical Branch SARS-COV-2 COVID-19 2020-12-13 Completed Unive rsity of MODERNA VACCINE 00:00:00 [facility] ical Branch SARS-COV-2 COVID-19 2020-12-13 Completed Unive rsity of MODERNA VACCINE 00:00:00 [facility] ical Branch SARS-COV-2 COVID-19 2020-12-13 Completed Unive rsity of MODERNA VACCINE [facility]:00[facility]00 [facility] Vital Signs Vital Name Observation Time Observation Value Comments Source Systolic blood 2022-10-13 17:29:00 133 mm[Hg] Brandee Bullock - pressure External Diastolic blood 2022-10-13 17:29:00 86 mm[Hg] Tad Bullock - pressure External Heart rate 2022-10-13 17:29:00 93 /min Brandee dunne - External Body temperature 2022-10-13 17:29:00 36.72 Flor Silvia Bullock - External Respiratory rate 2022-10-13 17:29:00 14 /min Silvia Bullock - External Body height 2022-10-13 17:29:00 149.9 cm Brandee dunne - External Body weight 2022-10-13 17:29:00 55.792 kg Brandee dunne - External BMI 2022-10-13 17:29:00 24.84 kg/m2 Brandee dunne - External Oxygen saturation in 2022-10-13 17:29:00 99 /min Brandee Bullock - Arterial blood by External Pulse oximetry Systolic blood 2022-09-22 19:52:00 102 mm[Hg] Brandee Seybold - pressure External Diastolic blood 2022-09-22 19:52:00 68 mm[Hg] Kelse y Seybold - pressure External Heart rate [...] External Diastolic blood 2022-08-09 20:26:00 64 mm[Hg] Tad y ybold - pressure External Heart rate 2022-08-09 20:26:00 94 /min Brandee palaciosbold - External Body temperature 2022-08-09 20:26:00 36.17 Flor Silvia palacios Seybold - External Respiratory rate 2022-08-09 20:26:00 14 /min Silvia palacios Seybbrittni - External Body height 2022-08-09 20:26:00 149.9 cm Brandee palaciosbold - External Body weight 2022-08-09 20:26:00 53.524 kg Brandee palaciosbold - External BMI 2022-08-09 20:26:00 23.83 kg/m2 Brandee palaciosbobritton - External Systolic blood 2022-04-16 23:20:00 110 mm[Hg] Univer sity of pressure [facility] Diastolic blood 2022-04-16 23:20:00 74 mm[Hg] Unive rsity of pressure [facility] Heart rate 2022-04-16 23:20:00 104 /min [facility] Body temperature 2022-04-16 23:20:00 37.44 Flor [facility] ersity of [facility] Respiratory rate 2022-04-16 23:20:00 17 /min [facility] ersity of [facility] Body height 2022-04-16 23:20:00 149.9 cm [facility] Body weight 2022-04-16 23:20:00 54.386 kg [facility] BMI 2022-04-16 23:20:00 24.22 kg/m2 [facility] Oxygen saturation in 2022-04-16 23:20:00 97 /min [facility] Arterial blood by [facility] Pulse oximetry Branch Systolic (mm Hg) 2019-06-19 23:50:00 Dani Nava Diastolic (mm Hg) 2019-06-19 23:50:00 Mem oriana Elijah Respitory Rate 2019-06-19 23:50:00 Isa xavier [place] Heart Rate 2019-06-19 23:50:00 Rayna Nava Systolic (mm Hg) 2019-06-19 23:10:00 Dani Nava Diastolic (mm Hg) 2019-06-19 23:10:00 Mem orial [place] Heart Rate 2019-06-19 23:10:00 [facility] Respitory Rate 2019-06-19 23:10:00 Isa xavier [place] Systolic (mm Hg) 2019-06-19 23:00:00 Dani salinas Elijah Diastolic (mm Hg) 2019-06-19 23:00:00 Mem orial [place] Heart Rate 2019-06-19 23:00:00 [facility] [place] Respitory Rate 2019-06-19 23:00:00 Isa al [place] Temperature Oral (F) 2019-06-19 22:20:00 36.9 Flor [facility] [place] Temperature Oral (F) 2019-06-19 17:42:00 36.8 Flor [facility] [place] Height 2019-06-19 17:42:00 149.86 cm [facility] Height 2019-06-11 20:45:00 149.86 cm [facility] [place] Procedures Procedure Date / Time Performing Clinician Source Performed POCT MOLECULAR FLU 2022-04-16 23:28:00 Debra Rhodes [facility] Medical Branch ASSIGNMENT OF BENEFITS 2021-06-21 18:46:16 Doctor Unassigned, [facility] [place] [facility] ARTHROSCOPIC DEBRIDEMENT 2019-06-19 20:39:00 [facility] oriana Nava SHOULDER-EXTENSIVE [id number] (Left)<sup>1</sup> ARTHROSCOPY SHOULDER 2019-06-19 20:39:00 Isabel Nava ROTATOR CUFF REPAIR [id number] (Left)<sup>2</sup> ARTHROSCOPY SHOULDER 2019-06-19 20:39:00 Isabel Nava W/BICEPS TENDONESIS [id number] (Left)<sup>3</sup> ARTHROSCOPY SHOULDER 2019-06-19 20:39:00 Isabel Nava W/SUBACROMIAL DECOMPRESSION/ACROMIOPLAST Y [id number] (Left)<sup>4</sup> tooth extraction 2019-04-17 05:00:00 [facility] Gilberto jordan Appendectomy 2010-10-16 00:00:00 [facility] Her [place] Hysterectomy 2007-10-16 00:00:00 [facility] [place] Cholecystectomy 2005-10-16 00:00:00 [facility] [place] Encounters Start End Encounter Admission Attending Care Care Encounter Source Date/Time Date/Time Type Type Clinicians Facility Department ID 2022-12-07 2022-12-07 Outpatient PREZAS, BRANDEE FELIZ [id number] Brandee 16:15:00 16:15:00 BILL Seybol d 2022-11-08 2022-11-08 Outpatient PREZAS, BRANDEE FELIZ [id number] Brandee 00:00:00 00:00:00 BILL Seybol d 2022-11-08 2022-11-08 Outpatient HUNDL, BRANDEE FELIZ [id number] Brandee 00:00:00 00:00:00 KATHY Seybol d 2022-11-07 2022-11-07 Outpatient HUNDL, BRANDEE FELIZ [id number] Brandee 13:00:00 13:00:00 KATHY Seybol d 2022-11-03 2022-11-03 Outpatient PREZAS, BRANDEE FELIZ [id number] Brandee 00:00:00 00:00:00 BILL Seybol d 2022-10-31 2022-10-31 Outpatient PREZAS, BRANDEE FELIZ [id number] Brandee 00:00:00 00:00:00 BILL Seybol d 2022-10-28 2022-10-28 Outpatient PREZAS, BRANDEE FELIZ [id number] Brandee 00:00:00 00:00:00 BILL Seybol d 2022-10-21 2022-10-21 Outpatient PREZAS, BRANDEE FELIZ [id number] Brandee 00:00:00 00:00:00 BILL Seybol d 2022-10-13 2022-10-13 Outpatient PREZAS, BRANDEE FELIZ [id number] Brandee 11:30:00 11:30:00 BILL Seybol d 2022-10-05 2022-10-05 Outpatient PREZAS, BRANDEE FELIZ [id number] Brandee 00:00:00 00:00:00 BILL Seybol d 2022-09-28 2022-09-28 Outpatient PREZAS, BRANDEE FELIZ [id number] Brandee 00:00:00 00:00:00 BILL Seybol d 2022-09-26 2022-09-26 Outpatient PREZAS, BRANDEE FELIZ [id number] Brandee 09:45:00 09:45:00 BILL Seybol d 2022-09-22 2022-09-22 Outpatient HUNDL, BRANDEE FELIZ [id number] Brandee 14:00:00 14:00:00 KATHY Seybol d 2022-09-22 2022-09-22 Outpatient PREZAS, BRANDEE FELIZ [id number] Brandee 00:00:00 00:00:00 BILL Seybol d 2022-09-22 2022-09-22 Outpatient PREZAS, BRANDEE FELIZ [id number] Brandee 00:00:00 00:00:00 BILL Seybol d 2022-09-21 2022-09-21 Outpatient PREZAS, BRANDEE FELIZ [id number] Brandee 00:00:00 00:00:00 BILL Seybol d 2022-09-19 2022-09-19 Outpatient TESTING, LJ BRANDEE FELIZ [id number] Brandee 14:50:00 14:50:00 Seybol d 2022-09-19 2022-09-19 Outpatient MRX19-OGL BRANDEE FELIZ [id number] Brandee 13:20:00 13:20:00 Seybol d 2022-09-19 2022-09-19 Outpatient PREZAS, BRANDEE FELIZ [id number] Brandee 00:00:00 00:00:00 BILL Seybol d 2022-09-19 2022-09-19 Outpatient PREZAS, BRANDEE FELIZ [id number] Brandee 00:00:00 00:00:00 BILL Seybol d 2022-09-06 2022-09-06 Outpatient LAB90 BRANDEE FELIZ [id number] Brandee 16:15:00 16:15:00 Seybol d 2022-09-06 2022-09-06 Outpatient PREZAS, BRANDEE FELIZ [id number] Brandee 15:45:00 15:45:00 BILL Seybol d 2022-08-26 2022-08-26 Outpatient PREZAS, BRANDEE FELIZ [id number] Brandee 00:00:00 00:00:00 BILL Seybol d 2022-08-10 2022-08-10 Outpatient PREZAS, BRANDEE FELIZ [id number] Brandee 00:00:00 00:00:00 BILL Seybol d 2022-08-09 2022-08-09 Outpatient PREZAS, BRANDEE FELIZ [id number] Brandee 15:45:00 15:45:00 BILL Seybol d 2022-08-09 2022-08-09 Outpatient PREZAS, BRANDEE FELIZ [id number] Brandee 15:15:00 15:15:00 BILL Seybol d 2022-08-08 2022-08-08 Outpatient PREZAS, BRANDEE FELIZ [id number] Brandee 00:00:00 00:00:00 BILL Seybol d 2022-07-21 2022-07-21 Outpatient PREZAS, BRANDEE FELIZ [id number] Brandee 00:00:00 00:00:00 BILL Seybol d 2022-06-13 2022-06-13 Outpatient PREZAS, BRANDEE FELIZ [id number] Brandee 00:00:00 00:00:00 BILL Seybol d 2022-06-01 2022-06-01 Outpatient PREZAS, BRANDEE FELIZ [id number] Brandee 08:00:00 08:00:00 BILL Seybol d 2022-05-31 2022-05-31 Outpatient RICO, BRANDEE FELIZ [id number] Brandee 00:00:00 00:00:00 URMILA Seybol d 2022-05-31 2022-05-31 Outpatient PREZAS, BRANDEE FELIZ [id number] Brandee 00:00:00 00:00:00 BILL Seybol d 2022-05-27 2022-05-27 Outpatient PREZAS, BRANDEE FELIZ [id number] Brandee 00:00:00 00:00:00 BILL Seybol d 2022-05-26 2022-05-26 Outpatient PREZAS, BRANDEE FELIZ [id number] Brandee 00:00:00 00:00:00 BILL Seybol d 2022-05-26 2022-05-26 Outpatient PREZAS, BRANDEE FELIZ [id number] Brandee 00:00:00 00:00:00 BILL Seybol d 2022-05-25 2022-05-25 Outpatient LAB90 BRANDEE FELIZ [id number] Brandee 10:10:00 10:10:00 Seybol d 2022-05-16 2022-05-16 Outpatient BRANDEE QUICK BRANDEE [id number] Brandee 00:00:00 00:00:00 BILL Seybol d 2022-05-12 2022-05-12 Office Derrick Quick [id number] Brandee 15:30:00 16:00:00 Visit Bill Swenson [id number] Se jade [id number] [id number] 2022-05-12 2022-05-12 Outpatient BRANDEE QUICK BRANDEE [id number] Bradnee 00:00:00 00:00:00 BILL Seybol d 2022-05-10 2022-05-10 Outpatient BRANDEE QUICK BRANDEE [id number] Brandee 00:00:00 00:00:00 BILL Seybol d 2022-05-04 2022-05-04 Office Derrick Quick [id number] Brandee 13:30:00 14:00:00 Visit Bill Swenson 350.1.13.13 Se adelinaold 1.2.7.2.686 [id number] 2022-04-17 2022-04-17 Telephone SUMANTH Munoz [id number] Univers 00:00:00 00:00:00 Sheri TRACEY 350.1.13.10 i [facility] 4.2.7.2.686 Jon as [id number] [address] 2022-04-16 2022-04-16 Outpatient Thom RHODES [facility] [id number] Univers 18:20:00 18:49:11 DEBRA samuel [facility] 2022-04-16 2022-04-16 Urgent Sumanth Ray [facility] [id number] Univers 18:20:00 18:49:11 Jarrett Rhodes [facility] [id number] jimmie [facility] 4.2.7.2.686 Jon as JF?BLEA [id number] [address] MEDICAL OFFICE [facility] 2021-06-22 2021-06-22 Letter SUMANTH Olvera [id number] Univers 00:00:00 00:00:00 (Out) Roxana TRACEY 350.1.13.10 it y of HOSPITAL 4.2.7.2.[id number] [facility] [address] [place] 2021-06-21 2021-06-21 Outpatient R BISHNU [facility] [id number] Univers 14:30:00 14:30:00 HUE ity o f [facility] 2021-06-21 2021-06-21 Laboratory Only, Ang Db Test [facility] 1.2.8 40.114 [id number] Univers 13:46:09 14:01:09 Only Bishnu [facility] 350.1.13.10 ity of [place] 4.2.7.2.686 Jon as Jf?Blea [id number] [address] Medical Office [facility] 2021-06-21 2021-06-21 Orders Doctor JULIO 1.2.840.114 [id number] Univers 00:00:00 00:00:00 Only Unassigned, KYUNG 350.1.13.10 ity of [place] [facility] 4.2.7.2.[id number] [facility] [address] [place] 2021-01-10 2021-01-10 Outpatient [facility] [id number] Univers 14:20:00 14:20:00 ity [facility] 2021-01-02 2021-01-02 Outpatient R CARMELO [facility] [id number] Univers 10:00:00 10:00:00 DEBRA ity [facility] 2020-12-31 2020-12-31 Outpatient R CARMELO [facility] [id number] Univers 17:20:00 17:20:00 [facility] 2020-12-13 2020-12-13 Outpatient R ROCHELLE [facility] [id number] Univers 15:05:00 15:05:00 EMIR ity [facility] 2020-09-30 2020-09-30 Outpatient R RADIOLOGY [facility] [id number] Univers 00:00:00 00:00:00 [facility] 2019-09-30 2019-09-30 Outpatient R RADIOLOGY [facility] [id number] [facility] 07:28:06 23:59:00 [facility] 2019-06-19 2019-06-20 Outpatient [facility]avo [facility] [id number] Memoria 16:54:16 00:00:00 thom [facility] 2019-06-19 2019-06-20 Outpatient nullFlavo [facility] [id number] Memoria 16:54:16 00:00:00 r [place] letha [facility] 2019-06-19 2019-06-19 Outpatient nullFlavo [facility] [id number] Memoria 11:54:16 19:00:00 thom Nava 2019-06-19 2019-06-19 Outpatient Jamison, [id number] 11:54:16 19:00:00 Eusebio Autumn Jarrett 2018-12-21 2018-12-22 Outpatient [facility]Flavo [facility] [id number] Memoria 15:21:48 05:59:59 r [facility] 2018-12-21 2018-12-22 Outpatient [facility]Flavo [facility] [id number] Memoria 15:21:48 05:59:59 thom [facility] 2018-12-21 2018-12-21 Outpatient nullFlavo [facility] [id number] Memoria 09:21:48 23:59:59 thom Nava 2018-12-21 2018-12-21 Outpatient Swift, [id number] 09:21:48 23:59:59 Eusebio Farias Results Test Description Test Time Test Comments Results Result Comments Source POCT MOLECULAR FLU 2022-04-16 23:39:54 Test Item Value Reference Range Interpretation Comme nts POCT Molecular FluA (test code = 31182-4) Negative Negative POCT Molecular FluB (test code = 31394-5) Negative Negative Lab Interpretation (test code = 22651-4) Normal [facility]
[2022-11-08] MEDS ORDERED: NA CHLORIDE 0.9% 1,000 ML ONE (11:17)
[2022-11-08] MEDS ORDERED: ONDANSETRON 4 MG/2 ML VIAL ONE (11:17)
[2022-11-08 11:18] LABS: Absolute Lymphocytes (CBC) 2.1 K/uL (0.7-4.9); Hematocrit 37.9 % (36.0-45.0); Lymphocytes % 34.8 % (15.3-44.8); MCV 88.2 fL (80-100); MPV 7.4 fL (7.6-11.3); RBC Red Blood Cell Count 4.29 M/uL (3.86-4.86)
[2022-11-08 11:32] LABS: Potassium 3.9 mmol/L (3.5-5.1)
[2022-11-08 11:40] LABS: Bilirubin Total 1.5 mg/dL (0.2-1.0); Protein, Total 8.4 g/dL (6.4-8.2); Troponin High Sensitivity 3.9 pg/mL (<58.9)
--- NOTE | 2022-11-08 12:35 | RAD REPORT ---
EXAM DESCRIPTION: CT - Abdomen Pelvis W Contrast - 11/08/2022 11:57 am CLINICAL HISTORY: LLQ abdominal pain COMPARISON: CT ABD PELVIS W CONTRAST dated 05/22/2014 TECHNIQUE: Biphasic, helical CT imaging of the abdomen and pelvis was performed following 100 ml non -ionic IV contrast. Oral contrast: No. All CT scans are performed using dose optimization technique as appropriate and may include automated exposure control or mA/KV adjustment according to patient size. FINDINGS: No suspicious findings in the lung bases. The liver, spleen, and pancreas show no suspicious findings. Gallbladder is absent. Prominence of the biliary tree is noted but not outside of normal range for a post cholecystectomy patient. Symmetric renal function is seen with no hydronephrosis or suspicious renal mass. No pyelonephritis o r acute parenchymal process. No adrenal abnormalities. No urinary bladder wall thickening or mass see n. There is air in the lumen of the bladder. This is presumed to be the result of a catheterization r ather than an infectious process. This needs correlation with any procedures performed. Uterus is abs ent. No ovarian abnormality seen. No dilated bowel loops or bowel wall thickening. Appendectomy clips are present. No free air, free fl uid or inflammatory stranding. No hernia, mass or bulky lymphadenopathy. No suspicious bony findings. IMPRESSION: Contrast enhanced CT abdomen and pelvis showing no acute or emergent finding. Nonacute findings detailed in the body of the report.
[2022-11-08 12:57] LABS: Urine Blood 1+ (Negative); Urine Glucose Trace (Negative); Urine Protein 1+ (Negative); Urine Specific Gravity 1.015 (1.005-1.030)
[2022-11-08 13:08] LABS: Specific Gravity > 1.030 (1.005-1.030); Urine Bacteria None Seen /HPF (<20); Urine Bilirubin NEGATIVE (Negative); Urine Blood 1+ (Negative); Urine Clarity Extremely Turbid (Clear); Urine Color Light-Orange (Yellow); Urine Glucose 2+ (Negative); Urine Mucus 1+ /HPF (None Seen); Urine Protein 1+ (Negative); Urine RBC 21-50 /HPF (None Seen); Urine Urobilinogen Normal (Normal); Urine WBC Clump Few /HPF (None Seen)
--- NOTE | 2022-11-08 13:16 | ER ---
Nurse's Notes [facility] Name: Denise Solano Age: 52 yrs Sex: Female : 1970 Arrival Date: 11/08/2022 Time: 09:39 Bed 12 Private MD: Meek Quick Diagnosis: Acute cystitis;Other specified noninfective gastroenteritis and colitis Presentation: 11/08 10:48 Chief complaint: Patient states: N/V x 3-4 days; "discomfort" LUQ. Coronavirus screen: jl Vaccine status: Patient reports receiving the 2nd dose of the covid vaccine. nausea, vomiting. Client presents with at least one sign or symptom that may indicate coronavirus-19. Ebola Screen: No symptoms or risks identified at this time. Initial Sepsis Screen: Does the patient meet any 2 criteria? No. Patient's initial sepsis screen is negative. Does the patient have a suspected source of infection? No. Patient's initial sepsis screen is negative. Risk Assessment: Do you want to hurt yourself or someone else?. Onset of symptoms was November 05, 2022. 10:48 Method Of Arrival: Ambulatory jl7 10:48 Acuity: FE 3 jl7 Triage Assessment: 10:50 General: Appears in no apparent distress. uncomfortable, Behavior is calm, cooperative, jl7 appropriate for age. Pain: Complains of pain in left upper quadrant. GI: Reports nausea, vomiting. 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 - Social history:: Smoking status: Patient denies any tobacco usage or history of. Screenin:49 [facility] ED Fall Risk Assessment (Adult) History of falling in the last 3 months, 5 including since admission No falls in past 3 months (0 pts) Confusion or Disorientation No (0 pts) Intoxicated or Sedated No (0 pts) Impaired Gait Mobility Assist Device Used No (0 pt) Altered Elimination No (0 pt) Score/Fall Risk Level 0 - 2 = Low Risk. Abuse screen: Denies threats or abuse. Denies injuries from another. Nutritional screening: No deficits noted. Tuberculosis screening: No symptoms or risk factors identified. Assessment: 13:50 GI: Abdomen is flat. jh5 Vital Signs: 10:48 BP 119 / 75; Pulse 103; Resp 17; Temp 98.4; Pulse Ox 100% ; Weight 54.43 kg; Height 4 jl7 ft. 11 in. (149.86 cm); Pain 0/10; 10:48 Body Mass Index 24.24 (54.43 kg, 149.86 cm) jl7 ED Course: 09:39 Patient arrived in ED. as 09:39 Meek Quick DO is Private Physician. as 09:39 Samy Salazar DO is Attending Physician. ms3 09:39 Cindy Love PA is PHCP. en 10:50 Triage completed. jl7 10:50 Arm band placed on right wrist. jl7 10:53 Katie Gomez, ZEV is Primary Nurse. jl7 11:10 Troponin High Sensitivity Sent. bc6 11:10 Lipase Sent. bc6 11:10 CMP Sent. bc6 11:10 CBC with Diff Sent. bc6 11:10 Initial lab(s) drawn, by md, sent to lab. Inserted saline lock: 20 gauge in right bc6 antecubital area, using aseptic technique. 11:59 CT Abd/Pelvis - IV Contrast Only In Process Unspecified. EDMS 13:06 Urine collected: clean catch specimen, cloudy. tm3 13:15 Meek Quick DO is Referral Physician. en 13:19 Samy Salazar DO is Attending Physician. ms3 13:49 Patient has correct armband on for positive identification. Bed in low position. Call 5 light in reach. Side rails up X 1. 13:49 No provider procedures requiring assistance completed. IV discontinued, intact, jh5 bleeding controlled, No redness/swelling at site. Pressure dressing applied. Administered Medications: 11:15 Drug: Zofran (Ondansetron) 4 mg Route: IVP; Site: right antecubital; jh5 11:15 Drug: NS 0.9% 1000 ml Route: IV; Rate: 1 bolus; Site: right antecubital; 5 Medication: 13:50 VIS not applicable for this client. [facility] Outcome: 13:15 Discharge ordered by MD. glass 13:50 Discharged to home ambulatory. [facility] 13:50 Condition: good 13:50 Discharge instructions given to patient, Instructed on discharge instructions, follow up and referral plans. safety practices, Demonstrated understanding of instructions, follow-up care, medications, Prescriptions given X 3. 13:51 Patient left the ED. [facility] Signatures: Dispatcher [employer] EDMS Neil Barber tm3 Veronique Gilman Jahala, RN RN jl7 Samy Salazar DO DO ms3 Debbie Villalobos RN RN jh5 Cindy Love PA PA en [place], Breana 6 Corrections: (The following items were deleted from the chart) 10:52 10:50 Home Meds: Xanax 0.5 mg Oral tab 1 tab daily prn; jl7 jl7
--- NOTE | 2022-11-08 13:16 | EDPHYS ---
Physician Documentation [facility] Name: Denise Solano Age: 52 yrs Sex: Female : 1970 Arrival Date: 11/08/2022 Time: 09:39 Bed 12 Private MD: Meek Quick ED Physician Samy Salazar HPI: 11/08 11:06 This 52 yrs old Female presents to ER via Ambulatory with complaints of en Vomiting. 11:06 52-year-old female with history of hypertension and diabetes presents to ED with 3 days en of nausea with nonbloody nonbilious emesis and 2 episodes of nonbloody diarrhea. She reports intermittent left lower quadrant pain that is nonradiating. She denies fever, chills, chest pain, shortness of breath or dyspnea exertion. No dysuria, hematuria or flank pain. Patient was told at one point that she might have kidney stones but that was based on lab work without imaging? Calcium oxalate crystals in her urine perhaps? . 11:45 Surgical history significant for appendectomy, cholecystectomy, partial hysterectomy. 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 - Social history:: Smoking status: Patient denies any tobacco usage or history of. ROS: 11:06 Constitutional: Negative for fever, chills, and weight loss, Cardiovascular: Negative en for chest pain, palpitations, and edema, Respiratory: Negative for shortness of breath, cough, wheezing, and pleuritic chest pain, : Negative for injury, bleeding, discharge, and swelling. 11:06 Abdomen/GI: Positive for abdominal pain, nausea, vomiting, and diarrhea. Exam: 11:06 Constitutional: This is a well developed, well nourished patient who is awake, alert, en and in no acute distress. ENT: Nares patent. No nasal discharge, no septal abnormalities noted. Tympanic membranes are normal and external auditory canals are clear. Oropharynx with no redness, swelling, or masses, exudates, or evidence of obstruction, uvula midline. Lips dry but mucous membranes Cardiovascular: Mildly tachycardic at 103 secondary to dehydration, normal rhythm with a normal S1 and S2. No gallops, murmurs, or rubs. Normal PMI, no JVD. No pulse deficits. Respiratory: Lungs have equal breath sounds bilaterally, clear to auscultation and percussion. No rales, rhonchi or wheezes noted. No increased work of breathing, no retractions or nasal flaring. Abdomen/GI: Soft, non-tender, with normal bowel sounds. No distension or tympany. No guarding or rebound. No evidence of tenderness throughout. Back: No spinal tenderness. No costovertebral tenderness. Full range of motion. Vital Signs: 10:48 BP 119 / 75; Pulse 103; Resp 17; Temp 98.4; Pulse Ox 100% ; Weight 54.43 kg; Height 4 jl7 ft. 11 in. (149.86 cm); Pain 0/10; 10:48 Body Mass Index 24.24 (54.43 kg, 149.86 cm) jl7 MDM: 09:39 Patient medically screened. en 11:06 Differential diagnosis: gastritis, diverticulitis, viral gastroenteritis, en gastroenteritis, Pyelonephritis, ureterolithiasis. Data reviewed: vital signs, lab test result(s), radiologic studies. I considered the following discharge prescriptions or medication management in the emergency department Medications were administered in the Emergency Department. See MAR. 11:21 Independent interpretation of the following test(s) in the Emergency Department EKG: en See my EKG interpretation above. ED course: Normal sinus rhythm at 98 bpm, right axis deviation normal intervals, no STEMI. 12:41 Data reviewed: lab test result(s), CBC, electrolytes, hepatic panel. en 12:45 Data reviewed: lab test result(s), CBC, CBC, electrolytes, LFTs all within normal en limits no evidence of dehydration or infection on labs. Consideration of Admission/Observation Patient was admitted/placed on observation. Patient will need admission for wound care for bilateral lower extremity wounds as well as assistance with social needs to arrange home health or other DME for ADLs. Independent interpretation of the following test(s) in the Emergency Department EKG: See my EKG interpretation above. Care significantly affected by the following chronic conditions: Diabetes, Hypertension. Response to treatment: the patient's symptoms have markedly improved after treatment, the patient's symptoms have resolved after treatment, patient is well hydrated. and as a result, I will discharge patient. 13:14 Data reviewed: lab test result(s), urinalysis, + UTI. ED course: Patient with a UTI. en Will DC home with Omnicef and add urine culture. Will give Zofran and Bentyl. Abdomen benign at discharge and patient feels better. Will follow-up with PCP. 11/08 10:25 Order name: CBC with Diff; Complete Time: 11:22 en 11/08 10:25 Order name: CMP; Complete Time: 11:44 en 11/08 10:25 Order name: Lipase; Complete Time: 11:44 en 11/08 10:25 Order name: Troponin High Sensitivity; Complete Time: 11:44 en 11/08 10:25 Order name: UA; Complete Time: 13:13 en 11/08 10:59 Order name: Glucose, Ancillary Testing; Complete Time: 11:22 EDMS 11/08 10:25 Order name: EKG - Nurse/Tech; Complete Time: 11:13 en 11/08 10:25 Order name: Saline Lock; Complete Time: 11:08 en 11/08 10:25 Order name: CT Abd/Pelvis - IV Contrast Only; Complete Time: 12:38 en 11/08 12:41 Order name: Urine Dipstick-Ancillary (obtain specimen); Complete Time: 13:12 en 11/08 12:57 Order name: Urine Dipstick-Ancillary; Complete Time: 13:13 EDMS Administered Medications: 11:15 Drug: Zofran (Ondansetron) 4 mg Route: IVP; Site: right antecubital; jh5 11:15 Drug: NS 0.9% 1000 ml Route: IV; Rate: 1 bolus; Site: right antecubital; jh5 Disposition: 18:47 Co-signature as Attending Physician, Samy CACERES was immediately available on-site ms3 in the Emergency Department for consultation in the care of the patient. Disposition Summary: 11/08/22 13:15 Discharge Ordered Location: Home en Problem: new en Symptoms: have improved en Condition: Stable en Diagnosis - Acute cystitis en - Other specified noninfective gastroenteritis and colitis en Followup: en - With: Meek Quick DO - When: 1 week - Reason: Discharge Instructions: - Discharge Summary Sheet en - Viral Gastroenteritis, Adult, [id number] en - Urinary Tract Infection, Adult, [id number] en Forms: - Medication Reconciliation Form en - Thank You Letter en - Antibiotic Education en - Prescription Opioid Use en Prescriptions: - dicyclomine 20 mg Oral tablet - take 1 tablet by ORAL route 4 times per day; 20 tablet; Refills: 0, Product en Selection Permitted - Zofran 4 mg Oral Tablet - take 1 tablet by ORAL route every 12 hours As needed; 20 tablet; Refills: 0, en Product Selection Permitted - Bactrim DS 800-160 mg Oral Tablet - take 1 tablet by ORAL route every 12 hours for 7 days; 14 tablet; Refills: 0, en Product Selection Permitted Signatures: Dispatcher [employer] Katie Ramirez RN RN jl7 Samy Salazar DO DO ms3 Debbie Villalobos RN RN jh5 Cindy Love PA PA en Corrections: (The following items were deleted from the chart) 10:52 10:50 Home Meds: Xanax 0.5 mg Oral tab 1 tab daily prn; jl7 jl7
[2022-11-08 14:16] VITALS: BP 119/75; TEMP 98.4; O2SAT 100
--- NOTE | 2022-11-10 18:13 | EKG ---
Test Date: 2022-11-08 Test Time: 11:16:06 Sustainable Systems Analyst: MANDIE MEASUREMENT RESULTS: Intervals: Rate: 98 VT: 140 QRSD: 86 QT: 354 QTc: 451 Thicket: P: 42 VT: 140 QRS: 69 T: 67 INTERPRETIVE STATEMENTS: Normal sinus rhythm Normal ECG No previous ECG available for comparison Electronically Signed On 11-10-22 18:11:00 CARDIOLOGY CLINICAL NURSE SPECIALIST by Ulises Gann
== END 2022-11-08 13:51 | disposition home or self-care (01) ==
LOC: ER 09:35
DX: N30.00 Acute cystitis without hematuria (principal); K52.89 Other specified noninfective gastroenteritis and colitis; E11.9 Type 2 diabetes mellitus without complications; F41.9 Anxiety disorder, unspecified; Z88.0 Allergy status to penicillin; Z91.040 Latex allergy status; Z91.048 Other nonmedicinal substance allergy status
CPT/HCPCS: 93005; 85025; 81001; 36415; 82947; 81003; 84484; 83690; 80053; 74177; 96374; 99284; Q9967; J7030; J2405

== ENCOUNTER 2023-05-27 09:07 | Emergency (ER) | payer BC, OTHER ==
--- OUTSIDE RECORDS SUMMARY | 2023-05-27 09:17 | XMS REPORT | Continuity of Care Document ---
:1970 Author Organization [facility] t Address [address] [place] [address] [place] [id number] Care Team Providers Name Role Phone THOR ENGLISH Primary Care Physician Unavailable BILL QUICK Attending Clinician Unavailable KATHY OLMSTEAD Attending Clinician Unavailable BAUDILIO BURNS Attending Clinician Unavailable LAB90 Attending Clinician Unavailable MD SIMBA Attending Clinician Unavailable AKASH FRITZ Attending Clinician Unavailable TESTING, DEEPTHI SHEPARD Attending Clinician Unavailable [id number] Attending Clinician Unavailable URMILA RICO Attending Clinician Unavailable Bill Quick DO Attending Clinician Sheri Munoz RN Attending Clinician Unavailable DEBRA RHODES Attending Clinician Unavailable Sumanth Ray PA-C Attending Clinician Debra Block Attending Clinician Roxana Olvera RN Attending Clinician Unavailable HUE GOETZ Attending Clinician Unavailable Only, Ang Db Test Attending Clinician Unavailable Hue Ramirez Attending Clinician Doctor Unassigned, [place] Attending Clinician Unavailable EMIR BYRD Attending Clinician Unavailable RADIOLOGY Attending Clinician Unavailable Eusebio Swift Attending Clinician THOR ENGLISH Admitting Clinician Unavailable Eusebio Swift Admitting Clinician Payers Payer Name Policy Type Policy Number Effective Date Expiration Date Ada WILLARD 2 [id number] 2022 00:00:00 BCBS 2 [id number] 2021 00:00:00 Problems Condition Condition Condition Status Onset Resolution Last Treating Co mments Source Name Details Category Date Date Treatment Clinician Date Other Other Disease Active Brandee fatigue fatigue 2-27 Seybold 00:00: - 00 Externa l Nausea Nausea Disease Active Brandee 2-03 Seybold 00:00: - 00 Externa l Acute pain Acute pain Disease Active 2021-10 K elsey of right of right 2-29 Seybol d shoulder shoulder 00:00: - 00 Externa l Lipoma of Lipoma of Disease Active 2021-10 Daniel sey right right 2-29 Seybold thigh thigh 00:00: - 00 Externa l Dermatitis Dermatitis Disease Active 2021-10 Bossman craig 1- Seybold 00:00: - 00 Externa l Chronic Chronic Disease Active Brandee cough cough 7 Seybold 00:00: - 00 Externa l Gastroesop Gastroesop Disease Active Bossman craig hageal hageal 7-28 Seybold reflux reflux 00:00: - disease disease 00 Externa without without l esophagiti esophagiti s s Well adult Well adult Disease Active Bossman craig exam exam 7-20 Seybold 00:00: - 00 Externa l History [...] the ons ons original. 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 Anxiety Anxiety Problem Active 2019-06-21 Me [...] Medical s Branch PENICILL Drug Active Hives 2010- [facility] INS Class 2-15 ity of 00:00: [place] 00 [facility] penicill penicill Active [facility] [place] Social History Social Habit Start Date Stop Date Quantity Comments Source Alcohol intake 2022-12-12 2022-12-12 Ex-drinker Brandee Hernandez bold - 00:00:00 00:00:00 (finding) External Tobacco use and 2022-05-04 2022-05-04 Smokeless tobacco Ke lsey Seybold - exposure 00:00:00 00:00:00 non-user External Education 2022-05-04 2022-05-04 16 Brandee Seybold - 00:00:00 00:00:00 External Exposure to 2022-04-06 2022-04-16 Not sure University SARS-CoV-2 00:00:00 18:17:00 [facility] (event) Branch Sex Ass[birth year] At [birth year] F Brandee Conrad ybold - 00:00:00 00:00:00 External Smoking Status Start Date Stop Date Source Social History [facility] Medications Ordered Filled Start Stop Current Ordering Indication Dosage Frequency Signature Comments Components Source Medication Medication Date Date Medication? Clinician (SIG) Name Name Cetirizine Yes 10mg Take 10 mg K elsey 10 MG oral 2-27 by mouth Seybo ld Tablet 08:47: daily - 37 Externa l FLUTICASONE Yes [id number] 50ug Use 1 K elsey PROPIONATE, 2-27 spray (50 Sey bold NASAL, 50 00:00: mcg total) - MCG/ACT 00 in each Externa nasal nostril l Suspension daily Montelukast Yes [id number] 10mg Take 1 Brandee (Singulair) 2-27 tablet (10 Se ybold 10 MG oral 00:00: mg total) - Tablet 00 by mouth Externa tablet nightly l Propranolol 2022- No [id number] TAKE ONE Brandee HCl 10 MG 2-19 02-27 TABLET BY Seyb old oral Tablet 00:00: 00:00 MOUTH - 00 :00 THREE Externa TIMES A l DAY Insulin Yes [id number] 28 units Ke lsey Detemir 2-03 sc every Seybold (Levemir 00:00: night - FlexTouch) 00 Externa 100 UNIT/ML l subcutaneou s Solution Pen-injecto r Meloxicam 2022- No [id number] TAKE ONE Brandee 15 MG oral 1-24 - TABLET BY Sey bold Tablet 00:00: 00:00 MOUTH - 00 :00 DAILY Externa NEEDED FOR l PAIN Propranolol Yes [id number] 10mg Take 1 Brandee HCl 10 MG -23 tablet (10 Seyb old oral Tablet 00:00: mg total) - 00 by mouth 3 Externa times l daily Ondansetron Yes [id number] 4mg Q.[id number] Take 1 Brandee (ZOFRAN) 4 -23 [id number] tablet (4 Seybold MG oral 00:00: 3D mg total) - TABLET 00 by mouth Externa DISPERSIBLE every 8 l hours as needed for nausea Alprazolam Yes [id number] TAKE ONE Brandee 1 MG oral 1-16 TABLET BY Seybo ld Tablet 00:00: MOUTH - 00 DAILY Externa l Alprazolam Yes [id number] TAKE ONE Brandee 1 MG oral 1-16 [...] - 35 Externa l Meloxicam 2021-10 Yes [id number] 15mg QD Take 1 Ke lsey 15 MG oral 2-29 tablet (15 Sey bold Tablet 00:00: mg total) - 00 by mouth Externa daily as l needed for pain Meloxicam 2021-10 Yes [id number] 15mg QD Take 1 Ke lsey 15 MG oral 2-29 tablet (15 Sey bold Tablet 00:00: mg total) - 00 by mouth Externa daily as l needed for pain CELESTONE 2021-10- No [id number] 6mg Daniel sey 2-08 12-08 Seybold 20:15: 20:15 - 00 :00 Externa l Triamcinolo 2021-10- No [id number] 40mg K elsey ne 11-23- Seybold Acetonide 20:15: 20:18 - (KENALOG) 00 :00 Externa 40 mg/mL l Triamcinolo 2021-10- No [id number] 1mL 40 mg (1 Brandee ne 11-23 mL), Seybold Acetonide 20:15: 20:18 intramuscu - (KENALOG) 00 :00 lar, ONCE, Exte rna 40 mg/mL On Abbie l 09/22/22 at 1415, For 1 dose CELESTONE 2021-10- No [id number] 6mg 6 mg, Ke lsey 11-23 intramuscu Seybold 20:15: 20:15 lar, ONCE, - 00 :00 On Abbie Externa 09/22/22 at l 1415, For 1 dose Cetirizine 2021-10 Yes 10mg Take 10 mg K elsey 10 MG oral 11-23 by mouth Seybo ld Tablet 13:53: daily - 13 Externa l Ondansetron 2021-10 Yes [id number] 4mg Q.[id number] Take 1 Brandee (ZOFRAN) 4 2- [id number] tablet (4 Seybold MG oral 00:00: 3D mg total) - TABLET 00 by mouth Externa DISPERSIBLE every 8 l hours as needed for nausea Ondansetron 2021-10 Yes [id number] 4mg Q.[id number] Take 1 Brandee (ZOFRAN) 4 - [id number] tablet (4 Seybold MG oral 00:00: 3D mg total) - TABLET 00 by mouth Externa DISPERSIBLE every 8 l hours as needed for nausea Ondansetron 2021-10- No [id number] 4mg Q.[id number] Take 1 Brandee (ZOFRAN) 4 2-05 16- [id number] tablet (4 Seybold MG oral 00:00: 00:00 3D mg total) - TABLET 00 :00 by mouth Externa DISPERSIBLE every 8 l hours as needed for nausea methylPREDN 2021-10- No [id number] 1{vera} Take 1 vera Brandee ISolone 4 208 by mouth Seybo ld MG oral 00:00: 00:00 See Admin - Tablet 00 :00 Instructio Externa Therapy ns Use as l Pack directed Blood 2021-10 Yes [id number] 1{devic Inject 1 K elsey Glucose 2-07 e} device Seybold Monitoring 00:00: into the - Suppl 00 skin 2 Externa (OneTouch times l Verio daily Reflect) w/Device does not apply Kit Blood 2021-10 Yes [id number] 1{devic Inject 1 K elsey Glucose 2-07 e} device Seybold Monitoring 00:00: into the - Suppl 00 skin 2 Externa (OneTouch times l Verio daily Reflect) w/Device does not apply Kit Blood 2021-10 Yes [id number] 1{devic Inject 1 K elsey Glucose 2-07 e} device Seybold Monitoring 00:00: into the - Suppl 00 skin 2 Externa (OneTouch times l Verio daily Reflect) w/Device does not apply Kit Blood 2021-10 Yes [id number] 1{devic Inject 1 K elsey Glucose 2-07 e} device Seybold Monitoring 00:00: into the - Suppl 00 skin 2 Externa (OneTouch times l Verio daily Reflect) w/Device does not apply Kit Benzonatate 2021-10 Yes [id number] 100mg Q.[id number] Take 1 Brandee (Tessalon 2-05 [id number] capsule S eybold Perles) 100 00:00: 3D (100 mg - MG oral 00 total) by Externa Capsule mouth 3 l times daily as needed for cough Benzonatate 2021-10 Yes [id number] 100mg Q.[id number] Take 1 Brandee (Tessalon 2-05 [id number] capsule S eybold Perles) 100 00:00: 3D (100 mg - MG oral 00 total) by Externa Capsule mouth 3 l times daily as needed for cough Benzonatate 2021-10 Yes [id number] 100mg Q.[id number] Take 1 Brandee (Tessalon 2-05 [id number] capsule S eybold Perles) 100 00:00: 3D (100 mg - MG oral 00 total) by Externa Capsule mouth 3 l times daily as needed for cough Azithromyci 2021-10- No [id number] Take 2 Brandee n 250 MG 2- tablets by Seyb old oral Tablet 00:00: 00:00 mouth on - 00 :00 day 1 then Externa 1 tablet l by mouth daily for 4 days thereafter . Azithromyci 2021-10- No [id number] Take 2 Brandee n 250 MG 2 12-11 tablets by Seyb old oral Tablet 00:00: 05:59 mouth on - 00 :00 day 1 then Externa 1 tablet l by mouth daily for 4 days thereafter . Cetirizine 2021-10 Yes 10mg Take 10 mg K elsey 10 MG oral 1-22 by mouth Seybo ld Tablet 15:32: daily - 04 Externa l Alprazolam 2021-10 Yes [id number] 1mg Take 1 K elsey 1 MG oral 1-22 tablet (1 Seybo ld Tablet 00:00: mg total) - 00 by mouth Externa daily l Famotidine 2021-10 Yes [id number] 20mg Take 1 Brandee (Pepcid) 20 1-22 tablet (20 Se ybold MG oral 00:00: mg total) - tablet 00 by mouth 2 Externa times l daily OZEMPIC 2021-10 Yes [id number] .5mg Inject 0.5 Brandee (0.25 or 1-22 mg into Seybold 0.5 00:00: the skin - mg/dose) 2 00 once a Externa mg/1.5 mL week l SQ Solution Pen-Injecto r Ketoconazol 2021-10 Yes [id number] Apply 1 Brandee e 2 % apply 1-22 applicatio Se ybold externally 00:00: n - Cream 00 topically Externa 2 times l daily Alprazolam 2021-10 Yes [id number] 1mg Take 1 K elsey 1 MG oral 1-22 tablet (1 Seybo ld Tablet 00:00: mg total) - 00 by mouth Externa daily l Famotidine 2021-10 Yes [id number] 20mg Take 1 Brandee (Pepcid) 20 1-22 tablet (20 Se ybold MG oral 00:00: mg total) - tablet 00 by mouth 2 Externa times l daily OZEMPIC 2021-10 Yes [id number] .5mg Inject 0.5 Brandee (0.25 or 1-22 mg into Seybold 0.5 00:00: the skin - mg/dose) 2 00 once a Externa mg/1.5 mL week l SQ Solution Pen-Injecto r Ketoconazol 2021-10 Yes [id number] Apply 1 Brandee e 2 % apply 11-06 applicatio Se ybold externally 00:00: n - Cream 00 topically Externa 2 times l daily Famotidine 2021-10 Yes [id number] 20mg Take 1 Brandee (Pepcid) 20 1-22 tablet (20 Se ybold MG oral 00:00: mg total) - tablet 00 by mouth 2 Externa times l daily OZEMPIC 2021-10 Yes [id number] .5mg Inject 0.5 Brandee (0.25 or 1-22 mg into Seybold 0.5 00:00: the skin - mg/dose) 2 00 once a Externa mg/1.5 mL week l SQ Solution Pen-Injecto r Ketoconazol 2021-10 Yes [id number] Apply 1 Brandee e 2 % apply 11-06 applicatio Se ybold externally 00:00: n - Cream 00 topically Externa 2 times l daily Alprazolam 2021-10 Yes [id number] 1mg Take 1 K elsey 1 MG oral 1-22 tablet (1 Seybo ld Tablet 00:00: mg total) - 00 by mouth Externa daily l Famotidine 2021-10 Yes [id number] 20mg Take 1 Brandee (Pepcid) 20 1-22 tablet (20 Se ybold MG oral 00:00: mg total) - tablet 00 by mouth 2 Externa times l daily OZEMPIC 2021-10 Yes [id number] .5mg Inject 0.5 Brandee (0.25 or 1-22 mg into Seybold 0.5 00:00: the skin - mg/dose) 2 00 once a Externa mg/1.5 mL week l SQ Solution Pen-Injecto r Ketoconazol 2021-10 Yes [id number] Apply 1 Brandee e 2 % apply 22 applicatio Se ybold externally 00:00: n - Cream 00 topically Externa 2 times l daily Famotidine 2021-10- No [id number] 20mg Take 1 Brandee (Pepcid) 20 11-06 tablet (20 S eybold MG oral 00:00: 00:00 mg total) - tablet 00 :00 by mouth 2 Externa times l daily Ketoconazol 2021-10- No [id number] Apply 1 Brandee e 2 % apply 11-06 applicatio S eybold externally 00:00: 00:00 n - Cream 00 :00 topically Externa 2 times l daily Insulin Pen 2021-10 Yes [id number] Please Brandee Needle 1-11 provide Seybold (Maxi-Comfo 00:00: insuline - rt Safety 00 pen Externa Pen Needle) needles to l 29G X 8MM be used as does not directed apply Misc Insulin Pen 2021-10 Yes [id number] Please Brandee Needle 1-11 provide Seybold (Maxi-Comfo 00:00: insuline - rt Safety 00 pen Externa Pen Needle) needles to l 29G X 8MM be used as does not directed apply [facility] Insulin Pen 2021-10 Yes [id number] Please Brandee Needle 1-11 provide Seybold (Maxi-Comfo 00:00: insuline - rt Safety 00 pen Externa Pen Needle) needles to l 29G X 8MM be used as does not directed apply Misc Insulin Pen 2021-10 Yes [id number] Please Brandee Needle 1-11 provide Seybold (Maxi-Comfo 00:00: insuline - rt Safety 00 pen Externa Pen Needle) needles to l 29G X 8MM be used as does not directed apply Misc Insulin Pen 2021-10- No [id number] Please Brandee Needle 1-12-12 provide Seybold (Maxi-Comfo 00:00: 00:00 insuline - rt Safety 00 :00 pen Externa Pen Needle) needles to l 29G X 8MM be used as does not directed apply Misc Blood 2021-10 Yes [id number] 1{kit} 1 kit by Fei oro Glucose 10-24 other Seybold Monitoring 00:00: route 2 - Suppl 00 times Externa (OneTouch daily l Verio Reflect) w/Device does not apply Kit OZEMPIC 2021-10- No [id number] .25mg Inject Fei oro (0.25 or 0-26 11-22 0.25 mg Seybold 0.5 00:00: 00:00 into the - mg/dose) 2 00 :00 skin once Exte rna mg/1.5 mL a week l SQ Solution Pen-Injecto r Cetirizine 2021-10 Yes 10mg Take 10 mg K elsey 10 MG oral 0-25 by mouth Seybo ld Tablet 15:26: daily - 13 Externa l Insulin 2021-10 Yes [id number] 20 units Ke lsey Detemir 0-25 sc every Seybold (Levemir 00:00: night - FlexTouch) 00 Externa 100 UNIT/ML l subcutaneou s Solution Pen-injecto r Insulin 2021-10 Yes [id number] 20 units Ke lsey Detemir 0-25 sc every Seybold (Levemir 00:00: night - FlexTouch) 00 Externa 100 UNIT/ML l subcutaneou s Solution Pen-injecto r Insulin 2021-10 Yes [id number] 20 units Ke lsey Detemir 0-25 sc every Seybold (Levemir 00:00: night - FlexTouch) 00 Externa 100 UNIT/ML l subcutaneou s Solution Pen-injecto r Insulin 2021-10 Yes [id number] 20 units Ke lsey Detemir 0-25 sc every Seybold (Levemir 00:00: night - FlexTouch) 00 Externa 100 UNIT/ML l subcutaneou s Solution Pen-injecto r OZEMPIC 2021-10 Yes [id number] .25mg Inject Daniel sey (0.25 or 0-25 0.25 mg Seybold 0.5 00:00: into the - mg/dose) 2 00 skin once Exte rna mg/1.5 mL a week l SQ Solution Pen-Injecto r Insulin 2021-10 Yes [id number] 20 units Ke lsey Detemir 0-25 sc every Seybold (Levemir 00:00: night - FlexTouch) 00 Externa 100 UNIT/ML l subcutaneou s Solution Pen-injecto r Blood 2021-10 Yes [id number] Use device Ke lsey Glucose 0-11 to check Seybold Monitoring 00:00: FSBS twice - Suppl 00 daily and Externa (Blood as l Glucose needed.One Monitor Touch System) supplies w/Device and does not glucometer apply Kit .Vario Reflex/One touch Lancets 33 2021-10 Yes [id number] 1 Lancet Brandee does not 0-11 by does Seybold apply Misc 00:00: not apply - 00 route 2 Externa times l daily (before meals) Please dispense what is covered by insurance Glucose 2021-10 Yes [id number] 100{eac 100 each Brandee Blood in 0-11 h} by other Seybold vitro Strip 00:00: route - 00 daily Externa l Blood 2021-10 Yes [id number] Use device Ke lsey Glucose 0-11 to check Seybold Monitoring 00:00: FSBS twice - Suppl 00 daily and Externa (Blood as l Glucose needed.One Monitor Touch System) supplies w/Device and does not glucometer apply Kit .Vario Reflex/One touch Lancets 33 2021-10 Yes [id number] 1 Lancet Brandee does not 0-11 by does Seybold apply Misc 00:00: not apply - 00 route 2 Externa times l daily (before meals) Please dispense what is covered by insurance Glucose 2021-10 Yes [id number] 100{eac 100 each Brandee Blood in 0-11 h} by other Seybold vitro Strip 00:00: route - 00 daily Externa l Blood 2021-10 Yes [id number] Use device Ke lsey Glucose 0-11 to check Seybold Monitoring 00:00: FSBS twice - Suppl 00 daily and Externa (Blood as l Glucose needed.One Monitor Touch System) supplies w/Device and does not glucometer apply Kit .Vario Reflex/One touch Lancets 33 2021-10 Yes [id number] 1 Lancet Brandee does not 0-11 by does Seybold apply Misc 00:00: not apply - 00 route 2 Externa times l daily (before meals) Please dispense what is covered by insurance Glucose 2021-10 Yes [id number] 100{eac 100 each Brandee Blood in 0-11 h} by other Seybold vitro Strip 00:00: route - 00 daily Externa l Blood 2021-10 Yes [id number] Use device Ke lsey Glucose 0-11 to check Seybold Monitoring 00:00: FSBS twice - Suppl 00 daily and Externa (Blood as l Glucose needed.One Monitor Touch System) supplies w/Device and does not glucometer apply Kit .Vario Reflex/One touch Blood 2021-10 Yes [id number] Use device Ke lsey Glucose 0-11 to check Seybold Monitoring 00:00: FSBS twice - Suppl 00 daily and Externa (Blood as l Glucose needed.One Monitor Touch System) supplies w/Device and does not glucometer apply Kit .Vario Reflex/One touch Lancets 33G 2021-10 Yes [id number] 1 Lancet Brandee does not 0-11 by does Seybold apply Misc 00:00: not apply - 00 route 2 Externa times l daily (before meals) Please dispense what is covered by insurance Glucose 2021-10 Yes [id number] 100{eac 100 each Brandee Blood in 0-11 h} by other Seybold vitro Strip 00:00: route - 00 daily Externa l Blood 2021-10 Yes [id number] Use device Ke lsey Glucose 0-11 to check Seybold Monitoring 00:00: FSBS twice - Suppl 00 daily and Externa (Blood as l Glucose needed.One Monitor Touch System) supplies w/Device and does not glucometer apply Kit .Vario Reflex/One touch Lancets 33G 2021-10 Yes [id number] 1 Lancet Brandee does not 0-11 by does Seybold apply Misc 00:00: not apply - 00 route 2 Externa times l daily (before meals) Please dispense what is covered by insurance Glucose 2021-10 Yes [id number] 100{eac 100 each Brandee Blood in 0-11 h} by other Seybold vitro Strip 00:00: route - 00 daily Externa l Lancets 33G 2021-10- No [id number] 1 Lancet Brandee does not 0-11 02-27 by does Seybold apply Misc 00:00: 00:00 not apply - 00 :00 route 2 Externa times l daily (before meals) Please dispense what is covered by insurance Glucose 2021-10- No [id number] 100{eac 100 each Brandee Blood in 0-11 02-27 h} by other Seybol d vitro Strip 00:00: 00:00 route - 00 :00 daily Externa l Blood 2021-10 Yes [id number] One Touch Daniel sey Glucose 0-06 Seybold Monitoring 00:00: - Suppl 00 Externa (Blood l Glucose Monitor System) w/Device does not apply Kit Alprazolam Yes [id number] TAKE ONE Brandee 1 MG oral 9-02 TABLET BY Seybo ld Tablet 00:00: MOUTH - 00 DAILY Externa l Alprazolam 2021- No [id number] TAKE ONE Brandee 1 MG oral 9-02 11-22 TABLET BY Seyb old Tablet 00:00: 00:00 MOUTH - 00 :00 DAILY Externa l Metformin 2021- No [id number] 1000mg Take 2 Brandee HCl 500 MG 8-11 10-25 tablets Seybo ld oral Tablet 00:00: 00:00 (1,000 mg - 00 :00 total) by Externa mouth 2 l times daily Albuterol Yes [id number] 2{puff} Q.25D Inhale 2 Brandee HFA 108 (90 7-28 puffs into Se ybold Base) 00:00: the lungs - MCG/ACT IN 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 as 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 Albuterol Yes [id number] 2{puff} Q.25D Inhale 2 Brandee HFA 108 (90 7-28 puffs into Se ybold Base) 00:00: the lungs - MCG/ACT IN 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 as 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 Albuterol Yes [id number] 2{puff} Q.25D Inhale 2 Brandee HFA 108 (90 7-28 puffs into Se ybold Base) 00:00: the lungs - MCG/ACT IN 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 as 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 Albuterol Yes [id number] 2{puff} Q.25D Inhale 2 Brandee HFA 108 (90 7-28 puffs into Se ybold Base) 00:00: the lungs - MCG/ACT IN 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 as 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 Famotidine Yes [id number] 20mg Take 1 Brandee (Pepcid) 20 7-28 tablet (20 Se ybold MG oral 00:00: mg total) - tablet 00 by mouth 2 Externa times l daily Albuterol Yes [id number] 2{puff} Q.25D Inhale 2 Brandee HFA 108 (90 7-28 puffs into Se ybold Base) 00:00: the lungs - MCG/ACT IN 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 as 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 Albuterol Yes [id number] 2{puff} Q.25D Inhale 2 Brandee HFA 108 (90 7-28 puffs into Se ybold Base) 00:00: the lungs - MCG/ACT IN 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 as 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 Famotidine 2021- No [id number] 20mg Take 1 Brandee (Pepcid) 20 7-28 11-22 tablet (20 S eybold MG oral 00:00: 00:00 mg total) - tablet 00 :00 by mouth 2 Externa times l daily predniSONE 2021- No [id number] 10mg Take 1 Brandee (DELTASONE) 7-28 10-25 tablet (10 S eybold 10 MG oral 00:00: 00:00 mg total) - tablet 00 :00 by mouth Externa daily l Rosuvastati Yes [id number] 5mg Take 1 Brandee n Calcium 5 7-20 tablet (5 Sey bold MG oral 00:00: mg total) - Tablet 00 by mouth Externa daily l Sertraline Yes [id number] 100mg Take 1 Brandee HCl 100 MG 7-20 tablet Seybold oral Tablet 00:00: (100 mg - 00 total) by Externa mouth l daily Trazodone Yes [id number] 50mg Take 1 Ke lsey HCl 50 MG 7-20 tablet (50 Seyb old oral Tablet 00:00: mg total) - 00 by mouth Externa nightly l Rosuvastati Yes [id number] 5mg Take 1 Brandee n Calcium 5 7-20 tablet (5 Sey bold MG oral 00:00: mg total) - Tablet 00 by mouth Externa daily l Sertraline Yes [id number] 100mg Take 1 Brandee HCl 100 MG 7-20 tablet Seybold oral Tablet 00:00: (100 mg - 00 total) by Externa mouth l daily Trazodone Yes [id number] 50mg Take 1 Ke lsey HCl 50 MG 7-20 tablet (50 Seyb old oral Tablet 00:00: mg total) - 00 by mouth Externa nightly l Rosuvastati 2021-0 Yes [id number] 5mg Take 1 Brandee n Calcium 5 7-20 tablet (5 Sey bold MG oral 00:00: mg total) - Tablet 00 by mouth Externa daily l Sertraline 2021-0 Yes [id number] 100mg Take 1 Brandee HCl 100 MG 7-20 tablet Seybold oral Tablet 00:00: (100 mg - 00 total) by Externa mouth l daily Trazodone 2021-0 Yes [id number] 50mg Take 1 Ke lsey HCl 50 MG 7-20 tablet (50 Seyb old oral Tablet 00:00: mg total) - 00 by mouth Externa nightly l Rosuvastati 2021-0 Yes [id number] 5mg Take 1 Brandee n Calcium 5 7-20 tablet (5 Sey bold MG oral 00:00: mg total) - Tablet 00 by mouth Externa daily l Sertraline 2021-0 Yes [id number] 100mg Take 1 Brandee HCl 100 MG 7-20 tablet Seybold oral Tablet 00:00: (100 mg - 00 total) by Externa mouth l daily Trazodone 2021-0 Yes [id number] 50mg Take 1 Ke lsey HCl 50 MG 7-20 tablet (50 Seyb old oral Tablet 00:00: mg total) - 00 by mouth Externa nightly l Rosuvastati 2021-0 Yes [id number] 5mg Take 1 Brandee n Calcium 5 7-20 tablet (5 Sey bold MG oral 00:00: mg total) - Tablet 00 by mouth Externa daily l Sertraline 2021-0 Yes [id number] 100mg Take 1 Brandee HCl 100 MG 7-20 tablet Seybold oral Tablet 00:00: (100 mg - 00 total) by Externa mouth l daily Trazodone 2021-0 Yes [id number] 50mg Take 1 Ke lsey HCl 50 MG 7-20 tablet (50 Seyb old oral Tablet 00:00: mg total) - 00 by mouth Externa nightly l Rosuvastati 2021-0 Yes [id number] 5mg Take 1 Brandee n Calcium 5 7-20 tablet (5 Sey bold MG oral 00:00: mg total) - Tablet 00 by mouth Externa daily l Sertraline Yes [id number] 100mg Take 1 Brandee HCl 100 MG 7-20 tablet Seybold oral Tablet 00:00: (100 mg - 00 total) by Externa mouth l daily Trazodone Yes [id number] 50mg Take 1 Ke lsey HCl 50 MG 7-20 tablet (50 Seyb old oral Tablet 00:00: mg total) - 00 by mouth Externa nightly l [facility] 2018-0 No 200 mL, Memoria Medication 06-19 Soln-IV, l 22:29: IV, Once, first dose 06/19/19 17:29:00 CDT, stop date 06/19/19 17:29:00 CDT [facility] 2018-0 No 200 mL, Memoria Medication 06-19 Soln-IV, l 22:29: IV, Once, first dose 06/19/19 17:29:00 CDT, stop date 06/19/19 17:29:00 CDT [facility] 2018-0 No 200 mL, Memoria Medication 06-19 Soln-IV, l 22:29: IV, Once, first dose 06/19/19 17:29:00 CDT, stop date 06/19/19 17:29:00 CDT [facility] 2018-0 No 200 mL, Memoria Medication 06-19 Soln-IV, l 22:29: IV, Once, first dose 06/19/19 17:29:00 CDT, stop date 06/19/19 17:29:00 CDT [facility] 2018-0 No 200 mL, Memoria Medication 06-19 Soln-IV, l 22:29: IV, Once, first dose 06/19/19 17:29:00 CDT, stop date 06/19/19 17:29:00 CDT [facility] 2018-0 No 200 mL, Memoria Medication 06-19 Soln-IV, l 22:29: IV, Once, first dose 06/19/19 17:29:00 CDT, stop date 06/19/19 17:29:00 CDT [facility] 2019-0 No 200 mL, Memoria Medication 06-19 Soln-IV, l 22:29: IV, Once, first dose 06/19/19 17:29:00 CDT, stop date 06/19/19 17:29:00 CDT [facility] 2018-0 No 200 mL, Memoria Medication - Soln-IV, l 22:29: IV, Once, first dose 06/19/19 17:29:00 CDT, stop date 06/19/19 17:29:00 CDT [facility] 2018-0 No 200 mL, Memoria Medication 06-19 Soln-IV, l 22:29: IV, Once, first dose 06/19/19 17:29:00 CDT, stop date 06/19/19 17:29:00 CDT [facility] 2018-0 No 200 mL, Memoria Medication 06-19 Soln-IV, l 22:29: IV, Once, first dose 06/19/19 17:29:00 CDT, stop date 06/19/19 17:29:00 CDT [facility] 2018-0 No 200 mL, Memoria Medication 06-19 Soln-IV, l 22:29: IV, Once, first dose 06/19/19 17:29:00 CDT, stop date 06/19/19 17:29:00 CDT [facility] 2018-0 No 200 mL, Memoria Medication 06-19 Soln-IV, l 22:29: IV, Once, first dose 06/19/19 17:29:00 CDT, stop date 06/19/19 17:29:00 CDT [facility] 2018-0 No 200 mL, Memoria Medication 06-19 Soln-IV, l 22:29: IV, Once, first dose 06/19/19 17:29:00 CDT, stop date 06/19/19 17:29:00 CDT [facility] 2018-0 No 200 mL, Memoria Medication 06-19 [...] ia 9-04 0.5 mL, l 22:22: Injection, [place] 00 IV Push, q10min PRN for pain [...] emoria 9-04 IV, 75 l 22:22: mL/hr, [place] 00 start date 06/19/19 17:22:00 CDT Saline Lock 2019-0 No 10 mL, Dani ulises Flush 9-04 Soln, IV l 22:22: Push, As Elijah 00 Indicated PRN for [...] CDT Promethazin 2019-0 No 12.5 mg = Maya emoria e 9-04 0.5 mL, l 22:22: [...] Me moria 9-04 mL, l 22:22: Injection, [place] 00 IV Push, q15min PRN for nausea, order duration: 2 doses, first dose 06/19/19 17:22:00 CDT, stop date Limited # of times Dilaudid 2019-0 No 0.5 mg = Memor ia 9-04 0.5 mL, l 22:22: Injection, [place] 00 IV Push, q10min PRN for pain [...] 9-04 Soln, IV l 22:22: Push, As [place] 00 Indicated PRN for flush, first dose 06/19/19 17:22:00 CDT Ondansetron 2019-0 No 4 mg = 2 Me moria 9-04 mL, l 22:22: Injection, [place] 00 IV Push, q15min PRN for nausea, order duration: 2 doses, first dose 06/19/19 17:22:00 CDT, stop date Limited # of times Dilaudid 2019-0 No 0.5 mg = Memor ia 9-04 0.5 mL, l 22:22: Injection, [place] 00 IV Push, q10min PRN for pain severe (7-10), first dose 06/19/19 17:22:00 CDT Promethazin 2019-0 No 12.5 mg = M emoria e 9-04 0.5 mL, l 22:22: Injection, [place] 00 IM, Once PRN for vomiting, first [...] 9-04 Soln, IV l 22:22: Push, As [place] 00 Indicated PRN for flush, first dose [...] Me moria 9-04 mL, l 22:22: Injection, [place] 00 IV Push, q15min PRN for nausea, [...] start date 06/19/19 17:22:00 CDT Saline Lock 2018-0 No 10 mL, Dani ulises Flush -04 Soln, IV l 22:22: Push, As [place] 00 Indicated PRN for flush, first dose 06/19/19 17:22:00 CDT Ondansetron 2018-0 No 4 mg = 2 Me moria 9-04 mL, l 22:22: Injection, [place] 00 IV Push, q15min PRN for nausea, order duration: 2 doses, first dose 06/19/19 17:22:00 CDT, stop date Limited # of times Dilaudid 2019-0 No 0.5 mg = Memor ia 9-04 0.5 mL, l 22:22: Injection, [place] 00 IV Push, q10min PRN for pain severe (7-10), first dose 06/19/19 17:22:00 CDT Promethazin 2019-0 No 12.5 mg = M emoria e 9-04 0.5 mL, l 22:22: Injection, [place] 00 IM, Once PRN for vomiting, first dose 06/19/19 17:22:00 CDT Bupivacaine 2019-0 No 300 mL, Mem oria 0.25% 300 9-04 Nerve l mL pump 300 22:22: Block, 5 He rmann mL 00 mL/hr, start date 06/19/19 17:22:00 CDT LR 1,000 mL 2019-0 No 1,000 mL, M emoria 9-04 IV, 75 l 22:22: mL/hr, Elijah start date 06/19/19 17:22:00 CDT Saline Lock 2019-0 No 10 mL, Dani ulises Flush 9-04 Soln, IV l 22:22: Push, As [place] 00 Indicated PRN for [...] ia 9-04 0.5 mL, l 22:22: Injection, [place] 00 IV Push, q10min PRN for pain [...] 9-04 Soln, IV l 22:22: Push, As [place] 00 Indicated PRN for [...] ia 9-04 0.5 mL, l 22:22: Injection, [place] 00 IV Push, q10min PRN for pain severe (7-10), first dose 06/19/19 17:22:00 CDT Promethazin 2019-0 No 12.5 mg = M emoria e 9-04 0.5 mL, l 22:22: Injection, [place] 00 IM, Once PRN for vomiting, first [...] e 9-04 0.5 mL, l 22:22: Injection, [place] 00 IM, Once PRN for vomiting, first [...] Me moria 9-04 mL, l 22:22: Injection, [place] 00 IV Push, q15min PRN for nausea, order duration: 2 doses, first dose 06/19/19 17:22:00 CDT, stop date Limited # of times Dilaudid 2019-0 No 0.5 mg = Memor ia 9-04 0.5 mL, l 22:22: Injection, [place] 00 IV Push, q10min PRN for pain severe (7-10), first dose 06/19/19 17:22:00 CDT Promethazin 2019-0 No 12.5 mg = M emoria e 9-04 0.5 mL, l 22:22: Injection, [place] 00 IM, Once PRN for vomiting, first dose 06/19/19 17:22:00 CDT Bupivacaine 2019-0 No 300 mL, Mem oria 0.25% 300 9-04 Nerve l mL pump 300 22:22: Block, 5 He rmann mL 00 mL/hr, start date 06/19/19 17:22:00 CDT LR 1,000 mL 2019-0 No 1,000 mL, M emoria 9-04 IV, 75 l 22:22: mL/hr, [place] 00 start date 06/19/19 17:22:00 CDT Saline Lock 2019-0 No 10 mL, Dani ulises Flush 9-04 Soln, IV l 22:22: Push, As Indicated PRN for flush, first dose 06/19/19 17:22:00 CDT Ondansetron 2018-0 No 4 mg = 2 Me moria 9-04 mL, l 22:22: Injection, [place] 00 IV Push, q15min PRN for nausea, order duration: 2 doses, first dose 06/19/19 17:22:00 CDT, stop date Limited # of times Dilaudid 2018- No 0.5 mg = Memor ia 9-04 0.5 mL, l 22:22: Injection, [place] 00 IV Push, q10min PRN for pain severe (7-10), first dose 06/19/19 17:22:00 CDT Promethazin 2018- No 12.5 mg = M emoria e 9-04 0.5 mL, l 22:22: Injection, [place] 00 IM, Once PRN for vomiting, first dose 06/19/19 17:22:00 CDT Bupivacaine 2018- No 300 mL, Mem oria 0.25% 300 9-04 Nerve l mL pump 300 22:22: Block, 5 He rmann mL 00 mL/hr, start date 06/19/19 17:22:00 CDT LR 1,000 mL 2018- No 1,000 mL, M emoria 9-04 IV, 75 l 22:22: mL/hr, [place] 00 start date 06/19/19 17:22:00 CDT Saline Lock No 10 mL, Dani ulises Flush 9-04 Soln, IV l 22:22: Push, As [place] 00 Indicated PRN for flush, first dose 06/19/19 17:22:00 CDT Acetaminoph Yes Notes: Max Memoria en 325 MG / 9-04 4gm l Hydrocodone 22:21: acetaminop Elijah Bitartrate 00 hen in 24 10 MG Oral hours Tablet [[place] 10/325] Zofran No 4 mg = 2 Memoria 9-04 mL, l 22:21: Injection, [place] 00 IV Push, q30min PRN for nausea/vom iting, order duration: 2 doses, first dose 06/19/19 17:21:00 CDT, stop date Limited # of times Acetaminoph Yes Notes: Max Memoria en 325 MG / 9-04 4gm l Hydrocodone 22:21: acetaminop [place] Bitartrate 00 hen in 24 10 MG Oral hours Tablet [[place] 10/325] Zofran 0 No 4 mg = 2 Memoria 9-04 mL, l 22:21: Injection, [place] 00 IV Push, q30min PRN for nausea/vom iting, order duration: 2 doses, first dose 06/19/19 17:21:00 CDT, stop date Limited # of times Acetaminoph 2019 Yes Notes: Max Memoria en 325 MG / 9-04 4gm l Hydrocodone 22:21: acetaminop [place] Bitartrate 00 hen in 24 10 MG Oral hours Tablet [[place] 10/325] Zofran 2019 No 4 mg = 2 Memoria 9-04 mL, l 22:21: Injection, [place] 00 IV Push, q30min PRN for nausea/vom iting, order duration: 2 doses, first dose 06/19/19 17:21:00 CDT, stop date Limited # of times Acetaminoph Yes Notes: Max Memoria en 325 MG / 9-04 4gm l Hydrocodone 22:21: acetaminop [place] Bitartrate 00 hen in 24 10 MG Oral hours Tablet [[place] 10/325] Zofran No 4 mg = 2 Memoria 9-04 mL, l 22:21: Injection, [place] 00 IV Push, q30min PRN for nausea/vom iting, order duration: 2 doses, first dose 06/19/19 17:21:00 CDT, stop date Limited # of times Acetaminoph Yes Notes: Max Memoria en 325 MG / 9-04 4gm l Hydrocodone 22:21: acetaminop [place] Bitartrate 00 hen in 24 10 MG Oral hours Tablet [[place] 10/325] Zofran No 4 mg = 2 Memoria 9-04 mL, l 22:21: Injection, [place] 00 IV Push, q30min PRN for nausea/vom iting, order duration: 2 doses, first dose 06/19/19 17:21:00 CDT, stop date Limited # of times Acetaminoph 20190 Yes Notes: Max Memoria en 325 MG / 9-04 4gm l Hydrocodone 22:21: acetaminop Elijah Bitartrate 00 hen in 24 10 MG Oral hours Tablet [[place] 10/325] Zofran [id number] No 4 mg = 2 Memoria 9-04 mL, l 22:21: Injection, [place] 00 IV Push, q30min PRN for nausea/vom iting, order duration: 2 doses, first dose 06/19/19 17:21:00 CDT, stop date Limited # of times Acetaminoph 2019-0 Yes Notes: Max Memoria en 325 MG / 9-04 4gm l Hydrocodone 22:21: acetaminop [place] Bitartrate 00 hen in 24 10 MG Oral hours Tablet [[place] 10/325] Zofran 2019 No 4 mg = 2 Memoria 9-04 mL, l 22:21: Injection, [place] 00 IV Push, q30min PRN for nausea/vom iting, order duration: 2 doses, first dose 06/19/19 17:21:00 CDT, stop date Limited # of times Acetaminoph 2019 Yes Notes: Max Memoria en 325 MG / 9-04 4gm l Hydrocodone 22:21: acetaminop [place] Bitartrate 00 hen in 24 10 MG Oral hours Tablet [[place] 10/325] Zofran No 4 mg = 2 Memoria 9-04 mL, l 22:21: Injection, [place] 00 IV Push, q30min PRN for nausea/vom iting, order duration: 2 doses, first dose 06/19/19 17:21:00 CDT, stop date Limited # of times Acetaminoph 0 Yes Notes: Max Memoria en 325 MG / 9-04 4gm l Hydrocodone 22:21: acetaminop [place] Bitartrate 00 hen in 24 10 MG Oral hours Tablet [[place] 10/325] Zofran No 4 mg = 2 Memoria 9-04 mL, l 22:21: Injection, [place] 00 IV Push, q30min PRN for nausea/vom iting, order duration: 2 doses, first dose 06/19/19 17:21:00 CDT, stop date Limited # of times Acetaminoph 2019-0 Yes Notes: Max Memoria en 325 MG / 9-04 4gm l Hydrocodone 22:21: acetaminop [place] Bitartrate 00 hen in 24 10 MG Oral hours Tablet [[place] 10/325] Zofran 20190 No 4 mg = 2 Memoria 9-04 mL, l 22:21: Injection, [place] 00 IV Push, q30min PRN for nausea/vom iting, order duration: 2 doses, first dose 06/19/19 17:21:00 CDT, stop date Limited # of times Acetaminoph 2019-0 Yes Notes: Max Memoria en 325 MG / 9-04 4gm l Hydrocodone 22:21: acetaminop [place] Bitartrate 00 hen in 24 10 MG Oral hours Tablet [[place] 10/325] Zofran 2019 No 4 mg = 2 Memoria 9-04 mL, l 22:21: Injection, [place] 00 IV Push, q30min PRN for nausea/vom iting, order duration: 2 doses, first dose 06/19/19 17:21:00 CDT, stop date Limited # of times Acetaminoph 2019 Yes Notes: Max Memoria en 325 MG / 9-04 4gm l Hydrocodone 22:21: acetaminop [place] Bitartrate 00 hen in 24 10 MG Oral hours Tablet [[place] 10/325] Zofran No 4 mg = 2 Memoria 9-04 mL, l 22:21: Injection, [place] 00 IV Push, q30min PRN for nausea/vom iting, order duration: 2 doses, first dose 06/19/19 17:21:00 CDT, stop date Limited # of times Acetaminoph 20190 Yes Notes: Max Memoria en 325 MG / 9-04 4gm l Hydrocodone 22:21: acetaminop [place] Bitartrate 00 hen in 24 10 MG Oral hours Tablet [[place] 10/325] Zofran No 4 mg = 2 Memoria 9-04 mL, l 22:21: Injection, [place] 00 IV Push, q30min PRN for nausea/vom iting, order duration: 2 doses, first dose 06/19/19 17:21:00 CDT, stop date Limited # of times Acetaminoph 2019-0 Yes Notes: Max Memoria en 325 MG / 9-04 4gm l Hydrocodone 22:21: acetaminop [place] Bitartrate 00 hen in 24 10 MG Oral hours Tablet [[place] 10/325] Zofran [id number] No 4 mg = 2 Memoria 9-04 [...] Mem oria 9-04 mL, l 22:04: Injection, [place] 00 IV, Once, first dose 06/19/19 17:04:00 CDT, stop date 06/19/19 17:04:00 CDT fentaNYL 2019-0 No 50 mcg = 1 Mem oria 9-04 mL, l 22:04: Injection, [place] 00 IV, Once, first dose 06/19/19 17:04:00 CDT, stop date 06/19/19 17:04:00 CDT fentaNYL 2019-0 No 50 mcg = 1 Mem oria 9-04 mL, l 22:04: Injection, [place] 00 IV, Once, first dose 06/19/19 17:04:00 CDT, stop date 06/19/19 17:04:00 CDT fentaNYL 2019-0 No 50 mcg = 1 Mem oria 9-04 mL, l 22:04: Injection, [place] 00 IV, Once, first dose 06/19/19 17:04:00 CDT, stop date 06/19/19 17:04:00 CDT fentaNYL 2019-0 No 50 mcg = 1 Mem oria 9-04 mL, l 22:04: Injection, [place] 00 IV, Once, first dose 06/19/19 17:04:00 [...] Mem oria 9-04 mL, l 22:04: Injection, [place] 00 IV, Once, first dose 06/19/19 17:04:00 CDT, stop date 06/19/19 17:04:00 CDT fentaNYL 2019-0 No 50 mcg = 1 Mem oria 9-04 mL, l 22:04: Injection, [place] 00 IV, Once, first dose 06/19/19 17:04:00 CDT, stop date 06/19/19 17:04:00 CDT fentaNYL 2019-0 No 50 mcg = 1 Mem oria 9-04 mL, l 22:04: Injection, [place] 00 IV, Once, first dose 06/19/19 17:04:00 CDT, stop date 06/19/19 17:04:00 CDT fentaNYL 2019-0 No 50 mcg = 1 Mem oria 9-04 mL, l 22:04: Injection, [place] 00 IV, Once, first dose 06/19/19 17:04:00 CDT, stop date 06/19/19 17:04:00 CDT fentaNYL 2019-0 No 50 mcg = 1 Mem oria 9-04 mL, l 22:04: Injection, [place] 00 IV, Once, first dose 06/19/19 17:04:00 CDT, stop date 06/19/19 17:04:00 CDT ketorolac 2019-0 No 30 mg = 1 Mem oria 9-04 mL, l 22:02: Injection, [place] 00 IV, Once, first dose 06/19/19 17:02:00 CDT, stop date 06/19/19 17:02:00 CDT ketorolac 2019-0 No 30 mg = 1 Mem oria 9-04 mL, l 22:02: Injection, [place] 00 IV, Once, first dose 06/19/19 17:02:00 CDT, stop date 06/19/19 17:02:00 CDT ketorolac 2019-0 No 30 mg = 1 Mem oria 9-04 mL, l 22:02: Injection, [place] 00 IV, Once, first dose 06/19/19 17:02:00 [...] Mem oria 9-04 mL, l 22:02: Injection, [place] 00 IV, Once, first dose 06/19/19 17:02:00 [...] Mem oria 9-04 mL, l 22:02: Injection, [place] 00 IV, Once, first dose 06/19/19 17:02:00 CDT, stop date 06/19/19 17:02:00 CDT ketorolac 2019-0 No 30 mg = 1 Mem oria 9-04 mL, l 22:02: Injection, [place] 00 IV, Once, first dose 06/19/19 17:02:00 CDT, stop date 06/19/19 17:02:00 CDT fentaNYL 2019-0 No 50 mcg = 1 Mem oria 9-04 mL, l 21:48: Injection, [place] 00 IV, Once, first dose 06/19/19 16:48:00 CDT, stop date 06/19/19 16:48:00 CDT fentaNYL 2019-0 No 50 mcg = 1 Mem oria 9-04 mL, l 21:48: Injection, [place] 00 IV, Once, first dose 06/19/19 16:48:00 CDT, stop date 06/19/19 16:48:00 CDT fentaNYL 2019-0 No 50 mcg = 1 Mem oria 9-04 mL, l 21:48: Injection, [place] 00 IV, Once, first dose 06/19/19 16:48:00 CDT, stop date 06/19/19 16:48:00 CDT fentaNYL 2019-0 No 50 mcg = 1 Mem oria 9-04 mL, l 21:48: Injection, [place] 00 IV, Once, first dose 06/19/19 16:48:00 CDT, stop date 06/19/19 16:48:00 CDT fentaNYL 2019-0 No 50 mcg = 1 Mem oria 9-04 mL, l 21:48: Injection, [place] 00 IV, Once, first dose 06/19/19 16:48:00 CDT, stop date 06/19/19 16:48:00 CDT fentaNYL 2019-0 No 50 mcg = 1 Mem oria 9-04 mL, l 21:48: Injection, [place] 00 IV, Once, first dose 06/19/19 16:48:00 CDT, stop date 06/19/19 16:48:00 CDT fentaNYL 2019-0 No 50 mcg = 1 Mem oria 9-04 mL, l 21:48: Injection, [place] 00 IV, Once, first dose 06/19/19 16:48:00 CDT, stop date 06/19/19 16:48:00 CDT fentaNYL 2019-0 No 50 mcg = 1 Mem oria 9-04 mL, l 21:48: Injection, [place] 00 IV, Once, first dose 06/19/19 16:48:00 CDT, stop date 06/19/19 16:48:00 CDT fentaNYL 2019-0 No 50 mcg = 1 Mem oria 9-04 mL, l 21:48: Injection, [place] 00 IV, Once, first dose 06/19/19 16:48:00 CDT, stop date 06/19/19 16:48:00 CDT fentaNYL 2019-0 No 50 mcg = 1 Mem oria 9-04 mL, l 21:48: Injection, [place] 00 IV, Once, first dose 06/19/19 16:48:00 [...] Mem oria 9-04 mL, l 21:48: Injection, [place] 00 IV, Once, first dose 06/19/19 16:48:00 CDT, stop date 06/19/19 16:48:00 CDT [facility] 2018-0 No 1,000 mL, Memoria Medication - Soln-IV, l 21:32: IV, Once, first dose 06/19/19 16:32:00 CDT, stop date 06/19/19 16:32:00 CDT [facility] 2018-0 No 1,000 mL, Memoria Medication - Soln-IV, l 21:32: IV, Once, first dose 06/19/19 16:32:00 CDT, stop date 06/19/19 16:32:00 CDT [facility] 2018-0 No 1,000 mL, Memoria Medication - Soln-IV, l 21:32: IV, Once, first dose 06/19/19 16:32:00 CDT, stop date 06/19/19 16:32:00 CDT [facility] 2018-0 No 1,000 mL, Memoria Medication - Soln-IV, l 21:32: IV, Once, first dose 06/19/19 16:32:00 CDT, stop date 06/19/19 16:32:00 CDT [facility] 2018-0 No 1,000 mL, Memoria Medication - Soln-IV, l 21:32: IV, Once, first dose 06/19/19 16:32:00 CDT, stop date 06/19/19 16:32:00 CDT [facility] 2018-0 No 1,000 mL, Memoria Medication - Soln-IV, l 21:32: IV, Once, first dose 06/19/19 16:32:00 CDT, stop date 06/19/19 16:32:00 CDT [facility] 2018-0 No 1,000 mL, Memoria Medication - Soln-IV, l 21:32: IV, Once, first dose 06/19/19 16:32:00 CDT, stop date 06/19/19 16:32:00 CDT [facility] 2018-0 No 1,000 mL, Memoria Medication - Soln-IV, l 21:32: IV, Once, first dose 06/19/19 16:32:00 CDT, stop date 06/19/19 16:32:00 CDT [facility] 2018-0 No 1,000 mL, Memoria Medication - Soln-IV, l 21:32: IV, Once, first dose 06/19/19 16:32:00 CDT, stop date 06/19/19 16:32:00 CDT [facility] 2018-0 No 1,000 mL, Memoria Medication - Soln-IV, l 21:32: IV, Once, first dose 06/19/19 16:32:00 CDT, stop date 06/19/19 16:32:00 CDT [facility] 2018-0 No 1,000 mL, Memoria Medication - Soln-IV, l 21:32: IV, Once, first dose 06/19/19 16:32:00 CDT, stop date 06/19/19 16:32:00 CDT [facility] 2018-0 No 1,000 mL, Memoria Medication - Soln-IV, l 21:32: IV, Once, first dose 06/19/19 16:32:00 CDT, stop date 06/19/19 16:32:00 CDT [facility] 2018-0 No 1,000 mL, Memoria Medication - Soln-IV, l 21:32: IV, Once, first dose 06/19/19 16:32:00 CDT, stop date 06/19/19 16:32:00 CDT [facility] 2018-0 No 1,000 mL, Memoria Medication - Soln-IV, l 21:32: IV, Once, first dose 06/19/19 16:32:00 CDT, stop date 06/19/19 16:32:00 CDT clindamycin 2018-0 No 900 mg, Mem oria - Soln-IV, l 20:29: IV Piggyback, Once, first dose 06/19/19 15:29:00 CDT, stop date 06/19/19 15:29:00 CDT clindamycin 2019-0 No 900 mg, Mem oria 9-04 Soln-IV, l 20:29: IV [place] 00 Piggyback, Once, first dose 06/19/19 15:29:00 CDT, stop date 06/19/19 15:29:00 CDT clindamycin 2019-0 No 900 mg, Mem oria 9-04 Soln-IV, l 20:29: IV [place] 00 Piggyback, Once, first dose 06/19/19 15:29:00 CDT, stop date 06/19/19 15:29:00 CDT clindamycin 2019-0 No 900 mg, Mem oria 9-04 Soln-IV, l 20:29: IV [place] 00 Piggyback, Once, first dose 06/19/19 15:29:00 [...] Mem oria 9-04 Soln-IV, l 20:29: IV [place] 00 Piggyback, Once, first dose 06/19/19 15:29:00 CDT, stop date 06/19/19 15:29:00 CDT clindamycin 2019-0 No 900 mg, Mem oria 9-04 Soln-IV, l 20:29: IV [place] 00 Piggyback, Once, first dose 06/19/19 15:29:00 CDT, stop date 06/19/19 15:29:00 CDT clindamycin 2019-0 No 900 mg, Mem oria 9-04 Soln-IV, l 20:29: IV [place] 00 Piggyback, Once, first dose 06/19/19 15:29:00 CDT, stop date 06/19/19 15:29:00 CDT clindamycin 2019-0 No 900 mg, Mem oria 9-04 Soln-IV, l 20:29: IV [place] Piggyback, Once, first dose 06/19/19 15:29:00 CDT, stop date 06/19/19 15:29:00 CDT clindamycin 2019-0 No 900 mg, Mem oria 9-04 Soln-IV, l 20:29: IV [place] Piggyback, Once, first dose 06/19/19 15:29:00 CDT, stop date 06/19/19 15:29:00 CDT Diphenhydra 2019-0 No 25 mg = Mem oria mine 9-04 0.5 mL, l 20:26: Injection, [place] 00 IV Push, Once PRN for itching, first dose 06/19/19 15:26:00 CDT Promethazin 2019-0 No 12.5 mg = M emoria e 9-04 0.5 mL, l 20:26: Injection, [place] 00 IM, Once PRN for vomiting, first dose 06/19/19 15:26:00 CDT Hydralazine 2019-0 No 10 mg = Mem oria 9-04 0.5 mL, l 20:26: Injection, [place] 00 IV Push, As Indicated PRN for hypertensi on, first dose 06/19/19 15:26:00 CDT Demerol HCl 2019-0 No 12.5 mg = M emoria 9-04 0.5 mL, l 20:26: Injection, [place] IV Push, Once PRN for shivers, first dose 06/19/19 15:26:00 CDT Levalbutero 2019-0 No 0.63 mg = M emoria l 0.21 9-04 3 mL, l MG/ML 20:26: Soln, NEB, Jean n Inhalant 00 Once PRN Solution for [Xopenex] wheezing, first dose 06/19/19 15:26:00 CDT Ondansetron 2018-0 No 4 mg = 2 Me moria 9-04 mL, l 20:26: Injection, [place] IV Push, q15min PRN for nausea, order duration: 2 doses, first dose 06/19/19 15:26:00 CDT, stop date Limited # of times Saline Lock 2018-0 No 10 mL, Dani ulises Flush 9-04 Soln, IV l 20:26: Push, As Indicated PRN for flush, first dose 06/19/19 15:26:00 CDT LR 1,000 mL 2019-0 No 1,000 mL, M emoria 9-04 IV, 75 l 20:26: mL/hr, [place] start date 06/19/19 15:26:00 CDT Bupivacaine 2019-0 No 300 mL, Mem oria 0.25% 300 9-04 Nerve l mL pump 300 20:26: Block, 5 He rmann mL 00 mL/hr, start date 06/19/19 15:26:00 CDT Dilaudid 2019-0 No 0.5 mg = Memor ia 9-04 0.5 mL, l 20:26: Injection, [place] IV Push, q10min PRN for pain severe (7-10), first dose 06/19/19 15:26:00 CDT Labetalol 2019-0 No 5 mg = 1 Dani ulises 9-04 mL, l 20:26: Injection, [place] IV Push, As Indicated PRN for hypertensi on, first dose 06/19/19 15:26:00 CDT Diphenhydra 0 No 25 mg = Mem oria mine 9-04 0.5 mL, l 20:26: Injection, IV Push, Once PRN for itching, first dose 06/19/19 15:26:00 CDT Promethazin 2018-0 No 12.5 mg = Maya emoria e 9-04 0.5 mL, l 20:26: [...] 0.63 mg = M emoria l 0.21 904 3 mL, l MG/ML 20:26: Soln, NEB, Jean n Inhalant 00 Once PRN Solution for [Xopenex] wheezing, first dose 06/19/19 15:26:00 CDT Ondansetron No 4 mg = 2 [...] e 9-04 0.5 mL, l 20:26: Injection, [place] 00 IM, Once PRN for vomiting, first dose 06/19/19 15:26:00 CDT Hydralazine 2019-0 No 10 mg = Mem oria 9-04 0.5 mL, l 20:26: Injection, [place] 00 IV Push, As Indicated PRN for [...] Me moria 9-04 mL, l 20:26: Injection, [place] 00 IV Push, q15min PRN for nausea, [...] emoria 9-04 0.5 mL, l 20:26: Injection, [place] 00 IV Push, Once PRN for shivers, first dose 06/19/19 15:26:00 CDT Levalbutero 2019-0 No 0.63 mg = M emoria l 0.21 9-04 3 mL, l MG/ML 20:26: Soln, NEB, Jean n Inhalant 00 Once PRN Solution for [Xopenex] wheezing, first dose 06/19/19 15:26:00 CDT Ondansetron 2019-0 No 4 mg = 2 Me moria 9-04 mL, l 20:26: Injection, [place] IV Push, q15min PRN for nausea, order duration: 2 doses, first dose 06/19/19 15:26:00 CDT, stop date Limited # of times Saline Lock 2018-0 No 10 mL, Dani ulises Flush 9-04 [...] Dani ulises 9-04 mL, l 20:26: Injection, [place] IV Push, As Indicated PRN for hypertensi on, first dose 06/19/19 15:26:00 CDT Dilaudid 2019-0 No 0.5 mg = Memor ia 9-04 0.5 mL, l 20:26: Injection, [place] 00 IV Push, q10min PRN for pain severe (7-10), first dose 06/19/19 15:26:00 CDT Labetalol 2019-0 No 5 mg = 1 Dani ulises 9-04 mL, l 20:26: Injection, [place] 00 IV Push, As Indicated PRN for [...] oria 9-04 0.5 mL, l 20:26: Injection, [place] 00 IV Push, As Indicated PRN for hypertensi on, first dose 06/19/19 15:26:00 CDT Demerol HCl 2018-0 No 12.5 mg = M emoria 9-04 0.5 mL, l 20:26: Injection, [place] 00 IV Push, Once PRN for shivers, [...] stop date Limited # of times Diphenhydra 2019-0 No 25 mg = Mem oria mine 9-04 0.5 mL, l 20:26: Injection, [place] 00 IV Push, Once PRN for itching, first dose 06/19/19 15:26:00 CDT Saline Lock 2019-0 No 10 mL, Dani ulises Flush 9-04 Soln, IV l 20:26: Push, As [place] 00 Indicated PRN for flush, first dose 06/19/19 15:26:00 CDT LR 1,000 mL 2019-0 No 1,000 mL, Maya emoria 9-04 IV, 75 l 20:26: mL/hr, Elijah 00 start date 06/19/19 15:26:00 CDT Bupivacaine 2019-0 No 300 mL, Mem oria 0.25% 300 9-04 Nerve l mL pump 300 20:26: Block, 5 He rmann mL 00 mL/hr, start date 06/19/19 15:26:00 CDT Promethazin 2019-0 No 12.5 mg = Maya emoria e 9-04 0.5 mL, l 20:26: Injection, [place] 00 IM, Once PRN for vomiting, first dose 06/19/19 15:26:00 CDT Hydralazine 2018-0 No 10 mg = Mem oria 9-04 0.5 mL, l 20:26: Injection, [place] IV Push, As Indicated PRN for hypertensi on, first dose 06/19/19 15:26:00 CDT Demerol HCl 2019-0 No 12.5 mg = Maya emoria 9-04 0.5 mL, l 20:26: Injection, [place] 00 IV Push, Once PRN for shivers, first dose 06/19/19 15:26:00 CDT Dilaudid 2019-0 No 0.5 mg = Memor ia 9-04 0.5 mL, l 20:26: Injection, [place] 00 IV Push, q10min PRN for pain [...] flush, first dose 06/19/19 15:26:00 CDT Levalbutero 2018-0 [...] mL/hr, start date 06/19/19 15:26:00 CDT Ondansetron 2018-0 No 4 [...] 20:26: mL/hr, start date 06/19/19 15:26:00 CDT Dilaudid 2018-0 No 0.5 mg = Memor ia 9-04 0.5 mL, l 20:26: Injection, [place] 00 IV Push, q10min PRN for pain severe (7-10), first dose 06/19/19 15:26:00 CDT Labetalol 2018-0 No 5 mg = 1 Dani ulises 9-04 mL, l 20:26: Injection, [place] 00 IV Push, As Indicated PRN for [...] emoria 9-04 0.5 mL, l 20:26: Injection, [place] 00 IV Push, Once PRN for shivers, [...] 00 mL/hr, start date 06/19/19 15:26:00 CDT Bupivacaine [...] Dani ulises 9-04 mL, l 20:26: Injection, [place] IV Push, As Indicated PRN for hypertensi on, first dose 06/19/19 15:26:00 CDT Diphenhydra 2018- No 25 mg = Mem oria mine 9-04 0.5 mL, l 20:26: Injection, [place] 00 IV Push, Once PRN for itching, first dose 06/19/19 15:26:00 CDT Promethazin No 12.5 mg = M emoria e 9-04 0.5 mL, l 20:26: Injection, [place] 00 IM, Once PRN for vomiting, first dose 06/19/19 15:26:00 CDT Hydralazine No 10 mg = Mem oria 9-04 0.5 mL, l 20:26: Injection, [place] 00 IV Push, As Indicated PRN for hypertensi on, first dose 06/19/19 15:26:00 CDT Demerol HCl No 12.5 mg = M emoria 9-04 0.5 mL, l 20:26: Injection, [place] 00 IV Push, Once PRN for shivers, first dose 06/19/19 15:26:00 CDT Levalbutero No 0.63 mg = M emoria l 0.21 9-04 3 mL, l MG/ML 20:26: Soln, NEB, Jean n Inhalant 00 Once PRN Solution for [Xopenex] wheezing, first dose 06/19/19 15:26:00 CDT Ondansetron 0 No 4 mg = 2 Me moria 9-04 mL, l 20:26: Injection, [place] 00 IV Push, q15min PRN for nausea, order duration: 2 doses, first dose 06/19/19 15:26:00 CDT, stop date Limited # of times Saline Lock No 10 mL, Dani ulises Flush 9-04 Soln, IV l 20:26: Push, As Indicated PRN for flush, first dose 06/19/19 15:26:00 CDT LR 1,000 mL 0 No 1,000 mL, M emoria 9-04 IV, 75 l 20:26: mL/hr, [place] 00 start date 06/19/19 15:26:00 CDT Bupivacaine 2019-0 No 300 mL, Mem oria 0.25% 300 9-04 Nerve l mL pump 300 20:26: Block, 5 He r[place] mL 00 mL/hr, start date 06/19/19 15:26:00 CDT Dilaudid 2019-0 No 0.5 mg = Memor ia 9-04 0.5 mL, l 20:26: Injection, [place] 00 IV Push, q10min PRN for pain severe (7-10), first dose 06/19/19 15:26:00 CDT Labetalol 2019-0 No 5 mg = 1 Dani ulises 9-04 mL, l 20:26: Injection, [place] 00 IV Push, As Indicated PRN for hypertensi on, first dose 06/19/19 15:26:00 CDT Diphenhydra 2019-0 No 25 mg = Mem oria mine 9-04 0.5 mL, l 20:26: Injection, [place] 00 IV Push, Once PRN for itching, first dose 06/19/19 15:26:00 CDT Promethazin 2019-0 No 12.5 mg = M emoria e 9-04 0.5 mL, l 20:26: Injection, [place] 00 IM, Once PRN for vomiting, first dose 06/19/19 15:26:00 CDT Hydralazine 2019-0 No 10 mg = Mem oria 9-04 0.5 mL, l 20:26: Injection, [place] 00 IV Push, As Indicated PRN for hypertensi on, first dose 06/19/19 15:26:00 CDT Demerol HCl 2019-0 No 12.5 mg = M emoria 9-04 0.5 mL, l 20:26: Injection, [place] 00 IV Push, Once PRN for shivers, first dose 06/19/19 15:26:00 CDT Levalbutero 2019-0 No 0.63 mg = M emoria l 0.21 9-04 3 mL, l MG/ML 20:26: Soln, NEB, Jean n Inhalant 00 Once PRN Solution for [Xopenex] wheezing, first dose 06/19/19 15:26:00 CDT Ondansetron 2019-0 No 4 mg = 2 Me moria 9-04 mL, l 20:26: Injection, [place] 00 IV Push, q15min PRN for nausea, [...] ia 9-04 0.5 mL, l 20:26: Injection, [place] 00 IV Push, q10min PRN for pain [...] ia 9-04 0.5 mL, l 20:26: Injection, [place] 00 IV Push, q10min PRN for pain severe (7-10), first dose 06/19/19 15:26:00 CDT Labetalol 2018-0 No 5 mg = 1 Dani ulises 9-04 mL, l 20:26: Injection, IV Push, As Indicated PRN for hypertensi on, first dose 06/19/19 15:26:00 CDT Diphenhydra 2018-0 No 25 mg = Mem oria mine 9-04 0.5 mL, l 20:26: Injection, [place] 00 IV Push, Once PRN for itching, first dose 06/19/19 15:26:00 CDT Promethazin 2018-0 No 12.5 mg = M emoria e 9-04 0.5 mL, l 20:26: Injection, [place] 00 IM, Once PRN for vomiting, first dose 06/19/19 15:26:00 CDT Hydralazine 0 No 10 mg = Mem oria 9-04 0.5 mL, l 20:26: Injection, [place] IV Push, As Indicated PRN for hypertensi on, first dose 06/19/19 15:26:00 CDT Demerol HCl No 12.5 mg = M emoria 9-04 0.5 mL, l 20:26: Injection, [place] 00 IV Push, Once PRN for shivers, first dose 06/19/19 15:26:00 CDT Levalbutero 0 No 0.63 mg = Maya emoria l 0.21 9-04 3 mL, l MG/ML 20:26: Soln, NEB, J[place] n Inhalant 00 Once PRN Solution for [Xopenex] wheezing, first dose 06/19/19 15:26:00 CDT Ondansetron No 4 mg = 2 Me moria 9-04 mL, l 20:26: Injection, [place] 00 IV Push, q15min PRN for nausea, order duration: 2 doses, first dose 06/19/19 15:26:00 CDT, stop date Limited # of times Saline Lock 0 No 10 mL, Dani ulises Flush 06-19 Soln, IV l 20:26: Push, As Indicated PRN for flush, first dose 06/19/19 15:26:00 CDT LR 1,000 mL 0 No 1,000 mL, M emoria 9-04 IV, 75 l 20:26: mL/hr, [place] 00 start date 06/19/19 15:26:00 CDT Bupivacaine 2018-0 [...] e 9-04 0.5 mL, l 20:26: Injection, [place] 00 IM, Once PRN for vomiting, first dose 06/19/19 15:26:00 CDT Hydralazine 2019-0 No 10 mg = Mem oria 9-04 0.5 mL, l 20:26: Injection, [place] 00 IV Push, As Indicated PRN for hypertensi on, first dose 06/19/19 15:26:00 CDT Demerol HCl 2019-0 No 12.5 mg = M emoria 9-04 0.5 mL, l 20:26: Injection, [place] 00 IV Push, Once PRN for shivers, [...] emoria 9-04 0.5 mL, l 20:26: Injection, [place] 00 IV Push, Once PRN for shivers, first dose 06/19/19 15:26:00 CDT Levalbutero 2019-0 No 0.63 mg = M emoria l 0.21 9-04 3 mL, l MG/ML 20:26: Soln, NEB, Jean n Inhalant 00 Once PRN Solution for [Xopenex] wheezing, first dose 06/19/19 15:26:00 CDT Ondansetron 2019-0 No 4 mg = 2 Me moria 9-04 mL, l 20:26: Injection, [place] 00 IV Push, q15min PRN for nausea, [...] ulises 9-04 mL, l 20:26: Injection, [place] IV Push, As Indicated PRN for hypertensi on, first dose 06/19/19 15:26:00 CDT ePHEDrine 2019-0 No 10 mg = Memor ia 9-04 0.2 mL, l 20:25: Injection, [place] IV, Once, first dose 06/19/19 15:25:00 CDT, [...] ia 9-04 0.2 mL, l 20:25: Injection, [place] 00 IV, Once, first dose 06/19/19 15:25:00 CDT, stop date 06/19/19 15:25:00 CDT ePHEDrine 2019-0 No 10 mg = Memor ia 9-04 0.2 mL, l 20:25: Injection, [place] 00 IV, Once, first dose 06/19/19 15:25:00 CDT, stop date 06/19/19 15:25:00 CDT ePHEDrine 2019-0 No 10 mg = Memor ia 9-04 0.2 mL, l 20:25: Injection, [place] 00 IV, Once, first dose 06/19/19 15:25:00 [...] ia 9-04 0.2 mL, l 20:25: Injection, [place] 00 IV, Once, first dose 06/19/19 15:25:00 CDT, stop date 06/19/19 15:25:00 CDT ePHEDrine 2019-0 No 10 mg = Memor ia 9-04 0.2 mL, l 20:25: Injection, [place] 00 IV, Once, first dose 06/19/19 15:25:00 CDT, stop date 06/19/19 15:25:00 CDT ePHEDrine 2019-0 No 10 mg = Memor ia 9-04 0.2 mL, l 20:25: Injection, [place] 00 IV, Once, first dose 06/19/19 15:25:00 CDT, stop date 06/19/19 15:25:00 CDT dexamethaso 2019-0 No 8 mg = 2 Me moria ne 9-04 mL, l 20:21: Injection, [place] 00 IV, Once, first dose 06/19/19 15:21:00 CDT, stop date 06/19/19 15:21:00 CDT ondansetron 2019-0 No 4 mg = 2 Me moria 9-04 mL, l 20:21: Injection, [place] 00 IV, Once, first dose 06/19/19 15:21:00 CDT, stop date 06/19/19 15:21:00 CDT dexamethaso 2019-0 No 8 mg = 2 Me moria ne 9-04 mL, l 20:21: Injection, [place] 00 IV, Once, first dose 06/19/19 15:21:00 [...] moria ne 9-04 mL, l 20:21: Injection, [place] 00 IV, Once, first dose 06/19/19 15:21:00 [...] Me moria 9-04 mL, l 20:21: Injection, [place] 00 IV, Once, first dose 06/19/19 15:21:00 CDT, stop date 06/19/19 15:21:00 CDT dexamethaso 2019-0 No 8 mg = 2 Me moria ne 9-04 mL, l 20:21: Injection, [place] 00 IV, Once, first dose 06/19/19 15:21:00 CDT, stop date 06/19/19 15:21:00 CDT ondansetron 2019-0 No 4 mg = 2 Me moria 9-04 mL, l 20:21: Injection, [place] 00 IV, Once, first dose 06/19/19 15:21:00 CDT, stop date 06/19/19 15:21:00 CDT dexamethaso 2019-0 No 8 mg = 2 Me moria ne 9-04 mL, l 20:21: Injection, [place] 00 IV, Once, first dose 06/19/19 15:21:00 CDT, stop date 06/19/19 15:21:00 CDT ondansetron 2019-0 No 4 mg = 2 Me moria 9-04 mL, l 20:21: Injection, [place] 00 IV, Once, first dose 06/19/19 15:21:00 CDT, stop date 06/19/19 15:21:00 CDT dexamethaso 2019-0 No 8 mg = 2 Me moria ne 9-04 mL, l 20:21: Injection, [place] 00 IV, Once, first dose 06/19/19 15:21:00 CDT, stop date 06/19/19 15:21:00 CDT ondansetron 2019-0 No 4 mg = 2 Me moria 9-04 mL, l 20:21: Injection, [place] 00 IV, Once, first dose 06/19/19 15:21:00 CDT, stop date 06/19/19 15:21:00 CDT dexamethaso 2019-0 No 8 mg = 2 Me moria ne 9-04 mL, l 20:21: Injection, [place] 00 IV, Once, first dose 06/19/19 15:21:00 CDT, stop date 06/19/19 15:21:00 CDT ondansetron 2019-0 No 4 mg = 2 Me moria 9-04 mL, l 20:21: Injection, [place] 00 IV, Once, first dose 06/19/19 15:21:00 CDT, stop date 06/19/19 15:21:00 CDT dexamethaso 2019-0 No 8 mg = 2 Me moria ne 9-04 mL, l 20:21: Injection, [place] 00 IV, Once, first dose 06/19/19 15:21:00 CDT, stop date 06/19/19 15:21:00 CDT ondansetron 2019-0 No 4 mg = 2 Me moria 9-04 mL, l 20:21: Injection, [place] 00 IV, Once, first dose 06/19/19 15:21:00 CDT, stop date 06/19/19 15:21:00 CDT dexamethaso 2019-0 No 8 mg = 2 Me moria ne 9-04 mL, l 20:21: Injection, [place] 00 IV, Once, first dose 06/19/19 15:21:00 CDT, stop date 06/19/19 15:21:00 CDT ondansetron 2019-0 No 4 mg = 2 Me moria 9-04 mL, l 20:21: Injection, [place] 00 IV, Once, first dose 06/19/19 15:21:00 CDT, stop date 06/19/19 15:21:00 CDT dexamethaso 2019-0 No 8 mg = 2 Me moria ne 9-04 mL, l 20:21: Injection, [place] 00 IV, Once, first dose 06/19/19 15:21:00 CDT, stop date 06/19/19 15:21:00 CDT ondansetron 2019-0 No 4 mg = 2 Me moria 9-04 mL, l 20:21: Injection, [place] 00 IV, Once, first dose 06/19/19 15:21:00 [...] Mem oria 9-04 mL, l 20:07: Injection, [place] 00 IV, Once, first dose 06/19/19 15:07:00 CDT, stop date 06/19/19 15:07:00 CDT propofol 2019-0 No 100 mg = Memor ia 9-04 10 mL, l 20:07: Emulsion, [place] 00 IV, Once, first dose 06/19/19 15:07:00 CDT, stop date 06/19/19 15:07:00 CDT lidocaine 2019-0 No 60 mg = 3 Mem oria 9-04 mL, l 20:07: Injection, [place] 00 IV, Once, first dose 06/19/19 15:07:00 CDT, stop date 06/19/19 15:07:00 CDT propofol 2019-0 No 100 mg = Memor ia 9-04 10 mL, l 20:07: Emulsion, [place] 00 IV, Once, first dose 06/19/19 15:07:00 CDT, stop date 06/19/19 15:07:00 CDT lidocaine 2019-0 No 60 mg = 3 Mem oria 9-04 mL, l 20:07: Injection, [place] 00 IV, Once, first dose 06/19/19 15:07:00 CDT, stop date 06/19/19 15:07:00 CDT propofol 2019-0 No 100 mg = Memor ia 9-04 10 mL, l 20:07: Emulsion, [place] 00 IV, Once, first dose 06/19/19 15:07:00 CDT, stop date 06/19/19 15:07:00 CDT lidocaine 2019-0 No 60 mg = 3 Mem oria 9-04 mL, l 20:07: Injection, [place] 00 IV, Once, first dose 06/19/19 15:07:00 CDT, stop date 06/19/19 15:07:00 CDT propofol 2019-0 No 100 mg = Memor ia 9-04 10 mL, l 20:07: Emulsion, [place] 00 IV, Once, first dose 06/19/19 15:07:00 CDT, stop date 06/19/19 15:07:00 CDT lidocaine 2019-0 No 60 mg = 3 Mem oria 9-04 mL, l 20:07: Injection, [place] 00 IV, Once, first dose 06/19/19 15:07:00 CDT, stop date 06/19/19 15:07:00 CDT propofol 2019-0 No 100 mg = Memor ia 9-04 10 mL, l 20:07: Emulsion, [place] 00 IV, Once, first dose 06/19/19 15:07:00 CDT, stop date 06/19/19 15:07:00 CDT lidocaine 2019-0 No 60 mg = 3 Mem oria 9-04 mL, l 20:07: Injection, [place] 00 IV, Once, first dose 06/19/19 15:07:00 CDT, stop date 06/19/19 15:07:00 CDT propofol 2019-0 No 100 mg = Memor ia 9-04 10 mL, l 20:07: Emulsion, [place] 00 IV, Once, first dose 06/19/19 15:07:00 [...] Mem oria 9-04 mL, l 20:07: Injection, [place] 00 IV, Once, first dose 06/19/19 15:07:00 [...] ia 9-04 10 mL, l 20:07: Emulsion, [place] 00 IV, Once, first dose 06/19/19 15:07:00 CDT, stop date 06/19/19 15:07:00 CDT lidocaine 2019-0 No 60 mg = 3 Mem oria 9-04 mL, l 20:07: Injection, [place] 00 IV, Once, first dose 06/19/19 15:07:00 CDT, stop date 06/19/19 15:07:00 CDT propofol 2019-0 No 100 mg = Memor ia 9-04 10 mL, l 20:07: Emulsion, [place] 00 IV, Once, first dose 06/19/19 15:07:00 CDT, stop date 06/19/19 15:07:00 CDT lidocaine 2019-0 No 60 mg = 3 Mem oria 9-04 mL, l 20:07: Injection, [place] 00 IV, Once, first dose 06/19/19 15:07:00 CDT, stop date 06/19/19 15:07:00 CDT propofol 2019-0 No 100 mg = Memor ia 9-04 10 mL, l 20:07: Emulsion, [place] 00 IV, Once, first dose 06/19/19 15:07:00 [...] ia 9-04 10 mL, l 20:07: Emulsion, [place] 00 IV, Once, first dose 06/19/19 15:07:00 CDT, stop date 06/19/19 15:07:00 CDT fentaNYL 2019-0 No 50 mcg = 1 Mem oria 9-04 mL, l 20:04: Injection, [place] 00 IV, Once, first dose 06/19/19 15:04:00 [...] Mem oria 9-04 mL, l 20:04: Injection, [place] 00 IV, Once, first dose 06/19/19 15:04:00 CDT, stop date 06/19/19 15:04:00 CDT midazolam 2019-0 No 1 mg = 1 Dani ulises 9-04 mL, l 20:04: Injection, [place] 00 IV, Once, first dose 06/19/19 15:04:00 CDT, stop date 06/19/19 15:04:00 CDT fentaNYL 2019-0 No 50 mcg = 1 Mem oria 9-04 mL, l 20:04: Injection, [place] 00 IV, Once, first dose 06/19/19 15:04:00 CDT, stop date 06/19/19 15:04:00 CDT midazolam 2019-0 No 1 mg = 1 Dani ulises 9-04 mL, l 20:04: Injection, [place] 00 IV, Once, first dose 06/19/19 15:04:00 CDT, stop date 06/19/19 15:04:00 CDT fentaNYL 2019-0 No 50 mcg = 1 Mem oria 9-04 mL, l 20:04: Injection, [place] 00 IV, Once, first dose 06/19/19 15:04:00 CDT, stop date 06/19/19 15:04:00 CDT midazolam 2019-0 No 1 mg = 1 Dani ulises 9-04 mL, l 20:04: Injection, [place] 00 IV, Once, first dose 06/19/19 15:04:00 CDT, stop date 06/19/19 15:04:00 CDT fentaNYL 2019-0 No 50 mcg = 1 Mem oria 9-04 mL, l 20:04: Injection, [place] 00 IV, Once, first dose 06/19/19 15:04:00 [...] Dani ulises 9-04 mL, l 20:04: Injection, [place] 00 IV, Once, first dose 06/19/19 15:04:00 CDT, stop date 06/19/19 15:04:00 CDT fentaNYL 2019-0 No 50 mcg = 1 Mem oria 9-04 mL, l 20:04: Injection, [place] 00 IV, Once, first dose 06/19/19 15:04:00 [...] Dani ulises 9-04 mL, l 20:04: Injection, [place] 00 IV, Once, first dose 06/19/19 15:04:00 [...] Mem oria 9-04 mL, l 20:04: Injection, [place] 00 IV, Once, first dose 06/19/19 15:04:00 CDT, stop date 06/19/19 15:04:00 CDT midazolam 2019-0 No 1 mg = 1 Dani ulises 9-04 mL, l 20:04: Injection, [place] 00 IV, Once, first dose 06/19/19 15:04:00 CDT, stop date 06/19/19 15:04:00 CDT Misc 2019-0 No 1,000 mL, Memoria Medication 06-19 Soln-IV, l 19:58: IV, Once, [place] 00 first dose 06/19/19 14:58:00 CDT, stop date 06/19/19 14:58:00 CDT [facility] 2018-0 No 1,000 mL, Memoria Medication - Soln-IV, l 19:58: IV, Once, first dose 06/19/19 14:58:00 CDT, stop date 06/19/19 14:58:00 CDT [facility] 2018-0 No 1,000 mL, Memoria Medication - Soln-IV, l 19:58: IV, Once, first dose 06/19/19 14:58:00 CDT, stop date 06/19/19 14:58:00 CDT [facility] 2018-0 No 1,000 mL, Memoria Medication - Soln-IV, l 19:58: IV, Once, first dose 06/19/19 14:58:00 CDT, stop date 06/19/19 14:58:00 CDT [facility] 2018-0 No 1,000 mL, Memoria Medication - Soln-IV, l 19:58: IV, Once, first dose 06/19/19 14:58:00 CDT, stop date 06/19/19 14:58:00 CDT [facility] 2018-0 No 1,000 mL, Memoria Medication - Soln-IV, l 19:58: IV, Once, first dose 06/19/19 14:58:00 CDT, stop date 06/19/19 14:58:00 CDT [facility] 2018-0 No 1,000 mL, Memoria Medication - Soln-IV, l 19:58: IV, Once, first dose 06/19/19 14:58:00 CDT, stop date 06/19/19 14:58:00 CDT [facility] 2018-0 No 1,000 mL, Memoria Medication - Soln-IV, l 19:58: IV, Once, first dose 06/19/19 14:58:00 CDT, stop date 06/19/19 14:58:00 CDT [facility] 2018-0 No 1,000 mL, Memoria Medication - Soln-IV, l 19:58: IV, Once, first dose 06/19/19 14:58:00 CDT, stop date 06/19/19 14:58:00 CDT [facility] 2018-0 No 1,000 mL, Memoria Medication 06-19 Soln-IV, l 19:58: IV, Once, first dose 06/19/19 14:58:00 CDT, stop date 06/19/19 14:58:00 CDT [facility] 2018-0 No 1,000 mL, Memoria Medication 06-19 Soln-IV, l 19:58: IV, Once, first dose 06/19/19 14:58:00 CDT, stop date 06/19/19 14:58:00 CDT [facility] 0 No 1,000 mL, Memoria Medication 06-19 Soln-IV, l 19:58: IV, Once, first dose 06/19/19 14:58:00 CDT, stop date 06/19/19 14:58:00 CDT [facility] 0 No 1,000 mL, Memoria Medication 06-19 Soln-IV, l 19:58: IV, Once, first dose 06/19/19 14:58:00 CDT, stop date 06/19/19 14:58:00 CDT [facility] 0 No 1,000 mL, Memoria Medication 06-19 Soln-IV, l 19:58: IV, Once, first dose 06/19/19 14:58:00 CDT, stop date 06/19/19 14:58:00 CDT midazolam 2018-0 No 1 mg = 1 Dani ulises 9-04 mL, l 19:42: Injection, IV, Once, first dose 06/19/19 14:42:00 CDT, stop date 06/19/19 14:42:00 CDT fentaNYL 2019-0 No 50 mcg = 1 Mem oria 9-04 mL, l 19:42: Injection, [place] 00 IV, Once, first dose 06/19/19 14:42:00 CDT, stop date 06/19/19 14:42:00 CDT midazolam 2019-0 No 1 mg = 1 Dani ulises 9-04 mL, l 19:42: Injection, [place] IV, Once, first dose 06/19/19 14:42:00 CDT, stop date 06/19/19 14:42:00 CDT fentaNYL 2019-0 No 50 mcg = 1 Mem oria 9-04 mL, l 19:42: Injection, [place] 00 IV, Once, first dose 06/19/19 14:42:00 CDT, stop date 06/19/19 14:42:00 CDT midazolam 2019-0 No 1 mg = 1 Dani ulises 9-04 mL, l 19:42: Injection, [place] 00 IV, Once, first dose 06/19/19 14:42:00 [...] Mem oria 9-04 mL, l 19:42: Injection, [place] 00 IV, Once, first dose 06/19/19 14:42:00 CDT, stop date 06/19/19 14:42:00 CDT midazolam 2019-0 No 1 mg = 1 Dani ulises 9-04 mL, l 19:42: Injection, [place] 00 IV, Once, first dose 06/19/19 14:42:00 CDT, stop date 06/19/19 14:42:00 CDT fentaNYL 2019-0 No 50 mcg = 1 Mem oria 9-04 mL, l 19:42: Injection, [place] 00 IV, Once, first dose 06/19/19 14:42:00 CDT, stop date 06/19/19 14:42:00 CDT midazolam 2019-0 No 1 mg = 1 Dani ulises 9-04 mL, l 19:42: Injection, [place] 00 IV, Once, first dose 06/19/19 14:42:00 CDT, stop date 06/19/19 14:42:00 CDT fentaNYL 2019-0 No 50 mcg = 1 Mem oria 9-04 mL, l 19:42: Injection, [place] 00 IV, Once, first dose 06/19/19 14:42:00 CDT, stop date 06/19/19 14:42:00 CDT midazolam 2019-0 No 1 mg = 1 Dani ulises 9-04 mL, l 19:42: Injection, [place] 00 IV, Once, first dose 06/19/19 14:42:00 CDT, stop date 06/19/19 14:42:00 CDT fentaNYL 2019-0 No 50 mcg = 1 Mem oria 9-04 mL, l 19:42: Injection, [place] 00 IV, Once, first dose 06/19/19 14:42:00 [...] Dani ulises 9-04 mL, l 19:42: Injection, [place] 00 IV, Once, first dose 06/19/19 14:42:00 CDT, stop date 06/19/19 14:42:00 CDT fentaNYL 2019-0 No 50 mcg = 1 Mem oria 9-04 mL, l 19:42: Injection, [place] 00 IV, Once, first dose 06/19/19 14:42:00 [...] Dani ulises 9-04 mL, l 19:42: Injection, [place] 00 IV, Once, first dose 06/19/19 14:42:00 CDT, stop date 06/19/19 14:42:00 CDT fentaNYL 2019-0 No 50 mcg = 1 Mem oria 9-04 mL, l 19:42: Injection, [place] 00 IV, Once, first dose 06/19/19 14:42:00 CDT, stop date 06/19/19 14:42:00 CDT midazolam 2019-0 No 1 mg = 1 Dani ulises 9-04 mL, l 19:42: Injection, [place] 00 IV, Once, first dose 06/19/19 14:42:00 [...] Mem oria 9-04 mL, l 19:42: Injection, [place] 00 IV, Once, first dose 06/19/19 14:42:00 CDT, stop date 06/19/19 14:42:00 CDT Clindamycin 2019-0 No 900 mg, Mem oria 9-04 Soln-IV, l 18:00: IV [place] 00 Piggyback, Once, infuse over 30 minutes, first dose 06/19/19 13:00:00 CDT, stop date 06/19/19 13:00:00 CDT, Prophylaxi s Clindamycin 2019-0 No 900 mg, Mem oria 9-04 Soln-IV, l 18:00: IV [place] 00 Piggyback, Once, infuse over 30 minutes, first dose 06/19/19 13:00:00 CDT, stop date 06/19/19 13:00:00 CDT, Prophylaxi s Clindamycin 2019-0 No 900 mg, Mem oria 9-04 Soln-IV, l 18:00: IV [place] 00 Piggyback, Once, infuse over 30 minutes, first dose 06/19/19 13:00:00 CDT, stop date 06/19/19 13:00:00 CDT, Prophylaxi s Clindamycin 2019-0 No 900 mg, Mem oria 9-04 Soln-IV, l 18:00: IV [place] 00 Piggyback, Once, infuse over 30 minutes, [...] Mem oria 9-04 Soln-IV, l 18:00: IV [place] 00 Piggyback, Once, infuse over 30 minutes, first dose 06/19/19 13:00:00 CDT, stop date 06/19/19 13:00:00 CDT, Prophylaxi s Clindamycin 2019-0 No 900 mg, Mem oria 9-04 Soln-IV, l 18:00: IV [place] 00 Piggyback, Once, infuse over 30 minutes, first dose 06/19/19 13:00:00 CDT, stop date 06/19/19 13:00:00 CDT, Prophylaxi s Clindamycin 2019-0 No 900 mg, Mem oria 9-04 Soln-IV, l 18:00: IV [place] 00 Piggyback, Once, infuse over 30 minutes, [...] Mem oria 9-04 Soln-IV, l 18:00: IV Piggyback, Once, infuse over 30 minutes, first dose 06/19/19 13:00:00 CDT, stop date 06/19/19 13:00:00 CDT, Prophylaxi s Lidocaine 2019-0 No 0.2 mL, Memor ia 2% 0.2 mL - Injection, l IV Start 17:44: Subcutaneo [facility] [[facility]] 00 us, Once PRN for other (see comment), first dose 06/19/19 12:44:00 CDT LR 1,000 mL 2019-0 No 1,000 mL, M emoria 9-04 IV, 30 l 17:44: mL/hr, start date 06/19/19 12:44:00 CDT Lidocaine 2019-0 No 0.2 mL, Memor ia 2% 0.2 mL - Injection, l IV Start 17:44: Subcutaneo [facility] [[facility]] us, Once PRN for other (see comment), first dose 06/19/19 12:44:00 CDT LR 1,000 mL 2019-0 No 1,000 mL, M emoria 9-04 IV, 30 l 17:44: mL/hr, start date 06/19/19 12:44:00 CDT Lidocaine 2019-0 No 0.2 mL, Memor ia 2% 0.2 mL - Injection, l IV Start 17:44: Subcutaneo [facility] [[facility]] 00 us, Once PRN for other (see comment), first dose 06/19/19 12:44:00 CDT LR 1,000 mL 2019-0 No 1,000 mL, M emoria 9-04 IV, 30 l 17:44: mL/hr, start date 06/19/19 12:44:00 CDT Lidocaine 2019-0 No 0.2 mL, Mem[facility] 2% 0.2 mL 9-04 Injection, l IV Start 17:44: [facility] [[facility]] 00 us, Once PRN for other (see comment), first dose 06/19/19 12:44:00 CDT LR 1,000 mL 2019-0 No 1,000 mL, M emoria 9-04 IV, 30 l 17:44: mL/hr, start date 06/19/19 12:44:00 CDT Lidocaine 2019-0 No 0.2 mL, [facility] 2% 0.2 mL 06-19 Injection, l IV Start 17:44: [facility] [[facility]] us, Once PRN for other (see comment), first dose 06/19/19 12:44:00 CDT LR 1,000 mL 2019-0 No 1,000 mL, M emoria 9-04 IV, 30 l 17:44: mL/hr, start date 06/19/19 12:44:00 CDT Lidocaine 2019-0 No 0.2 mL, [facility] 2% 0.2 mL 06-19 Injection, l IV Start 17:44: [facility] [[facility]] us, Once PRN for other (see comment), first dose 06/19/19 12:44:00 CDT LR 1,000 mL 2019-0 No 1,000 mL, M emoria 9-04 IV, 30 l 17:44: mL/hr, start date 06/19/19 12:44:00 CDT Lidocaine 2019-0 No 0.2 mL, [facility] 2% 0.2 mL 06-19 Injection, l IV Start 17:44: [facility] [[facility]] us, Once PRN for other (see comment), first dose 06/19/19 12:44:00 CDT LR 1,000 mL 2019-0 No 1,000 mL, M emoria 9-04 IV, 30 l 17:44: mL/hr, start date 06/19/19 12:44:00 CDT Lidocaine 2019-0 No 0.2 mL, [facility] 2% 0.2 mL 06-19 Injection, l IV Start 17:44: [facility] [[facility]] us, Once PRN for other (see comment), first dose 06/19/19 12:44:00 CDT LR 1,000 mL 2019-0 No 1,000 mL, M emoria 9-04 IV, 30 l 17:44: mL/hr, start date 06/19/19 12:44:00 CDT Lidocaine 2019-0 No 0.2 mL, [facility] 2% 0.2 mL 06-19 Injection, l IV Start 17:44: [facility] [[facility]] 00 us, Once PRN for other (see comment), first dose 06/19/19 12:44:00 CDT LR 1,000 mL 2019-0 No 1,000 mL, M emoria 9-04 IV, 30 l 17:44: mL/hr, start date 06/19/19 12:44:00 CDT Lidocaine 2019-0 No 0.2 mL, [facility] 2% 0.2 mL 06-19 Injection, l IV Start 17:44: [facility] [[facility]] 00 us, Once PRN for other (see comment), first dose 06/19/19 12:44:00 CDT LR 1,000 mL 2019-0 No 1,000 mL, M emoria 9-04 IV, 30 l 17:44: mL/hr, start date 06/19/19 12:44:00 CDT Lidocaine 2019-0 No 0.2 mL, [facility] 2% 0.2 mL 06-19 Injection, l IV Start 17:44: [facility] [[facility]] 00 us, Once PRN for other (see comment), first dose 06/19/19 12:44:00 CDT Lidocaine 2019-0 No 0.2 mL, [facility] 2% 0.2 mL 06-19 Injection, l IV Start 17:44: [facility] [[facility]] 00 us, Once PRN for other (see comment), first dose 06/19/19 12:44:00 CDT LR 1,000 mL 2019-0 No 1,000 mL, M emoria 9-04 IV, 30 l 17:44: mL/hr, start date 06/19/19 12:44:00 CDT LR 1,000 mL 2019-0 No 1,000 mL, M emoria 9-04 IV, 30 l 17:44: mL/hr, start date 06/19/19 12:44:00 CDT Lidocaine 2019-0 No 0.2 mL, [facility] 2% 0.2 mL 06-19 Injection, l IV Start 17:44: [facility] [[facility]] us, Once PRN for other (see comment), first dose 06/19/19 12:44:00 CDT LR 1,000 mL 2019-0 No 1,000 mL, M emoria 9 IV, 30 l 17:44: mL/hr, Elijah 00 start date 06/19/19 12:44:00 CDT Lidocaine 2019-0 No 0.2 mL, [facility] 2% 0.2 mL 06-19 Injection, l IV Start 17:44: [facility] [[facility]] , Once PRN for other (see comment), first dose 06/19/19 12:44:00 CDT LR 1,000 mL 2019-0 No 1,000 mL, M emoria 9 IV, 30 l 17:44: mL/hr, Elijah 00 start date 06/19/19 12:44:00 CDT Alprazolam 2019-0 Yes 1 mg = 1 Mem oria 1 MG Oral 8-27 tabs, l Tablet 20:52: Oral, As [place] [Xanax] 00 Indicated, PRN for anxiety Alprazolam 2018-0 Yes 1 mg = 1 Mem oria 1 MG Oral 8-27 tabs, l Tablet 20:52: Oral, As [place] [Xanax] 00 Indicated, PRN for anxiety Alprazolam 2019-0 Yes 1 mg = 1 Mem oria 1 MG Oral 8-27 tabs, l Tablet 20:52: Oral, As [place] [Xanax] 00 Indicated, PRN for anxiety Alprazolam 2019-0 Yes 1 mg = 1 Mem oria 1 MG Oral 8-27 tabs, l Tablet 20:52: Oral, As [place] [Xanax] 00 Indicated, PRN for anxiety Alprazolam 2019-0 Yes 1 mg = 1 Mem oria 1 MG Oral 8-27 tabs, l Tablet 20:52: Oral, As [place] [Xanax] 00 Indicated, PRN for anxiety Alprazolam 2018-0 Yes 1 mg = 1 Mem oria 1 MG Oral 8-27 tabs, l Tablet 20:52: Oral, As [place] [Xanax] 00 Indicated, PRN for anxiety Alprazolam 2019-0 Yes 1 mg = 1 Mem oria 1 MG Oral 8-27 tabs, l Tablet 20:52: Oral, As [place] [Xanax] 00 Indicated, PRN for anxiety Alprazolam 2019-0 Yes 1 mg = 1 Mem oria 1 MG Oral 8-27 tabs, l Tablet 20:52: Oral, As [place] [Xanax] 00 Indicated, PRN for anxiety Alprazolam 2018- Yes 1 mg = 1 Mem oria 1 MG Oral 8-27 tabs, l Tablet 20:52: Oral, As [place] [Xanax] 00 Indicated, PRN for anxiety Alprazolam 2018- Yes 1 mg = 1 Mem oria 1 MG Oral 8-27 tabs, l Tablet 20:52: Oral, [place] [Xanax] 00 Indicated, PRN for anxiety Alprazolam 2018- Yes 1 mg = 1 Mem oria 1 MG Oral 8-27 tabs, l Tablet 20:52: Oral, [place] [Xanax] 00 Indicated, PRN for anxiety Alprazolam 2018- Yes 1 mg = 1 Mem oria 1 MG Oral 8-27 tabs, l Tablet 20:52: Oral, [place] [Xanax] 00 Indicated, PRN for anxiety Alprazolam 2018-0 Yes 1 mg = 1 Mem oria 1 MG Oral 8-27 tabs, l Tablet 20:52: Oral, As [place] [Xanax] 00 Indicated, PRN for anxiety Alprazolam 2018- Yes 1 mg = 1 Mem oria 1 MG Oral 8-27 tabs, l Tablet 20:52: Oral, As [place] [Xanax] 00 Indicated, PRN for anxiety metFORMIN Yes [id number] 500mg Take 500 Univers (GLUCOPHAGE 4-05 mg by ity of ) 500 mg 14:47: mouth 2 [place] tablet 05 (two) Medical times Branch daily with meals. metFORMIN Yes [id number] 500mg Take 500 Univers (GLUCOPHAGE 4-05 mg by ity of ) 500 mg 14:47: mouth 2 [place] tablet 05 (two) Medical times Branch daily with meals. metFORMIN Yes [id number] 500mg Take 500 Univers (GLUCOPHAGE 4-05 mg by ity of ) 500 mg 14:47: mouth 2 [place] tablet 05 (two) Medical times Branch daily with meals. metFORMIN Yes [id number] 500mg Take 500 Univers (GLUCOPHAGE 4-05 mg by ity of ) 500 mg 14:47: mouth 2 [place] tablet 05 (two) Medical times [place] daily with meals. metFORMIN Yes [id number] 500mg Take 500 Univers (GLUCOPHAGE 4-05 mg by ity of ) 500 mg 14:47: mouth 2 [place] tablet 05 (two) Medical times Justice daily with meals. escitalopra Yes [id number] 20mg Take 20 mg Univers m (LEXAPRO) 4-05 by mouth ity of 20 mg 14:47: daily. [place] tablet 02 [facility] escitalopra Yes [id number] 20mg Take 20 mg Univers m (LEXAPRO) 4-05 by mouth ity of 20 mg 14:47: daily. [place] tablet 02 [facility] escitalopra Yes [id number] 20mg Take 20 mg Univers m (LEXAPRO) 4-05 by mouth ity of 20 mg 14:47: daily. [place] tablet 02 [facility] escitalopra Yes [id number] 20mg Take 20 mg Univers m (LEXAPRO) 4-05 by mouth ity of 20 mg 14:47: daily. [place] tablet 02 [facility] escitalopra Yes [id number] 20mg Take 20 mg Univers m (LEXAPRO) 4-05 by mouth ity of 20 mg 14:47: daily. [place] tablet 02 [facility] metFORMIN Yes [id number] 500mg Take 500 Univers (GLUCOPHAGE 4-05 mg by ity of ) 500 mg 09:47: mouth 2 [place] tablet 05 (two) Medical times Justice daily with meals. metFORMIN Yes [id number] 500mg Take 500 Univers (GLUCOPHAGE 4-05 mg by ity of ) 500 mg 09:47: mouth 2 [place] tablet 05 (two) Medical times [place] daily with meals. escitalopra Yes [id number] 20mg Take 20 mg Univers m (LEXAPRO) 4-05 by mouth ity of 20 mg 09:47: daily. [place] tablet 02 [facility] escitalopra Yes [id number] 20mg Take 20 mg Univers m (LEXAPRO) 4-05 by mouth ity of 20 mg 09:47: daily. [place] tablet [facility] simvastatin Yes [id number] 20mg Take 1 Tab Univers (ZOCOR) 20 4-05 by mouth ity o f mg tablet 00:00: at [place] [address] bedtime. [facility] Branch lisinopril Yes [id number] 10mg Take 1 Tab Univers (PRINIVIL,Z 4-05 by mouth ity of ESTRIL) 10 00:00: daily. [place] mg tablet [facility] simvastatin Yes [id number] 20mg Take 1 Tab Univers (ZOCOR) 20 4-05 by mouth ity o f mg tablet 00:00: at [place] [address] bedtime. [facility] Branch lisinopril Yes [id number] 10mg Take 1 Tab Univers (PRINIVIL,Z 4-05 by mouth ity of ESTRIL) 10 00:00: daily. [place] mg tablet [facility] simvastatin Yes [id number] 20mg Take 1 Tab Univers (ZOCOR) 20 4-05 by mouth ity o f mg tablet 00:00: at [place] [address] bedtime. [facility] Branch lisinopril Yes [id number] 10mg Take 1 Tab Univers (PRINIVIL,Z 4-05 by mouth ity of ESTRIL) 10 00:00: daily. [place] mg tablet [facility] simvastatin Yes [id number] 20mg Take 1 Tab Univers (ZOCOR) 20 4-05 by mouth ity o f mg tablet 00:00: at [place] [address] bedtime. Medical Branch lisinopril Yes [id number] 10mg Take 1 Tab Univers (PRINIVIL,Z 4-05 by mouth ity of ESTRIL) 10 00:00: daily. [place] mg tablet [facility] simvastatin Yes [id number] 20mg Take 1 Tab Univers (ZOCOR) 20 4-05 by mouth ity o f mg tablet 00:00: at [place] [address] bedtime. [facility] lisinopril Yes [id number] 10mg Take 1 Tab Univers (PRINIVIL,Z 4-05 by mouth ity of ESTRIL) 10 00:00: daily. [place] mg tablet [facility] simvastatin Yes [id number] 20mg Take 1 Tab Univers (ZOCOR) 20 4-05 by mouth ity o f mg tablet 00:00: at [place] 00 bedtime. [facility] lisinopril Yes [id number] 10mg Take 1 Tab Univers (PRINIVIL,Z 4-05 by mouth ity of ESTRIL) 10 00:00: daily. [place] mg tablet 00 [facility] simvastatin Yes [id number] 20mg Take 1 Tab Univers (ZOCOR) 20 4-05 by mouth ity o f mg tablet 00:00: at [place] 00 bedtime. [facility] lisinopril Yes [id number] 10mg Take 1 Tab Univers (PRINIVIL,Z 4-05 by mouth ity of ESTRIL) 10 00:00: daily. [place] mg tablet 00 [facility] ALPRAZolam Yes [id number] .5mg Take 0.5 Univers (XANAX) 0.5 2-15 mg by ity of mg tablet 00:00: [place] 00 needed. [facility] insulin Yes [id number] 10U inject 10 U nivers lispro 2-15 Units ity of (HUMALOG 00:00: [place] KWIKPEN[place] 00 skin 3 Medical 100 unit/mL (three) Branc h pen times injector daily before meals. Insulin Yes [id number] 40U inject 40 U nivers Glargine 2-15 Units ity of (LANTUS 00:00: under the [place] SOLOSTAR) 00 skin at Medical 100 unit/mL bedtime. Bran ch (3 mL) In ALPRAZolam Yes [id number] .5mg Take 0.5 Univers (XANAX) 0.5 2-15 mg by ity of mg tablet 00:00: [place] 00 needed. [facility] insulin Yes [id number] 10U inject 10 U nivers lispro 2-15 Units ity of (HUMALOG 00:[place]: [place] KWIKPEN[place] 00 skin 3 Medical 100 unit/mL (three) Branc h pen times injector daily before meals. Insulin Yes [id number] 40U inject 40 U nivers Glargine 2-15 Units ity of (LANTUS 00:00: under the [place] SOLOSTAR) 00 skin at Medical 100 unit/mL bedtime. [facility] (3 mL) [facility] [id number] .5mg Take 0.5 Univers (XANAX) 0.5 2-15 mg by ity of mg tablet 00:00: [place] 00 needed. [place] Branch insulin Yes [id number] 10U inject 10 U nivers lispro 2-15 Units ity of (HUMALOG 00:[place]: [place] KWIKPEN[place] 00 skin 3 Medical 100 unit/mL (three) Branc h pen times injector daily before meals. Insulin Yes [id number] 40U inject 40 U nivers Glargine 2-15 Units ity of (LANTUS 00:00: under the [place] SOLOSTAR) 00 skin at Medical 100 unit/mL bedtime. Bran ch (3 mL) [facility] Yes [id number] .5mg Take 0.5 Univers (XANAX) 0.5 2-15 mg by ity of mg tablet 00:00: [place] 00 needed. [facility] insulin Yes [id number] 10U inject 10 U nivers lispro 2-15 Units ity of (HUMALOG 00:00: [place] KWIKPEN[place] 00 skin 3 Medical 100 unit/mL (three) Branc h pen times injector daily before meals. Insulin Yes [id number] 40U inject 40 U nivers Glargine 2-15 Units ity of (LANTUS 00:00: under the [place] SOLOSTAR) 00 skin at Medical 100 unit/mL bedtime. Bran ch (3 mL) [facility] Yes [id number] .5mg Take 0.5 Univers (XANAX) 0.5 2-15 mg by ity of mg tablet 00:00: [place] 00 needed. [place] Branch insulin Yes [id number] 10U inject 10 U nivers lispro 2-15 Units ity of (HUMALOG 00:[place]: [place] KWIKPEN[place] 00 skin 3 Medical 100 unit/mL (three) Branc h pen times injector daily before meals. Insulin Yes [id number] 40U inject 40 U nivers Glargine 2-15 Units ity of (LANTUS 00:00: under the [place] SOLOSTAR) 00 skin at Medical 100 unit/mL bedtime. Bran ch (3 mL) In ALPRAZolam Yes [id number] .5mg Take 0.5 Univers (XANAX) 0.5 2-15 mg by ity of mg tablet 00:00: mouth [place] 00 needed. [facility] insulin Yes [id number] 10U inject 10 U nivers lispro 2-15 Units ity of (HUMALOG 00:00: [place] KWIKPEN[place] 00 skin 3 Medical 100 unit/mL (three) Branc h pen times injector daily before meals. Insulin Yes [id number] 40U inject 40 U nivers Glargine 2-15 Units ity of (LANTUS 00:00: under the [place] SOLOSTAR) 00 skin at Medical 100 unit/mL bedtime. Bran ch (3 mL) In ALPRAZolam Yes [id number] .5mg Take 0.5 Univers (XANAX) 0.5 2-15 mg by ity of mg tablet 00:00: mouth [place] 00 needed. [facility] Branch insulin Yes [id number] 10U inject 10 U nivers lispro 2-15 Units ity of (HUMALOG 00:00: [place] KWIKPEN[place] 00 skin 3 Medical 100 unit/mL (three) Branc h pen times injector daily before meals. Insulin Yes [id number] 40U inject 40 U nivers Glargine 2-15 Units ity of (LANTUS 00:00: under the [place] SOLOSTAR) 00 skin at Medical 100 unit/mL bedtime. Bran ch (3 mL) In Immunizations Ordered Immunization Filled Immunization Date Status Commen ts Source Name Name Pneumococcal Vaccine, 2022-10-13 Completed Daniel Bullock - Polysaccharide 00:00:00 External Influenza Virus 2022-10-13 Completed Brandee hansen - Vaccine, age 6 months 00:00:00 Ext ernal and up Pneumococcal Vaccine, 2022-10-13 Completed Daniel Bullock - Polysaccharide 00:00:00 External Influenza Virus 2022-10-13 Completed Brandee hansen - Vaccine, age 6 months 00:00:00 Ext ernal and up Pneumococcal Vaccine, 2022-10-13 Completed Daniel Bullock - Polysaccharide 00:00:00 External Influenza Virus 2022-10-13 Completed Brandee hansen - Vaccine, age 6 months 00:00:00 Ext ernal and up SARS-COV-2 COVID-19 2021-01-10 Completed Unive rsity of MODERNA VACCINE 00:00:00 [place] [facility] Branch SARS-COV-2 COVID-19 2021-01-10 Completed Unive rsity of MODERNA VACCINE 00:00:00 [place] [facility] SARS-COV-2 COVID-19 2021-01-10 Completed Unive rsity of MODERNA VACCINE 00:00:00 [place] [facility] SARS-COV-2 COVID-19 2021-01-10 Completed Unive rsity of MODERNA VACCINE 00:00:00 [place] [facility] SARS-COV-2 COVID-19 2021-01-10 Completed Unive rsity of MODERNA VACCINE 00:00:00 [place] [facility] SARS-COV-2 COVID-19 2021-01-10 Completed Unive rsity of MODERNA VACCINE 00:00:00 [place] [facility] SARS-COV-2 COVID-19 2021-01-10 Completed Unive rsity of MODERNA VACCINE 00:00:00 [place] [facility] SARS-COV-2 COVID-19 2020-12-13 Completed Unive rsity of MODERNA VACCINE 00:00:00 [place] [facility] SARS-COV-2 COVID-19 2020-12-13 Completed Unive rsity of MODERNA VACCINE 00:00:00 [place] [facility] SARS-COV-2 COVID-19 2020-12-13 Completed Unive rsity of MODERNA VACCINE 00:00:00 [place] [facility] Branch SARS-COV-2 COVID-19 2020-12-13 Completed Unive rsity of MODERNA VACCINE 00:00:00 [place] [facility] Branch SARS-COV-2 COVID-19 2020-12-13 Completed Unive rsity of MODERNA VACCINE 00:00:00 [place] [facility] ical Branch SARS-COV-2 COVID-19 2020-12-13 Completed Unive rsity of MODERNA VACCINE 00:00:00 [place] Med ical Branch SARS-COV-2 COVID-19 2020-12-13 Completed Unive rsity of MODERNA VACCINE 00:00:00 [facility] Vital Signs Vital Name Observation Time Observation Value Comments Source Systolic blood 2022-12-12 14:44:00 110 mm[Hg] Brandee Seybold - pressure External Diastolic blood 2022-12-12 14:44:00 62 mm[Hg] Kelse y Seybold - pressure External Heart rate 2022-12-12 14:44:00 98 /min Brandee S eybold - External Body temperature 2022-12-12 14:44:00 36.5 Flor Silvia ey Seybold - External Respiratory rate 2022-12-12 14:44:00 14 /min Silvia ey Seybold - External Body height 2022-12-12 14:44:00 149.9 cm Brandee S eybold - External Body weight 2022-12-12 14:44:00 54.432 kg Brandee S eybold - External BMI 2022-12-12 14:44:00 24.24 kg/m2 Brandee S eybold - External Oxygen saturation in 2022-12-12 14:44:00 99 /min Brandee adelinaold - Arterial blood by External Pulse oximetry Systolic blood 2022-10-13 17:29:00 133 mm[Hg] Brandee Seybold - pressure External Diastolic blood 2022-10-13 17:29:00 86 mm[Hg] Kelse y Seybold - pressure External Heart rate 2022-10-13 17:29:00 93 /min Brandee S eybold - External Body temperature 2022-10-13 17:29:00 36.72 Flor Silvia ey Seybold - External Respiratory rate 2022-10-13 17:29:00 14 /min Silvia ey Seybold - External Body height 2022-10-13 17:29:00 149.9 cm Brandee S eybold - External Body weight 2022-10-13 17:29:00 55.792 kg Brandee S eybold - External BMI 2022-10-13 17:29:00 24.84 kg/m2 Brandee S eybold - External Oxygen saturation in 2022-10-13 17:29:00 99 /min Brandee Seybold - Arterial blood [...] External Diastolic blood 2022-09-06 21:28:00 78 mm[Hg] Kelse y Seybold - pressure External [...] - External BMI 2022-09-06 21:28:00 24.84 kg/m2 Rbandee S eybold - External Oxygen saturation in 2022-09-06 21:28:00 99 /min Brandee Seybold - Arterial blood by External Pulse oximetry Systolic blood 2022-08-09 20:26:00 94 mm[Hg] Brandee Seybold - pressure External Diastolic blood 2022-08-09 20:26:00 64 mm[Hg] Tad montanez Seybold - pressure External Heart rate 2022-08-09 20:26:00 94 /min Brandee Womack eybold - External Body temperature 2022-08-09 20:26:00 36.17 Flor Silvia palacios Seybold - External Respiratory rate 2022-08-09 20:26:00 14 /min Silvia palacios Seybold - External Body height 2022-08-09 20:26:00 149.9 cm Brandee palaciosbold - External Body weight 2022-08-09 20:26:00 53.524 kg Brandee Womack eybold - External BMI 2022-08-09 20:26:00 23.83 kg/m2 Brandee palaciosbold - External Systolic blood 2022-04-16 23:20:00 110 mm[Hg] Univer sity of pressure [facility] Diastolic blood 2022-04-16 23:20:00 74 mm[Hg] Unive rsity of pressure [facility] Heart rate 2022-04-16 23:20:00 104 /min [facility] Body temperature 2022-04-16 23:20:[address] [facility] ersity of [facility] Respiratory rate 2022-04-16 23:20:00 17 /min Univ ersity of [facility] Body height 2022-04-16 23:20:00 149.9 cm [facility] Body weight 2022-04-16 23:20:00 54.386 kg [facility] BMI 2022-04-16 23:20:00 24.22 kg/m2 [facility] Oxygen saturation in 2022-04-16 23:20:00 97 /min [facility] Arterial blood by [facility] Pulse oximetry Branch Systolic (mm Hg) 2019-06-19 23:50:00 Dani Nava Diastolic (mm Hg) 2019-06-19 23:50:00 Mem orial [place] Respitory Rate 2019-06-19 23:50:00 Isa xavier [place] Heart Rate 2019-06-19 23:50:00 Rayna Nava Systolic (mm Hg) 2019-06-19 23:10:00 Dani rial [place] Diastolic (mm Hg) 2019-06-19 23:10:00 Mem orial [place] Heart Rate 2019-06-19 23:10:00 [facility] [place] Respitory Rate 2019-06-19 23:10:00 Memori al [place] Systolic (mm Hg) 2019-06-19 23:00:00 Dani rial [place] Diastolic (mm Hg) 2019-06-19 23:00:00 Mem orial [place] Heart Rate 2019-06-19 23:00:00 [facility] [place] Respitory Rate 2019-06-19 23:00:00 Memori al [place] Temperature Oral (F) 2019-06-19 22:20:00 36.9 Flor [facility] [place] Temperature Oral (F) 2019-06-19 17:42:00 36.8 Flor [facility] Height 2019-06-19 17:42:00 149.86 cm [facility] [place] Height 2019-06-11 20:45:[address] [facility] Procedure Date / Time Performing Clinician Source Performed POCT MOLECULAR FLU 2022-04-16 23:28:00 Debra Rhodes [facility] ASSIGNMENT OF BENEFITS 2021-06-21 18:46:16 Doctor Unassigned, [facility] ARTHROSCOPIC DEBRIDEMENT 2019-06-19 20:39:00 [facility] oriana Gutierrezann SHOULDER-EXTENSIVE [id number] (Left)<sup>1</sup> ARTHROSCOPY SHOULDER 2019-06-19 20:39:00 Isabel Nava ROTATOR CUFF REPAIR [id number] (Left)<sup>2</sup> ARTHROSCOPY SHOULDER 2019-06-19 20:39:00 Isabel Nava W/BICEPS TENDONESIS [id number] (Left)<sup>3</sup> ARTHROSCOPY SHOULDER 2019-06-19 20:39:00 Isabel Nava W/SUBACROMIAL DECOMPRESSION/ACROMIOPLAST Y [id number] (Left)<sup>4</sup> tooth extraction 2019-04-17 05:00:00 [facility] Gilberto jordan Appendectomy 2010-10-16 00:00:00 [facility] Her arango Hysterectomy 2007-10-16 00:00:00 [facility] arango Cholecystectomy 2005-10-16 00:00:00 [facility] Her arango Encounters Start End Encounter Admission Attending Care Care Encounter Source Date/Time Date/Time Type Type Clinicians Facility Department ID 2023-05-03 2023-05-03 Outpatient PREZAS, BRANDEE FELIZ [id number] Brandee 00:00:00 00:00:00 BILL Seybol d 2023-04-04 2023-04-04 Outpatient HUNDL, BRANDEE FELIZ [id number] Brandee 00:00:00 00:00:00 KATHY Seybol d 2023-03-06 2023-03-06 Outpatient PREZAS, BRANDEE FELIZ [id number] Brandee 00:00:00 00:00:00 BILL Seybol d 2023-03-02 2023-03-02 Outpatient PREZAS, BRANDEE FELIZ [id number] Brandee 00:00:00 00:00:00 BILL Seybol d 2023-01-25 2023-01-25 Outpatient PREZAS, BRANDEE FELIZ [id number] Brandee 00:00:00 00:00:00 BILL Seybol d 2023-01-19 2023-01-19 Outpatient PREZAS, BRANDEE FELIZ [id number] Brandee 00:00:00 00:00:00 BILL Seybol d 2023-01-11 2023-01-11 Outpatient PREZAS, BRANDEE FELIZ [id number] Brandee 00:00:00 00:00:00 BILL Seybol d 2023-01-10 2023-01-10 Outpatient PREZAS, BRANDEE FELIZ [id number] Brandee 00:00:00 00:00:00 BILL Seybol d 2023-01-09 2023-01-09 Outpatient PREZAS, BRANDEE FELIZ [id number] Brandee 08:00:00 08:00:00 BILL Seybol d 2023-01-08 2023-01-08 Outpatient PREZAS, BRANDEE FELIZ [id number] Brandee 00:00:00 00:00:00 BILL Seybol d 2023-01-08 2023-01-08 Outpatient PREZAS, BRANDEE FELIZ [id number] Brandee 00:00:00 00:00:00 BILL Seybol d 2023-01-06 2023-01-06 Outpatient NATHANI, BRANDEE FELIZ [id number] Brandee 00:00:00 00:00:00 MUHAMMED Seybo ld 2022-12-29 2022-12-29 Outpatient PREZAS, BRANDEE FELIZ [id number] Brandee 00:00:00 00:00:00 BILL Seybol d 2022-12-23 2022-12-23 Outpatient PREZAS, BRANDEE FELIZ [id number] Brandee 00:00:00 00:00:00 BILL Seybol d 2022-12-23 2022-12-23 Outpatient PREZAS, BRANDEE FELIZ [id number] Brandee 00:00:00 00:00:00 BILL Seybol d 2022-12-23 2022-12-23 Outpatient PREZAS, BRANDEE FELIZ [id number] Brandee 00:00:00 00:00:00 BILL Seybol d 2022-12-23 2022-12-23 Outpatient PREZAS, BRANDEE FELIZ [id number] Brandee 00:00:00 00:00:00 BILL Seybol d 2022-12-22 2022-12-22 Outpatient PREZAS, BRANDEE FELIZ [id number] Brandee 00:00:00 00:00:00 BILL Seybol d 2022-12-21 2022-12-21 Outpatient PREZAS, BRANDEE EFLIZ [id number] Brandee 00:00:00 00:00:00 BILL Seybol d 2022-12-21 2022-12-21 Outpatient PREZAS, BRANDEE FELIZ [id number] Brandee 00:00:00 00:00:00 BILL Seybol d 2022-12-20 2022-12-20 Outpatient LAB90 BRANDEE FELIZ [id number] Brandee 09:05:00 09:05:00 Seybol d 2022-12-19 2022-12-19 Outpatient MYKELHAZELON BRANDEE FELIZ [id number] Brandee 00:00:00 00:00:00 MD IRMA Seybol d 2022-12-15 2022-12-15 Outpatient PREZAS, BRANDEE FELIZ [id number] Brandee 00:00:00 00:00:00 BILL Seybol d 2022-12-14 2022-12-14 Outpatient MYKELSEYONL BRANDEE FELIZ [id number] Brandee 00:00:00 00:00:00 MD IRMA Seybol d 2022-12-12 2022-12-12 Outpatient LAB90 RBANDEE FELIZ [id number] Brandee 09:20:00 09:20:00 Seybol d 2022-12-12 2022-12-12 Outpatient PREBRANDEE ARTEAGA [id number] Brandee 08:45:00 08:45:00 BILL Seybol d 2022-12-03 2022-12-03 Outpatient HUNDBRANDEE Monae [id number] Brandee 00:00:00 00:00:00 KATHY Seybol d 2022-11-29 2022-11-29 Outpatient BRANDEE FRITZ [id number] Brandee 15:30:00 15:30:00 AKASH Seybol d 2022-11-21 2022-11-21 Outpatient PREBRANDEE ARTEAGA [id number] Brandee 00:00:00 00:00:00 BILL Seybol d 2022-11-18 2022-11-18 Outpatient BRANDEE OLMSTEAD [id number] Brandee 14:30:00 14:30:00 KATHY Seybol d 2022-11-18 2022-11-18 Outpatient PREZABRANDEE Womack [id number] Brandee 10:45:00 10:45:00 BILL Seybol d 2022-11-08 2022-11-08 Outpatient PREBRANDEE ARTEAGA [id number] Bradnee 00:00:00 00:00:00 BILL Seybol d 2022-11-08 2022-11-08 Outpatient BRANDEE OLMSTEAD [id number] Brandee 00:00:00 00:00:00 KATHY Seybol d 2022-11-08 2022-11-08 Outpatient PREZABRANDEE Womack [id number] Brandee 00:00:00 00:00:00 BILL Seybol d 2022-11-07 2022-11-07 Outpatient BRANDEE OLMSTEAD [id number] Brandee 13:00:00 13:00:00 KATHY Seybol d 2022-11-03 2022-11-03 Outpatient PREZAS, BRANDEE FELIZ [id number] Brandee 00:00:00 00:00:00 BILL Seybol d 2022-10-31 2022-10-31 Outpatient PREZAS, BRANDEE FELIZ [id number] Brandee 00:00:00 00:00:00 BILL Seybol d 2022-10-28 2022-10-28 Outpatient PREZAS, BRANDEE FELIZ [id number] Brandee 00:00:00 00:00:00 BILL Seybol d 2022-10-21 2022-10-21 Outpatient PREZAS, BRANDEE FELIZ [id number] Brandee 00:00:00 00:00:00 BILL Seybol d 2022-10-13 2022-10-13 Outpatient PREZAS, BRANDEE FELIZ [id number] Brandee 11:30:00 11:30:00 BILL Seybol d 2022-10-05 2022-10-05 Outpatient PREZAS, BRANDEE FELIZ [id number] Brandee 00:00:00 00:00:00 BILL Seybol d 2022-09-28 2022-09-28 Outpatient PREZAS, BRANDEE FELIZ [id number] Brandee 00:00:00 00:00:00 BILL Seybol d 2022-09-26 2022-09-26 Outpatient PREZAS, BRANDEE FELIZ [id number] Brandee 09:45:00 09:45:00 BILL Seybol d 2022-09-22 2022-09-22 Outpatient HUNDL, BRANDEE FELIZ [id number] Brandee 14:00:00 14:00:00 KATHY Seybol d 2022-09-22 2022-09-22 Outpatient PREZAS, BRANDEE FELIZ [id number] Brandee 00:00:00 00:00:00 BILL Seybol d 2022-09-22 2022-09-22 Outpatient PREZAS, BRANDEE FELIZ [id number] Brandee 00:00:00 00:00:00 BILL Seybol d 2022-09-21 2022-09-21 Outpatient PREZAS, BRANDEE FELIZ [id number] Brandee 00:00:00 00:00:00 BILL Seybol d 2022-09-19 2022-09-19 Outpatient TESTING, LJ BRANDEE FELIZ [id number] Brandee 14:50:00 14:50:00 Seybol d 2022-09-19 2022-09-19 Outpatient RMY14-[id number] BRANDEE FELIZ [id number] Brandee 13:20:00 13:20:00 Seybol d 2022-09-19 2022-09-19 Outpatient PREZAS, BRANDEE FELIZ [id number] Brandee 00:00:00 00:00:00 BILL Seybol d 2022-09-19 2022-09-19 Outpatient PREZAS, BRANDEE FELIZ [id number] Brandee 00:00:00 00:00:00 BILL Seybol d 2022-09-06 2022-09-06 Outpatient LAB90 BRANDEE FELIZ [id number] Brandee 16:15:00 16:15:00 Seybol d 2022-09-06 2022-09-06 Outpatient PREZAS, BRANDEE FELIZ [id number] Brandee 15:45:00 15:45:00 BILL Seybol d 2022-08-26 2022-08-26 Outpatient PREZAS, BRANDEE FELIZ [id number] Brandee 00:00:00 00:00:00 BILL Seybol d 2022-08-10 2022-08-10 Outpatient PREZAS, BRANDEE FELIZ [id number] Brandee 00:00:00 00:00:00 BILL Seybol d 2022-08-09 2022-08-09 Outpatient PREZAS, BRANDEE FELIZ [id number] Brandee 15:45:00 15:45:00 BILL Seybol d 2022-08-09 2022-08-09 Outpatient PREZAS, BRANDEE FELIZ [id number] Brandee 15:15:00 15:15:00 BILL Seybol d 2022-08-08 2022-08-08 Outpatient PREZAS, BRANDEE FELIZ [id number] Brandee 00:00:00 00:00:00 BILL Seybol d 2022-07-21 2022-07-21 Outpatient PREZAS, BRANDEE FELIZ [id number] Brandee 00:00:00 00:00:00 BILL Seybol d 2022-06-13 2022-06-13 Outpatient PREZAS, BRANDEE FELIZ [id number] Brandee 00:00:00 00:00:00 BILL Seybol d 2022-06-01 2022-06-01 Outpatient PREZAS, BRANDEE FELIZ [id number] Brandee 08:00:00 08:00:00 BILL Seybol d 2022-05-31 2022-05-31 Outpatient RICO, BRANDEE FELIZ [id number] Brandee 00:00:00 00:00:00 URMILA Seybol d 2022-05-31 2022-05-31 Outpatient PREZAS, BRANDEE FELIZ [id number] Brandee 00:00:00 00:00:00 BILL Seybol d 2022-05-27 2022-05-27 Outpatient PREZAS, BRANDEE FELIZ [id number] Brandee 00:00:00 00:00:00 BILL Seybol d 2022-05-26 2022-05-26 Outpatient PREZAS, BRANDEE FELIZ [id number] Brandee 00:00:00 00:00:00 BILL Seybol d 2022-05-26 2022-05-26 Outpatient PREZAS, BRNADEE FELIZ [id number] Brandee 00:00:00 00:00:00 BILL Seybol d 2022-05-25 2022-05-25 Outpatient LAB90 BRANDEE FELIZ [id number] Brandee 10:10:00 10:10:00 Seybol d 2022-05-16 2022-05-16 Outpatient PREZAS, BRANDEE FELIZ [id number] Brandee 00:00:00 00:00:00 BILL Seybol d 2022-05-12 2022-05-12 Office PrezaDerrick womack [id number] Brandee 15:30:00 16:00:00 Visit Bill Swenson [id number] Se ybold [id number] 2022-05-12 2022-05-12 Outpatient PREZAS, BRANDEE FELIZ [id number] Brandee 00:00:00 00:00:00 BILL Kristoferol paty 2022-05-10 2022-05-10 Outpatient BRANDEE QUICK BRANDEE [id number] Brandee 00:00:00 00:00:00 BILLJOHN Minerol paty 2022-05-04 2022-05-04 Office Derrick Quick [id number] Brandee 13:30:00 14:00:00 Visit Bill Swenson 350.1.13.13 Se jade [id number] 2022-04-17 2022-04-17 Telephone SUMANTH Munoz [id number] Univers 00:00:00 00:00:00 Sheri TRACEY 350.1.13.10 i ty [facility] 4.2.7.2.686 Jon as [id number] [address] 2022-04-16 2022-04-16 [facility] [id number] Univers 18:20:00 18:49:11 [facility]22-[facility]-16 2022-04-16 Urgent Sumanth Ray [facility] [id number] Univers 18:20:00 18:49:11 Jarrett [facility] [id number] ity [facility] 4.2.7.2.686 Jon as JF?BLEA [phone] [address] MEDICAL OFFICE BUILDING 2021-06-22 2021-06-22 Letter SUMANTH Olvera [id number] Univers 00:00:00 00:00:00 (Out) Roxana TRACEY 350.1.13.10 it y [facility] 4.2.7.2.686 Jon as [id number] [address] 2021-06-21 2021-06-21 Outpatient R BISHNU [facility] [id number] Univers 14:30:00 14:30:00 HUE samuel o f [facility] 2021-06-21 2021-06-21 Laboratory Only, Ang Db Test [facility] 1.2.8 40.114 [id number] Univers 13:46:09 14:01:09 Only Bishnu, [facility] 350.1.13.10 ity of [place] 4.2.7.2.686 Jon as Jf?Blea [id number] Mi dical [address] Medical Office Building 2021-06-21 2021-06-21 Orders Doctor SUMANTH [id number] Univers 00:00:00 00:00:00 Only Unassigned, KYUNG 350.1.13.10 ity of [facility] 4.2.7.2.686 Jon as [id number] [address] 2021-01-10 2021-01-10 Outpatient [facility] [id number] Univers 14:20:00 14:20:00 ity [facility] 2021-01-02 2021-01-02 [facility] [id number] Univers 10:00:00 10:00:00 [facility] 2020-12-31 2020-12-31 Outpatient R CARMELO [facility] [id number] Univers 17:20:00 17:20:00 [facility] 2020-12-13 2020-12-13 Outpatient R ROCHELLE, [facility] [id number] Univers 15:05:00 15:05:00 EMIR [facility] 2020-09-30 2020-09-30 Outpatient R RADIOLOGY [facility] [id number] Univers 00:00:00 00:00:00 ity [facility] 2019-09-30 2019-09-30 Outpatient R RADIOLOGY [facility] [id number] Univers 07:28:06 23:59:[facility] 2019-06-19 2019-06-20 Outpatient [facility] [id number] Memoria 16:54:16 00:00:00 r [facility] 2019-06-19 2019-06-20 Outpatient [facility] [id number] Memoria 16:54:16 00:00:00 r [facility] 2019-06-19 2019-06-19 Outpatient [facility] [id number] Memoria 11:54:16 19:00:00 thom Nava 2019-06-19 2019-06-19 Outpatient [place], [id number] 11:54:16 19:00:00 Eusebio Autumn Farias 2018-12-21 2018-12-22 Outpatient [facility] [id number] Memoria 15:21:48 05:59:59 thom Nava [facility] 2018-12-21 2018-12-22 Outpatient [facility] [id number] Memoria 15:21:48 05:59:59 r Elijah monae [facility] 2018-12-21 2018-12-[address] [facility] [id number] Memoria 09:21:48 23:59:59 thom Nava 2018-12-21 2018-12-21 Outpatient [place], [id number] 09:21:48 23:59:59 Eusebio Farias Results Test Description Test Time Test Comments Results Result Comments Source POCT MOLECULAR FLU 2022-04-16 23:39:54 Test Item Value Reference Range Interpretation Comme nts POCT Molecular FluA (test code = 98252-2) Negative Negative POCT Molecular FluB (test code = 75398-1) Negative Negative Lab Interpretation (test code = 16365-8) Normal [facility]
[2023-05-27] MEDS ORDERED: HYDROCODONE/APAP 5/325 MG TAB ONE (09:37)
--- NOTE | 2023-05-27 10:07 | RAD REPORT ---
EXAM DESCRIPTION: CT - Head Brain Wo Cont - 05/27/2023 9:45 am CLINICAL HISTORY: HEADACHE COMPARISON: No comparisons TECHNIQUE: Noncontrast head CT images were obtained without IV contrast. Multiplanar reformats were generated and reviewed. All CT scans are performed using dose optimization technique as appropriate and may include automated exposure control or mA/KV adjustment according to patient size. FINDINGS: No intracranial hemorrhage, mass, or edema. Midline structures are unremarkable. Normal ventricular caliber for age. Tsai-white matter differentiation is preserved, without evidence of acute infarct. No abnormal extra- axial fluid collections. Mastoid air cells and visualized portions of the paranasal sinuses are clear. No acute bony findings. IMPRESSION: No evidence of an acute intracranial process.
--- NOTE | 2023-05-27 10:16 | ER ---
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 Care prior to arrival: None. Mechanism of Injury: Fall. Trauma event details: Injury occurred in the [facility]. 09:20 Acuity: FE 2 eh3 09:20 Method Of Arrival: Ambulatory eh3 09:23 Coronavirus screen: Vaccine status: Patient reports receiving the 2nd dose of the covid eh3 vaccine. Ebola Screen: No symptoms or risks identified at this time. Initial Sepsis Screen: Does the patient meet any 2 criteria? No. Patient's initial sepsis screen is negative. Does the patient have a suspected source of infection? No. Patient's initial sepsis screen is negative. Risk Assessment: Do you want to hurt yourself or someone else? Patient reports no desire to harm self or others. Onset of symptoms was May 27, 2023. Historical: - Allergies: 09: Latex, Natural Rubber; eh3 09:23 PENICILLINS; eh3 - PMHx: 09:23 Anxiety; Depression; Diabetes - NIDDM; Gastroesophageal reflux disease; eh3 Hypercholesterolemia; - Immunization history: Last tetanus immunization: - up to date. - Social history:: Smoking status: Patient denies any tobacco usage or history of. Patient/guardian denies using alcohol. Screenin:20 Abuse screen: Denies threats or abuse. Denies injuries from another. Tuberculosis eh3 screening: No symptoms or risk factors identified. 09:24 [facility] ED Fall Risk Assessment (Adult) Score/Fall Risk Level 0 - 2 = Low Risk. eh3 Nutritional screening: No deficits noted. Primary Survey: 09:20 NO uncontrolled hemorrhage observed. Breathing/Chest: Spontaneous respiratory effort, eh3 equal unlabored respirations, breath sounds clear bilaterally, regular pattern, symmetrical chest rise and fall. Circulation: No external hemorrhage present. Regular and strong central pulse, skin warm/dry/normal color. Disability Pupils are equal, round, reactive to light and accommodation. Client is alert. Exposure/Environment: There is no evidence of uncontrolled external bleeding. A warming method has been applied: A warm blanket has been provided to the patient. Reassessment Breathing: Spontaneous respiratory effort, equal unlabored respirations, breath sounds clear bilaterally, regular pattern with symmetrical chest rise and fall. Circulation: No external hemorrhage noted. Regular and strong central pulse, skin warm/dry/normal color. Disability: Pupils Pupils are equal, round, reactive to light and accomodation. Alert. Assessment: 09:20 General: Appears in no apparent distress. uncomfortable, Behavior is calm, cooperative, eh3 appropriate for age. Pain: Complains of pain in back of head and back. Neuro: Level of Consciousness is awake, alert, obeys commands, Oriented to person, place, time, situation. Neuro: Pupils are PERRLA. Cardiovascular: Capillary refill < 3 seconds Patient's skin is warm and dry. Respiratory: Airway is patent Respiratory effort is even, unlabored, Respiratory pattern is regular, symmetrical. GI: Abdomen is round non-distended. Derm: Skin is pink, warm \T\ dry. occipital hematoma. Musculoskeletal: Circulation, motion, and sensation intact. Range of motion: intact in all extremities. 09:24 Reassessment: No changes from previously documented assessment. See triage assessment. [facility] 10:15 Reassessment: Patient appears in no apparent distress at this time. Patient and/or 3 family updated on plan of care and expected duration. Pain level reassessed. Patient is alert, oriented x 3, equal unlabored respirations, skin warm/dry/pink. Vital Signs: 09:20 BP 162 / 93; Pulse 82; Resp 18; Temp 98.1(O); Pulse Ox 100% ; Weight 53.07 kg; Height 4 3 ft. 11 in. ; Pain 8/10; 10:15 BP 142 / 87; Pulse 80; Resp 18; Pulse Ox 100% on R/A; 3 09:20 Body Mass Index 23.63 (53.07 kg, 149.86 cm) [facility] 09:20 Pain Scale: Adult [facility] Gepp Coma Score: 09:20 Eye Response: spontaneous(4). Motor Response: obeys commands(6). Verbal Response: eh3 oriented(5). Total: 15. Trauma Score (Adult): 09:20 Eye Response: spontaneous(1); Verbal Response: oriented(1); Motor Response: obeys eh3 commands(2); Systolic BP: > 89 mm Hg(4); Respiratory Rate: 10 to 29 per min(4); Geri Score: 15; Trauma Score: 12 ED Course: 09:09 Patient arrived in ED. ts1 09:11 Sumaya Swenson FNP-C is [facility]. kb 09:11 Jeffrey Hardin MD is Attending Physician. kb 09:20 Marcelina Farr, RN is Primary Nurse. eh3 09:20 Triage completed. eh3 09:20 Patient has correct armband on for positive identification. Bed in low position. Call eh3 light in reach. Side rails up X2. Adult w/ patient. 09:20 Patient maintains SpO2 saturation greater than 95% on room air. eh3 09:20 Thermoregulation: warm blanket given to patient. eh3 09:23 Arm band placed on. eh3 09:24 Provided Education on: Use of call stokes. eh3 09:47 CT Head Brain wo Cont In Process Unspecified. EDMS 10:17 No provider procedures requiring assistance completed. Patient did not have IV access eh3 during this emergency room visit. 10:30 Wound care: ice pack applied. eh3 Administered Medications: 09:31 Drug: HYDROcodone-acetaminophen PO 5 mg-325 mg 1 tabs Route: PO; eh3 10:18 Follow up: Response: No adverse reaction eh3 Medication: 10:17 VIS not applicable for this client. eh3 Outcome: 10:16 Discharge ordered by . kb 10:32 Discharged to home ambulatory, with family. eh3 10:32 Condition: stable 10:32 Discharge instructions given to patient, Instructed on discharge instructions, follow up and referral plans. Demonstrated understanding of instructions, follow-up care. 10:33 Patient left the ED. eh3 Signatures: Dispatcher [employer] EDMS Sumaya Swenson FNP-C FNP-Marcelina Holloway, ZEV RN eh3 Denise Birch PAS PAS ts1
--- NOTE | 2023-05-27 10:17 | EDPHYS ---
Physician Documentation [facility] Name: Denise Solano Age: 52 yrs Sex: Female : 1970 Arrival Date: 05/27/2023 Time: 09:07 Bed 19 Private MD: ED Physician Jeffrey Hardin HPI: 05/27 09:23 This 52 yrs old Female presents to ER via Ambulatory with complaints of Fall kb Injury. 09:23 Details of fall: The patient fell from an upright position, while standing. Onset: The kb symptoms/episode began/occurred just prior to arrival. Associated injuries: The patient sustained injury to the head, hematoma, pain, left low back, painful injury. Severity of symptoms: At their worst the symptoms were moderate, in the emergency department the symptoms are unchanged. The patient has not experienced similar symptoms in the past. The patient has not recently seen a physician. 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 Reports headache, hematoma to back of head and left low back pain. Denies loc, nausea, vomiting. Historical: - Allergies: 09:23 Latex, Natural Rubber; eh3 09:23 PENICILLINS; eh3 - PMHx: 09:23 Anxiety; Depression; Diabetes - NIDDM; Gastroesophageal reflux disease; eh3 Hypercholesterolemia; - Immunization history: Last tetanus immunization: - up to date. - Social history:: Smoking status: Patient denies any tobacco usage or history of. Patient/guardian denies using alcohol. ROS: 09:21 Constitutional: Negative for fever, chills, and weight loss. kb 09:21 Back: Positive for pain at rest, pain with movement, of the left low back. 09:21 Skin: Positive for hematoma. 09:21 Neuro: Positive for headache. 09:21 All other systems are negative. Exam: 09:21 Constitutional: This is a well developed, well nourished patient who is awake, alert, kb and in no acute distress. ENT: Moist Mucous membranes Cardiovascular: Regular rate and rhythm with a normal S1 and S2. No gallops, murmurs, or rubs. No pulse deficits. Respiratory: Respirations even and unlabored. No increased work of breathing. Talking in full sentences Back: No spinal tenderness. No costovertebral tenderness. Full range of motion. Skin: Warm, dry with normal turgor. Normal color. MS/ Extremity: Pulses equal, no cyanosis. Neurovascular intact. Full, normal range of motion. Neuro: Awake and alert, GCS 15, oriented to person, place, time, and situation. Moves all extremities. Normal gait. 09:21 Head/face: Noted is no obvious of injury or deformity except hematoma, that is moderate, of the left occipital area. Vital Signs: 09:20 BP 162 / 93; Pulse 82; Resp 18; Temp 98.1(O); Pulse Ox 100% ; Weight 53.07 kg; Height 4 eh3 ft. 11 in. ; Pain 8/10; 10:15 BP 142 / 87; Pulse 80; Resp 18; Pulse Ox 100% on R/A; eh3 09:20 Body Mass Index 23.63 (53.07 kg, 149.86 cm) 3 09:20 Pain Scale: Adult eh3 [place] Coma Score: 09:20 Eye Response: spontaneous(4). Motor Response: obeys commands(6). Verbal Response: eh3 oriented(5). Total: 15. Trauma Score (Adult): 09:20 Eye Response: spontaneous(1); Verbal Response: oriented(1); Motor Response: obeys eh3 commands(2); Systolic BP: > 89 mm Hg(4); Respiratory Rate: 10 to 29 per min(4); [place] Score: 15; Trauma Score: 12 MDM: 09:11 Patient medically screened. 09:22 Differential diagnosis: closed head injury, contusion, fracture, hematoma. Data kb reviewed: vital signs, nurses notes. 10:16 Counseling: I had a detailed discussion with the patient and/or guardian regarding: the kb historical points, exam findings, and any diagnostic results supporting the discharge/admit diagnosis, radiology results, the need for outpatient follow up, a family practitioner, to return to the emergency department if symptoms worsen or persist or if there are any questions or concerns that arise at home. 05/27 09:14 Order name: CT Head Brain wo Cont; Complete Time: 10:16 kb 05/27 10:16 Order name: Ice pack; Complete Time: 10:32 kb Administered Medications: 09:31 Drug: HYDROcodone-acetaminophen PO 5 mg-325 mg 1 tabs Route: PO; eh3 10:18 Follow up: Response: No adverse reaction eh3 Disposition: 16:49 Co-signature as Attending Physician, Jeffrey Hardin MD I agree with the assessment and kdr plan of care. Disposition Summary: 05/27/23 10:16 Discharge Ordered Location: Home kb Condition: Stable kb Diagnosis - Unspecified injury of head, initial encounter kb - Fall on same level from slipping, tripping and stumbling without subsequent kb striking against object Followup: kb - With: Emergency Department - When: As needed - Reason: Worsening of condition Followup: kb - With: Private Physician - When: 2 - 3 days - Reason: Recheck today's complaints, Continuance of care, Re-evaluation by your physician Discharge Instructions: - Discharge Summary Sheet kb - Hematoma, [id number] kb - Head Injury, Adult, [id number] kb Forms: - Medication Reconciliation Form kb - Thank You Letter kb - Antibiotic Education kb - Prescription Opioid Use kb - Patient Portal Instructions kb - Leadership Thank You Letter kb Signatures: Dispatcher [employer] EDMS Sumaya Swenson, HOG WORKER-C HOG WORKER-Jeffrey Tamayo MD MD [facility] Marcelina Farr, RN RN eh3
[2023-05-27 10:39] VITALS: TEMP 98.1; O2SAT 100
[2023-05-27 10:40] VITALS: BP 142/87
== END 2023-05-27 10:33 | disposition home or self-care (01) ==
LOC: ER 09:07
DX: S00.83XA Contusion of other part of head, initial encounter (principal); W01.0XXA Fall on same level from slipping, tripping and stumbling without subsequent striking against object, initial encounter; Z88.0 Allergy status to penicillin; Z91.040 Latex allergy status; Z91.048 Other nonmedicinal substance allergy status
CPT/HCPCS: 70450; 99285

== ENCOUNTER → 2023-11-17 | Emergency (ER) | payer OTHER ==
[~2023-11-17] MED LIST: FAMOTIDINE 20 MG/2 ML VIAL IV ONE; INSULIN REGULAR (HUMAN) 100 UNIT/ML ONE; NA CHLORIDE 0.9% 1,000 ML ONE; ONDANSETRON 4 MG/2 ML VIAL ONE
[2023-11-17 10:09] LABS: Absolute Lymphocytes (CBC) 1.9 K/uL (0.7-4.9); Hematocrit 29.3 % (36.0-45.0); Lymphocytes % 20.8 % (15.3-44.8); MCV 88.6 fL (80-100); MPV 8.1 fL (7.6-11.3); Platelets 382 thou/uL (152-406); RBC Red Blood Cell Count 3.31 M/uL (3.86-4.86)
[2023-11-17 10:27] LABS: Albumin 2.9 g/dL (3.4-5.0); Bilirubin Total 0.7 mg/dL (0.2-1.0); Potassium 3.7 mEq/L (3.5-5.1); Protein, Total 8.3 g/dL (6.4-8.2)
--- NOTE | 2023-11-17 11:00 | RAD REPORT ---
EXAM DESCRIPTION: CTAbdomen Pelvis W Contrast - 11/17/2023 10:48 am CLINICAL HISTORY: Abdominal pain. ABD PAIN COMPARISON: Abdomen Pelvis W Contrast dated 11/08/2022; CT ABD PELVIS W CONTRAST dated 05/22/2014 TECHNIQUE: Biphasic CT imaging of the abdomen and pelvis was performed with 100 ml non-ionic IV cont rast. All CT scans are performed using dose optimization technique as appropriate and may include automated exposure control or mA/KV adjustment according to patient size. FINDINGS: The lung bases are clear. The liver, spleen, pancreas, adrenal glands and kidneys are within normal limits. No bowel obstruction, free air, free fluid or abscess. Significant stool is present throughout the c olon. Cholecystectomy clips. No evidence of significant lymphadenopathy. No suspicious bony findings. IMPRESSION: No acute intra-abdominal or pelvic finding. Prominent stool retention throughout the col on.
--- NOTE | 2023-11-17 11:36 | ER ---
Nurse's Notes [facility] Name: Denise Solano Age: 53 yrs Sex: Female : 1970 Arrival Date: 11/17/2023 Time: 09:34 Bed 5 Private MD: Diagnosis: Type 2 diabetes mellitus with hyperglycemia;Anemia, unspecified;Upper abdominal pain, unspecified Presentation: 11/17 09:38 Chief complaint: Patient states: sent here by Dr. Quick for abnormal labs, glucose aa5 744, sodium 123, CRP 190, Hemoglobin 9.5 was reported by . Pt reports epigastric pain. 09:38 Coronavirus screen: At this time, the client does not indicate any symptoms associated aa5 with coronavirus-19. Ebola Screen: Patient denies travel to an Ebola-affected area in the 21 days before illness onset. Initial Sepsis Screen: Does the patient meet any 2 criteria? HR > 90 bpm. Does the patient have a suspected source of infection? No. Patient's initial sepsis screen is negative. Risk Assessment: Do you want to hurt yourself or someone else? Patient reports no desire to harm self or others. Onset of symptoms was November 2023. 09:38 Acuity: FE 3 aa5 09:38 Method Of Arrival: Ambulatory aa5 Historical: - Allergies: 09:38 Latex; aa5 09:38 PENICILLINS; aa5 - PMHx: 09:38 Anxiety; Depression; Diabetes - NIDDM; Gastroesophageal reflux disease; aa5 Hypercholesterolemia; Acid Reflux (Hypercholesterolemia); - PSHx: 09:38 section; hysterectomy; Appendectomy; Cholecystectomy; Left rotator cuff; aa5 - Immunization history:: Adult Immunizations unknown. - Social history:: Smoking status: Patient denies any tobacco usage or history of. Screenin:15 [facility] ED Fall Risk Assessment (Adult) History of falling in the last 3 months, ko1 including since admission No falls in past 3 months (0 pts) Confusion or Disorientation No (0 pts) Intoxicated or Sedated No (0 pts) Impaired Gait No (0 pts) Mobility Assist Device Used No (0 pt) Altered Elimination No (0 pt) Score/Fall Risk Level 0 - 2 = Low Risk Oriented to surroundings, Maintained a safe environment, Educated pt \T\ family on fall prevention, incl call for assistance when getting out of bed, Assessed \T\ reinforced patient's understanding of fall precautions, Provided non-skid footwear, Hourly rounding (assess needs \T\ fall precautionary measures) done, Used ambulatory aids as needed (educated on \T\ assisted with), Used gait belt as appropriate. Abuse screen: Denies threats or abuse. Denies injuries from another. Nutritional screening: No deficits noted. Tuberculosis screening: No symptoms or risk factors identified. Assessment: 09:40 General: Appears in no apparent distress. comfortable, Behavior is calm, cooperative. rs5 Pain: Denies pain. Neuro: Level of Consciousness is awake, alert, obeys commands, Oriented to person, place, time, situation. Cardiovascular: Heart tones S1 S2 present Patient's skin is warm and dry. Rhythm is regular. Respiratory: Airway is patent Respiratory effort is even, unlabored, Respiratory pattern is regular, symmetrical, Breath sounds are clear bilaterally. GI: Abdomen is round non-distended, Bowel sounds present X 4 quads. Abd is soft and non tender X 4 quads. 09:40 : No signs and/or symptoms were reported regarding the genitourinary system. EENT: No rs5 signs and/or symptoms were reported regarding the EENT system. Derm: Skin is intact, Skin is dry, Skin is normal, Skin temperature is warm. Musculoskeletal: Range of motion: intact in all extremities. 10:15 General: Appears in no apparent distress. Pain: Complains of pain in epigastric area. ko1 11:33 Reassessment: Patient and/or family updated on plan of care and expected duration. Pain rs5 level reassessed. Patient is alert, oriented x 3, equal unlabored respirations, skin warm/dry/pink. Vital Signs: 09:38 BP 130 / 93; Pulse 92; Resp 16 S; Temp 99.2(O); Pulse Ox 100% on R/A; Weight 53.52 kg aa5 (R); Height 4 ft. 11 in. (R); 10:17 BP 136 / 84; Pulse 94; Resp 18; Pulse Ox 100% ; ko1 11:25 BP 131 / 86; Pulse 88; Resp 15; Pulse Ox 98% ; ko1 09:38 Body Mass Index 23.83 (53.52 kg, 149.86 cm) aa5 ED Course: 09:36 Patient arrived in ED. im 09:37 Samy Salazar DO is Attending Physician. ms3 09:38 Sivan Resendiz, RN is Primary Nurse. ko1 09:38 Arm band placed on. aa5 09:54 Triage completed. aa5 10:11 Inserted saline lock: 22 gauge in right forearm, using aseptic technique. ko1 10:15 Patient has correct armband on for positive identification. Allergy band placed. Placed ko1 in gown. Bed in low position. Call light in reach. Side rails up X 1. Client placed on continuous cardiac and pulse oximetry monitoring. NIBP monitoring applied. vehicle monitor technician on. Door closed. Noise minimized. Lights dimmed. Warm blanket given. 10:50 CT Abd/Pelvis - IV Contrast Only In Process Unspecified. EDMS 11:33 No provider procedures requiring assistance completed. rs5 11:34 Meek Quick DO is Referral Physician. ms3 12:06 Provided Education on: medication compliance. ko1 12:06 IV discontinued, intact, bleeding controlled, No redness/swelling at site. Pressure ko1 dressing applied. Administered Medications: 10:11 Drug: Famotidine IVP 20 mg IVP once; dilute with 10 mL 0.9% NaCl; give over 2 minutes ko1 Route: IVP; Site: left forearm; 11:49 Follow up: Response: No adverse reaction ko1 10:12 Drug: NS 0.9% IV 1000 ml IV at 1 bolus Per protocol; 1000 mL bolus Route: IV; Rate: 1 ko1 bolus; Site: right forearm; 11:49 Follow up: Response: No adverse reaction; IV Status: Completed infusion; IV Intake: ko1 1000ml 10:12 Drug: Ondansetron IVP 4 mg IVP once; over 2 minutes Route: IVP; Site: right forearm; ko1 11:49 Follow up: Response: No adverse reaction ko1 11:20 Drug: Insulin Regular Human Sub-Q 10 units Sub-Q once {Co-Signature: rs5 (Zi Varela RN).} Route: Sub-Q; Site: abdomen; Medication: 12:06 VIS not applicable for this client. ko1 Intake: 11:49 IV: 1000ml; Total: 1000ml. ko1 Outcome: 11:36 Discharge ordered by . ms3 12:21 Discharged to home ambulatory, with family, ko1 12:21 Condition: stable 12:21 Discharge instructions given to patient, family, Instructed on discharge instructions, follow up and referral plans. medication usage, Demonstrated understanding of instructions, follow-up care, 12:23 Patient left the ED. ko1 Signatures: Dispatcher [employer] EDMS Zita Cason RN RN aa5 Samy Salazar DO DO ms3 Sivan Resendiz RN RN ko1 Zi Varela RN RN rs5 Awilda Guzman Ricky RN rs5
--- NOTE | 2023-11-17 11:36 | EDPHYS ---
Physician Documentation [facility] Name: Denise Solano Age: 53 yrs Sex: Female : 1970 Arrival Date: 11/17/2023 Time: 09:34 Bed 5 Private MD: ED Physician Samy Salazar HPI: 11/17 09:47 This 53 yrs old Female presents to ER via Unassigned with complaints of ms3 Abnormal Lab Results, sent by . 09:47 33-year-old female presents to the emergency department under the direction of . ms3 Presents for abnormal labs that were drawn yesterday. Patient states "everything is out of whack." Patient also notes she has abdominal pain located in the epigastric region that she rates a 5/10. Patient denies nausea, vomiting, diarrhea. Patient denies any alleviating or inciting factors.. Historical: - Allergies: 09:38 Latex; aa5 09:38 PENICILLINS; aa5 - PMHx: 09:38 Anxiety; Depression; Diabetes - NIDDM; Gastroesophageal reflux disease; aa5 Hypercholesterolemia; Acid Reflux (Hypercholesterolemia); - PSHx: 09:38 section; hysterectomy; Appendectomy; Cholecystectomy; Left rotator cuff; aa5 - Immunization history:: Adult Immunizations unknown. - Social history:: Smoking status: Patient denies any tobacco usage or history of. ROS: 09:47 Constitutional: Negative for fever, and chills. Neck: Negative for injury, pain, and ms3 swelling, Cardiovascular: Negative for chest pain, and palpitations. Respiratory: Negative for shortness of breath, cough, wheezing, and pleuritic chest pain, 09:47 Abdomen/GI: Positive for abdominal pain, Negative for nausea, vomiting, and diarrhea, 09:47 All other systems are negative, Exam: 09:47 Constitutional: This is a well developed, well nourished patient who is awake, alert, ms3 and in no acute distress. Head/Face: Normocephalic, atraumatic. Neck: Trachea midline, no cervical lymphadenopathy. Supple, full range of motion without nuchal rigidity, or vertebral point tenderness. No Meningismus. Chest/axilla: Normal chest wall appearance and motion. Nontender with no deformity. Cardiovascular: Regular rate and rhythm with a normal S1 and S2. No gallops, murmurs, or rubs. Normal PMI, no JVD. No pulse deficits. Respiratory: Lungs have equal breath sounds bilaterally, clear to auscultation and percussion. No rales, rhonchi or wheezes noted. No increased work of breathing, no retractions or nasal flaring. 09:47 Skin: Warm, dry with normal turgor. Normal color with no rashes, no lesions, and no evidence of cellulitis. MS/ Extremity: Pulses equal, no cyanosis. Neurovascular intact. Full, normal range of motion. Neuro: Awake and alert, GCS 15, oriented to person, place, time, and situation. Cranial nerves II-XII grossly intact. Motor strength 5/5 in all extremities. Sensory grossly intact. Cerebellar exam normal. Normal gait. 09:47 Abdomen/GI: Inspection: abdomen appears normal, Bowel sounds: normal, Palpation: moderate abdominal tenderness, in the epigastric area, Vital Signs: 09:38 BP 130 / 93; Pulse 92; Resp 16 S; Temp 99.2(O); Pulse Ox 100% on R/A; Weight 53.52 kg aa5 (R); Height 4 ft. 11 in. (R); 10:17 BP 136 / 84; Pulse 94; Resp 18; Pulse Ox 100% ; ko1 11:25 BP 131 / 86; Pulse 88; Resp 15; Pulse Ox 98% ; ko1 09:38 Body Mass Index 23.83 (53.52 kg, 149.86 cm) aa5 MDM: 09:44 Patient medically screened. ms3 09:47 Differential diagnosis: non-specific abd pain, pancreatitis, Diabetic ketoacidosis. ms3 11:37 Management of patient was discussed with the following: Primary Care Provider: Dr roro Quick- Will follow up patient in 1 week for adjustment of insulin. 12:10 Data reviewed: vital signs, nurses notes, lab test result(s), radiologic studies, and ms3 as a result, I will admit patient. I considered the following discharge prescriptions or medication management in the emergency department Medications were administered in the Emergency Department. See MAR. Care significantly affected by the following chronic conditions: Diabetes, HLD. Counseling: I had a detailed discussion with the patient and/or guardian regarding the historical points, exam findings, and any diagnostic results supporting the discharge/admit diagnosis, lab results, radiology results, the need for outpatient follow up, to return to the emergency department if symptoms worsen or persist or if there are any questions or concerns that arise at home. Special discussion: I discussed with the patient/guardian in detail that at this point there is no indication for admission to the hospital. It is understood, however, that if the symptoms persist or worsen the patient needs to return immediately for re-evaluation. ED course: Discussed labs, CT findings with patient. Patient to follow-up with Dr. Quick in 1 week. Patient understands and agrees with plan. All questions were answered. Return precautions discussed include worsening symptoms, or any other concerns. On reevaluation patient symptoms improved, patient is alert oriented x 4, no apparent distress, nontoxic-appearing, speaking full sentences. 11/17 09:45 Order name: CBC with Diff; Complete Time: 10:42 ms3 11/17 09:45 Order name: CMP; Complete Time: 10:42 ms3 11/17 09:45 Order name: Lipase; Complete Time: 10:42 ms3 11/17 12:22 Order name: Glucose, Ancillary Testing EDMS 11/17 09:45 Order name: CT Abd/Pelvis - IV Contrast Only; Complete Time: 11:12 ms3 11/17 09:45 Order name: IV Saline Lock; Complete Time: 10:11 ms3 11/17 09:45 Order name: Labs collected and sent; Complete Time: 10:11 ms3 Administered Medications: 10:11 Drug: Famotidine IVP 20 mg IVP once; dilute with 10 mL 0.9% NaCl; give over 2 minutes ko1 Route: IVP; Site: left forearm; 11:49 Follow up: Response: No adverse reaction ko1 10:12 Drug: NS 0.9% IV 1000 ml IV at 1 bolus Per protocol; 1000 mL bolus Route: IV; Rate: 1 ko1 bolus; Site: right forearm; 11:49 Follow up: Response: No adverse reaction; IV Status: Completed infusion; IV Intake: ko1 1000ml 10:12 Drug: Ondansetron IVP 4 mg IVP once; over 2 minutes Route: IVP; Site: right forearm; ko1 11:49 Follow up: Response: No adverse reaction ko1 11:20 Drug: Insulin Regular Human Sub-Q 10 units Sub-Q once {Co-Signature: rs5 (Zi Varela RN).} Route: Sub-Q; Site: abdomen; Disposition Summary: 11/17/23 11:36 Discharge Ordered Notes: Location: Home ms3 Condition: Stable ms3 Diagnosis - Type 2 diabetes mellitus with hyperglycemia ms3 - Anemia, unspecified ms3 - Upper abdominal pain, unspecified ms3 Followup: ms3 - With: Meek Quick DO - When: 1 week - Reason: Recheck today's complaints Discharge Instructions: - Discharge Summary Sheet ms3 - Abdominal Pain, Adult ms3 - Anemia ms3 - Hyperglycemia ms3 Forms: - Medication Reconciliation Form ms3 - Thank You Letter ms3 - Antibiotic Education ms3 - Prescription Opioid Use ms3 - Patient Portal Instructions ms3 - Leadership Thank You Letter ms3 Signatures: Dispatcher [employer] Zita Briceño, RN RN aa5 Samy Salazar DO DO ms3 Sivan Resendiz RN RN ko1 Zi Varela RN rs5
[2023-11-17 12:37] VITALS: BP 131/86; TEMP 99.2; O2SAT 98
== END ==
LOC: ER 09:34
DX: E11.65 Type 2 diabetes mellitus with hyperglycemia (principal); D64.9 Anemia, unspecified; R10.13 Epigastric pain; Z88.0 Allergy status to penicillin; Z91.040 Latex allergy status
CPT/HCPCS: 85025; 36415; 82947; 83690; 80053; 74177; Q9967; J1815; J2405; J7030

== ENCOUNTER 2024-04-12 00:05 | Emergency (ER) | payer OTHER ==
[2024-04-12] MEDS ORDERED: ONDANSETRON 4 MG/2 ML VIAL ONE (01:00)
[2024-04-12] MEDS ORDERED: MORPHINE 4 MG/ML SYR ONE (01:01)
[2024-04-12] MEDS ORDERED: NA CHLORIDE 0.9% 1,000 ML ONE (01:01)
[2024-04-12 01:14] LABS: Absolute Eosinophils 0.3 K/uL (0-0.5); Absolute Lymphocytes (CBC) 2.6 K/uL (0.7-4.9); Absolute Monocytes 0.8 K/uL (0.1-1.3); Absolute Neutrophil 9.3 K/uL (1.8-8.0); Basophils % 0.3 % (0-1.3); Eosinophils % 2.2 % (0-4.4); Hematocrit 30.9 % (36.0-45.0); Hemoglobin 10.5 g/dL (12.0-15.0); Lymphocytes % 19.8 % (15.3-44.8); MCH 29.7 pg (27.0-35.0); MCV 87.4 fL (80-100); MPV 7.7 fL (7.6-11.3); Neutrophils % 71.7 % (41.7-73.7); Nucleated Red Blood Cells % 0.1 % (0-0); Platelets 334 thou/uL (152-406); RBC Red Blood Cell Count 3.53 M/uL (3.86-4.86); Red Cell Distribution Width 13.1 % (12.1-15.2)
[2024-04-12 01:26] LABS: Albumin 3.5 g/dL (3.4-5.0); Albumin/Globulin Ratio 0.9 (1.1-1.8); Anion Gap 6.7 mEq/L (5.0-15.0); Globulin 3.9 g/dL (2.3-3.5); Potassium 3.7 mEq/L (3.5-5.1); Protein, Total 7.4 g/dL (6.4-8.2)
[2024-04-12 02:45] LABS: Sqamous Epithelial <5 /HPF (None Seen); Urine Bacteria 20-50 /HPF (<20); Urine Bilirubin NEGATIVE (Negative); Urine Blood 2+ (Negative); Urine Clarity Extremely Turbid (Clear); Urine Color Light-Yellow (Yellow); Urine Culture Reflex Order REFLEXED; Urine Glucose 3+ (Negative); Urine Ketones NEGATIVE (Negative); Urine Micro Reflex YN NO BILL MICROSCOPIC; Urine Mucus Slight /HPF (None Seen); Urine Nitrite 1+ (Negative); Urine Protein TRACE (Negative); Urine RBC >50 /HPF (None Seen); Urine Urobilinogen Normal (Normal); Urine WBC >50 /HPF (<5); Urine WBC Clump Few /HPF (None Seen); Urine Yeast (Budding) Occasional /HPF (None Seen); Urine pH 6.5 (5.0-7.0)
[2024-04-12] MEDS ORDERED: NA CHLORIDE 0.9% 50 ML ONE (03:29)
[2024-04-12] MEDS ORDERED: CEFTRIAXONE 1000 MG/VIAL ONE (03:29)
--- NOTE | 2024-04-12 04:13 | ER ---
Nurse's Notes [facility] Name: Denise Solano Age: 53 yrs Sex: Female : 1970 Arrival Date: 04/12/2024 Time: 00:05 Bed 15 Private MD: Meek Quick Diagnosis: UTI/ Urinary tract infection, site not specified;Lower abdominal pain, unspecified;Nausea Presentation: 04/12 00:37 Chief complaint: Patient states: I have trouble with constipation but tonight the pain vc1 is just too bad. Coronavirus screen: Vaccine status: Patient reports being unvaccinated. Client denies travel out of the [place] in the last 14 days. At this time, the client does not indicate any symptoms associated with coronavirus-19. Ebola Screen: Patient negative for fever greater than or equal to 101.5 degrees Fahrenheit, and additional compatible Ebola Virus Disease symptoms Patient denies exposure to infectious person. Patient denies travel to an Ebola-affected area in the 21 days before illness onset. No symptoms or risks identified at this time. Initial Sepsis Screen: Does the patient meet any 2 criteria? No. Patient's initial sepsis screen is negative. Does the patient have a suspected source of infection? No. Patient's initial sepsis screen is negative. Risk Assessment: Do you want to hurt yourself or someone else? Patient reports no desire to harm self or others. Note Referred to Dr. Harding by Dr. Lawson. Onset of symptoms is unknown. 00:37 Method Of Arrival: Ambulatory vc1 00:37 Acuity: EF 3 vc1 Triage Assessment: 00:40 General: Appears in no apparent distress. uncomfortable, slender, Behavior is calm, vc1 cooperative, appropriate for age. Pain: Complains of pain in right upper quadrant and anus Pain does not radiate. Pain currently is 6 out of 10 on a pain scale. Neuro: Level of Consciousness is awake, alert, obeys commands, Oriented to person, place, time, situation, Appropriate for age. Cardiovascular: No deficits noted. Respiratory: Airway is patent Respiratory effort is even, unlabored, Respiratory pattern is regular, symmetrical, Breath sounds are clear bilaterally. GI: Abdomen is round non-distended, Bowel sounds present X 4 quads. Abd is soft Abdomen is tender to palpation in right upper quadrant and right lower quadrant Reports upper abdominal pain, constipation. 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 Flu vaccine is not up to date. - Infectious Disease History:: Denies. - Social history:: Smoking status: Patient denies any tobacco usage or history of. Screenin:40 [facility] ED Fall Risk Assessment (Adult) History of falling in the last 3 months, pc2 including since admission No falls in past 3 months (0 pts) Confusion or Disorientation No (0 pts) Intoxicated or Sedated No (0 pts) Impaired Gait No (0 pts) Mobility Assist Device Used No (0 pt) Altered Elimination Score/Fall Risk Level 0 - 2 = Low Risk Hourly rounding (assess needs \T\ fall precautionary measures) done. Abuse screen: Denies threats or abuse. Denies injuries from another. Nutritional screening: No deficits noted. Tuberculosis screening: No symptoms or risk factors identified. Assessment: 00:48 General: Appears in no apparent distress. uncomfortable, Behavior is calm, cooperative, pc2 appropriate for age. 00:48 Pain: Complains of pain in abdomen and right lower quadrant Pain currently is 6 out of pc2 10 on a pain scale. Quality of pain is described as stabbing, Noted to be grimacing, guarding, Also complains of decreased appetite. Neuro: Level of Consciousness is awake, alert, obeys commands, Oriented to person, place, time, situation. Cardiovascular: Patient's skin is warm and dry. Rhythm is sinus tachycardia Chest pain is denied. Respiratory: Airway is patent Respiratory effort is even, unlabored, Respiratory pattern is regular. GI: Abdomen is round non-distended, Stools are reported to be constipated. Episodes of diarrhea following the constipation. 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 Bowel sounds present X 4 quads. Reports lower abdominal pain, bloating, constipation, diarrhea, flatulence, nausea. : No signs and/or symptoms were reported regarding the genitourinary system. EENT: No signs and/or symptoms were reported regarding the EENT system. Derm: No signs and/or symptoms reported regarding the dermatologic system. Musculoskeletal: No signs and/or symptoms reported regarding the musculoskeletal system. 01:40 Reassessment: Patient and/or family updated on plan of care and expected duration. Pain pc2 level reassessed. Pt experienced episode of vomiting, brown, undigested food particles.. 02:50 Reassessment: Patient appears in no apparent distress at this time. Patient and/or pc2 family updated on plan of care and expected duration. Pain level reassessed. 04:28 Reassessment: Patient states symptoms have improved. pc2 Vital Signs: 00:37 BP 171 / 93; Pulse 109; Resp 16; Temp 98; Pulse Ox 99% ; Weight 61.23 kg; Height 4 ft. vc1 11 in. ; Pain 6/10; 01:32 BP 154 / 94; Pulse 108; Resp 18; Pulse Ox 97% on R/A; pc2 02:34 BP 136 / 72; Pulse 102; Resp 18; Pulse Ox 98% ; pc2 03:22 BP 149 / 74; Pulse 111; Resp 18; Temp 100.1; Pulse Ox 96% ; pc2 04:29 BP 137 / 82; Pulse 110; Resp 16; Temp 100(O); Pulse Ox 98% on R/A; pc2 00:37 Body Mass Index 27.27 (61.23 kg, 149.86 cm) vc1 00:37 Pain Scale: Adult vc1 ED Course: 00:08 Patient arrived in ED. gm2 00:08 Meek Quick DO is Private Physician. gm2 00:35 Caridad ribeiro, RN is Primary Nurse. pc2 00:37 Loco Johnson PA is PHCP. cp 00:37 Loco Ramos MD is Attending Physician. cp 00:39 Triage completed. vc1 00:40 Arm band placed on right wrist. vc1 00:41 Patient has correct armband on for positive identification. Bed in low position. Call pc2 light in reach. Side rails up X 1. Provided Education on: POC and timeframe. 00:58 Inserted saline lock: 20 gauge in right forearm, using aseptic technique. Blood pc2 collected. 01:49 CT Abd/Pelvis - IV Contrast Only In Process Unspecified. EDMS 02:26 Urinalysis W/Microscopic Sent. pc2 03:14 Bladder scan completed. Pre void: 696 ml. pc2 03:21 Bladder scan completed. Post void: 318ml. pc2 04:14 No provider procedures requiring assistance completed. IV discontinued, intact, pc2 bleeding controlled, No redness/swelling at site. Pressure dressing applied. Administered Medications: 01:00 Drug: NS 0.9% IV 1000 ml IV at 999 ml/hr Per protocol Route: IV; Rate: 999 ml/hr; Site: pc2 right forearm; 01:56 Follow up: Response: No adverse reaction; IV Status: Completed infusion; IV Intake: pc2 1000ml 01:01 Drug: Ondansetron IVP 4 mg IVP once; over 2 minutes Route: IVP; Site: right forearm; pc2 01:56 Follow up: Response: No adverse reaction; RASS: Alert and Calm (0) pc2 01:02 Drug: morphine IVP or IV 4 mg IVP once over 4 mins Route: IVP; Infused Over: 4 mins; pc2 Site: right forearm; 01:57 Follow up: Response: No adverse reaction; RASS: Alert and Calm (0) pc2 03:33 Drug: Rocephin IV 1 grams IV at calculated rate once; Given slow IV push per pharmacy bm8 instructions Route: IV; Rate: calculated rate; Site: right antecubital; 04:04 Follow up: Response: No adverse reaction; IV Status: Completed infusion pc2 Medication: 00:41 VIS not applicable for this client. pc2 Intake: 01:56 IV: 1000ml; Total: 1000ml. pc2 Outcome: 04:13 Discharge ordered by . cp 04:14 Discharged to home ambulatory, with family, pc2 04:14 Condition: stable 04:14 Discharge instructions given to patient, Instructed on discharge instructions, follow up and referral plans. Demonstrated understanding of instructions, follow-up care, 04:30 Patient left the ED. pc2 Addendum: 04/15/2024 10:51 Addendum: Culture Results: Positive urine culture. Bacteria is resistant to, has a a5 intermediate sensitivity, or is not tested against prescribed antibiotics. Report given to TARI for further evaluation and then to recruiter specialist for follow up with patient. Signatures: Dispatcher [employer] EDNE Zita Cason RN RN aa5 Loco Johnson PA PA cp Calcote, Vanessa, RN RN vc1 Selina Holguin gm2 Michael Hatfield, RN RN bm8 Caridad Ribeiro, RN RN pc2 Corrections: (The following items were deleted from the chart) 04/12 01:11 00:58 Inserted saline lock: 20 gauge in right antecubital area, using aseptic pc2 technique. Blood collected. pc2
--- NOTE | 2024-04-12 04:13 | EDPHYS ---
Physician Documentation [facility] Name: Denise Solano Age: 53 yrs Sex: Female : 1970 Arrival Date: 04/12/2024 Time: 00:05 Bed 15 Private MD: Meek Quick ED Physician Loco Ramos HPI: 04/12 00:50 This 53 yrs old Female presents to ER via Ambulatory with complaints of cp Abdominal Pain. 00:50 The patient presents with abdominal pain right side of abdomen. cp 00:50 Onset: The symptoms/episode began/occurred 3 day(s) ago, and became worse today. The cp symptoms radiate to 00:50 Associated signs and symptoms: Pertinent positives: constipation, nausea, Pertinent cp negatives: fever. 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 Flu vaccine is not up to date. - Infectious Disease History:: Denies. - Social history:: Smoking status: Patient denies any tobacco usage or history of. ROS: 00:55 Constitutional: Negative for body aches, chills, fever, poor PO intake, cp 00:55 Eyes: Negative for injury, pain, redness, and discharge, cp 00:55 ENT: Negative for drainage from ear(s), ear pain, sore throat, difficulty swallowing, difficulty handling secretions, 00:55 Cardiovascular: Negative for chest pain, 00:55 Respiratory: Negative for cough, shortness of breath, wheezing, 00:55 Abdomen/GI: Positive for abdominal pain, nausea, loose stools, Negative for vomiting, constipation, 00:55 Neuro: Negative for altered mental status, 00:55 All other systems are negative, Exam: 01:00 Constitutional: The patient appears in no acute distress, alert, awake, cp non-diaphoretic, non-toxic, well developed, well nourished, uncomfortable, 01:00 Head/Face: Normocephalic, atraumatic. cp 01:00 Eyes: Periorbital structures: appear normal, Conjunctiva: normal, no exudate, no injection, Sclera: no appreciated abnormality, Lids and lashes: appear normal, bilaterally, 01:00 ENT: External ear(s): are unremarkable, Nose: is normal, Mouth: Lips: moist, Oral mucosa: moist, Posterior pharynx: Airway: no evidence of obstruction, patent, 01:00 Chest/axilla: Inspection: normal, 01:00 Cardiovascular: Rate: tachycardic, Rhythm: regular, JVD: is not appreciated, 01:00 Respiratory: the patient does not display signs of respiratory distress, Respirations: normal, no use of accessory muscles, no retractions, labored breathing, is not present, Breath sounds: are clear throughout, no decreased breath sounds, no stridor, no wheezing, 01:00 Abdomen/GI: Inspection: abdomen appears normal, Bowel sounds: active, all quadrants, Palpation: soft, in all quadrants, moderate abdominal tenderness, in the anterior aspect of right lateral abdomen, right upper quadrant and right lower quadrant, rebound tenderness, is not appreciated, involuntary guarding, is not appreciated, 01:00 Neuro: Orientation: to person, place \T\ time. Mentation: is normal, Motor: moves all fours, strength is normal, Vital Signs: 00:37 BP 171 / 93; Pulse 109; Resp 16; Temp 98; Pulse Ox 99% ; Weight 61.23 kg; Height 4 ft. vc1 11 in. ; Pain 6/10; 01:32 BP 154 / 94; Pulse 108; Resp 18; Pulse Ox 97% on R/A; pc2 02:34 BP 136 / 72; Pulse 102; Resp 18; Pulse Ox 98% ; pc2 03:22 BP 149 / 74; Pulse 111; Resp 18; Temp 100.1; Pulse Ox 96% ; pc2 04:29 BP 137 / 82; Pulse 110; Resp 16; Temp 100(O); Pulse Ox 98% on R/A; pc2 00:37 Body Mass Index 27.27 (61.23 kg, 149.86 cm) vc1 00:37 Pain Scale: Adult vc1 MDM: 00:37 Patient medically screened. cp 04:12 Data reviewed: vital signs, nurses notes, lab test result(s), radiologic studies, CT cp scan. 04:12 Differential diagnosis: diverticulitis, gastritis, non-specific abd pain, pancreatitis, cp Pyelonephritis, Ureterolithiasis, urinary tract infection, colitis. Consideration of Admission/Observation Escalation of care including admission/observation considered. I considered the following discharge prescriptions or medication management in the emergency department Medications were administered in the Emergency Department. See MAR. Counseling: I had a detailed discussion with the patient and/or guardian regarding the historical points, exam findings, and any diagnostic results supporting the discharge/admit diagnosis, lab results, radiology results, to return to the emergency department if symptoms worsen or persist or if there are any questions or concerns that arise at home. Response to treatment: the patient's symptoms have markedly improved after treatment, and as a result, I will discharge patient. 04/12 00:47 Order name: CBC with Diff; Complete Time: 01:30 04/12 01:30 Interpretation: Normal except: WBC 13.00; RBC 3.53; HGB 10.5; HCT 30.9; NEUT A 9.3. 04/12 00:47 Order name: CMP; Complete Time: 01:30 04/12 01:30 Interpretation: Normal except: CL 109; GLUC 284; GFR 70; GLOB 3.9; A/G 0.9. 04/12 00:47 Order name: Lipase; Complete Time: 01:30 04/12 01:30 Interpretation: Reviewed. 04/12 00:55 Order name: Urinalysis W/Microscopic; Complete Time: 03:20 04/12 03:20 Interpretation: Reviewed. 04/12 02:58 Order name: Urine Culture EDWY 04/12 00:55 Order name: CT Abd/Pelvis - IV Contrast Only 04/12 00:47 Order name: IV Saline Lock; Complete Time: 00:57 04/12 00:47 Order name: Labs collected and sent; Complete Time: 00:57 04/12 02:35 Order name: Bladder Scanner: pre and post void; Complete Time: 03:15 cp Administered Medications: 01:00 Drug: NS 0.9% IV 1000 ml IV at 999 ml/hr Per protocol Route: IV; Rate: 999 ml/hr; Site: pc2 right forearm; 01:56 Follow up: Response: No adverse reaction; IV Status: Completed infusion; IV Intake: pc2 1000ml 01:01 Drug: Ondansetron IVP 4 mg IVP once; over 2 minutes Route: IVP; Site: right forearm; pc2 01:56 Follow up: Response: No adverse reaction; RASS: Alert and Calm (0) pc2 01:02 Drug: morphine IVP or IV 4 mg IVP once over 4 mins Route: IVP; Infused Over: 4 mins; pc2 Site: right forearm; 01:57 Follow up: Response: No adverse reaction; RASS: Alert and Calm (0) pc2 03:33 Drug: Rocephin IV 1 grams IV at calculated rate once; Given slow IV push per pharmacy bm8 instructions Route: IV; Rate: calculated rate; Site: right antecubital; 04:04 Follow up: Response: No adverse reaction; IV Status: Completed infusion pc2 Disposition Summary: 04/12/24 04:13 Discharge Ordered Notes: Location: Home cp Problem: new cp Symptoms: have improved cp Condition: Stable cp Diagnosis - UTI/ Urinary tract infection, site not specified cp - Lower abdominal pain, unspecified cp - Nausea cp Followup: cp - With: Private Physician - When: 2 - 3 days - Reason: Recheck today's complaints Discharge Instructions: - Discharge Summary Sheet cp - Abdominal Pain, Adult cp - Nausea, Adult cp - Urinary Tract Infection, Adult cp - Form - Return To Work pc2 Forms: - Medication Reconciliation Form cp - Antibiotic Education cp - Prescription Opioid Use cp - Patient Portal Instructions cp - Leadership Thank You Letter cp Prescriptions: - Ibuprofen 800 mg Oral Tablet - take 1 tablet ORAL route every 8 hours As needed take with food; 30 tablet; cp Refills: 0, Product Selection Permitted - Zofran 4 mg Oral Tablet - take 1 tablet ORAL route every 12 hours As needed; 20 tablet; Refills: 0, cp Product Selection Permitted - cefpodoxime 200 mg Oral tablet - take 1 tablet ORAL route every 12 hours for 7 days with food; 14 tablet; cp Refills: 0, Product Selection Permitted Signatures: Dispatcher [employer] EDMS Loco Johnson PA PA cp Calcote, Vanessa RN RN vc1 Michael Hatfield RN RN bm8 Caridad Couch, RN RN pc2 Corrections: (The following items were deleted from the chart) 00:56 00:56 Abdomen Pelvis W Con+CT.RAD.BRZ ordered. EDMS EDMS 04/13 01:12 04/12 00:50 The patient presents with abdominal pain in the lower abdomen, cp cp
[2024-04-12 04:42] VITALS: BP 137/82; TEMP 100; O2SAT 98
--- NOTE | 2024-04-14 10:44 | RAD REPORT ---
EXAM DESCRIPTION: CT - Abdomen Pelvis W Contrast - 04/12/2024 7:08 am CLINICAL HISTORY: Lower abdomen pain COMPARISON: 11/17/2023. TECHNIQUE: CT ABDOMEN PELVIS WITH IV CONTRAST on 04/12/2024 12:55 AM CDT This exam was performed according to our departmental dose-optimization program, which includes autom ated exposure control, adjustment of the mA and/or kV according to patient size and/or use of iterati ve reconstruction technique. FINDINGS: Lower lungs are clear. Abdomen: The liver is normal in appearance. There is minimal intra and extrahepatic biliary dilatatio n with no clear etiology. Gallbladder is normal in appearance. The pancreas and spleen are normal in appearance. Adrenal glands are normal. There is a 2 mm mid pole left renal calculus without hydroneph rosis. There is mild right hydronephrosis. Abdominal aorta is normal in course and caliber without aneurysm. There is no free air. There is no r etroperitoneal adenopathy. Pelvis: There is no bowel obstruction. Urinary bladder is mildly distended. There is small amount of air in the urinary bladder. There are multiple phleboliths in the deep pelvis. There are no convincin g ureteral calculi. There is no free fluid. Skeleton: There are no acute osseous findings. No suspicious bony lesions. IMPRESSION: Left nephrolithiasis with mild right hydronephrosis. No clear etiology. No obstructing l esion. Electronically signed by: Jose Roberto Llamas MD 04/12/2024 02:22 AM CDT Due to temporary technical issues with the PACS/Fluency reporting system, reports are being signed by the in house radiologist without review as a courtesy to ensure prompt reporting. The interpreting r adiologist is fully responsible for the content of the report.
== END 2024-04-12 04:30 | disposition home or self-care (01) ==
LOC: ER 00:05
DX: N39.0 Urinary tract infection, site not specified (principal); R11.0 Nausea; Z88.0 Allergy status to penicillin; Z91.040 Latex allergy status
CPT/HCPCS: 96365; 96361; 87088; 85025; 81001; 87086; 36415; 83690; 80053; 74177; 96375; 99284; Q9967; J2405; J7030; J0696; 87077; 87186

== ENCOUNTER 2024-08-10 11:01 | Emergency (ER) | payer OTHER ==
--- NOTE | 2024-08-10 11:55 | RAD REPORT ---
EXAMINATION: ONE VIEW CHEST XR CLINICAL INDICATION: Female, 53 years old.,BLUNT CHEST TRAUMA TECHNIQUE: Frontal chest projection is submitted. Examination is limited by patient positioning and t echnique. COMPARISON: 03/28/2011 FINDINGS: The lungs are well inflated and clear. No pneumothorax or sizable effusion. The heart is normal in s ize. IMPRESSION: No acute intrathoracic abnormalities.
--- NOTE | 2024-08-10 12:09 | EDPHYS ---
Physician Documentation [facility] Name: Denise Solano Age: 53 yrs Sex: Female : 1970 Arrival Date: 08/10/2024 Time: 11:01 Bed 7 Private MD: ED Physician Loco Ramos HPI: 08/10 11:12 This 53 yrs old Female presents to ER via Unassigned with complaints of Fall kb Injury - x1wk ago, Breathing Difficulty - Breast area pain. 11:12 PT is a 53 year old female who presents for pain across front of chest that started one kb week ago after a fall in the bathtub. States she hit her chest on the side of the tub and has had pain ever since. Reports pain aggravated by breathing, moving and coughing. denies shortness of breath. States she came in now because she expected it to be better by now, but it's not. . Historical: - Allergies: 11:16 PENICILLINS; ss - PMHx: 11:16 acid reflux (Hypercholesterolemi); Anxiety; Depression; Diabetes - NIDDM; ss Gastroesophageal reflux disease; Hypercholesterolemia; - PSHx: 11:16 Appendectomy; section; Cholecystectomy; hysterectomy; Left Rotator Cuff; ss - Immunization history:: Client reports having NOT received the Covid vaccine. - Infectious Disease History:: Denies. - Social history:: Smoking status: Patient denies any tobacco usage or history of. ROS: 11:14 Constitutional: As per HPI kb Exam: 11:14 Constitutional: This is a well developed, well nourished patient who is awake, alert, kb and in no acute distress. Head/Face: Normocephalic, atraumatic. ENT: Moist Mucous membranes Cardiovascular: Regular rate Respiratory: Respirations even and unlabored. No increased work of breathing. Talking in full sentences Abdomen/GI: Soft, non-tender. No distention Skin: Warm, dry with normal turgor. Normal color. MS/ Extremity: Pulses equal, no cyanosis. Neurovascular intact. Full, normal range of motion. Neuro: Awake and alert, GCS 15, oriented to person, place, time, and situation. 12:10 Chest/axilla: Inspection: normal, Palpation: tenderness, that is mild, of the anterior kb aspect of right upper chest and anterior aspect of left upper chest, that totally reproduces the patient's complaints, Vital Signs: 11:15 BP 139 / 90; Pulse 86; Resp 16; Temp 98.6(TE); Pulse Ox 100% on R/A; Weight 63.5 kg; ss Height 4 ft. 11 in. ; Pain 5/10; 11:15 Body Mass Index 28.28 (63.50 kg, 149.86 cm) ss 11:15 Pain Scale: Adult ss MDM: 11:06 Medical Screening Exam initiated kb 12:08 Data reviewed: vital signs, nurses notes. kb 12:10 Differential diagnosis: fracture, strain, contusion, pneumothorax. Test considered but kb Not performed: CT: ct chest considered but pt is in no distress, mild tenderness upon palpation. results would not change plan of care. Counseling: I had a detailed discussion with the patient and/or guardian regarding the historical points, exam findings, and any diagnostic results supporting the discharge/admit diagnosis, radiology results, the need for outpatient follow up, a family practitioner, to return to the emergency department if symptoms worsen or persist or if there are any questions or concerns that arise at home. 08/10 11:14 Order name: Chest Single View XRAY; Complete Time: 11:58 kb Administered Medications: 12:08 CANCELLED (Duplicate Order): [id number] mg PO once kb 12:14 Drug: HYDROcodone-acetaminophen PO 5 mg-325 mg 1 tabs PO once Route: PO; bp 12:14 Follow up: Response: No adverse reaction bp 12:14 Drug: Ketorolac IM 30 mg IM once Route: IM; Site: right deltoid; bp 12:15 Follow up: Response: No adverse reaction bp Disposition Summary: 08/10/24 12:08 Discharge Ordered Notes: Location: Home kb Condition: Stable kb Diagnosis - Chest pain on breathing kb Followup: kb - With: Emergency Department - When: As needed - Reason: Worsening of condition Followup: kb - With: Private Physician - When: 2 - 3 days - Reason: Recheck today's complaints, Continuance of care, Re-evaluation by your physician Discharge Instructions: - Discharge Summary Sheet kb - Chest Wall Pain, [id number] kb Forms: - Medication Reconciliation Form kb - Antibiotic Education kb - Prescription Opioid Use kb - Patient Portal Instructions kb - Leadership Thank You Letter kb Prescriptions: - Diclofenac Sodium 75 mg Oral tablet, delayed release (enteric coated) - take 1 tablet ORAL route 2 times per day As needed; 30 tablet; Refills: 0, kb Product Selection Permitted - orphenadrine citrate 100 mg Oral Tablet Sustained Release - take 1 tablet ORAL route 2 times per day As needed; 20 tablet; Refills: 0, kb Product Selection Permitted Signatures: Dispatcher [employer] Sumaya Manuel FNP-C FNP-Ckb Blanchard, Shelby, RN RN ss Joshua Valentino RN RN bp Corrections: (The following items were deleted from the chart) 12:08 12:08 Cyclobenzaprine PO 10 mg PO once ordered. kb kb
--- NOTE | 2024-08-10 12:09 | ER ---
Nurse's Notes [facility] Name: Denise Solano Age: 53 yrs Sex: Female : 1970 Arrival Date: 08/10/2024 Time: 11:01 Bed 7 Private MD: Diagnosis: Chest pain on breathing Presentation: 08/10 11:15 Chief complaint: Patient states: chest discomfort that began a week ago after falling ss in bathtub. Coronavirus screen: Client denies travel out of the [place] in the last 14 days. Ebola Screen: Patient denies exposure to infectious person. Patient denies travel to an Ebola-affected area in the 21 days before illness onset. Initial Sepsis Screen: Does the patient meet any 2 criteria? No. Patient's initial sepsis screen is negative. Does the patient have a suspected source of infection? No. Patient's initial sepsis screen is negative. Risk Assessment: Do you want to hurt yourself or someone else? Patient reports no desire to harm self or others. Onset of symptoms was August 03, 2024. 11:15 Method Of Arrival: Ambulatory ss 11:15 Acuity: FE 4 ss Triage Assessment: 11:15 General: Appears in no apparent distress. Behavior is cooperative, appropriate for age, bp anxious. Pain: Complains of pain in chest. EENT: No deficits noted. Neuro: No deficits noted. Cardiovascular: No deficits noted. Respiratory: No deficits noted. GI: No signs and/or symptoms were reported involving the gastrointestinal system. : No signs and/or symptoms were reported regarding the genitourinary system. Derm: No deficits noted. Musculoskeletal: No deficits noted. Historical: - Allergies: 11:16 PENICILLINS; ss - PMHx: 11:16 acid reflux (Hypercholesterolemi); Anxiety; Depression; Diabetes - NIDDM; ss Gastroesophageal reflux disease; Hypercholesterolemia; - PSHx: 11:16 Appendectomy; section; Cholecystectomy; hysterectomy; Left Rotator Cuff; ss - Immunization history:: Client reports having NOT received the Covid vaccine. - Infectious Disease History:: Denies. - Social history:: Smoking status: Patient denies any tobacco usage or history of. Screenin:15 [facility] ED Fall Risk Assessment (Adult) History of falling in the last 3 months, bp including since admission No falls in past 3 months (0 pts) Confusion or Disorientation No (0 pts) Intoxicated or Sedated No (0 pts) Impaired Gait No (0 pts) Mobility Assist Device Used No (0 pt) Altered Elimination No (0 pt) Score/Fall Risk Level 0 - 2 = Low Risk. Abuse screen: Denies threats or abuse. Denies injuries from another. Nutritional screening: No deficits noted. Tuberculosis screening: No symptoms or risk factors identified. Assessment: 11:15 General: Appears in no apparent distress. Behavior is cooperative, appropriate for age, bp anxious. Vital Signs: 11:15 BP 139 / 90; Pulse 86; Resp 16; Temp 98.6(TE); Pulse Ox 100% on R/A; Weight 63.5 kg; ss Height 4 ft. 11 in. ; Pain 5/10; 11:15 Body Mass Index 28.28 (63.50 kg, 149.86 cm) ss 11:15 Pain Scale: Adult ss ED Course: 11:03 Patient arrived in ED. ra3 11:06 Sumaya Swenson [facility]C [facility]. kb 11:06 Loco Ramos MD is Attending Physician. kb 11:15 Patient has correct armband on for positive identification. bp 11:16 Triage completed. ss 11:16 Arm band placed on left wrist. ss 11:23 Joshua Valentino, RN is Primary Nurse. bp 11:40 Chest Single View XRAY In Process Unspecified. EDMS 12:19 No provider procedures requiring assistance completed. Patient did not have IV access bp during this emergency room visit. Administered Medications: 12:08 CANCELLED (Duplicate Order): [id number] mg PO once kb 12:14 Drug: HYDROcodone-acetaminophen PO 5 mg-325 mg 1 tabs PO once Route: PO; bp 12:14 Follow up: Response: No adverse reaction bp 12:14 Drug: Ketorolac IM 30 mg IM once Route: IM; Site: right deltoid; bp 12:15 Follow up: Response: No adverse reaction bp Medication: 12:19 VIS not applicable for this client. bp Outcome: 12:08 Discharge ordered by . kb 12:19 Discharged to home ambulatory, bp 12:19 Condition: stable 12:19 Discharge instructions given to patient, Instructed on discharge instructions, follow up and referral plans. medication usage, Demonstrated understanding of instructions, follow-up care, medications, Prescriptions given X 2, 12:20 Patient left the ED. bp Signatures: Dispatcher [employer] EDMS Sumaya Swenson, VERONICA-C CAMOUFLAGE SPECIALIST-Ckb Roseline Barrow, RN RN ss Joshua Valentino RN RN bp Lilly Jones ra3
[2024-08-10] MEDS ORDERED: KETOROLAC 30 MG/ML INJ ONE (12:10)
[2024-08-10] MEDS ORDERED: HYDROCODONE/APAP 5/325 MG TAB ONE (12:11)
[2024-08-10 21:42] VITALS: BP 139/90; TEMP 98.6; O2SAT 100
== END 2024-08-10 12:20 | disposition home or self-care (01) ==
LOC: ER 11:01
DX: R07.1 Chest pain on breathing (principal); Z28.310 Unvaccinated for COVID-19
CPT/HCPCS: 71045; 96372; 99284

== ENCOUNTER 2024-12-30 19:14 | Emergency (ER) | payer BC, OTHER ==
[2024-12-30] MEDS ORDERED: NA CHLORIDE 0.9% 1,000 ML ONE (19:54)
[2024-12-30] MEDS ORDERED: BISACODYL 10 MG RECTAL SUPP ONE (19:54)
[2024-12-30] MEDS ORDERED: ONDANSETRON 4 MG/2 ML VIAL ONE (19:54)
[2024-12-30] MEDS ORDERED: FAMOTIDINE 20 MG/2 ML VIAL IV ONE (19:54)
[2024-12-30] MEDS ORDERED: LACTULOSE 20 GM/30 ML UCUP ONE (19:55)
[2024-12-30 19:58] LABS: Absolute Basophils 0.1 K/uL (0-0.5); Absolute Eosinophils 0.2 K/uL (0-0.5); Absolute Lymphocytes (CBC) 2.6 K/uL (0.7-4.9); Absolute Monocytes 0.4 K/uL (0.1-1.3); Basophils % 0.9 % (0-1.3); Eosinophils % 2.9 % (0-4.4); Hemoglobin 11.8 g/dL (12.0-15.0); Lymphocytes % 41.3 % (15.3-44.8); MCH 29.7 pg (27.0-35.0); MCHC 33.6 g/dL (32.0-36.0); MCV 88.3 fL (80-100); MPV 7.5 fL (7.6-11.3); Monocytes % 6.3 % (3.3-12.3); Neutrophils % 48.6 % (41.7-73.7); Nucleated Red Blood Cells % 0.1 % (0-0); Platelets 279 thou/uL (152-406); RBC Red Blood Cell Count 3.97 M/uL (3.86-4.86); Red Cell Distribution Width 12.6 % (12.1-15.2)
[2024-12-30 20:02] LABS: Specific Gravity 1.012 (1.005-1.030); Sqamous Epithelial <5 /HPF (None Seen); Urine Bacteria <20 /HPF (<20); Urine Bilirubin NEGATIVE (Negative); Urine Blood Trace (Negative); Urine Clarity Extremely Turbid (Clear); Urine Color Colorless (Yellow); Urine Crystals Unidentified Few /HPF (None Seen); Urine Culture Reflex Order REFLEXED; Urine Glucose NEGATIVE (Negative); Urine Ketones NEGATIVE (Negative); Urine Microscopic Reflex YN ORDER UMIC; Urine Mucus Slight /HPF (None Seen); Urine Nitrite 1+ (Negative); Urine Protein 1+ (Negative); Urine Urobilinogen Normal (Normal); Urine WBC >50 /HPF (<5); Urine WBC Clump Few /HPF (None Seen); Urine Yeast (Budding) Many /HPF (None Seen); Urine pH 7.5 (5.0-7.0)
[2024-12-30 20:15] LABS: Albumin 3.7 g/dL (3.4-5.0); Albumin/Globulin Ratio 0.8 (1.1-1.8); Anion Gap 9.4 mEq/L (5.0-15.0); Bilirubin Total 1.3 mg/dL (0.2-1.0); Globulin 4.6 g/dL (2.3-3.5); Potassium 3.4 mEq/L (3.5-5.1); Protein, Total 8.3 g/dL (6.4-8.2)
[2024-12-30] MEDS ORDERED: METOCLOPRAMIDE 10 MG/2mL INJ ONE (20:46)
--- NOTE | 2024-12-30 22:20 | RAD REPORT ---
EXAMINATION: CT ABDOMEN AND PELVIS WITHOUT CONTRAST CLINICAL INDICATION: Female, 54 years old.CONSTIPATION TECHNIQUE: CT abdomen and pelvis was performed, without IV contrast, as per department protocol. Axia l, sagittal and coronal reconstructions were obtained. One or more of the following dose reduction techniques were used: Automated exposure control, adjustment of the mA and/or kV according to the pat ient size, and/or iterative reconstruction. Unless otherwise specified, incidental findings do not require dedicated imaging follow-up. [id number]. IV CONTRAST: Not administered. COMPARISON: 04/12/2024 FINDINGS: The lack of intravenous contrast limits the sensitivity of this exam for evaluation of solid visceral organs, vascular structures, and retroperitoneum. LOWER CHEST: No acute process identified.Small pericardial effusion. Mild coronary artery calcificati ons. UPPER GI: No significant abnormality. LIVER: No significant focal abnormality. GALLBLADDER/BILE DUCTS: Cholecystectomy. Mild extra-hepatic biliary ductal dilatation is likely relat ed to the post-cholecystectomy state. Consider correlating with LFT's.? PANCREAS: No mass, ductal dilation, or gina-pancreatic fluid. SPLEEN: Unremarkable. ADRENALS: No adrenal masses. KIDNEYS AND URETERS: No hydronephrosis.Limited evaluation for renal lesions in the absence of IV cont rast.Partially duplicated right renal collecting system.Small nonobstructing bilateral renal calculi. ABDOMINAL AORTA AND OTHER VESSELS: Mild atherosclerotic changes. PERITONEUM: No abnormal free fluid. No free air. LYMPH NODES: No pathologic lymphadenopathy. ABDOMINAL WALL: Unremarkable SMALL BOWEL/COLON: Rectal wall thickening.Appendix absent. Mild diverticulosis without diverticulitis . URINARY BLADDER: Underdistended but grossly unremarkable. REPRODUCTIVE ORGANS: Uterus surgically absent or atrophic. No adnexal abnormality. MUSCULOSKELETAL: Multilevel degenerative changes in the spine. No acute fracture. ADDITIONAL FINDINGS: None. IMPRESSION: Rectal wall thickening consistent with proctitis. No other acute findings identified. Ancillary findings as noted above.
[2024-12-30] MEDS ORDERED: NA CHLORIDE 0.9% 100 ML ONE (22:43)
[2024-12-30] MEDS ORDERED: CEFTRIAXONE 1000 MG/VIAL ONE (22:43)
--- NOTE | 2024-12-30 22:58 | EDPHYS ---
Physician Documentation [facility] Name: Denise Solano Age: 54 yrs Sex: Female : 1970 Arrival Date: 12/30/2024 Time: 19:14 Bed 13 Private MD: ED Physician Marli Plunkett HPI: 12/30 19:50 This 54 yrs old Female presents to ER via Ambulatory with complaints of cp Constipation, Nausea. 19:50 The patient presents with abdominal pain constipation and nausea. Onset: The cp symptoms/episode began/occurred patient reports last normal bowel movement was 2 weeks ago but has had small bowel movement up until this past Monday. 19:50 Associated signs and symptoms: Pertinent negatives: anorexia, blood in stools, chest cp pain, diarrhea, fever, vomiting. The symptoms are described as crampy. 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 - Infectious Disease History:: Denies. - Social history:: Smoking status: Patient denies any tobacco usage or history of. ROS: 19:55 Constitutional: Negative for body aches, chills, fever, poor PO intake, cp 19:55 Eyes: Negative for injury, pain, redness, and discharge, cp 19:55 ENT: Negative for drainage from ear(s), ear pain, sore throat, difficulty swallowing, difficulty handling secretions, 19:55 Cardiovascular: Negative for chest pain, edema, palpitations, 19:55 Respiratory: Negative for cough, shortness of breath, wheezing, 19:55 Abdomen/GI: Positive for abdominal pain, nausea, constipation, Negative for vomiting, diarrhea, anorexia, black/tarry stool, rectal bleeding, 19:55 Back: Negative for pain at rest, pain with movement, 19:55 : Negative for urinary symptoms, 19:55 Neuro: Negative for altered mental status, dizziness, headache, syncope, weakness, 19:55 All other systems are negative, Exam: 20:00 Constitutional: The patient appears in no acute distress, alert, awake, cp non-diaphoretic, non-toxic, well developed, well nourished, uncomfortable, 20:00 Head/Face: Normocephalic, atraumatic. cp 20:00 Eyes: Periorbital structures: appear normal, Conjunctiva: normal, no exudate, no injection, Sclera: no appreciated abnormality, Lids and lashes: appear normal, bilaterally, 20:00 ENT: External ear(s): are unremarkable, Nose: is normal, Mouth: Lips: moist, Oral mucosa: moist, Posterior pharynx: Airway: no evidence of obstruction, patent, 20:00 Chest/axilla: Inspection: normal, 20:00 Cardiovascular: Rate: normal, Rhythm: regular, Edema: is not appreciated, JVD: is not appreciated, 20:00 Respiratory: the patient does not display signs of respiratory distress, Respirations: normal, no use of accessory muscles, no retractions, labored breathing, is not present, Breath sounds: are clear throughout, no decreased breath sounds, no stridor, no wheezing, 20:00 Abdomen/GI: Inspection: abdomen appears normal, Bowel sounds: active, all quadrants, Palpation: soft, in all quadrants, mild abdominal tenderness, in all quadrants, rebound tenderness, is not appreciated, voluntary guarding, is not appreciated, involuntary guarding, is not appreciated, 20:00 Back: pain, is absent, ROM is normal, 20:00 Neuro: Orientation: to person, place \T\ time. Mentation: is normal, Motor: moves all fours, strength is normal, Vital Signs: 19:20 BP 184 / 103; Pulse 95; Resp 18; Temp 98.6; Pulse Ox 100% ; Weight 66.22 kg; Height 4 ll1 ft. 11 in. ; Pain 5/10; 20:00 BP 176 / 98; Pulse 92; Resp 18; Pulse Ox 100% ; me1 21:00 BP 170 / 87; Pulse 88; Resp 16; Pulse Ox 98% ; me1 22:00 BP 172 / 78; Pulse 86; Resp 16; Pulse Ox 99% ; me1 23:00 BP 136 / 95; Pulse 84; Resp 17; Temp 98.1; Pulse Ox 100% ; me1 19:20 Body Mass Index 29.49 (66.22 kg, 149.86 cm) ll1 19:20 Pain Scale: Adult ll1 MDM: 19:33 Medical Screening Exam initiated 20:00 Differential diagnosis: bowel obstruction, gastritis, non-specific abd pain, cp pancreatitis, Pyelonephritis, Ureterolithiasis, urinary tract infection, rectal impaction. 22:58 Data reviewed: vital signs, nurses notes, lab test result(s), radiologic studies, CT cp scan, and as a result, I will discharge patient. 22:58 I considered the following discharge prescriptions or medication management in the emergency department Medications were administered in the Emergency Department. See MAR. Care significantly affected by the following chronic conditions: Diabetes. Counseling: I had a detailed discussion with the patient and/or guardian regarding the historical points, exam findings, and any diagnostic results supporting the discharge/admit diagnosis, lab results, radiology results, to return to the emergency department if symptoms worsen or persist or if there are any questions or concerns that arise at home. Response to treatment: the patient's symptoms have markedly improved after treatment, patient reports having bowel movement while in ED, and as a result, I will discharge patient. Special discussion: Based on the patient's Hx, exam, and Dx evaluation, there is no indication for emergent surgery or inpatient Tx. It is understood by the patient/guardian that if the Sx's persist or worsen they need to return immediately for re-evaluation. 12/30 19:42 Order name: CBC with Diff; Complete Time: 20:46 12/30 20:46 Interpretation: Normal except: HGB 11.8; HCT 35.0; MPV 7.5. 12/30 19:42 Order name: CMP; Complete Time: 20:46 cp 12/30 20:46 Interpretation: Normal except: K 3.4; GFR 72; BILIT 1.3; TP 8.3; GLOB 4.6; A/G 0.8. 12/30 19:42 Order name: Lipase; Complete Time: 20:46 12/30 19:42 Order name: Urinalysis w/ reflexes; Complete Time: 20:46 cp 12/30 20:09 Order name: Urine Culture EDMS 12/30 19:42 Order name: CT Abd/Pelvis - Without Cont (PO Contrast Only); Complete Time: 22:24 cp 12/30 19:42 Order name: IV Saline Lock; Complete Time: 19:59 cp 12/30 19:42 Order name: Labs collected and sent; Complete Time: 19:59 cp Administered Medications: 20:00 Drug: Famotidine IVP 20 mg IVP once; dilute with 10 mL 0.9% NaCl; give over 2 minutes me1 Route: IVP; Site: right antecubital; 20:43 Follow up: Response: No adverse reaction me1 20:00 Drug: Ondansetron IVP 4 mg IVP once; over 2 minutes Route: IVP; Site: right antecubital;me1 20:43 Follow up: Response: No adverse reaction; Nausea is decreased me1 20:00 Drug: NS 0.9% IV 1000 ml IV at 1 bolus Per protocol; to be given as a bolus over 60 me1 minutes Route: IV; Rate: 1 bolus; Site: right antecubital; 21:33 Follow up: Response: No adverse reaction; IV Status: Completed infusion; IV Intake: me1 1000ml 20:00 Drug: Lactulose PO 30 grams 45 ml PO once Volume: 45 ml; Route: PO; me1 22:40 Follow up: Response: No adverse reaction; Marked relief of symptoms me1 20:00 Drug: Dulcolax WA Suppository 10 mg WA once Route: WA; me1 22:40 Follow up: Response: No adverse reaction; Marked relief of symptoms me1 20:48 Drug: metoCLOPramide IVP 10 mg IVP once; over 1 to 2 minutes Route: IVP; Site: right me1 antecubital; 21:33 Follow up: Response: No adverse reaction; Nausea is decreased me1 22:47 Drug: Rocephin IV 1 grams IV at calculated rate once; Given slow IV push per pharmacy me1 instructions Route: IV; Rate: calculated rate; Site: right antecubital; 23:02 Follow up: Response: No adverse reaction; IV Status: Completed infusion me1 Disposition Summary: 12/30/24 22:58 Discharge Ordered Notes: Location: Home cp Problem: new cp Symptoms: have improved cp Condition: Stable cp Diagnosis - Constipation, unspecified cp - Nausea with vomiting, unspecified cp - UTI/ Urinary tract infection, site not specified cp - Hypertensive heart disease without heart failure cp Followup: cp - With: Private Physician - When: 2 - 3 days - Reason: Worsening of condition Discharge Instructions: - Discharge Summary Sheet cp - Constipation, Adult cp - Hypertension, Adult cp - Nausea and Vomiting, Adult cp - Urinary Tract Infection, Adult cp - Form - Blood Pressure Record Sheet cp - How to Take Your Blood Pressure cp Forms: - Medication Reconciliation Form cp - Antibiotic Education cp - Prescription Opioid Use cp - Patient Portal Instructions cp - Leadership Thank You Letter cp Prescriptions: - Cipro 500 mg Oral Tablet - take 1 tablet ORAL route every 12 hours for 7 days; 14 tablet; Refills: 0, cp Product Selection Permitted - ondansetron 8 mg Oral Tablet,disintegrating - take 1 tablet ORAL route every 12 hours; 15 tablet; Refills: 0, Product cp Selection Permitted Signatures: Dispatcher [employer] EDMS Loco Johnson PA PA cp Franc Infante RN RN ll1 Glenys Mix RN RN me1 Corrections: (The following items were deleted from the chart) 19:42 19:42 CBC+H.LAB.BRZ ordered. EDMS EDMS 19:42 19:42 COMPREHENSIVE METABOLIC PANEL+C.LAB.BRZ ordered. EDMS EDMS 19:42 19:42 LIPASE+C.LAB.BRZ ordered. EDMS EDMS 19:42 19:42 Urinalysis+U.LAB.BRZ ordered. EDMS EDMS
--- NOTE | 2024-12-30 22:58 | ER ---
Nurse's Notes [facility] Name: Denise Solano Age: 54 yrs Sex: Female : 1970 Arrival Date: 12/30/2024 Time: 19:14 Bed 13 Private MD: Diagnosis: Constipation, unspecified;Nausea with vomiting, unspecified;UTI/ Urinary tract infection, site not specified;Hypertensive heart disease without heart failure Presentation: 12/30 19:20 Chief complaint: Patient states: I have been constipated since Monday and that not ll1 normal for me. Coronavirus screen: At this time, the client does not indicate any symptoms associated with coronavirus-19. Ebola Screen: Patient negative for fever greater than or equal to 101.5 degrees Fahrenheit, and additional compatible Ebola Virus Disease symptoms Patient denies exposure to infectious person. Patient denies travel to an Ebola-affected area in the 21 days before illness onset. Initial Sepsis Screen: Does the patient meet any 2 criteria? No. Patient's initial sepsis screen is negative. Does the patient have a suspected source of infection? No. Patient's initial sepsis screen is negative. Risk Assessment: Do you want to hurt yourself or someone else? Patient reports no desire to harm self or others. Onset of symptoms was December 27, 2024. 19:20 Method Of Arrival: Ambulatory ll1 19:20 Acuity: FE 3 ll1 Triage Assessment: 19:21 General: Appears in no apparent distress. comfortable, Behavior is calm, cooperative, ll1 appropriate for age. Pain: Complains of pain in abdomen Pain currently is 5 out of 10 on a pain scale. Neuro: No deficits noted. Level of Consciousness is awake, alert, obeys commands, Oriented to person, place, time, situation, Appropriate for age. Cardiovascular: Denies chest pain, Capillary refill < 3 seconds in bilateral fingers Patient's skin is warm and dry. Respiratory: Airway is patent Respiratory effort is even, unlabored, Respiratory pattern is regular, symmetrical. GI: Abdomen is flat, non-distended, Bowel sounds present X 4 quads. Abdomen is tender to palpation in right upper quadrant, left upper quadrant, right lower quadrant and left lower quadrant Reports bloating, constipation, nausea, Pain is 5 out of 10 on a pain scale. vomiting. : No signs and/or symptoms were reported regarding the genitourinary system. COOKER SULFATE: 23:07 LMP N/A - Post-menopause, Not me1 Historical: - Allergies: 19:21 PENICILLINS; ll1 19:21 Latex, Natural Rubber; ll1 - Home Meds: 19:21 Lantus U-100 Insulin 100 unit/mL subcutaneous solution 35 units daily [Active]; ll1 rosuvastatin 10 mg oral tablet 1 tab daily [Active]; Fish Oil oral [Active]; - PMHx: 19:21 acid reflux (Hypercholesterolemi); Anxiety; Diabetes - NIDDM; Depression; ll1 Gastroesophageal reflux disease; Hypercholesterolemia; - PSHx: 19:21 Appendectomy; section; Cholecystectomy; hysterectomy; Left Rotator Cuff; ll1 - Immunization history:: Adult Immunizations up to date. - Infectious Disease History:: Denies. - Social history:: Smoking status: Patient denies any tobacco usage or history of. Screenin:30 [facility] ED Fall Risk Assessment (Adult) History of falling in the last 3 months, me1 including since admission No falls in past 3 months (0 pts) Confusion or Disorientation No (0 pts) Intoxicated or Sedated No (0 pts) Impaired Gait No (0 pts) Mobility Assist Device Used No (0 pt) Altered Elimination No (0 pt) Score/Fall Risk Level 0 - 2 = Low Risk Maintained a safe environment, Provided non-skid footwear, Hourly rounding (assess needs \T\ fall precautionary measures) done. Abuse screen: Denies threats or abuse. Nutritional screening: No deficits noted. Tuberculosis screening: No symptoms or risk factors identified. Assessment: 19:30 General: Appears uncomfortable, well groomed, well developed, well nourished, Behavior me1 is calm, cooperative, appropriate for age, Reports I have been constipated since Monday and that not normal for me. Pain: Complains of pain in left lower quadrant and right lower quadrant and left upper quadrant and right upper quadrant and abdomen Pain does not radiate. Pain currently is 4 out of 10 on a pain scale. Quality of pain is described as pressure, Pain began gradually, Is continuous. Neuro: Level of Consciousness is awake, alert, obeys commands, Oriented to person, place, time, situation, Appropriate for age. Cardiovascular: Patient's skin is warm and dry. Respiratory: Airway is patent Respiratory effort is even, unlabored, Respiratory pattern is regular, symmetrical. GI: Reports constipation, nausea, since Monday. : No signs and/or symptoms were reported regarding the genitourinary system. EENT: No signs and/or symptoms were reported regarding the EENT system. Derm: Skin is intact, is healthy with good turgor, Skin is pink, warm \T\ dry. Musculoskeletal: No signs and/or symptoms reported regarding the musculoskeletal system. Vital Signs: 19:20 BP 184 / 103; Pulse 95; Resp 18; Temp 98.6; Pulse Ox 100% ; Weight 66.22 kg; Height 4 ll1 ft. 11 in. ; Pain 5/10; 20:00 BP 176 / 98; Pulse 92; Resp 18; Pulse Ox 100% ; me1 21:00 BP 170 / 87; Pulse 88; Resp 16; Pulse Ox 98% ; me1 22:00 BP 172 / 78; Pulse 86; Resp 16; Pulse Ox 99% ; me1 23:00 BP 136 / 95; Pulse 84; Resp 17; Temp 98.1; Pulse Ox 100% ; me1 19:20 Body Mass Index 29.49 (66.22 kg, 149.86 cm) ll1 19:20 Pain Scale: Adult ll1 ED Course: 19:15 Patient arrived in ED. [id number] 19:16 Loco Johnson PA is PHCP. cp 19:16 Marli Plunkett MD is Attending Physician. cp 19:21 Triage completed. ll1 19:25 Arm band placed on right wrist. ll1 19:30 Patient has correct armband on for positive identification. Bed in low position. Call [facility] light in reach. Side rails up X 1. Provided Education on: POC. Verbalized understanding.. Client placed on continuous cardiac and pulse oximetry monitoring. NIBP monitoring applied. Pulse ox on. NIBP on. 19:30 No provider procedures requiring assistance completed. me1 19:34 Glenys Mix, RN is Primary Nurse. me1 19:59 Initial lab(s) drawn, by ut, sent to lab. Urine collected: clean catch specimen, ut1 cloudy. Inserted saline lock: 22 gauge in right antecubital area, using aseptic technique. 19:59 CBC with Diff Sent. me1 19:59 CMP Sent. me1 19:59 Lipase Sent. me1 19:59 Urinalysis w/ reflexes Sent. me1 22:04 CT Abd/Pelvis - Without Cont (PO Contrast Only) In Process Unspecified. EDMS 23:07 IV discontinued, intact, bleeding controlled, No redness/swelling at site. Pressure me1 dressing applied. Administered Medications: 20:00 Drug: Famotidine IVP 20 mg IVP once; dilute with 10 mL 0.9% NaCl; give over 2 minutes me1 Route: IVP; Site: right antecubital; 20:43 Follow up: Response: No adverse reaction me1 20:00 Drug: Ondansetron IVP 4 mg IVP once; over 2 minutes Route: IVP; Site: right antecubital;me1 20:43 Follow up: Response: No adverse reaction; Nausea is decreased me1 20:00 Drug: NS 0.9% IV 1000 ml IV at 1 bolus Per protocol; to be given as a bolus over 60 me1 minutes Route: IV; Rate: 1 bolus; Site: right antecubital; 21:33 Follow up: Response: No adverse reaction; IV Status: Completed infusion; IV Intake: me1 1000ml 20:00 Drug: Lactulose PO 30 grams 45 ml PO once Volume: 45 ml; Route: PO; me1 22:40 Follow up: Response: No adverse reaction; Marked relief of symptoms me1 20:00 Drug: Dulcolax WA Suppository 10 mg WA once Route: WA; me1 22:40 Follow up: Response: No adverse reaction; Marked relief of symptoms me1 20:48 Drug: metoCLOPramide IVP 10 mg IVP once; over 1 to 2 minutes Route: IVP; Site: right ut1 antecubital; 21:33 Follow up: Response: No adverse reaction; Nausea is decreased me1 22:47 Drug: Rocephin IV 1 grams IV at calculated rate once; Given slow IV push per pharmacy me1 instructions Route: IV; Rate: calculated rate; Site: right antecubital; 23:02 Follow up: Response: No adverse reaction; IV Status: Completed infusion me1 Medication: 19:30 VIS not applicable for this client. me1 Intake: 21:33 IV: 1000ml; Total: 1000ml. me1 Outcome: 22:58 Discharge ordered by cp 23:07 Discharged to home ambulatory, with significant other, me1 23:07 Condition: stable 23:07 Discharge instructions given to patient, significant other, Instructed on discharge instructions, follow up and referral plans. medication usage, Demonstrated understanding of instructions, follow-up care, medications, Prescriptions given X 2, 23:08 Patient left the ED. me1 Signatures: Dispatcher [employer] EDMS Loco Johnson PA PA cp Lewis, Lynsay, RN RN 1 Breanne Logan [email or web address] Glenys Mix RN RN me1 Corrections: (The following items were deleted from the chart) 20:41 19:20 Chief complaint: Patient states: I have been constipated since Monday and that me1 not normal for me ll1 23:07 23:00 BP 173 / 81; Pulse 84bpm; Resp 17bpm; Pulse Ox 100%; Temp 98.1F; me1 me1
[2024-12-30 23:30] VITALS: BP 136/95; TEMP 98.1; O2SAT 100
== END 2024-12-30 23:08 | disposition home or self-care (01) ==
LOC: ER 19:14
DX: K59.00 Constipation, unspecified (principal); N39.0 Urinary tract infection, site not specified; I11.9 Hypertensive heart disease without heart failure; R11.2 Nausea with vomiting, unspecified; E11.9 Type 2 diabetes mellitus without complications; Z79.4 Long term (current) use of insulin
CPT/HCPCS: 96361; 87088; 85025; 81001; 87086; 36415; 83690; 80053; 74176; 96375; 96374; 99284; J2765; J2405; J7030; J0696